=== PATIENT | female | born 1935 | race Caucasian/White ===

== ENCOUNTER 2018-08-11 10:54 | Inpatient (IN) | payer BC, MEDICARE ==
[~2018-08-11] VITALS: Ht 160 cm; Wt 73.2 kg
[2018-08-11] MEDS ORDERED: NS IV 500 ML 500 ML IV ONE (11:13)
--- NOTE | 2018-08-11 11:26 | ED General ---
General Chief Complaint: General Problems/Pain Stated Complaint: LETHARGIC;URINARY PAIN Nursing Triage Note: PT TO ROOM 5 PER W/C PT CO OF WEAKNESS, INCREASED CONFUSEION LETHARGY, NOT FEELING WELL HAS HX OF UTI Nursing Sepsis Screen: No Definite Risk Source of Information: Patient Exam Limitations: No Limitations History of Present Illness Date Seen by Provider: Aug 11, 2018 Time Seen by Provider: 11:05 Initial Comments Here with report of increasing weakness and confusion associated with lethargy. Does have history of frequent and chronic urinary tract infections. Occasionally she will get sicker and require antibiotics. She was seen by her provider earlier this week and had UA done. Results are not posted yet. Patient was getting worse and provider wanted to be seen in the emergency department. She arrives week but answering questions. Does have history of dementia and confusion. 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 No reports of vomiting but does have diarrhea. No reports of fever currently. Family reports that the patient has been eating and drinking less and sleeping more. Timing/Duration: 3-4 Days, Getting Worse Severity: Moderate Associated Systoms: No Chest Pain, No Cough, No Fever/Chills; Loss of Appetite ; No Nausea/Vomiting; Shortness of Air, Weakness Allergies and Home Medications Allergies Coded Allergies: SYLVIE Inhibitors (Verified Allergy, Unknown, 08/11/18) Penicillins (Verified Allergy, Unknown, 08/11/18) Sulfa (Sulfonamide Antibiotics) (Verified Allergy, Unknown, 08/11/18) amlodipine (Verified Allergy, Unknown, 08/11/18) ciprofloxacin (Verified Allergy, Unknown, 08/11/18) diltiazem (Verified Allergy, Unknown, 08/11/18) levofloxacin (Verified Allergy, Unknown, 08/11/18) loratadine (Verified Allergy, Unknown, 08/11/18) pseudoephedrine (Verified Allergy, Unknown, 08/11/18) simvastatin (Verified Allergy, Unknown, 08/11/18) Patient Home Medication List Home Medication List Reviewed: Yes Review of Systems Review of Systems Constitutional: see HPI; No chills, No fever EENTM: no symptoms reported Respiratory: no symptoms reported; No cough, No wheezing Cardiovascular: No chest pain, No edema Gastrointestinal: abdominal pain (suprapubic), diarrhea; No nausea, No vomiting Genitourinary: see HPI : No Musculoskeletal: no symptoms reported Skin: no symptoms reported Psychiatric/Neurological: See HPI; Denies Headache; Weakness Hematologic/Lymphatic: No Symptoms Reported All Other Systems Reviewed Negative Unless Noted: Yes Past Wlvvqhz-Wzgrdt-Czujjw Hx Past Med/Social Hx: Reviewed Nursing Past Med/Soc Hx Patient Social History Alcohol Use: Denies Use Recreational Drug Use: No Smoking Status: Never a Smoker Recent Foreign Travel: No Contact w/Someone Who Travel: No Recent Infectious Disease Expo: No Recent Hopitalizations: No Physical Abuse: No Sexual Abuse: No Seasonal Allergies Seasonal Allergies: No Past Medical History Surgeries: Yes Cardiac, Coronary Stent, Gallbladder, Nephrectomy Respiratory: No Cardiac: Yes (PACEMAKER, CHF) Hypertension Stroke Genitourinary: Yes (NEPHRECTOMY) UTI-Chronic Gastrointestinal: No Musculoskeletal: Yes Arthritis Endocrine: Yes Diabetes, Non-Insulin dep HEENT: No Cancer: No Psychosocial: No Integumentary: No Family Medical History Reviewed Nursing Family Hx Physical Exam-Suspected Sepsis Physical Exam Vital Signs Vital Signs - First Documented 08/11/18 11:00 Temp 98.4 Pulse 83 Resp 18 B/P (MAP) 175/77 (109) Pulse Ox 95 Capillary Refill : Less Than 3 Seconds Blood Pressure Mean: 109 Height, Weight, BMI Height: 5'3.00" Weight: 153lbs. oz. 69.169917jo; BMI Method:Stated General Appearance: No Apparent Distress, WD/WN HEENT: PERRL/EOMI, Pharynx Normal Neck: Non Tender, Supple Respiratory: Lungs Clear, Normal Breath Sounds Cardiovascular: No Murmur, Tachycardia Gastrointestinal: Soft, Tenderness (mild suprapubic) Back: Normal Inspection, No CVA Tenderness, No Vertebral Tenderness Extremity: Normal Inspection, Normal Range of Motion, Non Tender, No Calf Tenderness Neurologic/Psychiatric: Alert, No Motor/Sensory Deficits, Depressed Affect, Other (has chronic confusion but a little worse than baseline per the daughter) Skin: normal color, warm/dry Focused Exam Lactate Level 08/11/18 11:39: Lactic Acid Level 2.70*H 08/11/18 13:52: Lactic Acid Level Laboratory Tests Test 08/11/18 11:39 08/11/18 13:52 Lactic Acid Level 2.70 MMOL/L (0.50-2.00) *H Progress/Results/Core Measures Suspected Sepsis Recent Fever Within 48 Hours: No Infection Criteria Present: Suspected New Infection New/Unexplained Altered Menta: No Sepsis Screen: No Definite Risk SIRS Temperature:98.4 Pulse: 83 Respiratory Rate: 18 Laboratory Tests 08/11/18 11:39: White Blood Count 6.9 Blood Pressure 175 /77 Mean: 109 08/11/18 11:39: Lactic Acid Level 2.70*H 08/11/18 13:52: Laboratory Tests 08/11/18 11:39: Creatinine 1.79H, INR Comment 1.9H, Platelet Count 220, Total Bilirubin 0.5 Results/Orders Lab Results Laboratory Tests Test 08/11/18 11:30 08/11/18 11:39 08/11/18 13:52 Range/Units Urine Color YELLOW Urine Clarity VERY CLOUDY H Urine pH 6 5-9 Urine Specific [place] 1.020 1.016-1.022 Urine Protein 4+ NEGATIVE Urine Glucose (UA) 2+ H NEGATIVE Urine Ketones NEGATIVE NEGATIVE Urine Nitrite POSITIVE H NEGATIVE Urine Bilirubin NEGATIVE NEGATIVE Urine Urobilinogen NORMAL NORMAL MG/DL Urine Leukocyte Esterase 3+ H NEGATIVE Urine RBC (Auto) 5+ H NEGATIVE Urine RBC TNTC H /HPF Urine WBC TNTC H /HPF Urine Crystals NONE /LPF Urine Bacteria LARGE H /HPF Urine Casts NONE /LPF Urine Mucus NEGATIVE /LPF Urine Culture Indicated YES White Blood Count 6.9 4.3-11.0 10^3/uL Red Blood Count 4.17 L 4.35-5.85 10^6/uL Hemoglobin 11.9 11.5-16.0 G/DL Hematocrit 36 35-52 % Mean Corpuscular Volume 85 80-99 FL Mean Corpuscular Hemoglobin 29 25-34 PG Mean Corpuscular Hemoglobin Concent 33 32-36 G/DL Red Cell Distribution Width 13.7 10.0-14.5 % Platelet Count 220 130-400 10^3/uL Mean Platelet Volume 11.6 H 7.4-10.4 FL Neutrophils (%) (Auto) 79 H 42-75 % Lymphocytes (%) (Auto) 10 L 12-44 % Monocytes (%) (Auto) 11 0-12 % Eosinophils (%) (Auto) 0 0-10 % Basophils (%) (Auto) 0 0-10 % Neutrophils # (Auto) 5.4 1.8-7.8 X 10^3 Lymphocytes # (Auto) 0.7 L 1.0-4.0 X 10^3 Monocytes # (Auto) 0.7 0.0-1.0 X 10^3 Eosinophils # (Auto) 0.0 0.0-0.3 10^3/uL Basophils # (Auto) 0.0 0.0-0.1 10^3/uL Prothrombin Time 22.2 H 12.2-14.7 SEC INR Comment 1.9 H 0.8-1.4 Activated Partial Thromboplast Time 45 H 24-35 SEC Sodium Level 135 135-145 MMOL/L Potassium Level 4.2 3.6-5.0 MMOL/L Chloride Level 100 98-107 MMOL/L Carbon Dioxide Level 24 21-32 MMOL/L Anion Gap 11 5-14 MMOL/L Blood Urea Nitrogen 16 7-18 MG/DL Creatinine 1.79 H 0.60-1.30 MG/DL Estimat Glomerular Filtration Rate 27 BUN/Creatinine Ratio 9 Glucose Level 244 H 70-105 MG/DL Lactic Acid Level 2.70 *H 0.50-2.00 MMOL/L Calcium Level 9.1 8.5-10.1 MG/DL Corrected Calcium 9.7 8.5-10.1 MG/DL Total Bilirubin 0.5 0.1-1.0 MG/DL Aspartate Amino Transf (AST/SGOT) 22 5-34 U/L Alanine Aminotransferase (ALT/SGPT) 16 0-55 U/L Alkaline Phosphatase 51 40-136 U/L Total Protein 6.3 L 6.4-8.2 GM/DL Albumin 3.3 3.2-4.5 GM/DL Micro Results Microbiology 08/11/18 Influenza Types A,B Antigen (JESUS ALBERTO) - Final, Complete My Orders Orders - ERIN VILLARREAL MD Cbc With Automated Diff (08/11/18 11:13) Comprehensive Metabolic Panel (08/11/18 11:13) Blood Culture (08/11/18 11:13) Sputum Culture (08/11/18 11:13) Urinalysis (08/11/18 11:13) Urine Culture (08/11/18 11:13) Protime With Inr (08/11/18 11:13) Partial Thromboplastin Time (08/11/18 11:13) Chest 1 View, Ap/Pa Only (08/11/18 11:13) Saline Lock/Iv-Start (08/11/18 11:13) Vital Signs Adult Sepsis Patie Q15M (08/11/18 11:13) Remove Rings In Anticipation O (08/11/18 11:13) Lactic Acid Analyzer (08/11/18 11:13) Influenza A And B Antigens (08/11/18 11:13) Saline Lock/Iv-Start (08/11/18 11:13) Ns Iv 500 Ml (Sodium Chloride 0.9%) (08/11/18 11:13) Ceftriaxone For Iv Use (Rocephin For I (08/11/18 13:45) Medications Given in ED Current Medications Medications Dose Ordered Sig/Fransisco Route Start Time Stop Time Status Last Admin Dose Admin Ceftriaxone Sodium 1000 mg/ Sterile Water 10 ml @ 200 mls/hr ONCE ONCE IV 08/11/18 13:45 08/11/18 13:47 DC 08/11/18 13:47 200 MLS/HR Sodium Chloride 500 ml @ 0 mls/hr Q0M ONCE IV 08/11/18 11:13 08/11/18 11:18 DC 08/11/18 11:44 500 MLS/HR Vital Signs/I&O 08/11/18 11:00 Temp 98.4 Pulse 83 Resp 18 B/P (MAP) 175/77 (109) Pulse Ox 95 Capillary Refill : Less Than 3 Seconds Blood Pressure Mean: 109 Progress Note : Progress Note Seen and evaluated. IV, labs, UA, blood cultures, lactic acid, chest x-ray ordered. Normal saline 500 mL bolus. Monitor patient.1335: Discussed with Dr Lopez regarding admit. She accepts patient for admit. Rocephine 1 gram IV now. Will continue fluids and sliding scale insulin. Discussed with family who agrees with plan. Diagnostic Imaging Diagonstic Imaging: Xray Plain Films/CT/US/NM/MRI: chest Comments [facility], [place] NAME: JUAN HURT Fran [facility] REC#: [id number] PT STATUS: REG ER : 1935 PHYSICIAN: ERIN VILLARREAL MD ADMIT DATE: 08/11/18/ER Draft Date of Exam:08/11/18 CHEST 1 VIEW, AP/PA ONLY INDICATION: Weakness and increasing confusion. TIME OF EXAM: 11:43 a.m. COMPARISON: No prior studies are available for comparison. FINDINGS: The heart is mildly enlarged. A dual-lead left subclavian cardiac pacer is in place. Lungs are clear. There is no infiltrate or failure detected. No effusion or pneumothorax is seen. IMPRESSION: No acute cardiopulmonary process is detected. Dictated on workstation # [id number] Dict: 08/11/18 1153 Trans: 08/11/18 1157 [id number] Interpreted by: CARLO STRAUSS MD Electronically signed by: Departure Communication (Admissions) Time/Spoke to Admitting Phy: 13:35 Impression Primary Impression: Urinary tract infection Qualified Codes: N30.00 - Acute cystitis without hematuria Additional Impression: Sepsis Qualified Codes: A41.9 - Sepsis, unspecified organism Disposition: ADMITTED INPATIENT Condition: Stable Admissions Decision to Admit Reason: Admit from ER (General) Decision to Admit/Date: Aug 11, 2018 Time/Decision to Admit Time: 13:35 ERIN VILLARREAL MD Aug 11, 2018 11:26
--- NOTE | 2018-08-11 11:30 | NUR ---
SEE LIST FOR CURRENT MEDS
[2018-08-11 11:51] LABS: BASOPHILS % (AUTO) 0 % (0-10); EOSINOPHILS % (AUTO) 0 % (0-10); HEMATOCRIT 36 % (35-52); HEMOGLOBIN 11.9 G/DL (11.5-16.0); LYMPHOCYTES # (AUTO) 0.7 X 10^3 (1.0-4.0); LYMPHOCYTES % (AUTO) 10 % (12-44); MEAN CORPUSCULAR HEMOGLOBIN 29 PG (25-34); MEAN CORPUSCULAR HGB CONC 33 G/DL (32-36); MEAN CORPUSCULAR VOLUME 85 FL (80-99); MEAN PLATELET VOLUME 11.6 FL (7.4-10.4); MONOCYTES # (AUTO) 0.7 X 10^3 (0.0-1.0); MONOCYTES % (AUTO) 11 % (0-12); NEUTROPHILS # (AUTO) 5.4 X 10^3 (1.8-7.8); NEUTROPHILS % (AUTO) 79 % (42-75); PLATELET COUNT 220 10^3/uL (130-400); RED CELL DISTRIBUTION WIDTH 13.7 % (10.0-14.5); WHITE BLOOD COUNT 6.9 10^3/uL (4.3-11.0)
[2018-08-11 11:51] LABS: BILIRUBIN,URINE NEGATIVE (NEGATIVE); CLARITY,URINE VERY CLOUDY; COLOR,URINE YELLOW; GLUCOSE, URINE (UA) 2+ (NEGATIVE); KETONES,URINE NEGATIVE (NEGATIVE); LEUKOCYTE ESTERASE ,URINE 3+ (NEGATIVE); NITRITE,URINE POSITIVE (NEGATIVE); PH,URINE 6 (5-9); PROTEIN,URINE 4+ (NEGATIVE); UROBILINOGEN,URINE NORMAL (NORMAL)
--- NOTE | 2018-08-11 11:58 | Diagnostic Imaging Report ---
INDICATION: Weakness and increasing confusion. TIME OF EXAM: 11:43 a.m. COMPARISON: No prior studies are available for comparison. FINDINGS: The heart is mildly enlarged. A dual-lead left subclavian cardiac pacer is in place. Lungs are clear. There is no infiltrate or failure detected. No effusion or pneumothorax is seen. IMPRESSION: No acute cardiopulmonary process is detected. Dictated by: Dictated on workstation # [id number]
[2018-08-11 12:04] LABS: INR 1.9 (0.8-1.4); PROTHROMBIN TIME PATIENT 22.2 SEC (12.2-14.7)
--- NOTE | 2018-08-11 12:10 | NUR ---
lactic acid 2.7 reported to TIM WASHINGTONP
[2018-08-11 12:11] LABS: ALBUMIN 3.3 GM/DL (3.2-4.5); BILIRUBIN,TOTAL 0.5 MG/DL (0.1-1.0); CALCIUM 9.1 MG/DL (8.5-10.1); CREATININE SERUM 1.79 MG/DL (0.60-1.30); POTASSIUM 4.2 MMOL/L (3.6-5.0); TOTAL PROTEIN 6.3 GM/DL (6.4-8.2)
[2018-08-11 12:26] LABS: BACTERIA,URINE LARGE /HPF; RBC,URINE TNTC /HPF; WBC,URINE TNTC /HPF
[2018-08-11] MEDS ORDERED: cefTRIAXone FOR IV USE 1,000 MG in WATER (STERILE) FOR INJECTION 10 ML IV ONE (13:45)
--- NOTE | 2018-08-11 14:02 | NUR ---
DR MARS HERE TO SEE PT
--- NOTE | 2018-08-11 14:33 | History & Physical-Hospitalist ---
History of Present Illness HPI/Chief Complaint Pt is an 83yoCF with a PMH chronic UTI, CKD, JOSH s/p nephrectomy, NIDDMII, paroxysmal AF who presented to the ER due to confusion. She is unable to provide me her history as she is pleasantly confused. Her daughter is at bedside who provides her history. She says pt is normally oriented to person and place. On 08/09 she started to get more confused which is typical when she has a UTI. They brought her to her doctor (Dr Acuna) who checked her urine but did not start her on antibiotics yet. Last night she became very weak and even more confused. She wouldn't eat and developed diarrhea. Her daughter called her doctor's office this morning who recommended evaluation in the ER given her worsening. Here she was found to have severe sepsis from UTI and admitted for further management. Source: patient Date Seen 08/11/18 Time Seen by a Provider: 14:26 Attending Physician Maxine Mars MD PCP Dr Alejandra Acuna Referring Physician Date of Admission Aug 11, 2018 at 14:02 Home Medications & Allergies Home Medications Reviewed patient Home Medication Reconciliation performed by pharmacy medication reconciliations coroner forensic technician and/or nursing. Patients Allergies have been reviewed. Allergies Allergies Coded Allergies SYLVIE Inhibitors (Verified Allergy, Unknown, 08/11/18) Penicillins (Unverified Allergy, Unknown, Pt has received Ancef in the past, ) Sulfa (Sulfonamide Antibiotics) (Verified Allergy, Unknown, 08/11/18) amlodipine (Verified Allergy, Unknown, 08/11/18) ciprofloxacin (Verified Allergy, Unknown, 08/11/18) diltiazem (Verified Allergy, Unknown, 08/11/18) levofloxacin (Verified Allergy, Unknown, 08/11/18) loratadine (Verified Allergy, Unknown, 08/11/18) pseudoephedrine (Verified Allergy, Unknown, 08/11/18) simvastatin (Verified Allergy, Unknown, 08/11/18) Past Nzodkqk-Absxxk-Cvddpx Hx Past Med/Social Hx: Reviewed Nursing Past Med/Soc Hx Patient Social History Marrital Status: Employed/Student: retired Alcohol Use: Denies Use Recreational Drug Use: No Smoking Status: Never a Smoker Recent Foreign Travel: No Contact w/other who traveled: No Recent Hopitalizations: No Recent Infectious Disease Expo: No Seasonal Allergies Seasonal Allergies: No Past Medical History Surgeries: Cardiac, Coronary Stent, Gallbladder, Nephrectomy Cardiac: Cardiomyopathy (diastolic), Hypertension, Valvular Heart Disease ( mitral regurgitation) Neurological: Dementia, Stroke Genitourinary: Renal Failure (CKD stage 3), UTI-Chronic JOSH s/p nephrectomy Musculoskeletal: Arthritis Endocrine: Diabetes, Non-Insulin dep Family History Reviewed Nursing Family Hx No Pertinent Family Hx Review of Systems Constitutional: No chills, No fever; weakness EENTM: no symptoms reported Respiratory: no symptoms reported Cardiovascular: no symptoms reported Gastrointestinal: diarrhea Genitourinary: see HPI, frequency Musculoskeletal: No back pain Skin: no symptoms reported Psychiatric/Neurological: No Symptoms Reported Physical Exam Physical Exam Vital Signs Vital Signs - First Documented 08/11/18 08/11/18 11:00 14:35 Temp 98.4 Pulse 83 Resp 18 B/P (MAP) 175/77 (109) Pulse Ox 95 O2 Delivery Room Air Capillary Refill : Less Than 3 Seconds Height, Weight, BMI Height: 5'3.00" Weight: 153lbs. oz. 69.863591cs; BMI Method:Stated General Appearance: No Apparent Distress, Chronically ill HEENT: PERRL/EOMI, Moist Mucous Membranes; No Scleral Icterus (L), No Scleral Icterus (R) Neck: Normal Inspection, Supple Respiratory: Lungs Clear, No Accessory Muscle Use, No Respiratory Distress Cardiovascular: Regular Rate, Rhythm, No JVD, No Murmur Gastrointestinal: Normal Bowel Sounds, Non Tender, Soft Genital/Rectal: Other (suprapubic tenderness) Extremity: Normal Capillary Refill, No Calf Tenderness, No Pedal Edema Neurologic/Psychiatric: Alert, Disoriented (oriented to self) Skin: Normal Color, Warm/Dry; No Mottled Results Results/Procedures Labs Laboratory Tests 08/11/18 11:39 08/12/18 05:20 Patient resulted labs reviewed. Imaging: Reviewed Imaging Report Assessment/Plan Admission Diagnosis Severe Sepsis Admission Status: Inpatient Order (span 2 midnights) Reason for Inpatient Admission: Lactic acidosis, needs IV abx, given multiple comorbidities will need greater than 2 midnights to stabilize for DC Diagnosis/Problems Diagnosis/Problems (1) Severe sepsis Assessment & Plan: From UTI with lactic acidosis Cultures pending Continue Rocephin Repeat lactic acid pending No hypotension- no need for 30cc/kg bolus (2) Urinary tract infection Status: Acute Assessment & Plan: Abx as above Qualifiers: Urinary tract infection type: acute cystitis Hematuria presence: without hematuria Qualified Codes: N30.00 - Acute cystitis without hematuria (3) CKD (chronic kidney disease) Assessment & Plan: Appears to be near baseline per records from daughter Continue IVF Trend Avoid nephrotoxic dugs as able Qualifiers: Chronic kidney disease stage: stage 3 (moderate) Qualified Codes: N18.3 - Chronic kidney disease, stage 3 (moderate) (4) Dementia Status: Chronic Assessment & Plan: At baseline oriented to person and place Reorient as needed Qualifiers: Dementia type: unspecified type Dementia behavioral disturbance: without behavioral disturbance Qualified Codes: F03.90 - Unspecified dementia without behavioral disturbance (5) Non-insulin dependent type 2 diabetes mellitus Assessment & Plan: SSI (6) Essential (primary) hypertension Assessment & Plan: BP elevated on arrival but improved when I was in room Trend (7) Diastolic CHF Status: Chronic Assessment & Plan: No evidence of acute heart failure Qualifiers: Heart failure chronicity: chronic Qualified Codes: I50.32 - Chronic diastolic (congestive) heart failure (8) Atrial fibrillation Assessment & Plan: Rate controlled On Warfarin for anticoagulation Qualifiers: Atrial fibrillation type: paroxysmal Qualified Codes: I48.0 - Paroxysmal atrial fibrillation MAXINE MARS MD Aug 11, 2018 14:33
[2018-08-11 14:35] VITALS: BP 155/72
[2018-08-11] MEDS ORDERED: CATHETER FLUSH 10 ML SYR IV PRN (14:45)
[2018-08-11] MEDS ORDERED: OMEP20CA12 PO (14:52)
[2018-08-11] MEDS ORDERED: ATOR10TA66 PO (14:52)
[2018-08-11] MEDS: NS IV 1000 ML 1,000 ML IV SCH (14:52)
[2018-08-11] MEDS ORDERED: CLOP75TA28 PO (14:52)
[2018-08-11] MEDS ORDERED: AMLO5TAB9 PO (14:52)
[2018-08-11] MEDS ORDERED: FURO20TA4 PO (14:52)
[2018-08-11] MEDS ORDERED: SOTA80TA PO (14:52)
[2018-08-11] MEDS ORDERED: POTA20TA15 PO (14:52)
[2018-08-11] MEDS ORDERED: ISM60TCR PO (14:52)
[2018-08-11] MEDS ORDERED: ASPI-983 PO (15:02)
[2018-08-11] MEDS ORDERED: DIGO125T18 PO (15:02)
[2018-08-11] MEDS ORDERED: CNC1KV IM (15:02)
[2018-08-11] MEDS ORDERED: MAGN400T39 PO (15:02)
[2018-08-11] MEDS ORDERED: C250T PO (15:02)
[2018-08-11] MEDS ORDERED: WARF-47 PO (15:02)
[2018-08-11] MEDS ORDERED: CALC1TAB94 PO (15:02)
[2018-08-11] MEDS ORDERED: LABE100T6 PO (15:02)
[2018-08-11] MEDS ORDERED: SITA50TA PO (15:02)
--- NOTE | 2018-08-11 15:05 | NUR ---
PATIENTS FAMILY HAD A LIST OF MEDICATION NAMES AND STRENGTHS BUT NO FREQUENCIES. I WENT OVER THE LIST WITH HER DAUGHTER WHO VERIFIED THE FREQUENCIES AND I COMPARED WITH WHAT HAS BEEN FILLED ACCORDING TO THE EXT MED HX. HER LABETALOL WAS FILLED #360 FOR A 90 DAY SUPPLY HOWEVER DAUGHTER STATES SHE ONLY TAKES 1 TAB BID. SHE RECEIVES THE JANUVIA 50MG BY MAIL THROUGH A [facility], DAUGHTER STATES THEY TAKE 1/2 TAB DAILY. IN ADDITION TO WHAT IS SHOWN ON THE EXT MED HX THEY REPORT SHE TAKES B12 INJECTIONS ONCE MONTHLY, AND MAG 400MG BID. HER CURRENT WARFARIN DOSE IS 3MG EVERY OTHER DAY ALTERNATING WITH 3.5MG SHE TAKES HER DIGOXIN EVERY OTHER DAY, SHE IS NOT SURE WHAT DAY SHE TOOK IT LAST. OTC MEDS: CALCIUM +D HS ASPIRIN 81MG DAILY VITAMIN C DAILY
[2018-08-11] MEDS ORDERED: warFARin 2 MG (COUMADIN) TAB PO SCH ×2 (16:00)
[2018-08-11 16:47] VITALS: BP 155/72
[2018-08-11] MEDS: LACTOBACILLUS ACIDOPHILUS (PROBIOTIC) CAPSULE PO SCH (17:51)
[2018-08-11] MEDS: warFARin 2 MG (COUMADIN) TAB PO SCH (17:52)
[2018-08-11 20:00] VITALS: BP 169/72
[2018-08-11] MEDS: inSUlin ASPART (NovoLOG) 1 UNIT/0.01 ML (CHARGE PER UNIT) SC SCH (20:52)
[2018-08-11] MEDS: LABETALOL 200 MG (NORMODYNE) TAB PO SCH (20:53)
[2018-08-11] MEDS: SOTALOL 80 MG (BETAPACE) TAB PO SCH (20:53)
[2018-08-11] MEDS: PANTOPRAZOLE 20 MG TABLET (PROTONIX) PO SCH (20:53)
[2018-08-11] MEDS: ATORVASTATIN 10 MG (LIPITOR) TABLET PO SCH (20:54)
[2018-08-11] MEDS ORDERED: NON-FORMULARY MEDICATION 1 EA EA (Sotalol HCl (Sotalol) 80 MG) PO SCH (21:00)
[2018-08-11] MEDS ORDERED: NON-FORMULARY MEDICATION 1 EA EA (Labetalol HCl 100 MG) PO SCH (21:00)
[2018-08-11] MEDS ORDERED: OMEPRAZOLE 20 MG (PriLOSEC) CAP NON-FORMULARY PO SCH (21:00)
[2018-08-12] VITALS (7 sets, daily range): BP systolic 144–186; BP diastolic 70–84
[2018-08-12] MEDS: NS IV 1000 ML 1,000 ML IV SCH ×2 (03:54→17:42)
[2018-08-12 05:46] LABS: BASOPHILS % (AUTO) 0 % (0-10); EOSINOPHILS # (AUTO) 0.2 10^3/uL (0.0-0.3); EOSINOPHILS % (AUTO) 2 % (0-10); HEMATOCRIT 33 % (35-52); HEMOGLOBIN 10.5 G/DL (11.5-16.0); LYMPHOCYTES # (AUTO) 0.9 X 10^3 (1.0-4.0); LYMPHOCYTES % (AUTO) 14 % (12-44); MEAN CORPUSCULAR HEMOGLOBIN 27 PG (25-34); MEAN CORPUSCULAR HGB CONC 32 G/DL (32-36); MEAN CORPUSCULAR VOLUME 87 FL (80-99); MEAN PLATELET VOLUME 11.6 FL (7.4-10.4); MONOCYTES # (AUTO) 0.8 X 10^3 (0.0-1.0); MONOCYTES % (AUTO) 12 % (0-12); NEUTROPHILS # (AUTO) 4.6 X 10^3 (1.8-7.8); NEUTROPHILS % (AUTO) 72 % (42-75); PLATELET COUNT 180 10^3/uL (130-400); RED CELL DISTRIBUTION WIDTH 13.5 % (10.0-14.5); WHITE BLOOD COUNT 6.5 10^3/uL (4.3-11.0)
[2018-08-12 06:24] LABS: ALBUMIN 2.9 GM/DL (3.2-4.5); BILIRUBIN,TOTAL 0.2 MG/DL (0.1-1.0); CALCIUM 8.5 MG/DL (8.5-10.1); CREATININE SERUM 1.5 MG/DL (0.60-1.30); POTASSIUM 3.7 MMOL/L (3.6-5.0); TOTAL PROTEIN 5.6 GM/DL (6.4-8.2)
[2018-08-12] MEDS: inSUlin ASPART (NovoLOG) 1 UNIT/0.01 ML (CHARGE PER UNIT) SC SCH ×4 (06:35→19:53)
[2018-08-12] MEDS: LACTOBACILLUS ACIDOPHILUS (PROBIOTIC) CAPSULE PO SCH ×3 (06:36→17:42)
[2018-08-12] MEDS: PANTOPRAZOLE 20 MG TABLET (PROTONIX) PO SCH ×2 (06:36→20:21)
[2018-08-12] MEDS ORDERED: NON-FORMULARY MEDICATION 1 EA EA (Amlodipine Besylate 5 MG) PO SCH (09:00)
[2018-08-12] MEDS: cefTRIAXone 1,000 MG/SWFI 10 ML IV PUSH IV SCH ×2 (09:39)
[2018-08-12] MEDS: amLODIPine 5 MG (NORVASC) TAB PO SCH (09:40)
[2018-08-12] MEDS: ISOSORBIDE MONONITRATE 60 MG (IMDUR) TAB PO SCH (09:40)
[2018-08-12] MEDS: DIGOXIN 0.125 MG (LANOXIN) TAB PO SCH (09:40)
[2018-08-12] MEDS: CLOPIDOGREL 75 MG (PLAVIX) TABLET PO SCH (09:40)
[2018-08-12] MEDS: ASPIRIN E.C. 81 MG (ECOTRIN) TAB PO SCH (09:40)
[2018-08-12] MEDS: LABETALOL 200 MG (NORMODYNE) TAB PO SCH ×2 (09:40→20:21)
[2018-08-12] MEDS: SOTALOL 80 MG (BETAPACE) TAB PO SCH ×2 (09:40→20:21)
--- NOTE | 2018-08-12 11:00 | NUR ---
Initial visit with pt and her . was observed pulling the easy chair with breaks on and appeared to be at risk of fall. I introduced myself and offered assistance by situating the chair next to pt's bed per his request. Pt's was safely seated throughout the remainder of our visit. Pt pleasantly confused, states she is Gnosticism and appreciates prayer. Pt shared she is having difficulty breathing. Relayed this to JELANI Granados.
--- NOTE | 2018-08-12 14:10 | NUR ---
CM/SS, initial interview. Patient resides home with her spouse, Renaldo Patricia. They have 6 children between them, 3 each prior to their marriage. The majority of the children/grandchildren reside in the [facility] area, son Ghulam Bunch is here with Renaldo today. Patient was employed at [employer] for 47 years, retired and no longer drives. EMR reflects history of dementia and confusion. She does appear a bit disconnected today, may be worsened due to UTI/sepsis. DME: Patient has a walker at home to use as needed. HHC: May benefit from HHC depending on condition when stable for discharge home depending on physician care plan for continued recovery. They reside in [facility]. Addendum: 08/12/18 at 1431 by ANGELO PADILLA Manuela Michelle [facility] [phone] Ghulam Bunch, Son [facility] [phone] Renaldo Patricia, Spouse [facility]
--- NOTE | 2018-08-12 15:31 | Progress Note-Hospitalist ---
Subjective HPI/CC On Admission Date Seen by Provider: Aug 12, 2018 Time Seen by Provider: 14:15 Pt is an 83yoCF with a PMH chronic UTI, CKD, JOSH s/p nephrectomy, NIDDMII, paroxysmal AF who presented to the ER due to confusion. She is unable to provide me her history as she is pleasantly confused. Her daughter is at bedside who provides her history. She says pt is normally oriented to person and place. On 08/09 she started to get more confused which is typical when she has a UTI. They brought her to her doctor (Dr Acuna) who checked her urine but did not start her on antibiotics yet. Last night she became very weak and even more confused. She wouldn't eat and developed diarrhea. Her daughter called her doctor's office this morning who recommended evaluation in the ER given her worsening. Here she was found to have severe sepsis from UTI and admitted for further management. Subjective/Events-last exam Pt reports still feeling poorly. Does not remember much of yesterday. No specific complaints though. Focused Exam Lactate Level 08/11/18 11:39: Lactic Acid Level 2.70*H 08/11/18 13:52: Lactic Acid Level 2.20*H Objective Exam Vital Signs Vital Signs Date Time Temp Pulse Resp B/P (MAP) Pulse Ox O2 Delivery O2 Flow Rate FiO2 08/12/18 12:00 97.2 77 20 144/70 (94) 96 Room Air Capillary Refill : Less Than 3 Seconds General Appearance: No Apparent Distress, Chronically ill HEENT: No Scleral Icterus (L), No Scleral Icterus (R) Respiratory: Lungs Clear, No Accessory Muscle Use, No Respiratory Distress Cardiovascular: Regular Rate, Rhythm, No JVD, No Murmur Gastrointestinal: Normal Bowel Sounds, Non Tender, Soft Genital/Rectal: Other (suprapubic tenderness) Extremity: No Pedal Edema Neurologic/Psychiatric: Alert, Disoriented (oriented to self and place) Skin: Normal Color, Warm/Dry Results/Procedures Lab Laboratory Tests 08/12/18 05:20 Patient resulted labs reviewed. Imaging: Reviewed Imaging Report Assessment/Plan Assessment and Plan Assess & Plan/Chief Complaint Severe Sepsis Diagnosis/Problems Diagnosis/Problems (1) Severe sepsis Assessment & Plan: Severe aspect resolved Await cultures Continue Rocephin (2) Urinary tract infection Status: Acute Assessment & Plan: Abx as above Qualifiers: Urinary tract infection type: acute cystitis Hematuria presence: without hematuria Qualified Codes: N30.00 - Acute cystitis without hematuria (3) CKD (chronic kidney disease) Assessment & Plan: Stable Continue IVF Trend Avoid nephrotoxic dugs as able Qualifiers: Chronic kidney disease stage: stage 3 (moderate) Qualified Codes: N18.3 - Chronic kidney disease, stage 3 (moderate) (4) Dementia Status: Chronic Assessment & Plan: At baseline oriented to person and place Reorient as needed Qualifiers: Dementia type: unspecified type Dementia behavioral disturbance: without behavioral disturbance Qualified Codes: F03.90 - Unspecified dementia without behavioral disturbance (5) Non-insulin dependent type 2 diabetes mellitus Assessment & Plan: SSI Mildly elevated, trend (6) Essential (primary) hypertension Assessment & Plan: Continue on home regimen BP well controlled for age (7) Diastolic CHF Status: Chronic Assessment & Plan: No evidence of acute heart failure Qualifiers: Heart failure chronicity: chronic Qualified Codes: I50.32 - Chronic diastolic (congestive) heart failure (8) Atrial fibrillation Assessment & Plan: Rate controlled On Warfarin for anticoagulation Check INR in AM Qualifiers: Atrial fibrillation type: paroxysmal Qualified Codes: I48.0 - Paroxysmal atrial fibrillation Clinical Quality Measures DVT/VTE Risk/Contraindication: Risk Factor Score Per Nursin RFS Level Per Nursing on Admit: 3=High MAXINE MARS MD Aug 12, 2018 15:31
--- NOTE | 2018-08-12 15:55 | Physical Therapy Evaluation ---
PT Evaluation-General Medical Diagnosis Admission Date Aug 11, 2018 at 14:02 Medical Diagnosis: UTI/sepsis Onset Date: Aug 11, 2018 Therapy Diagnosis Therapy Diagnosis: debility Height/Weight Height (Feet): 5 Height (Inches): 3.00 Weight (Pounds): 161 Weight (Ounces): 7.0 Precautions Precautions/Isolations: Standard Precautions Weight Bear Status Right Lower Extremity: Right Weight Bearing/Tolerated Left Lower Extremity: Left Weight Bearing/Tolerated Referral Physician: John Reason for Referral: Evaluation/Treatment Medical History Pertinent Medical History: DM, Dementia, HTN Current History ED secondary to failed conservative treatment for UTI Reviewed History: Yes Social History Home: Single Level Current Living Status: Spouse Prior/Core FIM Prior Level of Function Therapy Code Descriptions/Definitions Functional [place] Measure: 0=Not Assessed/NA 4=Minimal Assistance 1=Total Assistance 5=Supervision or Setup 2=Maximal Assistance 6=Modified [place] 3=Moderate Assistance 7=Complete [place] Therapy Quality Codes: 6 Independent with activity with or without an assistive device 5 Patient requires set up or clean up by helper. Patient completes activity by themselves 4 Supervision or touching assist (CGA). [place] provide cues , steadying assist 3 The helper provides less than half the effort to complete the activity 2 The helper provides more than half the effort to complete the activity 1 Dependent. The helper does all the effort to complete an activity 7 Patient refused to complete or attempt activity 9 The patient did not perform the activity before the current illness or injury 88 Not attempted due to Medical conditions or safety concerns Functional Abilities and Goals: Independent: Patient completed the activities by him/herself, with or without an assistive device, with no assistance from a helper. Needed Some Help: Patient needed partial assistance from another person to complete activities. Dependent: A helper completed the activities for the patient. Unknown: Not Applicable: Bed Mobility: 6 Transfers (B,C,W/C) (FIM): 6 Gait: 6 Indoor Mobility (Ambulation): Independent Stairs: Independent Prior Devices Use: Walker Prior Device Use: 4WW PT Evaluation-Current Subjective Patient and spouse agree to PT. Patient reports she is feeling better. Objective Patient Orientation: Person, Time, Situation Problem Solving: Fair Attachments: IV ROM/Strength ROM Lower Extremities bilateral LE WFL Strength Lower Extremities 4-/5 grossly bilaterally Integumentary/Posture Integumentary refer to nursing notes Bowel Incontinence: No Bladder Incontinence: Yes Posture WFL Neuromuscular (Tone, Coordination, Reflexes) grossly intact Sensory Vision: Functional Hearing: Functional Sensation Right Lower Extremit: Impaired Sensation Left Lower Extremity: Impaired Transfers Therapy Code Descriptions/Definitions Functional [place] Measure: 0=Not Assessed/NA 4=Minimal Assistance 1=Total Assistance 5=Supervision or Setup 2=Maximal Assistance 6=Modified [place] 3=Moderate Assistance 7=Complete [place] Transfers (B, C, W/C) (FIM): 5 Scootin Rollin Supine to/from Sit: 6 Sit to/from Stand: 5 Gait Mode of Locomotion: Walk Anticipated Mode of Locomotion: Walk Gait (FIM): 5 Distance (FIM): 3=150 ft Distance: 300' Gait Level of Assist: 5 Gait Assistive Device: FWW Comments/Gait Description steady gait sequence/safe and functional Balance Sitting Static: Normal Sitting Dynamic: Normal Standing Static: Normal Standing Dynamic: Normal Assessment/Needs 83 y.o. female, will be seen x 2 sessions to ensure safe functional mobility to return to home with spouse at maximum LOF. Patient demonstrates SBA to modified independent LOF with all gross motor skills currently. Rehab Potential: Fair PT Short Term Goals Short Term Goals Time Frame: Aug 13, 2018 Transfers (B,C,W/C) (FIM): 6 Gait (FIM): 6 Distance (FIM): 3=150 ft Gait Distance Comment: 300' Gait Level of Assist: 6 Gait Assistive Device: FWW PT Plan Treatment/Plan Treatment Plan: Continue Plan of Care Treatment Plan: Education, Functional Activity Nina, Functional Strength, Gait , Safety, Therapeutic Exercise, Transfers Treatment Duration: Aug 13, 2018 Frequency: 2 times per week Estimated Hrs Per Day: .25 hour per day Patient and/or Family Agrees t: Yes Discharge Recommendations Therapy D/C Recommendations: Home w/ Family Support Time/GCodes Time In: 1533 Time Out: 1544 Total Billed Treatment Time: 11 Total Billed Treatment 1 visit EVLow 11 min BEBETO JARRELL PT Aug 12, 2018 15:55
[2018-08-12] MEDS ORDERED: warFARin 1 MG (COUMADIN) TAB PO SCH (18:00)
[2018-08-12] MEDS: ATORVASTATIN 10 MG (LIPITOR) TABLET PO SCH (20:21)
[2018-08-12] MEDS ORDERED: ALPRAZolam 0.25 MG (XANAX) TAB ONE (22:31)
--- NOTE | 2018-08-12 22:38 | NUR ---
PT'S DAUGHTER REQUESTING MEDICATION TO HELP PATIENT SLEEP. DR. ROY NOTIFIED, NEW ORDERS RECEIVED: XANAX 0.25MG PO ONCE
[2018-08-12] MEDS ORDERED: ALPRAZolam 0.25 MG (XANAX) TAB PO ONE (22:45)
[2018-08-13] MEDS: inSUlin ASPART (NovoLOG) 1 UNIT/0.01 ML (CHARGE PER UNIT) SC SCH ×4 (05:33→20:16)
[2018-08-13] MEDS: PANTOPRAZOLE 20 MG TABLET (PROTONIX) PO SCH ×2 (05:34→20:33)
[2018-08-13] MEDS: LACTOBACILLUS ACIDOPHILUS (PROBIOTIC) CAPSULE PO SCH ×3 (05:34→17:28)
[2018-08-13 06:07] LABS: BASOPHILS % (AUTO) 0 % (0-10); EOSINOPHILS # (AUTO) 0.2 10^3/uL (0.0-0.3); EOSINOPHILS % (AUTO) 3 % (0-10); HEMATOCRIT 33 % (35-52); HEMOGLOBIN 10.4 G/DL (11.5-16.0); LYMPHOCYTES # (AUTO) 1.1 X 10^3 (1.0-4.0); LYMPHOCYTES % (AUTO) 20 % (12-44); MEAN CORPUSCULAR HEMOGLOBIN 27 PG (25-34); MEAN CORPUSCULAR HGB CONC 32 G/DL (32-36); MEAN CORPUSCULAR VOLUME 87 FL (80-99); MEAN PLATELET VOLUME 11.7 FL (7.4-10.4); MONOCYTES # (AUTO) 0.7 X 10^3 (0.0-1.0); MONOCYTES % (AUTO) 13 % (0-12); NEUTROPHILS # (AUTO) 3.4 X 10^3 (1.8-7.8); NEUTROPHILS % (AUTO) 63 % (42-75); PLATELET COUNT 170 10^3/uL (130-400); RED CELL DISTRIBUTION WIDTH 13.6 % (10.0-14.5); WHITE BLOOD COUNT 5.4 10^3/uL (4.3-11.0)
[2018-08-13 06:16] LABS: PROTHROMBIN TIME PATIENT 23.2 SEC (12.2-14.7)
[2018-08-13 06:17] LABS: CALCIUM 8.4 MG/DL (8.5-10.1); CREATININE SERUM 1.33 MG/DL (0.60-1.30); POTASSIUM 3.4 MMOL/L (3.6-5.0)
[2018-08-13] MEDS: NS IV 1000 ML 1,000 ML IV SCH (06:45)
[2018-08-13 08:00] VITALS: BP 177/87
[2018-08-13] MEDS: SOTALOL 80 MG (BETAPACE) TAB PO SCH ×2 (08:45→20:33)
[2018-08-13] MEDS: amLODIPine 5 MG (NORVASC) TAB PO SCH (08:45)
[2018-08-13] MEDS: LABETALOL 200 MG (NORMODYNE) TAB PO SCH ×2 (08:45→20:33)
[2018-08-13] MEDS: ASPIRIN E.C. 81 MG (ECOTRIN) TAB PO SCH (08:45)
[2018-08-13] MEDS: CLOPIDOGREL 75 MG (PLAVIX) TABLET PO SCH (08:45)
[2018-08-13] MEDS: cefTRIAXone 1,000 MG/SWFI 10 ML IV PUSH IV SCH ×2 (08:46)
[2018-08-13] MEDS: ISOSORBIDE MONONITRATE 60 MG (IMDUR) TAB PO SCH (08:46)
--- NOTE | 2018-08-13 08:50 | NUR ---
CONT WITH DIARRHEA. STOOL C DIF TO LAB.
--- NOTE | 2018-08-13 09:18 | Progress Note-Hospitalist ---
Subjective HPI/CC On Admission Date Seen by Provider: Aug 13, 2018 Time Seen by Provider: 09:13 Pt is an 83yoCF with a PMH chronic UTI, CKD, JOSH s/p nephrectomy, NIDDMII, paroxysmal AF who presented to the ER due to confusion. She is unable to provide me her history as she is pleasantly confused. Her daughter is at bedside who provides her history. She says pt is normally oriented to person and place. On 08/09 she started to get more confused which is typical when she has a UTI. They brought her to her doctor (Dr Acuna) who checked her urine but did not start her on antibiotics yet. Last night she became very weak and even more confused. She wouldn't eat and developed diarrhea. Her daughter called her doctor's office this morning who recommended evaluation in the ER given her worsening. Here she was found to have severe sepsis from UTI and admitted for further management. Subjective/Events-last exam Pt reports feeling better. Daughter at bedside and stayed overnight. No complaints. Rn reports 6 loose stools yesterday. Focused Exam Lactate Level 08/11/18 11:39: Lactic Acid Level 2.70*H 08/11/18 13:52: Lactic Acid Level 2.20*H Objective Exam Vital Signs Vital Signs Date Time Temp Pulse Resp B/P (MAP) Pulse Ox O2 Delivery O2 Flow Rate FiO2 08/12/18 23:02 98.3 79 22 175/78 (110) 95 Room Air Capillary Refill : Less Than 3 SecondsLess Than 3 Seconds General Appearance: No Apparent Distress, Chronically ill HEENT: No Scleral Icterus (L), No Scleral Icterus (R) Respiratory: Lungs Clear, No Accessory Muscle Use, No Respiratory Distress Cardiovascular: Regular Rate, Rhythm, No Murmur Gastrointestinal: Normal Bowel Sounds, Non Tender, Soft Genital/Rectal: Other (suprapubic tenderness) Neurologic/Psychiatric: Alert, Disoriented (oriented to self and place only) Skin: Normal Color, Warm/Dry; No Mottled Results/Procedures Lab Laboratory Tests 08/13/18 05:30 Patient resulted labs reviewed. Imaging: Reviewed Imaging Report Assessment/Plan Assessment and Plan Assess & Plan/Chief Complaint Severe Sepsis Diagnosis/Problems Diagnosis/Problems (1) Severe sepsis Assessment & Plan: Severe aspect resolved Called and discussed with lab and growing 2 strains of e coli Sensitivities to be back tomorrow Continue Rocephin (2) Diarrhea Status: Acute Assessment & Plan: Already on probiotic C diff ordered Qualifiers: Diarrhea type: unspecified type Qualified Codes: R19.7 - Diarrhea, unspecified (3) Urinary tract infection Status: Acute Assessment & Plan: Abx as above Qualifiers: Urinary tract infection type: acute cystitis Hematuria presence: without hematuria Qualified Codes: N30.00 - Acute cystitis without hematuria (4) CKD (chronic kidney disease) Assessment & Plan: Stable, at baseline Qualifiers: Chronic kidney disease stage: stage 3 (moderate) Qualified Codes: N18.3 - Chronic kidney disease, stage 3 (moderate) (5) Dementia Status: Chronic Assessment & Plan: At baseline oriented to person and place Reorient as needed Qualifiers: Dementia type: unspecified type Dementia behavioral disturbance: without behavioral disturbance Qualified Codes: F03.90 - Unspecified dementia without behavioral disturbance (6) Non-insulin dependent type 2 diabetes mellitus Assessment & Plan: SSI (7) Essential (primary) hypertension Assessment & Plan: Slightly elevated overnight/this AM Trend DC IVF (8) Atrial fibrillation Assessment & Plan: Rate controlled On Warfarin for anticoagulation INR 2.0 Qualifiers: Atrial fibrillation type: paroxysmal Qualified Codes: I48.0 - Paroxysmal atrial fibrillation (9) Diastolic CHF Status: Chronic Assessment & Plan: No evidence of acute heart failure Qualifiers: Heart failure chronicity: chronic Qualified Codes: I50.32 - Chronic diastolic (congestive) heart failure Clinical Quality Measures DVT/VTE Risk/Contraindication: Risk Factor Score Per Nursin RFS Level Per Nursing on Admit: 3=High MAXINE MARS MD Aug 13, 2018 09:18
--- NOTE | 2018-08-13 09:40 | NUR ---
IVF STOPPED ORDERED.
--- NOTE | 2018-08-13 10:25 | Physical Therapy Daily Note ---
PT Daily Note-Current Subjective Pt is dealing with diarrhea, and notes that she is fatigued. Mental Status Patient Orientation: Person, Place, Situation Transfers Therapy Code Descriptions/Definitions Functional [place] Measure: 0=Not Assessed/NA 4=Minimal Assistance 1=Total Assistance 5=Supervision or Setup 2=Maximal Assistance 6=Modified [place] 3=Moderate Assistance 7=Complete [place] Therapy Quality Codes: 6 Independent with activity with or without an assistive device 5 Patient requires set up or clean up by helper. Patient completes activity by themselves 4 Supervision or touching assist (CGA). [place] provide cues , steadying assist 3 The helper provides less than half the effort to complete the activity 2 The helper provides more than half the effort to complete the activity 1 Dependent. The helper does all the effort to complete an activity 7 Patient refused to complete or attempt activity 9 The patient did not perform the activity before the current illness or injury 88 Not attempted due to Medical conditions or safety concerns Transfers (B, C, W/C) (FIM): 6 Sit to/from Stand: 6 Weight Bearing Right Lower Extremity: Right Weight Bearing/Tolerated Left Lower Extremity: Left Weight Bearing/Tolerated Gait Training Gait (FIM): 5 Distance (FIM): 3=150 ft Distance: 300ft Gait Level of Assist: 5 Gait Persons Needed: 1 Gait Assistive Device: FWW Exercises Seated Therapy Exercises: LE Protocol Seated Reps: 15 Assessment Pt was able to safely transfer and ambulate. She noted fatigue midway through ambulation, but was able to safely return to her room. She was able to perform the seated ex without assist. PT Short Term Goals Short Term Goals Time Frame: Aug 13, 2018 Transfers (B,C,W/C) (FIM): 6 Gait (FIM): 6 Distance (FIM): 3=150 ft Gait Distance Comment: 300' Gait Level of Assist: 6 Gait Assistive Device: FWW PT Plan Treatment/Plan Treatment Plan: Continue Plan of Care Treatment Plan: Education, Functional Activity Nina, Functional Strength, Gait , Safety, Therapeutic Exercise, Transfers Treatment Duration: Aug 13, 2018 Frequency: 2 times per week Estimated Hrs Per Day: .25 hour per day Patient and/or Family Agrees t: Yes Time/GCodes Time In: 1000 Time Out: 1025 Total Billed Treatment Time: 25 Total Billed Treatment 1, gt 12, ex 13 BOZENA QUINTEROS PT Aug 13, 2018 10:25
[2018-08-13 11:06] VITALS: BP 180/81
[2018-08-13] MEDS: LOPERAMIDE 2 MG (IMODIUM) CAP PO PRN ×2 (13:15→20:33)
--- NOTE | 2018-08-13 13:15 | NUR ---
IMODIUM 2MG PO FOR LOOSE STOOL.
--- NOTE | 2018-08-13 14:03 | Occupational Therapy Eval ---
OT Evaluation-General/PLF Medical Diagnosis Admission Date Aug 11, 2018 at 14:02 Medical Diagnosis: UTI/sepsis Onset Date: Aug 11, 2018 Therapy Diagnosis Therapy Diagnosis: Weakness Height/Weight Height (Feet): 5 Height (Inches): 3.00 Weight (Pounds): 161 Weight (Ounces): 7.0 Precautions Precautions/Isolations: Fall Prevention, Standard Precautions, Contact/Enteric Isolation Safety Interventions: Bed Exit Alarm Weight Bear Status Weight Bearing Restriction: Full Weight Bearing Referral Physician: John Referral Reason: Activity Tolerance, Self Care, Evaluation/Treatment, Strengthening/ROM Medical History Pertinent Medical History: DM, Dementia, HTN Additional Medical History JOSH S/P Nephroctomy, NIDDMII, HTN, Stroke, Paraxysmal AF. Current History 85 Yrs old W/M admitted in ER due to failed conservative treatment for UTI. Reviewed History: Yes Social History Home: Single Level Current Living Status: Spouse ADL-Prior Level of Function Therapy Code Descriptions/Definitions Functional [place] Measure: 0=Not Assessed/NA 4=Minimal Assistance 1=Total Assistance 5=Supervision or Setup 2=Maximal Assistance 6=Modified [place] 3=Moderate Assistance 7=Complete [place] Therapy Quality Codes: 6 Independent with activity with or without an assistive device 5 Patient requires set up or clean up by helper. Patient completes activity by themselves 4 Supervision or touching assist (CGA). [place] provide cues , steadying assist 3 The helper provides less than half the effort to complete the activity 2 The helper provides more than half the effort to complete the activity 1 Dependent. The helper does all the effort to complete an activity 7 Patient refused to complete or attempt activity 9 The patient did not perform the activity before the current illness or injury 88 Not attempted due to Medical conditions or safety concerns Functional Abilities and Goals: Independent: Patient completed the activities by him/herself, with or without an assistive device, with no assistance from a helper. Needed Some Help: Patient needed partial assistance from another person to complete activities. Dependent: A helper completed the activities for the patient. Unknown: Not Applicable: ADL PLOF Comments Pt lives with her in a single level house & was Independent in all ADLs & Ambulation with fww. Self Care: Independent Functional Cognition: Independent DME/Equipment: [employer] Occupation: retired Drive Self: No OT Current Status Subjective Pt in recliner & her son & daughter sitted beside her. Pt & her son agree for OT Eval & Treat. Pt alert, cheerful & oriented. Pain Numeric Pain Scale: 0-No Pain Location: No Pain Reported Mental Status/Objective Patient Orientation: Person, Place, Time Attachments: IV Current Glasses/Contacts: Yes Hearing Aids: Yes Dentures/Partials: Yes Hand Dominance: Right Upper Extremity ROM wfl Upper Extremity Coordination Intact Upper Extremity Sensation Intact Upper Extremity Strength MS in BUE -4/5 grossly graded. ADL-Treatment ADL-Current Pt needs mod - min A in all self care tasks. MS in BUE -4/5 Pt sit to stand with CGA, Ambulate with fww with CGA Pt fatigue soon. Endurance fair. Therapy Code Descriptions/Definitions Functional [place] Measure: 0=Not Assessed/NA 4=Minimal Assistance 1=Total Assistance 5=Supervision or Setup 2=Maximal Assistance 6=Modified [place] 3=Moderate Assistance 7=Complete [place] Therapy Quality Codes: 6 Independent with activity with or without an assistive device 5 Patient requires set up or clean up by helper. Patient completes activity by themselves 4 Supervision or touching assist (CGA). [place] provide cues , steadying assist 3 The helper provides less than half the effort to complete the activity 2 The helper provides more than half the effort to complete the activity 1 Dependent. The helper does all the effort to complete an activity 7 Patient refused to complete or attempt activity 9 The patient did not perform the activity before the current illness or injury 88 Not attempted due to Medical conditions or safety concerns Eating (FIM): 7 Education OT Patient Education: Correct positioning, Safety issues Teaching Recipient: Patient Teaching Methods: Demonstration Response to Teaching: Verbalize Understanding OT Short Term Goals Short Term Goals Time Frame: Aug 27, 2018 Eating(FIM): 7 Grooming(FIM): 7 Bathing(FIM): 7 Bathing Location: L Arm, R Arm, L Upper Leg, R Upper Leg, L Lower Leg ( including foot), R Lower Leg (including foot), Chest, Abdomen, Buttocks, Perineal Area Upper Body Dressing(FIM): 7 Lower Body Dressing(FIM): 7 Toileting(FIM): 7 Transfers (B,C,W/C) (FIM): 67 Toilet/Commode Transfer(FIM): 7 Tub Transfer(FIM): 0 Shower Transfer(FIM): 7 Additional Short Term Goals: 1-Demonstrate ADL Tasks, 2-Verbalize Understanding , 3-ImproveStrength/Nina 1=Demonstrate adherence to instructed precautions during ADL tasks. 2=Patient will verbalize/demonstrate understanding of assistive devices/ modifications for ADL. 3=Patient will improve strength/tolerance for activity to enable patient to perform ADL's. OT Kennel Manager Dog Track Goals Kennel Manager Dog Track Goals Time Frame: Sep 10, 2018 Eating (FIM): 7 Grooming(FIM): 7 Bathing(FIM): 7 Bathing Location: L Arm, R Arm, L Upper Leg, R Upper Leg, L Lower Leg ( including foot), R Lower Leg (including foot), Chest, Abdomen, Buttocks, Perineal Area Upper Body Dressing(FIM): 7 Lower Body Dressing(FIM): 7 Toileting(FIM): 7 Transfers (B,C,W/C) (FIM): 7 Toilet/Commode Transfer(FIM): 7 Tub Transfer(FIM): 0 Shower Transfer(FIM): 7 Additional Goals: 1-Demonstrate ADL Tasks, 2-Verbalize Understanding, 3- ImproveStrength/Nina 1=Demonstrate adherence to instructed precautions during ADL tasks. 2=Patient will verbalize/demonstrate understanding of assistive devices/ modifications for ADL. 3=Patient will improve strength/tolerance for activity to enable patient to perform ADL's. OT Education/Plan Problem List/Assessment Assessment: Decreased Activ Tolerance, Decreased Safety Aware, Decreased UE Strength, Dependent Transfers, Impaired Bed Mobility, Impaired Self-Care Skills Discharge Recommendations Plan/Recommendations: Continue POC Therapy D/C Recommendations: Home w/ Family Support, Occupational Therapy Home Care Equpiment Recommendations-D/C: Extended Shower Sprayer, Cementer Patient/Family Goals To return home JONY with spouse Independently. Treatment Plan/Plan of Care Treatment,Training & Education: Yes Patient would benefit from OT for education, treatment and training to promote independence in ADL's, mobility, safety and/or upper extremity function for ADL' s. Plan of Care: ADL Retraining, Caregiver Training, Functional Mobility, UE Funct Exercise/Act, UE Neuromus Re-Ed/Coord Treatment Duration: Sep 10, 2018 Frequency: 5 times per week Estimated Hrs Per Day: .25 hour per day Agreement: Yes Rehab Potential: Good Time/GCodes Start Time: 13:15 Stop Time: 13:45 Total Time Billed (hr/min): 30 Billed Treatment Time 1, EVLow 18 min, FA 12 min. Total 30 min YANCY ALEJANDRA OT Aug 13, 2018 14:03
[2018-08-13 15:30] VITALS: BP 176/77
[2018-08-13] MEDS: warFARin 2 MG (COUMADIN) TAB PO SCH (17:28)
--- NOTE | 2018-08-13 17:41 | NUR ---
NO FURTHER LOOSE STOOLS.
[2018-08-13] MEDS: ATORVASTATIN 10 MG (LIPITOR) TABLET PO SCH (20:33)
[2018-08-14] VITALS: BP 177/84
[2018-08-14] MEDS: inSUlin ASPART (NovoLOG) 1 UNIT/0.01 ML (CHARGE PER UNIT) SC SCH ×2 (06:14→09:54)
[2018-08-14] MEDS: PANTOPRAZOLE 20 MG TABLET (PROTONIX) PO SCH (06:47)
[2018-08-14] MEDS: LACTOBACILLUS ACIDOPHILUS (PROBIOTIC) CAPSULE PO SCH ×2 (06:47→12:01)
[2018-08-14] MEDS: LOPERAMIDE 2 MG (IMODIUM) CAP PO PRN ×3 (06:47→13:10)
[2018-08-14 08:23] VITALS: BP 198/87
[2018-08-14] MEDS: cefTRIAXone 1,000 MG/SWFI 10 ML IV PUSH IV SCH ×2 (09:18)
[2018-08-14] MEDS: SOTALOL 80 MG (BETAPACE) TAB PO SCH (09:18)
[2018-08-14] MEDS: amLODIPine 5 MG (NORVASC) TAB PO SCH (09:18)
[2018-08-14] MEDS: DIGOXIN 0.125 MG (LANOXIN) TAB PO SCH (09:18)
[2018-08-14] MEDS: ASPIRIN E.C. 81 MG (ECOTRIN) TAB PO SCH (09:18)
[2018-08-14] MEDS: LABETALOL 200 MG (NORMODYNE) TAB PO SCH (09:18)
[2018-08-14] MEDS: ISOSORBIDE MONONITRATE 60 MG (IMDUR) TAB PO SCH (09:18)
[2018-08-14] MEDS: CLOPIDOGREL 75 MG (PLAVIX) TABLET PO SCH (09:18)
[2018-08-14] MEDS ORDERED: CEPH-507 PO (10:32)
[2018-08-14] MEDS ORDERED: LACT1CAP7 PO (10:32)
[2018-08-14] MEDS ORDERED: LOPE2CAP PO (10:32)
--- NOTE | 2018-08-14 10:38 | Discharge Inst-Simple/Standard ---
Discharge Inst-Standard Discharge Medications New, Converted or Re-Newed RX: Transmitted to Pharmacy Patient Instructions/Follow Up Plan of Care/Instructions/FU: Please continue to take your medications as written. Please follow up with Dr Acuna in the next week to followup this hospital stay. Activity as Tolerated: Yes Discharge Diet: No Restrictions Return to The Hospital For: Fever, confusion, if you feel you are getting worse. MAXINE MARS MD Aug 14, 2018 10:38
--- NOTE | 2018-08-14 11:29 | Discharge Summary-Hospitalist ---
Diagnosis/Chief Complaint Date of Admission Aug 11, 2018 at 14:02 Date of Discharge Discharge Date: Aug 14, 2018 Admission Diagnosis Severe Sepsis Discharge Diagnosis (1) Severe sepsis Assessment & Plan: Severe aspect resolved Called and discussed with lab and growing 2 strains of e coli Sensitivities to be back tomorrow Continue Rocephin (2) Diarrhea Status: Acute Assessment & Plan: Already on probiotic C diff ordered (3) Urinary tract infection Status: Acute Assessment & Plan: Abx as above (4) CKD (chronic kidney disease) Assessment & Plan: Stable, at baseline (5) Dementia Status: Chronic Assessment & Plan: At baseline oriented to person and place Reorient as needed (6) Non-insulin dependent type 2 diabetes mellitus Assessment & Plan: SSI (7) Essential (primary) hypertension Assessment & Plan: Slightly elevated overnight/this AM Trend DC IVF (8) Atrial fibrillation Assessment & Plan: Rate controlled On Warfarin for anticoagulation INR 2.0 (9) Diastolic CHF Status: Chronic Assessment & Plan: No evidence of acute heart failure Discharge Summary Discharge Physical Exam Allergies: Coded Allergies: SYLVIE Inhibitors (Verified Allergy, Unknown, 08/11/18) Penicillins (Unverified Allergy, Unknown, Pt has received Ancef in the past, 08/11/18) Sulfa (Sulfonamide Antibiotics) (Verified Allergy, Unknown, 08/11/18) amlodipine (Verified Allergy, Unknown, 08/11/18) ciprofloxacin (Verified Allergy, Unknown, 08/11/18) diltiazem (Verified Allergy, Unknown, 08/11/18) levofloxacin (Verified Allergy, Unknown, 08/11/18) loratadine (Verified Allergy, Unknown, 08/11/18) pseudoephedrine (Verified Allergy, Unknown, 08/11/18) simvastatin (Verified Allergy, Unknown, 08/11/18) Vitals & I&Os Vital Signs Date Time Temp Pulse Resp B/P (MAP) Pulse Ox O2 Delivery O2 Flow Rate FiO2 08/14/18 08:23 98.1 86 20 198/87 (124) 96 Room Air General Appearance: No Apparent Distress, Chronically ill HEENT: No Scleral Icterus (L), No Scleral Icterus (R) Respiratory: Lungs Clear, No Accessory Muscle Use, No Respiratory Distress Cardiovascular: Regular Rate, Rhythm, No Murmur Gastrointestinal: Normal Bowel Sounds, Non Tender, Soft Skin: Normal Color, Warm/Dry; No Mottled Neurologic/Psychiatric: Alert, Disoriented (oriented to self and place only) Hospital Course Labs (last 24 hrs) Laboratory Tests 08/13/18 14:42: Glucometer 161H 08/13/18 20:00: Glucometer 194H 08/14/18 06:13: Glucometer 166H 08/14/18 09:50: Glucometer 193H Microbiology 08/11/18 Blood Culture - Preliminary, Resulted No growth 08/13/18 C. difficile GDH Antigen & Toxins - Final, Complete 08/11/18 Influenza Types A,B Antigen (JESUS ALBERTO) - Final, Complete 08/11/18 Urine Culture - Final, Complete Escherichia coli Escherichia coli#2 Patient resulted labs reviewed. Pending Labs Laboratory Tests 08/14/18 06:13: Glucometer 166 08/14/18 09:50: Glucometer 193 Imaging: Reviewed Imaging Report Discharge Home Medications: Active Scripts Active Keflex (Cephalexin) 500 Mg Capsule 500 Mg PO BID Acidophilus-Pectin Capsule (Lactobacillus Acidophilus/Pect) 1 Each Capsule 2 Each PO TIDWM Loperamide (Loperamide HCl) 2 Mg Capsule 2 Mg PO NEEDED PRN Reported Calcium 600 + Vit D 400 Tablet (Calcium Carbonate/Vitamin D3) 1 Each Tablet 1 Tab PO HS Aspirin EC (Aspirin) 81 Mg Tablet.dr 81 Mg PO DAILY Vitamin C (Ascorbic Acid) 250 Mg Tab 250 Mg PO DAILY Cyanocobalamin Injection (Cyanocobalamin) 1,000 Mcg/Ml Inj 1,000 Mcg IM MONTHLY Januvia (Sitagliptin Phosphate) 50 Mg Tablet 25 Mg PO DAILY TAKES 1/2 (50MG) TABLET Magnesium (Magnesium Oxide) 400 Mg Tablet 400 Mg PO BID Labetalol HCl 100 Mg Tablet 100 Mg PO BID Warfarin Sodium 2 Mg Tablet 3.5 Mg PO Q48H ALTERNATES EVERY OTHER DAY WITH 3MG AND 3.5MG Warfarin Sodium 2 Mg Tablet 3 Mg PO Q48H ALTERNATES EVERY OTHER DAY WITH 3MG AND 3.5MG Digox (Digoxin) 125 Mcg Tablet 125 Mcg PO Q48H Potassium Chloride 20 Meq Tab.er.prt 20 Meq PO DAILY Atorvastatin Calcium 10 Mg Tablet 10 Mg PO HS Amlodipine Besylate 5 Mg Tablet 5 Mg PO DAILY Sotalol (Sotalol HCl) 80 Mg Tablet 80 Mg PO BID Omeprazole 20 Mg Capsule.dr 20 Mg PO BID Clopidogrel (Clopidogrel Bisulfate) 75 Mg Tablet 75 Mg PO DAILY Furosemide 20 Mg Tablet 20 Mg PO DAILY Isosorbide Mononitrate ER (Isosorbide Mononitrate) 60 Mg Tab 60 Mg PO DAILY Instructions to patient/family Please see electronic discharge instructions given to patient. Clinical Quality Measures DVT/VTE Risk/Contraindication: Risk Factor Score Per Nursin RFS Level Per Nursing on Admit: 3=High Problem Qualifiers (1) Diarrhea: Diarrhea type: unspecified type Qualified Codes: R19.7 - Diarrhea, unspecified (2) Urinary tract infection: Urinary tract infection type: acute cystitis Hematuria presence: without hematuria Qualified Codes: N30.00 - Acute cystitis without hematuria (3) CKD (chronic kidney disease): Chronic kidney disease stage: stage 3 (moderate) Qualified Codes: N18.3 - Chronic kidney disease, stage 3 (moderate) (4) Dementia: Dementia type: unspecified type Dementia behavioral disturbance: without behavioral disturbance Qualified Codes: F03.90 - Unspecified dementia without behavioral disturbance (5) Atrial fibrillation: Atrial fibrillation type: paroxysmal Qualified Codes: I48.0 - Paroxysmal atrial fibrillation (6) Diastolic CHF: Heart failure chronicity: chronic Qualified Codes: I50.32 - Chronic diastolic (congestive) heart failure MAXINE MARS MD Aug 14, 2018 11:29
--- NOTE | 2018-08-14 12:40 | NUR ---
DISCHARGE INSTRUCTIONS GIVEN, VERBALIZED UNDERSTANDING, DAUGHTER AT BEDSIDE, DIARRHEA STOOL, IMODIUM GIVEN
[2018-08-14 13:15] VITALS: BP 198/87
--- NOTE | 2018-08-14 13:15 | NUR ---
JUAN HURT demonstrates understanding of discharge instructions and accurately returns instructions upon questioning. Copy of Post-Discharge Instructions and Medication Discharge Instructions given to PATIENT. JUAN HURT is able to manage continuing needs after discharge. Patients belongings returned to PATIENT. Skin dry and intact; no breakdown noted. Patient discharged from [facility]- on 08/14/18 at 1315. JUAN HURT left floor via W/C, accompanied by FAMILY.
== END 2018-08-14 13:15 | disposition home or self-care (01) | DRG 872 ==
LOC: EDUNIT# 10:54 → ER 10:57 → 4TH 14:02
PROVIDERS: ADMIT Family Medicine; ATTEND Family Medicine
DX: A41.51 Sepsis due to Escherichia coli [E. coli] (principal); N30.00 Acute cystitis without hematuria; I13.0 Hypertensive heart and chronic kidney disease with heart failure and stage 1 through stage 4 chronic kidney disease, or unspecified chronic kidney disease; I50.32 Chronic diastolic (congestive) heart failure; N18.3 Chronic kidney disease, stage 3 (moderate); I42.9 Cardiomyopathy, unspecified; I34.0 Nonrheumatic mitral (valve) insufficiency; E87.2 Acidosis; Z66 Do not resuscitate; F03.90 Unspecified dementia, unspecified severity, without behavioral disturbance, psychotic disturbance, mood disturbance, and anxiety; I48.0 Paroxysmal atrial fibrillation; E11.9 Type 2 diabetes mellitus without complications; R19.7 Diarrhea, unspecified; M19.91 Primary osteoarthritis, unspecified site; Z79.01 Long term (current) use of anticoagulants; Z95.5 Presence of coronary angioplasty implant and graft; Z95.0 Presence of cardiac pacemaker; Z86.73 Personal history of transient ischemic attack (TIA), and cerebral infarction without residual deficits; Z90.5 Acquired absence of kidney
CPT/HCPCS: 36415; 71045; 80048; 80053; 81000; 82962; 83605; 85025; 85610; 85730; 87040; 87077; 87088; 87186; 87324; 87449; 87804; 90471

== ENCOUNTER 2018-09-24 11:37 | Inpatient (IN) | payer MEDICARE, OTHER ==
[~2018-09-24] VITALS: Ht 160 cm; Wt 73.9 kg
[2018-09-24] VITALS (9 sets, daily range): BP systolic 153–183; BP diastolic 68–107
[~2018-09-24 11:37] MED LIST: AMLO5TAB9 PO; ASPI-983 PO; ATOR10TA66 PO; C250T PO; CALC1TAB94 PO; CEPH-507 PO; CLOP75TA28 PO; CNC1KV IM; DIGO125T18 PO; FURO20TA4 PO; ISM60TCR PO; LABE100T6 PO; LACT1CAP7 PO; LOPE2CAP PO; MAGN400T39 PO; OMEP20CA12 PO; POTA20TA15 PO; SITA50TA PO; SOTA80TA PO; WARF-47 PO
[2018-09-24] MEDS ORDERED: NS IV 1000 ML 1,000 ML IV STA (12:01)
[2018-09-24] MEDS ORDERED: cefTRIAXone FOR IV USE 1,000 MG in WATER (STERILE) FOR INJECTION 10 ML IV STA (12:01)
--- NOTE | 2018-09-24 12:07 | ED General ---
General Stated Complaint: ALTERED MENTAL STATUS; BACK/URINARY PAIN Source of Information: Family Exam Limitations: Other (dementia, encephalopathy) History of Present Illness Date Seen by Provider: Sep 24, 2018 Time Seen by Provider: 11:55 This is an 83-year-old female with a history of frequent UTIs, dementia, here with daughter for 2 days of worsening alertness and decreased communication. Patient has presented like this multiple times in the past when she has been diagnosed with urinary tract infections. Just this month she was admitted for 3 days for the same. She has had a fever with this as she had with prior UTIs, MAXIMUM TEMPERATURE at home 101, this improved with Tylenol which was given prior to arrival today. Daughter has not noticed any focal weakness or gaze abnormalities, no gait disturbance, she simply says that her mom is more sleepy than usual and is not talking as much as usual. Allergies and Home Medications Allergies Coded Allergies: SYLVIE Inhibitors (Verified Allergy, Unknown, 08/11/18) Penicillins (Unverified Allergy, Unknown, Pt has received Ancef in the past, 08/11/18) Sulfa (Sulfonamide Antibiotics) (Verified Allergy, Unknown, 08/11/18) amlodipine (Verified Allergy, Unknown, 08/11/18) ciprofloxacin (Verified Allergy, Unknown, 08/11/18) diltiazem (Verified Allergy, Unknown, 08/11/18) levofloxacin (Verified Allergy, Unknown, 08/11/18) loratadine (Verified Allergy, Unknown, 08/11/18) pseudoephedrine (Verified Allergy, Unknown, 08/11/18) simvastatin (Verified Allergy, Unknown, 08/11/18) Home Medications Amlodipine Besylate 5 Mg Tablet, 5 MG PO DAILY, (Reported) Ascorbic Acid 250 Mg Tab, 250 MG PO DAILY, (Reported) Aspirin 81 Mg Tablet.dr, 81 MG PO DAILY, (Reported) Atorvastatin Calcium 10 Mg Tablet, 10 MG PO HS, (Reported) Calcium Carbonate/Vitamin D3 1 Each Tablet, 1 TAB PO HS, (Reported) Clopidogrel Bisulfate 75 Mg Tablet, 75 MG PO DAILY, (Reported) Cyanocobalamin 1,000 Mcg/Ml Inj, 1,000 MCG IM MONTHLY, (Reported) Digoxin 125 Mcg Tablet, 125 MCG PO Q48H, (Reported) Furosemide 20 Mg Tablet, 20 MG PO DAILY, (Reported) Isosorbide Mononitrate 60 Mg Tab, 60 MG PO DAILY, (Reported) Labetalol HCl 100 Mg Tablet, 100 MG PO BID, (Reported) Lactobacillus Acidophilus/Pect 1 Each Capsule, 2 EACH PO TIDWM Prescribed by: MAXINE MARS on 08/14/18 1032 Loperamide HCl 2 Mg Capsule, 2 MG PO NEEDED PRN for diarrhea Prescribed by: MAXINE MARS on 08/14/18 1032 Magnesium Oxide 400 Mg Tablet, 400 MG PO BID, (Reported) Omeprazole 20 Mg Capsule.dr, 20 MG PO BID, (Reported) Potassium Chloride 20 Meq Tab.er.prt, 20 MEQ PO DAILY, (Reported) Sitagliptin Phosphate 50 Mg Tablet, 25 MG PO DAILY, (Reported) TAKES 1/2 (50MG) TABLET Sotalol HCl 80 Mg Tablet, 80 MG PO BID, (Reported) Warfarin Sodium 2 Mg Tablet, 3 MG PO Q48H, (Reported) ALTERNATES EVERY OTHER DAY WITH 3MG AND 3.5MG Warfarin Sodium 2 Mg Tablet, 3.5 MG PO Q48H, (Reported) ALTERNATES EVERY OTHER DAY WITH 3MG AND 3.5MG Patient Home Medication List Home Medication List Reviewed: Yes Review of Systems Review of Systems Constitutional: see HPI EENTM: no symptoms reported Respiratory: no symptoms reported Cardiovascular: no symptoms reported Gastrointestinal: no symptoms reported Genitourinary: no symptoms reported Musculoskeletal: no symptoms reported Skin: no symptoms reported Psychiatric/Neurological: See HPI Hematologic/Lymphatic: No Symptoms Reported Immunological/Allergic: no symptoms reported Past Yzwimvy-Qsvtax-Exomff Hx Past Med/Social Hx: Reviewed Nursing Past Med/Soc Hx Patient Social History Recent Hopitalizations: No Immunizations Up To Date Date of Pneumonia Vaccine: Mar 29, 2018 Date of Influenza Vaccine: Mar 29, 2018 Seasonal Allergies Seasonal Allergies: No Past Medical History Surgeries: Yes Cardiac, Coronary Stent, Gallbladder, Nephrectomy Respiratory: No Cardiac: Yes (PACEMAKER, CHF) Cardiomyopathy, Hypertension, Valvular Heart Disease Dementia, Stroke Genitourinary: Yes (NEPHRECTOMY) Renal Failure, UTI-Chronic Gastrointestinal: No Musculoskeletal: Yes Arthritis Endocrine: Yes Diabetes, Non-Insulin dep HEENT: No Cancer: No Psychosocial: No Integumentary: No Blood Disorders: No Adverse Reaction/Blood Tranf: No Family Medical History Patient reports no known family medical history. No Pertinent Family Hx Physical Exam Vital Signs Vital Signs - First Documented Capillary Refill : Height, Weight, BMI Height: 5'3.00" Weight: 161lbs. 7.0oz. [id number]; 28.6 BMI Method:Stated General Appearance: No Apparent Distress HEENT: PERRL/EOMI, Moist Mucous Membranes Neck: Supple Respiratory: Lungs Clear Cardiovascular: Regular Rate, Rhythm, Normal Peripheral Pulses Gastrointestinal: Non Tender Extremity: Non Tender Neurologic/Psychiatric: Alert, Other (patient does not speak except for an occasional word, she will follow commands however and moves all 4 extremities with symmetrical strength. There is no facial asymmetry. Patient can otherwise not cooperate with thorough neurologic testing) Skin: Warm/Dry Focused Exam Lactate Level 09/24/18 12:10: Lactic Acid Level 1.99 Lactic Acid Level Progress/Results/Core Measures Suspected Sepsis SIRS Temperature: Pulse: Respiratory Rate: Laboratory Tests 09/24/18 12:10: White Blood Count 12.8H Blood Pressure / Mean: 09/24/18 12:10: Lactic Acid Level 1.99 Laboratory Tests 09/24/18 12:10: Creatinine 2.00H, INR Comment 1.6H, Platelet Count 240 Results/Orders Lab Results Laboratory Tests Test 09/24/18 12:01 09/24/18 12:10 09/24/18 13:29 Range/Units Glucometer 277 H 70-110 MG/DL White Blood Count 12.8 H 4.3-11.0 10^3/uL Red Blood Count 4.62 4.35-5.85 10^6/uL Hemoglobin 12.0 11.5-16.0 G/DL Hematocrit 38 35-52 % Mean Corpuscular Volume 83 80-99 FL Mean Corpuscular Hemoglobin 26 25-34 PG Mean Corpuscular Hemoglobin Concent 31 L 32-36 G/DL Red Cell Distribution Width 14.0 10.0-14.5 % Platelet Count 240 130-400 10^3/uL Mean Platelet Volume 11.6 H 7.4-10.4 FL Prothrombin Time 19.0 H 12.2-14.7 SEC INR Comment 1.6 H 0.8-1.4 Activated Partial Thromboplast Time 46 H 24-35 SEC Sodium Level 137 135-145 MMOL/L Potassium Level 4.3 3.6-5.0 MMOL/L Chloride Level 97 L 98-107 MMOL/L Carbon Dioxide Level 26 21-32 MMOL/L Anion Gap 14 5-14 MMOL/L Blood Urea Nitrogen 24 H 7-18 MG/DL Creatinine 2.00 H 0.60-1.30 MG/DL Estimat Glomerular Filtration Rate 24 BUN/Creatinine Ratio 12 Glucose Level 252 H 70-105 MG/DL Lactic Acid Level 1.99 0.50-2.00 MMOL/L Calcium Level 9.5 8.5-10.1 MG/DL Troponin T 34 H <=10 NG/L Urine Color YELLOW Urine Clarity CLOUDY Urine pH 6.0 5-9 Urine Specific [place] 1.020 1.016-1.022 Urine Protein 3+ H NEGATIVE Urine Glucose (UA) 1+ H NEGATIVE Urine Ketones NEGATIVE NEGATIVE Urine Nitrite NEGATIVE NEGATIVE Urine Bilirubin NEGATIVE NEGATIVE Urine Urobilinogen 0.2 NORMAL MG/DL Urine Leukocyte Esterase TRACE NEGATIVE Urine RBC (Auto) TRACE H NEGATIVE Urine RBC 2+5 /HPF Urine WBC 50-100 H /HPF Urine Crystals NONE /LPF Urine Bacteria LARGE H /HPF Urine Casts NONE /LPF Urine Mucus NEGATIVE /LPF Urine Culture Indicated YES My Orders Orders - JONE LESTER T DO Ns Iv 1000 Ml (Sodium Chloride 0.9%) (09/24/18 12:01) Ceftriaxone For Iv Use (Rocephin For I (09/24/18 12:01) Ekg Tracing (09/24/18 12:02) Cbc No Diff (09/24/18 12:02) Basic Metabolic Panel (09/24/18 12:02) Lactic Acid Analyzer (09/24/18 12:02) Straight Cath For Spec.-Adult (09/24/18 12:02) Blood Culture (09/24/18 12:02) Protime With Inr (09/24/18 12:07) Partial Thromboplastin Time (09/24/18 12:07) Ct Head Wo (09/24/18 12:07) Chest 1 View Ap/Pa Only (09/24/18 12:07) Blood Culture (09/24/18 13:21) Ua Culture If Indicated (09/24/18 13:29) Urine Culture (09/24/18 13:29) Troponin T (09/24/18 14:37) Vital Signs/I&O 09/24/18 09/24/18 09/24/18 09/24/18 11:49 11:49 12:00 12:30 Temp 98.3 98.3 Pulse 86 86 83 69 Resp 20 20 18 18 B/P (MAP) 183/87 (119) 183/87 (119) 167/83 (111) 182/71 (108) Pulse Ox 96 96 96 94 O2 Delivery Room Air Room Air Room Air Room Air 09/24/18 09/24/18 09/24/18 09/24/18 13:00 13:30 14:00 14:30 Temp 97.8 Pulse 76 84 84 72 Resp 18 18 18 18 B/P (MAP) 153/72 (99) 180/77 (111) 165/107 (126) 180/77 (111) Pulse Ox 96 97 96 96 O2 Delivery Room Air Room Air Room Air Room Air 09/24/18 09/24/18 09/24/18 15:00 15:00 15:00 Temp 97.1 97.1 97.1 Pulse 84 99 99 Resp 12 20 20 B/P (MAP) 160/89 (112) 161/81 (107) 161/81 Pulse Ox 96 97 97 O2 Delivery Room Air Room Air Room Air Capillary Refill : Point of Care Testing Finger Stick Blood Glucose: 277 Blood Glucose Action Taken: rn notified Progress Note : Progress Note Patient appears to have an acute UTI with associated encephalopathy similar to multiple prior presentations according to the family. She does not currently appear septic with a normal lactic acid level, stable vitals. She was given empiric ceftriaxone upon arrival. She does appear to have a mild increase in creatinine over recent measurements. She is accepted for transfer by Dr. Zee at [facility] who requests fluids continue at 100 mL per hour, continue ceftriaxone daily. ECG EKG : Comment 1221: A. fib rate of 83. Scooping of the ST segment in 1, 2, V6 potentially consistent with digoxin effect or ischemia. Septal Q waves. Departure Impression Primary Impression: Acute UTI Additional Impressions: Acute encephalopathy Acute kidney injury Disposition: XF [facility]-TRM HOSP Condition: Stable Transfer Time Spoke to Accepting Phy: 02:15 Transfer Facility: Dr Zee at [facility] Method of Transfer: EMS Departure-Patient Inst. Referrals: ANNE MARIE CALDERON MD (PCP/Family) Primary Care Physician JONE LESTER DO Sep 24, 2018 12:07
[2018-09-24 12:31] LABS: MEAN PLATELET VOLUME 11.6 FL (7.4-10.4); WHITE BLOOD COUNT 12.8 10^3/uL (4.3-11.0)
[2018-09-24 12:40] LABS: INR 1.6 (0.8-1.4)
[2018-09-24 12:49] LABS: CALCIUM 9.5 MG/DL (8.5-10.1); POTASSIUM 4.3 MMOL/L (3.6-5.0)
--- NOTE | 2018-09-24 13:29 | NUR ---
STRAIGHT CATH FOR UA PRIOR TO ANTIBIOTIC AND RE-RAN TO DISCARD CLEAN CATCH.
[2018-09-24 13:43] LABS: BACTERIA,URINE LARGE /HPF; BILIRUBIN,URINE NEGATIVE (NEGATIVE); CLARITY,URINE CLOUDY; COLOR,URINE YELLOW; GLUCOSE, URINE (UA) 1+ (NEGATIVE); KETONES,URINE NEGATIVE (NEGATIVE); LEUKOCYTE ESTERASE ,URINE TRACE (NEGATIVE); NITRITE,URINE NEGATIVE (NEGATIVE); PROTEIN,URINE 3+ (NEGATIVE); RBC,URINE 2+5 /HPF; UROBILINOGEN,URINE 0.2 MG/DL (NORMAL); WBC,URINE 50-100 /HPF
--- NOTE | 2018-09-24 13:47 | Diagnostic Imaging Report ---
PROCEDURE: CT head without contrast. TECHNIQUE: Multiple contiguous axial images were obtained through the brain without the use of intravenous contrast. Auto Exposure Controls were utilized during the CT exam to meet ALARA standards for radiation dose reduction. INDICATION: Fever, difficulty urinating. FINDINGS: There is cerebral cortical atrophy without miranda hydrocephalus. No cortical edema. No mass or mass effect. No sulcal effacement. The basilar cisterns are patent and there is no evidence for elevated intracranial pressures. No mass or mass effect. IMPRESSION: Chronic senescent changes with no hemorrhage, edema or acute abnormalities identified. Dictated by: Dictated on workstation # [id number]
--- NOTE | 2018-09-24 13:50 | Diagnostic Imaging Report ---
INDICATION: Weakness, fever and pain. TIME OF EXAM: 01:20 p.m. COMPARISON: Correlation is made with prior study from 08/11/2018. FINDINGS: The heart size is stable. Cardiac pacemaker is in place. No infiltrate, effusion or pneumothorax is seen. The pulmonary vascularity is normal. IMPRESSION: No acute cardiopulmonary process is detected. Dictated by: Dictated on workstation # [id number]
--- NOTE | 2018-09-24 14:50 | NUR ---
REPORT TAKEN FROM JELANI COREY FROM [facility]. THIS RN WILL ASSUME CARE OF THIA PATIENT WHEN SHE ARRIVES TO THIS FACILITY.
--- NOTE | 2018-09-24 15:00 | NUR ---
PT TRANSFERRED TO VIA [facility] FOR ADMISISON VIA [facility]. PT CONDITION: STABLE, IMPROVED.
--- NOTE | 2018-09-24 15:43 | NUR ---
PATIENT ARRIVED TO THIS FLOOR AFTER TRANSFERRING VIA [facility] WITH AN ARRIVAL TIME OF 1543. REPORT GIVEN TO THIS RN BY TRINH [id number] . THIS RN WILL ASSUME CARE OF THIS PATIENT AT THIS TIME.
[2018-09-24] MEDS ORDERED: DOCUSATE SODIUM 100 MG (COLACE) CAP PO PRN (16:30)
[2018-09-24] MEDS ORDERED: POLYETHYLENE GLYCOL 17 GM (MIRALAX) PACK PO PRN (16:30)
[2018-09-24] MEDS ORDERED: ACETAMINOPHEN 500 MG TAB (TYLENOL) PO PRN (16:30)
[2018-09-24] MEDS ORDERED: cefTRIAXone FOR IV USE 1,000 MG in WATER (STERILE) FOR INJECTION 10 ML IV SCH (16:30)
[2018-09-24] MEDS ORDERED: LOPERAMIDE 2 MG (IMODIUM) CAP PO PRN (16:30)
[2018-09-24] MEDS ORDERED: MELATONIN 3 MG TABLET PO PRN (16:30)
[2018-09-24] MEDS ORDERED: HYDROcodone/APAP 5 MG/325 MG (LORTAB) TAB PO PRN (16:30)
[2018-09-24] MEDS ORDERED: diphenhydrAMINE 25 MG TAB (BENADRYL) PO PRN (16:30)
[2018-09-24] MEDS ORDERED: fentaNYL INJECTION 100 MCG/2 ML AMP IVP PRN (16:30)
[2018-09-24] MEDS ORDERED: ONDANSETRON 4 MG/2 ML (SDV) Z0FRAN IVP PRN (16:30)
[2018-09-24] MEDS ORDERED: CALCIUM CARBONATE 500 MG (TUMS) TAB.CHEW PO PRN (16:30)
[2018-09-24] MEDS ORDERED: CATHETER FLUSH 10 ML SYR IV PRN (16:45)
[2018-09-24] MEDS: CATHETER FLUSH 10 ML SYR IV SCH (22:11)
[2018-09-25] VITALS (7 sets, daily range): BP systolic 159–172; BP diastolic 62–90
[2018-09-25 06:05] LABS: BASOPHILS % (AUTO) 0 % (0-10); EOSINOPHILS # (AUTO) 0.2 10^3/uL (0.0-0.3); EOSINOPHILS % (AUTO) 2 % (0-10); HEMATOCRIT 34 % (35-52); HEMOGLOBIN 10.7 G/DL (11.5-16.0); LYMPHOCYTES # (AUTO) 1.4 X 10^3 (1.0-4.0); LYMPHOCYTES % (AUTO) 14 % (12-44); MEAN CORPUSCULAR HEMOGLOBIN 26 PG (25-34); MEAN CORPUSCULAR HGB CONC 32 G/DL (32-36); MEAN CORPUSCULAR VOLUME 82 FL (80-99); MEAN PLATELET VOLUME 11.7 FL (7.4-10.4); MONOCYTES # (AUTO) 0.9 X 10^3 (0.0-1.0); MONOCYTES % (AUTO) 9 % (0-12); NEUTROPHILS % (AUTO) 74 % (42-75); PLATELET COUNT 228 10^3/uL (130-400); RED CELL DISTRIBUTION WIDTH 14.5 % (10.0-14.5); WHITE BLOOD COUNT 9.5 10^3/uL (4.3-11.0)
[2018-09-25] MEDS: CATHETER FLUSH 10 ML SYR IV SCH ×3 (06:10→20:18)
[2018-09-25 06:26] LABS: ALBUMIN 2.9 GM/DL (3.2-4.5); BILIRUBIN,TOTAL 0.3 MG/DL (0.1-1.0); CREATININE SERUM 1.77 MG/DL (0.60-1.30); POTASSIUM 3.9 MMOL/L (3.6-5.0)
[2018-09-25] MEDS ORDERED: warFARin 2 MG (COUMADIN) TAB PO SCH ×2 (10:15)
--- NOTE | 2018-09-25 10:28 | Consultation-Cardiology ---
HPI-Cardiology Cardiology Consultation Date of Consultation 09/25/18 Date of Admission Time Seen by Provider: 10:23 Indication: atrial fibrillation HPI 83 years old lady with extensive cardiac vascular history, on multiple cardiac medication, poor historian, I visited with her, her and her daughter, none of them were able to provide adequate history. Patient was admitted for change in mental status and fatigue and loss of energy and recurrent urinary tract infection. I was called for evaluation of atrial fibrillation. Patient is on multiple medications including labetalol and sotalol, aspirin Plavix and Coumadin, digoxin. She is not sure why she is taking all these medications. It appear that she has atrial fibrillation and questionable peripheral arterial disease, does not recall having any cardiac stenting. Has history of permanent pacemaker. Denied any fever or chills. No shortness of breath. Home Medications & Allergies Allergies: Coded Allergies: SYLVIE Inhibitors (Verified Allergy, Unknown, 09/24/18) Penicillins (Unverified Allergy, Unknown, Pt has received Ancef in the past, 09/24/18) Sulfa (Sulfonamide Antibiotics) (Verified Allergy, Unknown, 09/24/18) amlodipine (Verified Allergy, Unknown, 09/24/18) ciprofloxacin (Verified Allergy, Unknown, 09/24/18) diltiazem (Verified Allergy, Unknown, 09/24/18) levofloxacin (Verified Allergy, Unknown, 09/24/18) loratadine (Verified Allergy, Unknown, 09/24/18) pseudoephedrine (Verified Allergy, Unknown, 09/24/18) simvastatin (Verified Allergy, Unknown, 09/24/18) Home Medication List Reviewed: Yes [id number]-[id number] Hx Patient Social History Marital Status: Employed/Student: retired Alcohol Use: Denies Use Recreational Drug Use: No Smoking Status: Never a Smoker Recent Foreign Travel: No Recent Infectious Disease Expo: No Recent Hopitalizations: Yes (EARLY AUGUST ) Physical Abuse Screen: No Sexual Abuse: No Immunizations Up To Date Tetanus Booster (TDap): Unknown Date of Pneumonia Vaccine: Mar 29, 2018 Date of Influenza Vaccine: Mar 29, 2018 Past Medical History past medical history as described below Family Medical History Significant Family History: No Pertinent Family Hx Family Medical Hx noncontributory to her current condition Family History: Patient reports no known family medical history. Review of Systems Constitutional: see HPI, malaise, weakness EENTM: see HPI, no symptoms reported Respiratory: see HPI; No cough; dyspnea on exertion; No hemoptysis, No orthopnea, No phlegm, No short of breath, No stridor, No wheezing, No other Cardiovascular: see HPI; No chest pain, No edema, No Hx of Intervention, No palpitations, No syncope, No vascular heart diseas, No other Gastrointestinal: no symptoms reported, see HPI Genitourinary: no symptoms reported, see HPI Musculoskeletal: no symptoms reported, see HPI Skin: no symptoms reported, see HPI Psychiatric/Neurological: No Symptoms Reported, See HPI Reviewed Test Results Reviewed Test Results Lab Laboratory Tests Test 09/24/18 12:01 09/24/18 12:10 09/24/18 13:29 09/24/18 16:50 Range/Units Glucometer 277 H 70-110 MG/DL White Blood Count 12.8 H 4.3-11.0 10^3/uL Red Blood Count 4.62 4.35-5.85 10^6/uL Hemoglobin 12.0 11.5-16.0 G/DL Hematocrit 38 35-52 % Mean Corpuscular Volume 83 80-99 FL Mean Corpuscular Hemoglobin 26 25-34 PG Mean Corpuscular Hemoglobin Concent 31 L 32-36 G/DL Red Cell Distribution Width 14.0 10.0-14.5 % Platelet Count 240 130-400 10^3/uL Mean Platelet Volume 11.6 H 7.4-10.4 FL Prothrombin Time 19.0 H 12.2-14.7 SEC INR Comment 1.6 H 0.8-1.4 Activated Partial Thromboplast Time 46 H 24-35 SEC Sodium Level 137 135-145 MMOL/L Potassium Level 4.3 3.6-5.0 MMOL/L Chloride Level 97 L 98-107 MMOL/L Carbon Dioxide Level 26 21-32 MMOL/L Anion Gap 14 5-14 MMOL/L Blood Urea Nitrogen 24 H 7-18 MG/DL Creatinine 2.00 H 0.60-1.30 MG/DL Estimat Glomerular Filtration Rate 24 BUN/Creatinine Ratio 12 Glucose Level 252 H 70-105 MG/DL Lactic Acid Level 1.99 1.08 0.50-2.00 MMOL/L Calcium Level 9.5 8.5-10.1 MG/DL Troponin T 34 H <=10 NG/L Urine Color YELLOW Urine Clarity CLOUDY Urine pH 6.0 5-9 Urine Specific [place] 1.020 1.016-1.022 Urine Protein 3+ H NEGATIVE Urine Glucose (UA) 1+ H NEGATIVE Urine Ketones NEGATIVE NEGATIVE Urine Nitrite NEGATIVE NEGATIVE Urine Bilirubin NEGATIVE NEGATIVE Urine Urobilinogen 0.2 NORMAL MG/DL Urine Leukocyte Esterase TRACE NEGATIVE Urine RBC (Auto) TRACE H NEGATIVE Urine RBC 2+5 /HPF Urine WBC 50-100 H /HPF Urine Crystals NONE /LPF Urine Bacteria LARGE H /HPF Urine Casts NONE /LPF Urine Mucus NEGATIVE /LPF Urine Culture Indicated YES Troponin I < 0.028 <0.028 NG/ML Test 09/25/18 05:45 Range/Units White Blood Count 9.5 4.3-11.0 10^3/uL Red Blood Count 4.10 L 4.35-5.85 10^6/uL Hemoglobin 10.7 L 11.5-16.0 G/DL Hematocrit 34 L 35-52 % Mean Corpuscular Volume 82 80-99 FL Mean Corpuscular Hemoglobin 26 25-34 PG Mean Corpuscular Hemoglobin Concent 32 32-36 G/DL Red Cell Distribution Width 14.5 10.0-14.5 % Platelet Count 228 130-400 10^3/uL Mean Platelet Volume 11.7 H 7.4-10.4 FL Neutrophils (%) (Auto) 74 42-75 % Lymphocytes (%) (Auto) 14 12-44 % Monocytes (%) (Auto) 9 0-12 % Eosinophils (%) (Auto) 2 0-10 % Basophils (%) (Auto) 0 0-10 % Neutrophils # (Auto) 7.0 1.8-7.8 X 10^3 Lymphocytes # (Auto) 1.4 1.0-4.0 X 10^3 Monocytes # (Auto) 0.9 0.0-1.0 X 10^3 Eosinophils # (Auto) 0.2 0.0-0.3 10^3/uL Basophils # (Auto) 0.0 0.0-0.1 10^3/uL Sodium Level 139 135-145 MMOL/L Potassium Level 3.9 3.6-5.0 MMOL/L Chloride Level 108 H 98-107 MMOL/L Carbon Dioxide Level 20 L 21-32 MMOL/L Anion Gap 11 5-14 MMOL/L Blood Urea Nitrogen 19 H 7-18 MG/DL Creatinine 1.77 H 0.60-1.30 MG/DL Estimat Glomerular Filtration Rate 27 BUN/Creatinine Ratio 11 Glucose Level 172 H 70-105 MG/DL Calcium Level 9.0 8.5-10.1 MG/DL Corrected Calcium 9.9 8.5-10.1 MG/DL Total Bilirubin 0.3 0.1-1.0 MG/DL Aspartate Amino Transf (AST/SGOT) 11 5-34 U/L Alanine Aminotransferase (ALT/SGPT) 9 0-55 U/L Alkaline Phosphatase 51 40-136 U/L Total Protein 6.0 L 6.4-8.2 GM/DL Albumin 2.9 L 3.2-4.5 GM/DL Physical Exam Vital Signs Vital Signs - First Documented Capillary Refill : Less Than 3 Seconds Height, Weight, BMI Height: 5'3.00" Weight: 163lbs. 7.0oz. [id number]; 28.9 BMI Method:Stated General Appearance: No Apparent Distress, WD/WN Eyes: Bilateral Eye Normal Inspection, Bilateral Eye PERRL, Bilateral Eye EOMI HEENT: PERRL/EOMI, TMs Normal, Normal ENT Inspection, Pharynx Normal Neck: Full Range of Motion, Normal Inspection, Non Tender, Supple, Carotid Bruit Respiratory: Chest Non Tender, Lungs Clear, Normal Breath Sounds, No Accessory Muscle Use, No Respiratory Distress Cardiovascular: No Edema, No Gallop, No JVD, Normal Peripheral Pulses, Systolic Murmur, Irregularly Irregular Gastrointestinal: Normal Bowel Sounds, No Organomegaly, No Pulsatile Mass, Non Tender, Soft Back: Normal Inspection, No CVA Tenderness, No Vertebral Tenderness Extremity: Normal Capillary Refill, Normal Inspection, Normal Range of Motion, Non Tender, No Calf Tenderness, No Pedal Edema Neurologic/Psychiatric: Alert, Oriented x3, No Motor/Sensory Deficits, Normal Mood/Affect Skin: Normal Color, Warm/Dry Lymphatic: No Adenopathy A/P-Cardiology Admission Diagnosis Change in mental status Recurrent UTI Chronic atrial fibrillation Cardiac pacemaker Hypertension Hyperlipidemia Assessment/Plan Change in mental status, better at this time, managed by primary care team Recurrent UTI, managed by primary care team Paroxysmal atrial fibrillation, currently in atrial fibrillation, patient is maintained on sotalol and labetalol and digoxin in addition to aspirin and Plavix and medicine. I will monitor INR closely. I recommend discontinuation of labetalol and maintaining sotalol only. Evaluate dig level. Try to obtain copy of her record. Questionable peripheral arterial disease, no known history of coronary artery disease. Hypertension, on multiple medication, restart medication monitor blood pressure History of permanent pacemaker, followed by primary aerographer Hyperlipidemia, maintained on statin Questionable coronary artery disease, patient is not remembering having any coronary stent or cardiac catheterization. Patient and her family are poor historian. I'll try to obtain copy of the record from [place] Clinical Quality Measures DVT/VTE Risk/Contraindication: Risk Factor Score Per Nursin RFS Level Per Nursing on Admit: 4+=Very High DESHAWN GARCIA MD Sep 25, 2018 10:28
[2018-09-25] MEDS ORDERED: DIGOXIN 0.125 MG (LANOXIN) TAB PO SCH (10:30)
--- NOTE | 2018-09-25 12:39 | History & Physical-Hospitalist ---
History of Present Illness HPI/Chief Complaint CC: AMS due to UTI HPI: This is an 83yoWF clinic patient of Dr Acuna who was recently hospitalized for UTI at [facility] who presented to the [facility] ER with confusion and lethargy. Patient was found to have UTI and in need of inpatient supportive care due to confusion and advanced age. Patient appears to be much improved today although also appears she has cognitive deficit chronically. Her is at the bedside and answers most of the detailed PMH questions. He asked if we could do anything to stop the UTI's and I updated him I could consult Dr Reardon and he knows him since he sees him on a regular basis personally so I have reached out to Dr Reardon and hopefully we can prevent recurrent UTI's in the future. UCX in past revealed pansensitive E coli so Rocephin was chosen and appears to be covering it adequately since based on clinical exam she is improved. Dr Hassan has been consulted in case AF becomes RVR. Source: patient Exam Limitations: no limitations Date Seen 09/25/18 Time Seen by a Provider: 11:30 Attending Physician Yaritza Koch Katrina M MD Referring Physician Date of Admission Sep 24, 2018 at 14:50 Home Medications & Allergies Home Medications Reviewed patient Home Medication Reconciliation performed by pharmacy medication reconciliations manufacturing process technician and/or nursing. Patients Allergies have been reviewed. Allergies Allergies Coded Allergies SYLVIE Inhibitors (Verified Allergy, Unknown, 09/24/18) Penicillins (Unverified Allergy, Unknown, Pt has received Ancef in the past, ) Sulfa (Sulfonamide Antibiotics) (Verified Allergy, Unknown, 09/24/18) amlodipine (Verified Allergy, Unknown, 09/24/18) ciprofloxacin (Verified Allergy, Unknown, 09/24/18) diltiazem (Verified Allergy, Unknown, 09/24/18) levofloxacin (Verified Allergy, Unknown, 09/24/18) loratadine (Verified Allergy, Unknown, 09/24/18) pseudoephedrine (Verified Allergy, Unknown, 09/24/18) simvastatin (Verified Allergy, Unknown, 09/24/18) Past [id number]-Gmysnv Hx Past Med/Social Hx: Reviewed Nursing Past Med/Soc Hx, Reviewed and Corrections made Patient Social History Marrital Status: Employed/Student: retired Alcohol Use: Denies Use Recreational Drug Use: No Smoking Status: Never a Smoker Physical Abuse Screen: No Sexual Abuse: No Recent Foreign Travel: No Contact w/other who traveled: No Recent Hopitalizations: Yes (EARLY AUGUST ) Recent Infectious Disease Expo: No Immunizations Up To Date Tetanus Booster (TDap): Unknown Pediatric: No Date of Pneumonia Vaccine: Mar 29, 2018 Date of Influenza Vaccine: Mar 29, 2018 Seasonal Allergies Seasonal Allergies: No Past Medical History Surgeries: Cardiac, Coronary Stent, Gallbladder, Nephrectomy Currently Using CPAP: No Currently Using BIPAP: No Cardiac: Cardiomyopathy, Hypertension, Valvular Heart Disease Neurological: Dementia, Stroke : No Sexually Transmitted Disease: No HIV/AIDS: No Female Reproductive Disorders: Denies Genitourinary: Bladder Infection, Renal Failure, UTI-Chronic JOSH s/p nephrectomy Musculoskeletal: Arthritis Endocrine: Diabetes, Non-Insulin dep Are Your Blood Sugars Over 250: No Loss of Vision: Denies Hearing Impairment: Hard of Hearing, Hearing Aide Right History of Blood Disorders: No Adverse Reaction to Blood Rodriguez: No Family History Patient reports no known family medical history. No Pertinent Family Hx Review of Systems Constitutional: see HPI, dizziness, weakness EENTM: no symptoms reported Respiratory: no symptoms reported Cardiovascular: no symptoms reported Gastrointestinal: loss of appetite Genitourinary: decreased output, frequency, hematuria Musculoskeletal: back pain Skin: no symptoms reported Psychiatric/Neurological: Other (confused) Physical Exam Physical Exam Vital Signs Vital Signs - First Documented Capillary Refill : Less Than 3 Seconds Height, Weight, BMI Height: 5'3.00" Weight: 163lbs. 7.0oz. 73.750434fi; 28.9 BMI Method:Stated General Appearance: No Apparent Distress, WD/WN, Chronically ill, Obese Eyes: Right Eye Normal Inspection, Right Eye PERRL HEENT: PERRL/EOMI, Normal ENT Inspection, Pharynx Normal, Moist Mucous Membranes Neck: Full Range of Motion, Normal Inspection, Non Tender Respiratory: Chest Non Tender, Lungs Clear, Normal Breath Sounds, No Accessory Muscle Use, No Respiratory Distress Cardiovascular: No Edema, No Gallop, No JVD, No Murmur, Normal Peripheral Pulses, Irregularly Irregular Gastrointestinal: Normal Bowel Sounds, No Organomegaly, No Pulsatile Mass, Non Tender, Soft Back: Normal Inspection, No CVA Tenderness, No Vertebral Tenderness Extremity: Normal Capillary Refill, Normal Inspection, Normal Range of Motion, Non Tender, No Calf Tenderness, No Pedal Edema Neurologic/Psychiatric: Alert, No Motor/Sensory Deficits, Normal Mood/Affect, Disoriented (subtle confusion) Skin: Normal Color, Warm/Dry Lymphatic: No Adenopathy Results Results/Procedures Labs Laboratory Tests 09/24/18 12:10 09/25/18 05:45 Patient resulted labs reviewed. Assessment/Plan Admission Diagnosis Assessment: Acute on recurrent UTI AF Dementia GERD DM HTN Angina Plan: IV abx Appreciate Dr Hassan's help Tely Monitor Home meds Admission Status: Inpatient Order (span 2 midnights) Reason for Inpatient Admission: recurrent UTI with confusion and advanced age Diagnosis/Problems Diagnosis/Problems (1) Acute encephalopathy Status: Acute (2) Acute UTI Status: Acute (3) Acute kidney injury Status: Acute (4) Atrial fibrillation Status: Chronic Qualifiers: Atrial fibrillation type: chronic Qualified Codes: I48.2 - Chronic atrial fibrillation (5) Diastolic CHF Status: Chronic (6) Non-insulin dependent type 2 diabetes mellitus Status: Chronic (7) Essential (primary) hypertension Status: Chronic (8) CKD (chronic kidney disease) Status: Chronic Qualifiers: Chronic kidney disease stage: stage 2 (mild) Qualified Codes: N18.2 - Chronic kidney disease, stage 2 (mild) (9) Dementia Status: Chronic Qualifiers: Dementia type: Alzheimer's disease Alzheimer's disease onset: unspecified onset Dementia behavioral disturbance: without behavioral disturbance Qualified Codes: G30.9 - Alzheimer's disease, unspecified; F02.80 - Dementia in other diseases classified elsewhere without behavioral disturbance Clinical Quality Measures DVT/VTE Risk/Contraindication: Risk Factor Score Per Nursin RFS Level Per Nursing on Admit: 4+=Very High YARITZA KOCH DO Sep 25, 2018 12:39
[2018-09-25] MEDS: amLODIPine 5 MG (NORVASC) TAB PO SCH (12:58)
[2018-09-25] MEDS: LABETALOL 200 MG (NORMODYNE) TAB PO SCH ×2 (12:58→20:18)
[2018-09-25] MEDS: cefTRIAXone FOR IV USE 1,000 MG in WATER (STERILE) FOR INJECTION 10 ML IV SCH (14:14)
[2018-09-25] MEDS ORDERED: warFARin 1 MG (COUMADIN) TAB PO SCH (18:00)
[2018-09-25] MEDS ORDERED: warFARin 3 MG (COUMADIN) TAB PO SCH (18:00)
[2018-09-25] MEDS: SOTALOL 80 MG (BETAPACE) TAB PO SCH (20:18)
[2018-09-25] MEDS ORDERED: ATORVASTATIN 10 MG (LIPITOR) TABLET PO SCH (21:00)
[2018-09-25] MEDS ORDERED: NON-FORMULARY MEDICATION 1 EA EA (Labetalol HCl 100 MG) PO SCH (21:00)
[2018-09-25] MEDS ORDERED: NON-FORMULARY MEDICATION 1 EA EA (Sotalol HCl (Sotalol) 80 MG) PO SCH (21:00)
[2018-09-26 04:00] VITALS: BP 138/78
[2018-09-26] MEDS: CATHETER FLUSH 10 ML SYR IV SCH ×2 (05:34→12:56)
[2018-09-26 07:04] LABS: BASOPHILS % (AUTO) 0 % (0-10); EOSINOPHILS # (AUTO) 0.4 10^3/uL (0.0-0.3); EOSINOPHILS % (AUTO) 4 % (0-10); HEMATOCRIT 37 % (35-52); HEMOGLOBIN 11.6 G/DL (11.5-16.0); LYMPHOCYTES # (AUTO) 1.4 X 10^3 (1.0-4.0); LYMPHOCYTES % (AUTO) 16 % (12-44); MEAN CORPUSCULAR HEMOGLOBIN 26 PG (25-34); MEAN CORPUSCULAR HGB CONC 31 G/DL (32-36); MEAN CORPUSCULAR VOLUME 82 FL (80-99); MEAN PLATELET VOLUME 12.1 FL (7.4-10.4); MONOCYTES # (AUTO) 0.7 X 10^3 (0.0-1.0); MONOCYTES % (AUTO) 8 % (0-12); NEUTROPHILS % (AUTO) 71 % (42-75); PLATELET COUNT 267 10^3/uL (130-400); RED CELL DISTRIBUTION WIDTH 14.3 % (10.0-14.5); WHITE BLOOD COUNT 8.5 10^3/uL (4.3-11.0)
[2018-09-26 07:14] LABS: INR 1.4 (0.8-1.4); PROTHROMBIN TIME PATIENT 17.8 SEC (12.2-14.7)
[2018-09-26 07:28] LABS: ALBUMIN 3.3 GM/DL (3.2-4.5); BILIRUBIN,TOTAL 0.3 MG/DL (0.1-1.0); CALCIUM 9.3 MG/DL (8.5-10.1); CREATININE SERUM 1.82 MG/DL (0.60-1.30); POTASSIUM 3.8 MMOL/L (3.6-5.0); TOTAL PROTEIN 6.7 GM/DL (6.4-8.2)
[2018-09-26 08:00] VITALS: BP 162/84
--- NOTE | 2018-09-26 08:30 | Cardiology Progress Note ---
Subjective Date Seen by Provider: Sep 26, 2018 Time Seen by Provider: 08:28 Subjective/Events-last exam Patient is in bed, feeling better, no new complaint, no chest pain or shortness of breath Review of Systems General: No Chills, No Night Sweats, No Fatigue, No Malaise, No Appetite, No Other HEENT: No Head Aches, No Visual Changes, No Eye Pain, No Ear Pain, No Dysphasia , No Sinus Congestion, No Post Nasal Drip, No Sore Throat, No Other Pulmonary: No Dyspnea, No Cough, No Pleuritic Chest Pain, No Other Cardiovascular: No: Chest Pain, Palpitations, Orthopnea, Paroxysmal Noc. Dyspnea, Edema, Lt Headedness, Other Focused Exam Lactate Level 09/24/18 12:10: Lactic Acid Level 1.99 09/24/18 16:50: Lactic Acid Level 1.08 Objective-Cardiology Exam Last Set of Vital Signs Vital Signs 09/26/18 04:00 Temp 98.0 Pulse 75 Resp 16 B/P (MAP) 138/78 (98) Pulse Ox 97 O2 Delivery Room Air Capillary Refill : Less Than 3 Seconds I&O Intake and Output 09/26/18 00:00 Intake Total 1520 ml Balance 1520 ml Intake Oral 1510 ml IV Total 10 ml # Voids 6 General: Alert, Oriented X3, Cooperative HEENT: Atraumatic, PERRLA Neck: Supple, No JVD, No Thyromegaly Lungs: Clear to Auscultation, Normal Air Movement Heart: Normal S1, Normal S2, Other (irregular, systolic murmur) Abdomen: Normal Bowel Sounds, Soft, No Tenderness, No Hepatosplenomegaly, No Masses Extremities: No Clubbing, No Cyanosis, No Edema, Normal Pulses, No Tenderness/ Swelling Skin: No Rashes, No Breakdown, No Significant Lesion Neuro: Normal Gait, Normal Speech, Strength at 5/5 X4 Ext, Normal Tone, Sensation Intact Psych/Mental Status: Mental Status NL, Mood NL Results Lab Laboratory Tests 09/26/18 06:30 A/P-Cardiology Admission Diagnosis Change in mental status Recurrent UTI Chronic atrial fibrillation Cardiac pacemaker Hypertension Hyperlipidemia Assessment/Plan Status post acute change in mental status, better at this time, managed by primary care team Recurrent UTI, managed by primary care team Paroxysmal atrial fibrillation, currently in atrial fibrillation, patient is maintained on sotalol and labetalol and digoxin in addition to aspirin and Plavix and medicine. I will monitor INR closely. I recommend discontinuation of labetalol and maintaining sotalol only. Try to obtain copy of her record. Questionable peripheral arterial disease, no known history of coronary artery disease. Hypertension, on multiple medication, restart medication monitor blood pressure History of permanent pacemaker, followed by primary rescue worker Hyperlipidemia, maintained on statin Questionable coronary artery disease, patient is not remembering having any coronary stent or cardiac catheterization. Patient and her family are poor historian. I'll try to obtain copy of the record from [place] Clinical Quality Measures DVT/VTE Risk/Contraindication: Risk Factor Score Per Nursin RFS Level Per Nursing on Admit: 4+=Very High DESHAWN GARCIA MD Sep 26, 2018 08:30
[2018-09-26] MEDS: SOTALOL 80 MG (BETAPACE) TAB PO SCH (08:53)
[2018-09-26] MEDS: LABETALOL 200 MG (NORMODYNE) TAB PO SCH (08:53)
[2018-09-26] MEDS: amLODIPine 5 MG (NORVASC) TAB PO SCH (08:53)
[2018-09-26] MEDS ORDERED: FUROSEMIDE 20 MG (LASIX) TAB PO SCH (09:00)
[2018-09-26] MEDS ORDERED: NON-FORMULARY MEDICATION 1 EA EA (Amlodipine Besylate 5 MG) PO SCH (09:00)
[2018-09-26] MEDS ORDERED: ASPIRIN E.C. 81 MG (ECOTRIN) TAB PO SCH (09:00)
--- NOTE | 2018-09-26 10:51 | CONSULTATION REPORT ---
DATE OF SERVICE: 09/26/2018 ATTENDING PHYSICIAN: Dr. Zee - Dr. Kidd. SUMMARY: After reviewing the patient's records, interviewing and examining her this is an 83-year-old lady whose is a patient of mine who has been having recurrent urinary tract infection presenting mostly has neurological changes that have become more frequent, as frequently as once a month. Her urine culture grew E. coli. Her blood cultures were negative. She is on Rocephin and responding well. She has never had any workup for her by x-rays or urologically. She is free of symptoms now. IMPRESSION: History of urinary tract infection with present urinary tract infection, resolving. RECOMMENDATIONS: May discharge on oral antibiotic. Her daughter is going to call my office tomorrow to get an appointment to see me sometime this week and will work up for prevention of UTIs. Plan was fully explained to the patient and her daughter. Job ID: [id number] DocumentID: [id number] Dictated Date: 09/26/2018 10:35:11 Painting Manager Date: 09/26/2018 10:50:10 Dictated By: SAULO BRIGHT MD
[2018-09-26] MEDS: cefTRIAXone FOR IV USE 1,000 MG in WATER (STERILE) FOR INJECTION 10 ML IV SCH (12:56)
[2018-09-26] MEDS ORDERED: CEFD300C3 PO (13:04)
--- NOTE | 2018-09-26 13:07 | Discharge Summary-Hospitalist ---
Diagnosis/Chief Complaint Date of Admission Sep 24, 2018 at 14:50 Date of Discharge Discharge Date: Sep 26, 2018 Admission Diagnosis Assessment: Acute on recurrent UTI AF Dementia GERD DM HTN Angina Plan: IV abx Appreciate Dr Hassan's help Tely Monitor Home meds Discharge Diagnosis (1) Acute encephalopathy Status: Resolved (2) Acute UTI Status: Acute (3) Acute kidney injury Status: Resolved (4) Atrial fibrillation Status: Chronic (5) Diastolic CHF Status: Chronic (6) Non-insulin dependent type 2 diabetes mellitus Status: Chronic (7) Essential (primary) hypertension Status: Chronic (8) CKD (chronic kidney disease) Status: Chronic (9) Dementia Status: Chronic Discharge Summary Discharge Physical Exam Allergies: Coded Allergies: SYLVIE Inhibitors (Verified Allergy, Unknown, 09/24/18) Penicillins (Unverified Allergy, Unknown, Pt has received Ancef in the past, 09/24/18) Sulfa (Sulfonamide Antibiotics) (Verified Allergy, Unknown, 09/24/18) amlodipine (Verified Allergy, Unknown, 09/24/18) ciprofloxacin (Verified Allergy, Unknown, 09/24/18) diltiazem (Verified Allergy, Unknown, 09/24/18) levofloxacin (Verified Allergy, Unknown, 09/24/18) loratadine (Verified Allergy, Unknown, 09/24/18) pseudoephedrine (Verified Allergy, Unknown, 09/24/18) simvastatin (Verified Allergy, Unknown, 09/24/18) Vitals & I&Os Vital Signs Date Time Temp Pulse Resp B/P (MAP) Pulse Ox O2 Delivery O2 Flow Rate FiO2 09/26/18 08:00 97.3 80 20 162/84 (110) 97 Room Air General Appearance: No Apparent Distress, WD/WN, Chronically ill Respiratory: Chest Non Tender, Lungs Clear, Normal Breath Sounds, No Accessory Muscle Use, No Respiratory Distress Cardiovascular: Regular Rate, Rhythm, No Edema, No Gallop, No JVD, No Murmur, Normal Peripheral Pulses Neurologic/Psychiatric: Alert, Oriented x3, No Motor/Sensory Deficits, Normal Mood/Affect, Disoriented Hospital Course Was the Problem List Reviewed?: Yes Hospital course: Patient had an uneventful and brief hospital course after she was admitted with confusion and acute encephalopathy due to acute on recurrent UTI. Patient was placed on Rocephin and awaited urine culture. IV fluids were continued along with other supportive care and patient resolved confusion but she does have dementia at baseline. Urology was consulted and will see her in 2 weeks. Primary care provider will see her in one week. Urine culture reviewed Omnicef was chosen and sent to pharmacy. Cardiology did evaluate her and stopped Plavix but that was confirmed at discharge per cardiology. Patient will have follow-up for pro time. Labs (last 24 hrs) Laboratory Tests 09/26/18 06:30: White Blood Count 8.5, Red Blood Count 4.53, Hemoglobin 11.6, Hematocrit 37, Mean Corpuscular Volume 82, Mean Corpuscular Hemoglobin 26, Mean Corpuscular Hemoglobin Concent 31L, Red Cell Distribution Width 14.3, Platelet Count 267, Mean Platelet Volume 12.1H, Neutrophils (%) (Auto) 71, Lymphocytes (%) (Auto) 16 , Monocytes (%) (Auto) 8, Eosinophils (%) (Auto) 4, Basophils (%) (Auto) 0, Neutrophils # (Auto) 6.0, Lymphocytes # (Auto) 1.4, Monocytes # (Auto) 0.7, Eosinophils # (Auto) 0.4H, Basophils # (Auto) 0.0, Prothrombin Time 17.8H, INR Comment 1.4, Sodium Level 142, Potassium Level 3.8, Chloride Level 108H, Carbon Dioxide Level 20L, Anion Gap 14, Blood Urea Nitrogen 21H, Creatinine 1.82H, Estimat Glomerular Filtration Rate 26, BUN/Creatinine Ratio 12, Glucose Level 213H, Calcium Level 9.3, Corrected Calcium 9.9, Total Bilirubin 0.3, Aspartate Amino Transf (AST/SGOT) 10, Alanine Aminotransferase (ALT/SGPT) 13, Alkaline Phosphatase 61, Total Protein 6.7, Albumin 3.3, Triglycerides Level 238H, Cholesterol Level 206H, LDL Cholesterol Direct 133H, VLDL Cholesterol 48H, HDL Cholesterol 35L, Digoxin Level 0.52L Microbiology 09/24/18 Blood Culture - Preliminary, Resulted No growth 09/24/18 Urine Culture - Final, Complete Escherichia coli Patient resulted labs reviewed. Pending Labs Laboratory Tests 09/26/18 06:30: White Blood Count 8.5, Red Blood Count 4.53, Hemoglobin 11.6, Hematocrit 37, Mean Corpuscular Volume 82, Mean Corpuscular Hemoglobin 26, Mean Corpuscular Hemoglobin Concent 31, Red Cell Distribution Width 14.3, Platelet Count 267, Mean Platelet Volume 12.1, Neutrophils (%) (Auto) 71, Lymphocytes (%) (Auto) 16 , Monocytes (%) (Auto) 8, Eosinophils (%) (Auto) 4, Basophils (%) (Auto) 0, Neutrophils # (Auto) 6.0, Lymphocytes # (Auto) 1.4, Monocytes # (Auto) 0.7, Eosinophils # (Auto) 0.4, Basophils # (Auto) 0.0, Prothrombin Time 17.8, INR Comment 1.4, Sodium Level 142, Potassium Level 3.8, Chloride Level 108, Carbon Dioxide Level 20, Anion Gap 14, Blood Urea Nitrogen 21, Creatinine 1.82, Estimat Glomerular Filtration Rate 26, BUN/Creatinine Ratio 12, Glucose Level 213, Calcium Level 9.3, Corrected Calcium 9.9, Total Bilirubin 0.3, Aspartate Amino Transf (AST/SGOT) 10, Alanine Aminotransferase (ALT/SGPT) 13, Alkaline Phosphatase 61, Total Protein 6.7, Albumin 3.3, Triglycerides Level 238, Cholesterol Level 206, LDL Cholesterol Direct 133, VLDL Cholesterol 48, HDL Cholesterol 35, Digoxin Level 0.52 Discussion & Recommendations Discharge Planning: <30 minutes discharge planning Discharge Home Medications: Active Scripts Active Cefdinir 300 Mg Capsule 300 Mg PO BID Acidophilus-Pectin Capsule (Lactobacillus Acidophilus/Pect) 1 Each Capsule 2 Each PO TIDWM Loperamide (Loperamide HCl) 2 Mg Capsule 2 Mg PO NEEDED PRN Reported Calcium 600 + Vit D 400 Tablet (Calcium Carbonate/Vitamin D3) 1 Each Tablet 1 Tab PO HS Vitamin C (Ascorbic Acid) 250 Mg Tab 250 Mg PO DAILY Cyanocobalamin Injection (Cyanocobalamin) 1,000 Mcg/Ml Inj 1,000 Mcg IM MONTHLY Januvia (Sitagliptin Phosphate) 50 Mg Tablet 25 Mg PO DAILY TAKES 1/2 (50MG) TABLET Magnesium (Magnesium Oxide) 400 Mg Tablet 400 Mg PO BID Labetalol HCl 100 Mg Tablet 100 Mg PO BID Warfarin Sodium 2 Mg Tablet 3.5 Mg PO Q48H ALTERNATES EVERY OTHER DAY WITH 3MG AND 3.5MG Warfarin Sodium 2 Mg Tablet 3 Mg PO Q48H ALTERNATES EVERY OTHER DAY WITH 3MG AND 3.5MG Digox (Digoxin) 125 Mcg Tablet 125 Mcg PO Q48H Potassium Chloride 20 Meq Tab.er.prt 20 Meq PO DAILY Atorvastatin Calcium 10 Mg Tablet 10 Mg PO HS Amlodipine Besylate 5 Mg Tablet 5 Mg PO DAILY Sotalol (Sotalol HCl) 80 Mg Tablet 80 Mg PO BID Omeprazole 20 Mg Capsule.dr 20 Mg PO BID Clopidogrel (Clopidogrel Bisulfate) 75 Mg Tablet 75 Mg PO DAILY Furosemide 20 Mg Tablet 20 Mg PO DAILY Isosorbide Mononitrate ER (Isosorbide Mononitrate) 60 Mg Tab 60 Mg PO DAILY Instructions to patient/family Please see electronic discharge instructions given to patient. Clinical Quality Measures DVT/VTE Risk/Contraindication: Risk Factor Score Per Nursin RFS Level Per Nursing on Admit: 4+=Very High Problem Qualifiers (1) Atrial fibrillation: Atrial fibrillation type: chronic Qualified Codes: I48.2 - Chronic atrial fibrillation (2) CKD (chronic kidney disease): Chronic kidney disease stage: stage 2 (mild) Qualified Codes: N18.2 - Chronic kidney disease, stage 2 (mild) (3) Dementia: Dementia type: Alzheimer's disease Alzheimer's disease onset: unspecified onset Dementia behavioral disturbance: without behavioral disturbance Qualified Codes: G30.9 - Alzheimer's disease, unspecified; F02.80 - Dementia in other diseases classified elsewhere without behavioral disturbance TERE KOCH DO Sep 26, 2018 13:07
--- NOTE | 2018-09-26 13:17 | NUR ---
DR. GARCIA CALLED TO VERIFY DC MEDS. ASA STOPPED PER DR. GARCIA AND ORDER TO RESUME PLAVIS AND ELIQUIS AT [place].
--- NOTE | 2018-09-26 13:31 | NUR ---
RX AND INST GIVEN TO DAUGHTER AND VERBALIZED UNDERSTANDING. DC'D PER WC.
== END 2018-09-26 13:32 | disposition home or self-care (01) | DRG 690 ==
LOC: EDUNIT# 11:37 → ER FS 11:40 → 4TH 14:50
PROVIDERS: ADMIT Internal Medicine; ATTEND Internal Medicine
DX: N39.0 Urinary tract infection, site not specified (principal); N17.9 Acute kidney failure, unspecified; G93.40 Encephalopathy, unspecified; I13.0 Hypertensive heart and chronic kidney disease with heart failure and stage 1 through stage 4 chronic kidney disease, or unspecified chronic kidney disease; I50.32 Chronic diastolic (congestive) heart failure; N18.2 Chronic kidney disease, stage 2 (mild); I42.9 Cardiomyopathy, unspecified; I48.2 Chronic atrial fibrillation; E11.22 Type 2 diabetes mellitus with diabetic chronic kidney disease; E78.5 Hyperlipidemia, unspecified; K21.9 Gastro-esophageal reflux disease without esophagitis; G30.9 Alzheimer's disease, unspecified; F02.80 Dementia in other diseases classified elsewhere, unspecified severity, without behavioral disturbance, psychotic disturbance, mood disturbance, and anxiety; B96.20 Unspecified Escherichia coli [E. coli] as the cause of diseases classified elsewhere; Z95.0 Presence of cardiac pacemaker; Z95.5 Presence of coronary angioplasty implant and graft; Z79.01 Long term (current) use of anticoagulants
CPT/HCPCS: 36415; 51701; 70450; 71045; 80048; 80053; 80061; 80162; 81000; 82962; 83605; 84484; 85025; 85027; 85610; 85730; 87040; 87077; 87088; 87186; 93306; 96361; 96374

== ENCOUNTER → 2018-10-11 | Outpatient (CLI) | payer MEDICARE, OTHER ==
[~2018-10-11] MED LIST changes: +CEFD300C3 PO
--- NOTE | 2018-10-11 09:33 | Diagnostic Imaging Report ---
PROCEDURE: CT abdomen and pelvis without contrast. TECHNIQUE: Multiple contiguous axial images were obtained through the abdomen and pelvis without the use of intravenous contrast. Auto Exposure Controls were utilized during the CT exam to meet ALARA standards for radiation dose reduction. INDICATION: Frequent urinary tract infections. No prior studies are available for comparison. The lung bases are clear apart from minimal scarring or atelectasis in the lingula. No discrete liver mass is identified with the exception of a tiny low density in the medial and inferior right lobe measuring 8 mm. This is too small to accurately characterize but likely a small cyst. The gallbladder is surgically absent. No biliary ductal dilatation is seen. The pancreas and spleen are unremarkable. There is generalized thickening of the bilateral adrenal glands without evidence of a discrete adrenal mass. Findings are consistent with adrenal hyperplasia. There appears to be cortical scarring involving the right kidney which is also small. There is a low-density lesion lower pole of the right kidney measuring approximate 4.5 cm in diameter. This is consistent with a cyst. Small cortical low density involving the lateral portion of the left kidney is also seen suggestive of a cyst. There is also a hyperdense 9 mm lesion involving lower pole left kidney. No calculi are identified. No significant hydronephrosis is seen. Is question of a tiny calculus in the mid left ureter proximally 1-2 mm in size versus an tiny adjacent phlebolith. The right ureter is unremarkable. No bladder calculi are identified. Aorta is heavily calcified but non-aneurysmal. No central retroperitoneal or mesenteric lymphadenopathy is seen. Extensive sigmoid diverticulosis is identified but no evidence of acute diverticulitis. The uterus is unremarkable no pelvic lymphadenopathy is detected. Generalized lumbar spondylosis is noted. No acute bony abnormality is detected. Impression: 1. Bilateral adrenal hyperplasia. 2. Bilateral renal cysts and right renal cortical scarring. There is a possible tiny mid left ureteric calculus versus adjacent phlebolith noted without significant hydronephrosis. No bladder calculi are seen. Next 9. Millimeter hyperdense lesion lower pole left kidney, indeterminate between a small hemorrhagic cyst versus a solid lesion. Followup is recommended to confirm stability. Next number uncomplicated sigmoid diverticulosis. Dictated by: Dictated on workstation # [id number]
== END ==
LOC: RAD FS 08:59
PROVIDERS: ATTEND Urology
DX: N39.0 Urinary tract infection, site not specified (principal); E27.8 Other specified disorders of adrenal gland; N28.1 Cyst of kidney, acquired; K57.30 Diverticulosis of large intestine without perforation or abscess without bleeding; K76.9 Liver disease, unspecified; Z90.49 Acquired absence of other specified parts of digestive tract
CPT/HCPCS: 74176

== ENCOUNTER → 2018-10-21 | Outpatient (CLI) | payer MEDICARE, OTHER ==
--- NOTE | 2018-10-21 11:57 | Diagnostic Imaging Report ---
PROCEDURE: US Renal Bilateral. TECHNIQUE: Multiple real-time grayscale images were obtained over the kidneys in various projections bilaterally. INDICATION: Hyperdense left renal mass noted on CT from 10/11/2018. This study is performed for further evaluation. COMPARISON: Correlation is made with CT study from 10/11/2018. FINDINGS: Right kidney measures 8.7 x 3.9 x 4.4 cm and the left kidney measures 6.4 x 4.0 x 3.9 cm. Right kidney does contain a simple-appearing cyst measuring 4.8 x 3.8 x 3.3 cm. There is an area of hypoechogenicity along the lower pole of the left kidney measuring 3.9 x 4.4 x 2.6 cm. This is indeterminate, as no definite mass lesion at this location is seen on the CT study one week earlier. CT did contain a hyperdense lesion in the lower pole approximate 9 mm in size. This lesion is not well seen with ultrasound. Bladder is unremarkable. IMPRESSION: 1. Simple right renal cyst. 2. Indeterminate area of hypoechogenicity adjacent to the lower pole of the left kidney. No concerning lesion of this size was seen on CT study one week earlier and this could conceivably be artifactual. The 9 mm hyperdense lesion noted on CT is now well seen by ultrasound. Continued close followup is recommended with a repeat CT to confirm stability. Dictated by: Dictated on workstation # [id number]
== END ==
LOC: RAD FS 10:32
PROVIDERS: ATTEND Urology
DX: N28.1 Cyst of kidney, acquired (principal)
CPT/HCPCS: 76770

== ENCOUNTER 2018-12-01 14:07 | Observation (INO) | payer MEDICARE, OTHER ==
[~2018-12-01] VITALS: Ht 160 cm; Wt 73.9 kg
[~2018-12-01 14:07] MED LIST changes: -SOTA80TA PO; +STL80T PO
--- OUTSIDE RECORDS SUMMARY | 2018-12-01 14:21 | XMS REPORT | Continuity of Care Document ---
Author Organization Unknown Address Unknown Allergies Active Description Code Type Severity Reaction Onset Reported/Identified Relationship to Patient Clinical Status Yes Penicillins [id number] Drug Allergy Unknown N/A 08/11/2018 Yes SYLVIE Inhibitors [id number] Drug Allergy Unknown N/A 09/24/2018 Yes amlodipine [id number] Drug Allergy Unknown N/A 09/24/2018 Yes ciprofloxacin [id number] Drug Allergy Unknown N/A 09/24/2018 Yes diltiazem [id number] Drug Allergy Unknown N/A 09/24/2018 Yes levofloxacin [id number] Drug Allergy Unknown N/A 09/24/2018 Yes loratadine [id number] Drug Allergy Unknown N/A 09/24/2018 Yes Penicillins [id number] Drug Allergy Unknown Pt has received 09/24/2018 Yes pseudoephedrine [id number] Drug Allergy Unknown N/A 09/24/2018 Yes simvastatin [id number] Drug Allergy Unknown N/A 09/24/2018 Yes Sulfa (Sulfonamide Antibiotics) [id number] Drug Allergy Unknown N/A 09/24/2018 Medications There is no data. Problems Date Dx Coded Attending Type Code Diagnosis Diagnosed By 08/12/2018 MAXINE MARS MD Ot A41.9 SEPSIS, UNSPECIFIED ORGANISM 08/12/2018 MAXINE MARS MD Ot E11.9 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 MELLITUS WITHOUT COMPLIC 08/12/2018 MAXINE MARS MD Ot E87.2 ACIDOSIS 08/12/2018 MAXINE MARS MD Ot F03.90 UNSPECIFIED DEMENTIA WITHOUT BEHAVIORAL 08/12/2018 MAXINE MARS MD Ot I13.0 HYP HRT CHR KDNY DIS W HRT FAIL AND ST 08/12/2018 MAXINE MARS MD Ot I34.0 NONRHEUMATIC MITRAL (VALVE) INSUFFICIENC 08/12/2018 MAXINE MARS MD Ot I42.9 CARDIOMYOPATHY, UNSPECIFIED 08/12/2018 MAXINE MARS MD, Ot I48.0 PAROXYSMAL ATRIAL FIBRILLATION 08/12/2018 MAXINE MARS MD, Ot 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 08/12/2018 MAXINE MARS MD, Ot M19.91 PRIMARY OSTEOARTHRITIS, UNSPECIFIED SITE 08/12/2018 MAXINE MARS MD, Ot N18.3 CHRONIC KIDNEY DISEASE, STAGE 3 (MODERAT 08/12/2018 MAXINE MARS MD, Ot N30.00 ACUTE CYSTITIS WITHOUT HEMATURIA 08/12/2018 MAXINE MARS MD, Ot R19.7 DIARRHEA, UNSPECIFIED 08/12/2018 MAXINE MARS MD, Ot Z66 DO NOT RESUSCITATE 08/12/2018 MAXINE MARS MD, Ot Z79.01 HALFWAY (CURRENT) USE OF ANTICOAGULANT 08/12/2018 MAXINE MARS MD, Ot Z86.73 PRSNL HX OF TIA (TIA), AND CEREB INFRC W 08/12/2018 MAXINE MARS MD, Ot Z90.5 ACQUIRED ABSENCE OF KIDNEY 08/12/2018 MAXINE MARS MD Ot Z95.0 PRESENCE OF CARDIAC PACEMAKER 08/12/2018 MAXINE MARS MD, Ot Z95.5 PRESENCE OF CORONARY ANGIOPLASTY IMPLANT 08/13/2018 MAXINE MARS MD, Ot A41.9 SEPSIS, UNSPECIFIED ORGANISM 08/13/2018 MAXINE MARS MD Ot E11.9 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 MELLITUS WITHOUT COMPLIC 08/13/2018 MAXINE MARS MD Ot E87.2 ACIDOSIS 08/13/2018 MAXINE MARS MD, Ot F03.90 UNSPECIFIED DEMENTIA WITHOUT BEHAVIORAL 08/13/2018 MAXINE MARS MD Ot I13.0 HYP HRT CHR KDNY DIS W HRT FAIL AND ST 08/13/2018 MAXINE MARS MD, Ot I34.0 NONRHEUMATIC MITRAL (VALVE) INSUFFICIENC 08/13/2018 MAXINE MARS MD, Ot I42.9 CARDIOMYOPATHY, UNSPECIFIED 08/13/2018 MAXINE MARS MD, Ot I48.0 PAROXYSMAL ATRIAL FIBRILLATION 08/13/2018 MAXINE MARS MD, Ot 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 08/13/2018 MAXINE MARS MD, Ot M19.91 PRIMARY OSTEOARTHRITIS, UNSPECIFIED SITE 08/13/2018 MAXINE MARS MD, Ot N18.3 CHRONIC KIDNEY DISEASE, STAGE 3 (MODERAT 08/13/2018 MAXINE MARS MD, Ot N30.00 ACUTE CYSTITIS WITHOUT HEMATURIA 08/13/2018 MAXINE MARS MD, Ot R19.7 DIARRHEA, UNSPECIFIED 08/13/2018 MAXINE MARS MD, Ot Z66 DO NOT RESUSCITATE 08/13/2018 MAXINE MARS MD, Ot 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 08/13/2018 MAXINE MARS MD, Ot Z86.73 PRSNL HX OF TIA (TIA), AND CEREB INFRC W 08/13/2018 MAXINE MARS MD, Ot Z90.5 ACQUIRED ABSENCE OF KIDNEY 08/13/2018 MAXINE MARS MD, Ot Z95.0 PRESENCE OF CARDIAC PACEMAKER 08/13/2018 MAXINE MARS MD, Ot Z95.5 PRESENCE OF CORONARY ANGIOPLASTY IMPLANT 08/13/2018 MAXINE MARS MD, Ot A41.9 SEPSIS, UNSPECIFIED ORGANISM 08/13/2018 MAXINE MARS MD, Ot E11.9 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 MELLITUS WITHOUT COMPLIC 08/13/2018 MAXINE MARS MD, Ot E87.2 ACIDOSIS 08/13/2018 MAXINE MARS MD, Ot F03.90 UNSPECIFIED DEMENTIA WITHOUT BEHAVIORAL 08/13/2018 MAXINE MARS MD, Ot I13.0 HYP HRT CHR KDNY DIS W HRT FAIL AND ST 08/13/2018 MAXINE MARS MD, Ot I34.0 NONRHEUMATIC MITRAL (VALVE) INSUFFICIENC 08/13/2018 MAXINE MARS MD, Ot I42.9 CARDIOMYOPATHY, UNSPECIFIED 08/13/2018 MAXINE MASR MD, Ot I48.0 PAROXYSMAL ATRIAL FIBRILLATION 08/13/2018 MAXINE MARS MD, Ot 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 08/13/2018 MAXINE MARS MD, Ot M19.91 PRIMARY OSTEOARTHRITIS, UNSPECIFIED SITE 08/13/2018 MAXINE MARS MD, Ot N18.3 CHRONIC KIDNEY DISEASE, STAGE 3 (MODERAT 08/13/2018 MAXINE MARS MD, Ot N30.00 ACUTE CYSTITIS WITHOUT HEMATURIA 08/13/2018 MAXINE MARS MD, Ot R19.7 DIARRHEA, UNSPECIFIED 08/13/2018 MAXINE MARS MD, Ot Z66 DO NOT RESUSCITATE 08/13/2018 MAXINE MARS MD, Ot 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 COLI] 08/14/2018 MAXINE MARS MD, Ot E11.9 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 MELLITUS WITHOUT COMPLIC 08/14/2018 MAXINE MARS MD, Ot E87.2 ACIDOSIS 08/14/2018 MAXINE MARS MD, Ot F03.90 UNSPECIFIED DEMENTIA WITHOUT BEHAVIORAL 08/14/2018 MAXINE MARS MD, Ot I13.0 HYP HRT CHR KD[place] DIS W HRT FAIL AND ST 08/14/2018 MAXINE MARS MD, Ot I34.0 NONRHEUMATIC MITRAL (VALVE) INSUFFICIENC 08/14/2018 MAXINE MARS MD, Ot I42.9 CARDIOMYOPATHY, UNSPECIFIED 08/14/2018 MAXINE MARS MD, Ot I48.0 PAROXYSMAL ATRIAL FIBRILLATION 08/14/2018 MAXINE MARS MD, Ot 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 08/14/2018 MAXINE MARS MD, Ot M19.91 PRIMARY OSTEOARTHRITIS, UNSPECIFIED SITE 08/14/2018 MAXINE MARS MD, Ot N18.3 CHRONIC KIDNEY DISEASE, STAGE 3 (MODERAT 08/14/2018 MAXINE MARS MD, Ot N30.00 ACUTE CYSTITIS WITHOUT HEMATURIA 08/14/2018 MAXINE MARS MD Ot R19.7 DIARRHEA, UNSPECIFIED 08/14/2018 MAXINE MARS MD Ot Z66 DO NOT RESUSCITATE 08/14/2018 MAXINE MARS MD Ot Z79.01 HALFWAY (CURRENT) USE OF ANTICOAGULANT 08/14/2018 MAXINE MARS MD, Ot Z86.73 PRSNL HX OF TIA (TIA), AND CEREB INFRC W 08/14/2018 MAXINE MARS MD Ot Z90.5 ACQUIRED ABSENCE OF KIDNEY 08/14/2018 MAXINE MARS MD Ot Z95.0 PRESENCE OF CARDIAC PACEMAKER 08/14/2018 MAXINE MARS MD Ot Z95.5 PRESENCE OF CORONARY ANGIOPLASTY IMPLANT 09/26/2018 TREE KOCH DO Ot B96.20 UNSP ESCHERICHIA COLI THE CAUSE OF DI 09/26/2018 SCOT KOCH DOI Ot 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 09/26/2018 ZEE RICARDO TERE Ot E78.5 HYPERLIPIDEMIA, UNSPECIFIED 09/26/2018 ZEE RICARDO TERE Ot F02.80 DEMENTIA IN OTH DISEASES CLASSD ELSWHR W 09/26/2018 ZEE RICARDO TERE Ot G30.9 ALZHEIMER'S DISEASE, UNSPECIFIED 09/26/2018 ZEE RICARDO TERE Ot G93.40 ENCEPHALOPATHY, UNSPECIFIED 09/26/2018 ZEE RICARDO TERE Ot I13.0 HYP HRT CHR KDNY DIS W HRT FAIL AND ST 09/26/2018 ZEE RICARDO TERE Ot I42.9 CARDIOMYOPATHY, UNSPECIFIED 09/26/2018 ZEE RICARDO TERE Ot I48.2 CHRONIC ATRIAL FIBRILLATION 09/26/2018 ZEE RICARDO TERE Ot 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 09/26/2018 ZEE RICARDO TERE Ot K21.9 GASTRO-ESOPHAGEAL REFLUX DISEASE WITHOUT 09/26/2018 ZEE RICARDO TERE Ot N17.9 ACUTE KIDNEY FAILURE, UNSPECIFIED 09/26/2018 ZEE RICARDO TERE Ot N18.2 CHRONIC KIDNEY DISEASE, STAGE 2 (MILD) 09/26/2018 ZEE RICARDO TERE Ot N39.0 URINARY TRACT INFECTION, SITE NOT SPECIF 09/26/2018 ZEE RICARDO TERE Ot Z79.01 HALFWAY (CURRENT) USE OF ANTICOAGULANT 09/26/2018 TERE KOCH DO Ot Z95.0 PRESENCE OF CARDIAC PACEMAKER 09/26/2018 TERE KOCH DO Ot Z95.5 PRESENCE OF CORONARY ANGIOPLASTY IMPLANT 10/12/2018 SAULO BRIGHT MD Ot E27.8 OTHER SPECIFIED DISORDERS OF ADRENAL GLA 10/12/2018 SAULO BRIGHT MD Ot K57.30 DVRTCLOS OF LG INT W/O PERFORATION OR AB 10/12/2018 SAULO BRIGHT MD Ot K76.9 LIVER DISEASE, UNSPECIFIED 10/12/2018 SAULO BRIGHT MD Ot N28.1 CYST OF KIDNEY, ACQUIRED 10/12/2018 SAULO BRIGHT MD Ot N39.0 URINARY TRACT INFECTION, SITE NOT SPECIF 10/12/2018 SAULO BRIGHT MD Ot Z90.49 ACQUIRED ABSENCE OF OTHER SPECIFIED PART 10/14/2018 SAULO BRIGHT MD Ot E27.8 OTHER SPECIFIED DISORDERS OF ADRENAL GLA 10/14/2018 SAULO BRIGHT MD Ot K57.30 DVRTCLOS OF LG INT W/O PERFORATION OR AB 10/14/2018 SAULO BRIGHT MD Ot K76.9 LIVER DISEASE, UNSPECIFIED 10/14/2018 SAULO BRIGHT MD Ot N28.1 CYST OF KIDNEY, ACQUIRED 10/14/2018 SAULO BRIGHT MD Ot N39.0 URINARY TRACT INFECTION, SITE NOT SPECIF 10/14/2018 SAULO BRIGHT MD Ot Z90.49 ACQUIRED ABSENCE OF OTHER SPECIFIED PART 10/22/2018 SAULO BRIGHT MD Ot N28.1 CYST OF KIDNEY, ACQUIRED 10/26/2018 SAULO BRIGHT MD Ot E27.8 OTHER SPECIFIED DISORDERS OF ADRENAL GLA 10/26/2018 ASULO BRIGHT MD Ot K57.30 DVRTCLOS OF LG INT W/O PERFORATION OR AB 10/26/2018 SAULO BRIGHT MD Ot K76.9 LIVER DISEASE, UNSPECIFIED 10/26/2018 SAULO BRIGHT MD Ot N28.1 CYST OF KIDNEY, ACQUIRED 10/26/2018 SAULO BRIGHT MD Ot N39.0 URINARY TRACT INFECTION, SITE NOT SPECIF 10/26/2018 SAULO BRIGHT MD, Ot Z90.49 ACQUIRED ABSENCE OF OTHER SPECIFIED PART 10/26/2018 SAULO BRIGHT MD Ot N28.1 CYST OF KIDNEY, ACQUIRED 11/02/2018 SAULO BRIGHT MD Ot E27.8 OTHER SPECIFIED DISORDERS OF ADRENAL GLA 11/02/2018 SAULO BRIGHT MD, Ot K57.30 DVRTCLOS OF LG INT W/O PERFORATION OR AB 11/02/2018 SAULO BRIGHT MD, Ot K76.9 LIVER DISEASE, UNSPECIFIED 11/02/2018 SAULO BRIGHT MD, Ot N28.1 CYST OF KIDNEY, ACQUIRED 11/02/2018 SAULO BRIGHT MD, Ot N39.0 URINARY TRACT INFECTION, SITE NOT SPECIF 11/02/2018 SAULO BRIGHT MD, Ot Z90.49 ACQUIRED ABSENCE OF OTHER SPECIFIED PART 11/10/2018 SAULO BRIGHT MD, Ot N28.1 CYST OF KIDNEY, ACQUIRED Procedures There is no data. Results Test Result Range Complete urinalysis with reflex to culture - 08/11/18 11:30 Urine color determination YELLOW NRG Urine clarity determination VERY CLOUDY NRG Urine pH measurement by test strip 6 5-9 Specific gravity of urine by test strip 1.020 1.016-1.022 Urine protein assay by test strip, semi-quantitative 4+ NEGATIVE Urine glucose detection by automated test strip 2+ NEGATIVE Erythrocytes detection in urine sediment by light microscopy 5+ NEGATIVE Urine ketones detection by automated test strip NEGATIVE NEGATIVE Urine nitrite detection by test strip POSITIVE NEGATIVE Urine total bilirubin detection by test strip NEGATIVE NEGATIVE Urine urobilinogen measurement by automated test strip (mass/volume) NORMAL NORMAL Urine leukocyte esterase detection by dipstick 3+ NEGATIVE Automated urine sediment erythrocyte count by microscopy (number/high power field) TNTC NRG Automated urine sediment leukocyte count by microscopy (number/high power field) TNTC NRG Bacteria detection in urine sediment by light microscopy LARGE NRG Crystals detection in urine sediment by light microscopy NONE NRG Casts detection in urine sediment by light microscopy NONE NRG Mucus detection in urine sediment by light microscopy NEGATIVE NRG Complete urinalysis with reflex to culture YES NRG Bacterial urine culture - 08/11/18 11:30 Bacterial urine culture [id number] NRG COLONY COUNT >100,000/ML NRG FTX;REPORTABLE SUSCEPTIBILITY REPORT RCD 08/14 10:05 NRG RML Sensitivity Panel - 08/11/18 11:30 Gentamicin susceptibility test by minimum inhibitory concentration <= NRG Trimethoprim/sulfamethoxazole susceptibility test by minimum inhibitoryconcentration <= NRG Levofloxacin susceptibility test by minimum inhibitory concentration <= NRG Ampicillin susceptibility test by minimum inhibitory concentration <= NRG Cefazolin susceptibility test by minimum inhibitory concentration <= NRG Ceftriaxone susceptibility test by minimum inhibitory concentration <= NRG Ciprofloxacin susceptibility test by minimum inhibitory concentration <= NRG Meropenem susceptibility test by minimum inhibitory concentration <= NRG Nitrofurantoin susceptibility test by minimum inhibitory concentration 32 NRG Amoxicillin and clavulanate potassium susc JESUS ALBERTO <= NRG RML Sensitivity Panel - 08/11/18 11:30 Gentamicin susceptibility test by minimum inhibitory concentration <= NRG Trimethoprim/sulfamethoxazole susceptibility test by minimum inhibitoryconcentration <= NRG Levofloxacin susceptibility test by minimum inhibitory concentration <= NRG Ampicillin susceptibility test by minimum inhibitory concentration <= NRG Cefazolin susceptibility test by minimum inhibitory concentration <= NRG Ceftriaxone susceptibility test by minimum inhibitory concentration <= NRG Ciprofloxacin susceptibility test by minimum inhibitory concentration <= NRG Meropenem susceptibility test by minimum inhibitory concentration <= NRG Nitrofurantoin susceptibility test by minimum inhibitory concentration <= NRG Amoxicillin and clavulanate potassium susc JESUS ALBERTO <= NRG Complete blood count (CBC) with automated white blood cell (WBC) differential - 08/11/18 11:39 Blood leukocytes automated count (number/volume) 6.9 10*3/uL 4.3-11.0 Blood erythrocytes automated count (number/volume) 4.17 10*6/uL 4.35-5.85 Venous blood hemoglobin measurement (mass/volume) 11.9 g/dL 11.5-16.0 Blood hematocrit (volume fraction) 36 % 35-52 Automated erythrocyte mean corpuscular volume 85 [foz_us] 80-99 Automated erythrocyte mean corpuscular hemoglobin (mass per erythrocyte) 29 pg 25-34 Automated erythrocyte mean corpuscular hemoglobin concentration measurement (mass/volume) 33 g/dL 32-36 Automated erythrocyte distribution width ratio 13.7 % 10.0- 14.5 Automated blood platelet count (count/volume) 220 10*3/uL 130-400 Automated blood platelet mean volume measurement 11.6 [foz_us] 7.4-10.4 Automated blood neutrophils/100 leukocytes 79 % 42-75 Automated blood lymphocytes/100 leukocytes 10 % 12-44 Blood monocytes/100 leukocytes 11 % 0-12 Automated blood eosinophils/100 leukocytes 0 % 0-10 Automated blood basophils/100 leukocytes 0 % 0-10 Blood neutrophils automated count (number/volume) 5.4 10*3 1.8-7.8 Blood lymphocytes automated count (number/volume) 0.7 10*3 1.0-4.0 Blood monocytes automated count (number/volume) 0.7 10*3 0.0- 1.0 Automated eosinophil count 0.0 10*3/uL 0.0-0.3 Automated blood basophil count (count/volume) 0.0 10*3/uL 0.0-0.1 Blood lactic acid measurement (moles/volume) - 08/11/18 11:39 Blood lactic acid measurement (moles/volume) 2.70 mmol/L 0.50- 2.00 PT panel in platelet poor plasma by coagulation assay - 08/11/18 11:39 Prothrombin time (PT) in platelet poor plasma by coagulation assay 22.2 s 12.2-14.7 INR in platelet poor plasma or blood by coagulation assay 1.9 0.8-1.4 Activated partial thromboplastin time (aPTT) in platelet poor plasma bycoagulation assay - 08/11/18 11:39 Activated partial thromboplastin time (aPTT) in platelet poor plasma bycoagulation assay 45 s 24-35 Comprehensive metabolic panel - 08/11/18 11:39 Serum or plasma sodium measurement (moles/volume) 135 mmol/L 135-145 Serum or plasma potassium measurement (moles/volume) 4.2 mmol/L 3.6-5.0 Serum or plasma chloride measurement (moles/volume) 100 mmol/L 98-107 Carbon dioxide 24 mmol/L 21-32 Serum or plasma anion gap determination (moles/volume) 11 mmol/L 5-14 Serum or plasma urea nitrogen measurement (mass/volume) 16 mg/dL 7-18 Serum or plasma creatinine measurement (mass/volume) 1.79 mg/dL 0.60-1.30 Serum or plasma urea nitrogen/creatinine mass ratio 9 NRG Serum or plasma creatinine measurement with calculation of estimated glomerular filtration rate 27 NRG Serum or plasma glucose measurement (mass/volume) 244 mg/dL 70-105 Serum or plasma calcium measurement (mass/volume) 9.1 mg/dL 8.5-10.1 Serum or plasma total bilirubin measurement (mass/volume) 0.5 mg/dL 0.1-1.0 Serum or plasma alkaline phosphatase measurement (enzymatic activity/volume) 51 U/L 40-136 Serum or plasma aspartate aminotransferase measurement (enzymatic activity/volume) 22 U/L 5-34 Serum or plasma alanine aminotransferase measurement (enzymatic activity/volume) 16 U/L 0-55 Serum or plasma protein measurement (mass/volume) 6.3 g/dL 6.4-8.2 Serum or plasma albumin measurement (mass/volume) 3.3 g/dL 3.2-4.5 CALCIUM CORRECTED 9.7 mg/dL 8.5-10.1 Bacterial blood culture - 08/11/18 11:39 QUANTITY OF GROWTH . [facility] Bacterial blood culture SEE COMMEN [facility] Influenza virus A and B antigen detection - 08/11/18 11:50 FLU RESULT NEGATIVE FOR INFLUENZA A AND B ANTIGENS BY IA [facility] Bacterial blood culture - 08/11/18 12:34 Bacterial blood culture [facility] Serum or plasma lactate measurement (moles/volume) - 08/11/18 13:52 Serum or plasma lactate measurement (moles/volume) 2.20 mmol/L 0.50-2.00 Capillary blood glucose measurement by glucometer (mass/volume) - 08/11/18 20:45 Capillary blood glucose measurement by glucometer (mass/volume) 187 mg/dL 70-110 Complete blood count (CBC) with automated white blood cell (WBC) differential - 08/12/18 05:20 Blood leukocytes automated count (number/volume) 6.5 10*3/uL 4.3-11.0 Blood erythrocytes automated count (number/volume) 3.83 10*6/uL 4.35-5.85 Venous blood hemoglobin measurement (mass/volume) 10.5 g/dL 11.5-16.0 Blood hematocrit (volume fraction) 33 % 35-52 Automated erythrocyte mean corpuscular volume 87 [foz_us] 80-99 Automated erythrocyte mean corpuscular hemoglobin (mass per erythrocyte) 27 pg 25-34 Automated erythrocyte mean corpuscular hemoglobin concentration measurement (mass/volume) 32 g/dL 32-36 Automated erythrocyte distribution width ratio 13.5 % 10.0- 14.5 Automated blood platelet count (count/volume) 180 10*3/uL 130-400 Automated blood platelet mean volume measurement 11.6 [foz_us] 7.4-10.4 Automated blood neutrophils/100 leukocytes 72 % 42-75 Automated blood lymphocytes/100 leukocytes 14 % 12-44 Blood monocytes/100 leukocytes 12 % 0-12 Automated blood eosinophils/100 leukocytes 2 % 0-10 Automated blood basophils/100 leukocytes 0 % 0-10 Blood neutrophils automated count (number/volume) 4.6 10*3 1.8-7.8 Blood lymphocytes automated count (number/volume) 0.9 10*3 1.0-4.0 Blood monocytes automated count (number/volume) 0.8 10*3 0.0- 1.0 Automated eosinophil count 0.2 10*3/uL 0.0-0.3 Automated blood basophil count (count/volume) 0.0 10*3/uL 0.0-0.1 Comprehensive metabolic panel - 08/12/18 05:20 Serum or plasma sodium measurement (moles/volume) 136 mmol/L 135-145 Serum or plasma potassium measurement (moles/volume) 3.7 mmol/L 3.6-5.0 Serum or plasma chloride measurement (moles/volume) 106 mmol/L 98-107 Carbon dioxide 21 mmol/L 21-32 Serum or plasma anion gap determination (moles/volume) 9 mmol/L 5-14 Serum or plasma urea nitrogen measurement (mass/volume) 18 mg/dL 7-18 Serum or plasma creatinine measurement (mass/volume) 1.50 mg/dL 0.60-1.30 Serum or plasma urea nitrogen/creatinine mass ratio 12 NRG Serum or plasma creatinine measurement with calculation of estimated glomerular filtration rate 33 NRG Serum or plasma glucose measurement (mass/volume) 173 mg/dL 70-105 Serum or plasma calcium measurement (mass/volume) 8.5 mg/dL 8.5-10.1 Serum or plasma total bilirubin measurement (mass/volume) 0.2 mg/dL 0.1-1.0 Serum or plasma alkaline phosphatase measurement (enzymatic activity/volume) 49 U/L 40-136 Serum or plasma aspartate aminotransferase measurement (enzymatic activity/volume) 23 U/L 5-34 Serum or plasma alanine aminotransferase measurement (enzymatic activity/volume) 14 U/L 0-55 Serum or plasma protein measurement (mass/volume) 5.6 g/dL 6.4-8.2 Serum or plasma albumin measurement (mass/volume) 2.9 g/dL 3.2-4.5 CALCIUM CORRECTED 9.4 mg/dL 8.5-10.1 Capillary blood glucose measurement by glucometer (mass/volume) - 08/12/18 05:21 Capillary blood glucose measurement by glucometer (mass/volume) 167 mg/dL 70-110 Capillary blood glucose measurement by glucometer (mass/volume) - 08/12/18 09:34 Capillary blood glucose measurement by glucometer (mass/volume) 229 mg/dL 70-110 Capillary blood glucose measurement by glucometer (mass/volume) - 08/12/18 15:31 Capillary blood glucose measurement by glucometer (mass/volume) 185 mg/dL 70-110 Capillary blood glucose measurement by glucometer (mass/volume) - 08/12/18 19:46 Capillary blood glucose measurement by glucometer (mass/volume) 166 mg/dL 70-110 Whole blood basic metabolic panel - 08/13/18 05:30 Serum or plasma sodium measurement (moles/volume) 139 mmol/L 135-145 Serum or plasma potassium measurement (moles/volume) 3.4 mmol/L 3.6-5.0 Serum or plasma chloride measurement (moles/volume) 109 mmol/L 98-107 Carbon dioxide 21 mmol/L 21-32 Serum or plasma anion gap determination (moles/volume) 9 mmol/L 5-14 Serum or plasma urea nitrogen measurement (mass/volume) 14 mg/dL 7-18 Serum or plasma creatinine measurement (mass/volume) 1.33 mg/dL 0.60-1.30 Serum or plasma urea nitrogen/creatinine mass ratio 11 NRG Serum or plasma creatinine measurement with calculation of estimated glomerular filtration rate 38 NRG Serum or plasma glucose measurement (mass/volume) 159 mg/dL 70-105 Serum or plasma calcium measurement (mass/volume) 8.4 mg/dL 8.5-10.1 Complete blood count (CBC) with automated white blood cell (WBC) differential - 08/13/18 05:30 Blood leukocytes automated count (number/volume) 5.4 10*3/uL 4.3-11.0 Blood erythrocytes automated count (number/volume) 3.80 10*6/uL 4.35-5.85 Venous blood hemoglobin measurement (mass/volume) 10.4 g/dL 11.5-16.0 Blood hematocrit (volume fraction) 33 % 35-52 Automated erythrocyte mean corpuscular volume 87 [foz_us] 80-99 Automated erythrocyte mean corpuscular hemoglobin (mass per erythrocyte) 27 pg 25-34 Automated erythrocyte mean corpuscular hemoglobin concentration measurement (mass/volume) 32 g/dL 32-36 Automated erythrocyte distribution width ratio 13.6 % 10.0- 14.5 Automated blood platelet count (count/volume) 170 10*3/uL 130-400 Automated blood platelet mean volume measurement 11.7 [foz_us] 7.4-10.4 Automated blood neutrophils/100 leukocytes 63 % 42-75 Automated blood lymphocytes/100 leukocytes 20 % 12-44 Blood monocytes/100 leukocytes 13 % 0-12 Automated blood eosinophils/100 leukocytes 3 % 0-10 Automated blood basophils/100 leukocytes 0 % 0-10 Blood neutrophils automated count (number/volume) 3.4 10*3 1.8-7.8 Blood lymphocytes automated count (number/volume) 1.1 10*3 1.0-4.0 Blood monocytes automated count (number/volume) 0.7 10*3 0.0- 1.0 Automated eosinophil count 0.2 10*3/uL 0.0-0.3 Automated blood basophil count (count/volume) 0.0 10*3/uL 0.0-0.1 PT panel in platelet poor plasma by coagulation assay - 08/13/18 05:30 Prothrombin time (PT) in platelet poor plasma by coagulation assay 23.2 s 12.2-14.7 INR in platelet poor plasma or blood by coagulation assay 2.0 0.8-1.4 Capillary blood glucose measurement by glucometer (mass/volume) - 08/13/18 05:33 Capillary blood glucose measurement by glucometer (mass/volume) 150 mg/dL 70-110 C DIFFICILE AG + TOXIN A/B. - 08/13/18 08:40 RESULTS NEGATIVE FOR ANTIGEN AND TOXIN A/B NRG Capillary blood glucose measurement by glucometer (mass/volume) - 08/13/18 09:53 Capillary blood glucose measurement by glucometer (mass/volume) 216 mg/dL 70-110 Capillary blood glucose measurement by glucometer (mass/volume) - 08/13/18 14:42 Capillary blood glucose measurement by glucometer (mass/volume) 161 mg/dL 70-110 Capillary blood glucose measurement by glucometer (mass/volume) - 08/13/18 20:00 Capillary blood glucose measurement by glucometer (mass/volume) 194 mg/dL 70-110 Capillary blood glucose measurement by glucometer (mass/volume) - 08/14/18 06:13 Capillary blood glucose measurement by glucometer (mass/volume) 166 mg/dL 70-110 Capillary blood glucose measurement by glucometer (mass/volume) - 08/14/18 09:50 Capillary blood glucose measurement by glucometer (mass/volume) 193 mg/dL 70-110 PT/INR - 09/10/18 10:30 INR 1.9 NRG PT 18.9 sec 9.0-11.5 Complete urinalysis with reflex to culture - 09/24/18 11:50 Urine color determination YELLOW NRG Urine clarity determination CLOUDY NRG Urine pH measurement by test strip 6.0 5-9 Specific gravity of urine by test strip 1.020 1.016-1.022 Urine protein assay by test strip, semi-quantitative 3+ NEGATIVE Urine glucose detection by automated test strip 1+ NEGATIVE Erythrocytes detection in urine sediment by light microscopy 1+ NEGATIVE Urine ketones detection by automated test strip NEGATIVE NEGATIVE Urine nitrite detection by test strip NEGATIVE NEGATIVE Urine total bilirubin detection by test strip NEGATIVE NEGATIVE Urine urobilinogen measurement by automated test strip (mass/volume) 0.2 mg/dL NORMAL Urine leukocyte esterase detection by dipstick 2+ NEGATIVE Automated urine sediment erythrocyte count by microscopy (number/high power field) [HPF] NRG Automated urine sediment leukocyte count by microscopy (number/high power field) TNTC NRG Bacteria detection in urine sediment by light microscopy LARGE NRG Squamous epithelial cells detection in urine sediment by light microscopy 2-5 NRG Crystals detection in urine sediment by light microscopy NONE NRG Casts detection in urine sediment by light microscopy NONE NRG Mucus detection in urine sediment by light microscopy NEGATIVE NRG Complete urinalysis with reflex to culture YES NRG Capillary blood glucose measurement by glucometer (mass/volume) - 09/24/18 12:01 Capillary blood glucose measurement by glucometer (mass/volume) 277 mg/dL 70-110 Automated blood complete blood count (hemogram) panel - 09/24/18 12:10 Blood leukocytes automated count (number/volume) 12.8 10*3/uL 4.3-11.0 Blood erythrocytes automated count (number/volume) 4.62 10*6/uL 4.35-5.85 Venous blood hemoglobin measurement (mass/volume) 12.0 g/dL 11.5-16.0 Blood hematocrit (volume fraction) 38 % 35-52 Automated erythrocyte mean corpuscular volume 83 [foz_us] 80-99 Automated erythrocyte mean corpuscular hemoglobin (mass per erythrocyte) 26 pg 25-34 Automated erythrocyte mean corpuscular hemoglobin concentration measurement (mass/volume) 31 g/dL 32-36 Automated erythrocyte distribution width ratio 14.0 % 10.0- 14.5 Automated blood platelet count (count/volume) 240 10*3/uL 130-400 Automated blood platelet mean volume measurement 11.6 [foz_us] 7.4-10.4 PT panel in platelet poor plasma by coagulation assay - 09/24/18 12:10 Prothrombin time (PT) in platelet poor plasma by coagulation assay 19.0 s 12.2-14.7 INR in platelet poor plasma or blood by coagulation assay 1.6 0.8-1.4 Activated partial thromboplastin time (aPTT) in platelet poor plasma bycoagulation assay - 09/24/18 12:10 Activated partial thromboplastin time (aPTT) in platelet poor plasma bycoagulation assay 46 s 24-35 Blood lactic acid measurement (moles/volume) - 09/24/18 12:10 Blood lactic acid measurement (moles/volume) 1.99 mmol/L 0.50- 2.00 Whole blood basic metabolic panel - 09/24/18 12:10 Serum or plasma sodium measurement (moles/volume) 137 mmol/L 135-145 Serum or plasma potassium measurement (moles/volume) 4.3 mmol/L 3.6-5.0 Serum or plasma chloride measurement (moles/volume) 97 mmol/L 98-107 Carbon dioxide 26 mmol/L 21-32 Serum or plasma anion gap determination (moles/volume) 14 mmol/L 5-14 Serum or plasma urea nitrogen measurement (mass/volume) 24 mg/dL 7-18 Serum or plasma creatinine measurement (mass/volume) 2.00 mg/dL 0.60-1.30 Serum or plasma urea nitrogen/creatinine mass ratio 12 NRG Serum or plasma creatinine measurement with calculation of estimated glomerular filtration rate 24 NRG Serum or plasma glucose measurement (mass/volume) 252 mg/dL 70-105 Serum or plasma calcium measurement (mass/volume) 9.5 mg/dL 8.5-10.1 TROPONIN T - 09/24/18 12:10 TROPONIN T 34 % <=10 Bacterial blood culture - 09/24/18 12:10 Bacterial blood culture NG NRG Bacterial blood culture - 09/24/18 13:15 Bacterial blood culture NG NRG Complete urinalysis with reflex to culture - 09/24/18 13:29 Urine color determination YELLOW NRG Urine clarity determination CLOUDY NRG Urine pH measurement by test strip 6.0 5-9 Specific gravity of urine by test strip 1.020 1.016-1.022 Urine protein assay by test strip, semi-quantitative 3+ NEGATIVE Urine glucose detection by automated test strip 1+ NEGATIVE Erythrocytes detection in urine sediment by light microscopy TRACE NEGATIVE Urine ketones detection by automated test strip NEGATIVE NEGATIVE Urine nitrite detection by test strip NEGATIVE NEGATIVE Urine total bilirubin detection by test strip NEGATIVE NEGATIVE Urine urobilinogen measurement by automated test strip (mass/volume) 0.2 mg/dL NORMAL Urine leukocyte esterase detection by dipstick TRACE NEGATIVE Automated urine sediment erythrocyte count by microscopy (number/high power field) 2+5 NRG Automated urine sediment leukocyte count by microscopy (number/high power field) [HPF] NRG Bacteria detection in urine sediment by light microscopy LARGE NRG Crystals detection in urine sediment by light microscopy NONE NRG Casts detection in urine sediment by light microscopy NONE NRG Mucus detection in urine sediment by light microscopy NEGATIVE NRG Complete urinalysis with reflex to culture YES NRG Bacterial urine culture - 09/24/18 13:29 Bacterial urine culture [id number] NRG COLONY COUNT >100,000/ML NRG FTX;REPORTABLE SUSCEPTIBILITY REPORTED [id number]. NR FREE TEXT ENTRY 2 ID REPORTED 09/25/18 13:05 NR RML Sensitivity Panel - 09/24/18 13:29 Gentamicin susceptibility test by minimum inhibitory concentration > NRG Trimethoprim/sulfamethoxazole susceptibility test by minimum inhibitoryconcentration <= NRG Levofloxacin susceptibility test by minimum inhibitory concentration > NRG Ampicillin susceptibility test by minimum inhibitory concentration > NRG Cefazolin susceptibility test by minimum inhibitory concentration <= NRG Ceftriaxone susceptibility test by minimum inhibitory concentration <= NRG Ciprofloxacin susceptibility test by minimum inhibitory concentration > NRG Meropenem susceptibility test by minimum inhibitory concentration <= NRG Nitrofurantoin susceptibility test by minimum inhibitory concentration <= NRG Amoxicillin and clavulanate potassium [facility] [place] = NRG Blood lactic acid measurement (moles/volume) - 09/24/18 16:50 Blood lactic acid measurement (moles/volume) 1.08 mmol/L 0.50- 2.00 Serum or plasma troponin i.cardiac measurement (mass/volume) - 09/24/18 16:50 Serum or plasma troponin i.cardiac measurement (mass/volume) < ng/mL <0.028 Complete blood count (CBC) with automated white blood cell (WBC) differential - 09/25/18 05:45 Blood leukocytes automated count (number/volume) 9.5 10*3/uL 4.3-11.0 Blood erythrocytes automated count (number/volume) 4.10 10*6/uL 4.35-5.85 Venous blood hemoglobin measurement (mass/volume) 10.7 g/dL 11.5-16.0 Blood hematocrit (volume fraction) 34 % 35-52 Automated erythrocyte mean corpuscular volume 82 [foz_us] 80-99 Automated erythrocyte mean corpuscular hemoglobin (mass per erythrocyte) 26 pg 25-34 Automated erythrocyte mean corpuscular hemoglobin concentration measurement (mass/volume) 32 g/dL 32-36 Automated erythrocyte distribution width ratio 14.5 % 10.0- 14.5 Automated blood platelet count (count/volume) 228 10*3/uL 130-400 Automated blood platelet mean volume measurement 11.7 [foz_us] 7.4-10.4 Automated blood neutrophils/100 leukocytes 74 % 42-75 Automated blood lymphocytes/100 leukocytes 14 % 12-44 Blood monocytes/100 leukocytes 9 % 0-12 Automated blood eosinophils/100 leukocytes 2 % 0-10 Automated blood basophils/100 leukocytes 0 % 0-10 Blood neutrophils automated count (number/volume) 7.0 10*3 1.8-7.8 Blood lymphocytes automated count (number/volume) 1.4 10*3 1.0-4.0 Blood monocytes automated count (number/volume) 0.9 10*3 0.0- 1.0 Automated eosinophil count 0.2 10*3/uL 0.0-0.3 Automated blood basophil count (count/volume) 0.0 10*3/uL 0.0-0.1 Comprehensive metabolic panel - 09/25/18 05:45 Serum or plasma sodium measurement (moles/volume) 139 mmol/L 135-145 Serum or plasma potassium measurement (moles/volume) 3.9 mmol/L 3.6-5.0 Serum or plasma chloride measurement (moles/volume) 108 mmol/L 98-107 Carbon dioxide 20 mmol/L 21-32 Serum or plasma anion gap determination (moles/volume) 11 mmol/L 5-14 Serum or plasma urea nitrogen measurement (mass/volume) 19 mg/dL 7-18 Serum or plasma creatinine measurement (mass/volume) 1.77 mg/dL 0.60-1.30 Serum or plasma urea nitrogen/creatinine mass ratio 11 NRG Serum or plasma creatinine measurement with calculation of estimated glomerular filtration rate 27 NRG Serum or plasma glucose measurement (mass/volume) 172 mg/dL 70-105 Serum or plasma calcium measurement (mass/volume) 9.0 mg/dL 8.5-10.1 Serum or plasma total bilirubin measurement (mass/volume) 0.3 mg/dL 0.1-1.0 Serum or plasma alkaline phosphatase measurement (enzymatic activity/volume) 51 U/L 40-136 Serum or plasma aspartate aminotransferase measurement (enzymatic activity/volume) 11 U/L 5-34 Serum or plasma alanine aminotransferase measurement (enzymatic activity/volume) 9 U/L 0-55 Serum or plasma protein measurement (mass/volume) 6.0 g/dL 6.4-8.2 Serum or plasma albumin measurement (mass/volume) 2.9 g/dL 3.2-4.5 CALCIUM CORRECTED 9.9 mg/dL 8.5-10.1 Complete blood count (CBC) with automated white blood cell (WBC) differential - 09/26/18 06:30 Blood leukocytes automated count (number/volume) 8.5 10*3/uL 4.3-11.0 Blood erythrocytes automated count (number/volume) 4.53 10*6/uL 4.35-5.85 Venous blood hemoglobin measurement (mass/volume) 11.6 g/dL 11.5-16.0 Blood hematocrit (volume fraction) 37 % 35-52 Automated erythrocyte mean corpuscular volume 82 [foz_us] 80-99 Automated erythrocyte mean corpuscular hemoglobin (mass per erythrocyte) 26 pg 25-34 Automated erythrocyte mean corpuscular hemoglobin concentration measurement (mass/volume) 31 g/dL 32-36 Automated erythrocyte distribution width ratio 14.3 % 10.0- 14.5 Automated blood platelet count (count/volume) 267 10*3/uL 130-400 Automated blood platelet mean volume measurement 12.1 [foz_us] 7.4-10.4 Automated blood neutrophils/100 leukocytes 71 % 42-75 Automated blood lymphocytes/100 leukocytes 16 % 12-44 Blood monocytes/100 leukocytes 8 % 0-12 Automated blood eosinophils/100 leukocytes 4 % 0-10 Automated blood basophils/100 leukocytes 0 % 0-10 Blood neutrophils automated count (number/volume) 6.0 10*3 1.8-7.8 Blood lymphocytes automated count (number/volume) 1.4 10*3 1.0-4.0 Blood monocytes automated count (number/volume) 0.7 10*3 0.0- 1.0 Automated eosinophil count 0.4 10*3/uL 0.0-0.3 Automated blood basophil count (count/volume) 0.0 10*3/uL 0.0-0.1 PT panel in platelet poor plasma by coagulation assay - 09/26/18 06:30 Prothrombin time (PT) in platelet poor plasma by coagulation assay 17.8 s 12.2-14.7 INR in platelet poor plasma or blood by coagulation assay 1.4 0.8-1.4 Comprehensive metabolic panel - 09/26/18 06:30 Serum or plasma sodium measurement (moles/volume) 142 mmol/L 135-145 Serum or plasma potassium measurement (moles/volume) 3.8 mmol/L 3.6-5.0 Serum or plasma chloride measurement (moles/volume) 108 mmol/L 98-107 Carbon dioxide 20 mmol/L 21-32 Serum or plasma anion gap determination (moles/volume) 14 mmol/L 5-14 Serum or plasma urea nitrogen measurement (mass/volume) 21 mg/dL 7-18 Serum or plasma creatinine measurement (mass/volume) 1.82 mg/dL 0.60-1.30 Serum or plasma urea nitrogen/creatinine mass ratio 12 NRG Serum or plasma creatinine measurement with calculation of estimated glomerular filtration rate 26 NRG Serum or plasma glucose measurement (mass/volume) 213 mg/dL 70-105 Serum or plasma calcium measurement (mass/volume) 9.3 mg/dL 8.5-10.1 Serum or plasma total bilirubin measurement (mass/volume) 0.3 mg/dL 0.1-1.0 Serum or plasma alkaline phosphatase measurement (enzymatic activity/volume) 61 U/L 40-136 Serum or plasma aspartate aminotransferase measurement (enzymatic activity/volume) 10 U/L 5-34 Serum or plasma alanine aminotransferase measurement (enzymatic activity/volume) 13 U/L 0-55 Serum or plasma protein measurement (mass/volume) 6.7 g/dL 6.4-8.2 Serum or plasma albumin measurement (mass/volume) 3.3 g/dL 3.2-4.5 CALCIUM CORRECTED 9.9 mg/dL 8.5-10.1 Lipid 1996 panel - 09/26/18 06:30 Serum or plasma triglyceride measurement (mass/volume) 238 mg/dL <150 Serum or plasma cholesterol measurement (mass/volume) 206 mg/dL < 200 Serum or plasma cholesterol in HDL measurement (mass/volume) 35 mg/dL 40-60 Cholesterol in LDL [mass/volume] in serum or plasma by direct assay 133 mg/dL 1-129 Serum or plasma cholesterol in VLDL measurement (mass/volume) 48 mg/dL 5-40 DIGOXIN - 09/26/18 06:30 DIGOXIN 0.52 ng/mL 0.80-2.00 CULTURE, URINE - 10/29/18 11:54 CULTURE, URINE, ROUTINE SEE NOTE NRG A1C - 11/09/18 12:32 HEMOGLOBIN A1c 9.4 % of total Hgb <5.7 Encounters ACCT No. Visit Date/Time Discharge Status Pt. Type Provider Facility Loc./Unit Complaint [id number] 11/26/2018 10:45:00 11/26/2018 23:59:59 CLS Outpatient [facility] [id number] 11/09/2018 12:15:00 Document Registration [id number] 10/29/2018 11:45:00 Document Registration [id number] 09/10/2018 11:00:00 Document Registration [id number] 10/21/2018 10:32:00 10/21/2018 23:59:59 CLS Outpatient KAILA IBARRA, SAULO [facility] RAD FS LT RENAL [place] [id number] 10/11/2018 08:59:00 10/11/2018 23:59:59 CLS Outpatient KAILA IBARRA, SAULO [facility] RAD FS H/O UTI'S [id number] 09/24/2018 14:50:00 09/26/2018 13:32:00 DIS Inpatient TERE KOCH DO [facility] 4TH ALTERED MENTAL STATUS; BACK/URINARY PAIN [id number] 08/11/2018 14:02:00 08/14/2018 13:15:00 DIS Inpatient JERAD IBARRA, MAXINE Mancera [facility] 4TH UTI;SEPSIS [id number] 12/01/2018 14:09:00 ACT Emergency BARRIE IBARRA, JOSR Vincent [facility] ER FS AMS
[2018-12-01] MEDS ORDERED: NS IV 1000 ML 500 ML IV SCH (14:52)
[2018-12-01] MEDS ORDERED: ACETAMINOPHEN 325 MG TABLET PO ONE (15:00)
--- NOTE | 2018-12-01 15:12 | ED General ---
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 The patient presents with concern for 1-2 days of mild alteration in mental status/confusion as well as fatigue. Patient's daughter states symptoms are quite typical for her when she has a urinary tract infection and fact she last had similar symptoms about a month ago for which she was treated with cefdinir. Upon initial evaluation in the emergency department the patient is alert and oriented to self and situation and place but not to date or time and is in no acute distress and answers questions fluently and appropriately for the most part. She states she just feels "worn out." She denies fevers, nausea or vomiting, headache, focal weakness, numbness, tingling, neck stiffness, vision changes, shortness of breath or chest pain, abdominal pain, flank pain, back pain, dysuria or hematuria, changes in bowel habits. The patient is afebrile and vital signs are otherwise generally appropriate upon initial evaluation. Allergies and Home Medications Allergies Coded Allergies: SYLVIE Inhibitors (Verified Allergy, Unknown, 09/24/18) Penicillins (Unverified Allergy, Unknown, Pt has received Ancef in the [facility] t, 09/24/18) Sulfa (Sulfonamide Antibiotics) (Verified Allergy, Unknown, 09/24/18) amlodipine (Verified Allergy, Unknown, 09/24/18) ciprofloxacin (Verified Allergy, Unknown, 09/24/18) diltiazem (Verified Allergy, Unknown, 09/24/18) levofloxacin (Verified Allergy, Unknown, 09/24/18) loratadine (Verified Allergy, Unknown, 09/24/18) pseudoephedrine (Verified Allergy, Unknown, 09/24/18) simvastatin (Verified Allergy, Unknown, 09/24/18) Home Medications Amlodipine Besylate 5 Mg Tablet, 5 MG PO DAILY, (Reported) Ascorbic Acid 250 Mg Tab, 250 MG PO DAILY, (Reported) Atorvastatin Calcium 10 Mg Tablet, 10 MG PO HS, (Reported) Calcium Carbonate/Vitamin D3 1 Each Tablet, 1 TAB PO HS, (Reported) Cefdinir 300 Mg Capsule, 300 MG PO BID Prescribed by: TERE KOCH on 09/26/18 1304 Clopidogrel Bisulfate 75 Mg Tablet, 75 MG PO DAILY, (Reported) Cyanocobalamin 1,000 Mcg/Ml Inj, 1,000 MCG IM MONTHLY, (Reported) Digoxin 125 Mcg Tablet, 125 MCG PO Q48H, (Reported) Furosemide 20 Mg Tablet, 20 MG PO DAILY, (Reported) Isosorbide Mononitrate 60 Mg Tab, 60 MG PO DAILY, (Reported) Labetalol HCl 100 Mg Tablet, 100 MG PO BID, (Reported) Lactobacillus Acidophilus/Pect 1 Each Capsule, 2 EACH PO TIDWM Prescribed by: MAXINE MARS on 08/14/18 1032 Loperamide HCl 2 Mg Capsule, 2 MG PO NEEDED PRN for diarrhea Prescribed by: MAXINE MARS on 08/14/18 1032 Magnesium Oxide 400 Mg Tablet, 400 MG PO BID, (Reported) Omeprazole 20 Mg Capsule.dr, 20 MG PO BID, (Reported) Potassium Chloride 20 Meq Tab.er.prt, 20 MEQ PO DAILY, (Reported) Sitagliptin Phosphate 50 Mg Tablet, 25 MG PO DAILY, (Reported) TAKES 1/2 (50MG) TABLET Sotalol HCl 80 Mg Tablet, 80 MG PO BID, (Reported) Warfarin Sodium 2 Mg Tablet, 3 MG PO Q48H, (Reported) ALTERNATES EVERY OTHER DAY WITH 3MG AND 3.5MG Warfarin Sodium 2 Mg Tablet, 3.5 MG PO Q48H, (Reported) ALTERNATES EVERY OTHER DAY WITH 3MG AND 3.5MG Patient Home Medication List Home Medication List Reviewed: Yes Review of Systems Review of Systems Constitutional: see HPI All Other Systems Reviewed Negative Unless Noted: Yes Past Smvttre-Peqqnx-Rtyxhs Hx Past Med/Social Hx: Reviewed Nursing Past Med/Soc Hx Patient Social History Recent Hopitalizations: Yes (EARLY AUGUST ) Immunizations Up To Date Tetanus Booster (TDap): Unknown PED Vaccines UTD: No Date of Pneumonia Vaccine: Mar 29, 2018 Date of Influenza Vaccine: Mar 29, 2018 Seasonal Allergies Seasonal Allergies: No Past Medical History Surgeries: Yes Cardiac, Coronary Stent, Gallbladder, Nephrectomy Respiratory: No Currently Using CPAP: No Currently Using BIPAP: No Cardiac: Yes (PACEMAKER, CHF) Cardiomyopathy, Hypertension, Valvular Heart Disease Neurological: No Dementia, Stroke Female Reproductive Disorders: Denies Sexually Transmitted Disease: No HIV/AIDS: No Genitourinary: Yes (NEPHRECTOMY) Bladder Infection, Renal Failure, UTI-Chronic Gastrointestinal: No Musculoskeletal: Yes Arthritis Endocrine: Yes Diabetes, Non-Insulin dep HEENT: Yes (GLASSES WITH PATIENT ON ADMIT AND ONE HEARING AIDE) Loss of Vision: Denies Hearing Impairment: Hard of Hearing, Hearing Aide Right Cancer: No Psychosocial: No Integumentary: No Blood Disorders: No Adverse Reaction/Blood Tranf: No Family Medical History Reviewed Nursing Family Hx Patient reports no known family medical history. No Pertinent Family Hx Physical Exam Vital Signs Capillary Refill : Height, Weight, BMI Height: 5'3.00" Weight: 163lbs. 7.0oz. [id number]; 28.9 BMI Method:Stated General Appearance: No Apparent Distress Comments This is an elderly female appearing nontoxic and in no acute distress. Head is normocephalic and atraumatic. Neck is supple and nontender. Oropharynx is moist. Lungs are clear to auscultation at all stations. There is a normal S1 and S2 without rubs or gallops and capillary refill is appropriate, less than 2 seconds globally. Abdomen is soft, nontender and nondistended. Skin is warm and dry without cyanosis, clubbing or edema. Psychiatrically, the patient demonstrated appropriate mood and affect and is alert. From a neurologic standpoint, cranial nerves II-12 are intact and there are no lateralizing deficits noted. Speech is normal. Language is normal. Coordination is normal. There is no dysmetria to finger to nose bilaterally. Strength is 5 out of 5 in all joints of bilateral upper and lower extremities. Sensation is intact to light touch in bilateral upper and lower extremities. Ambulation testing is deferred. The patient is alert and oriented to self and place and situation but not to date or time daughter states this is at least at times consistent with her present baseline. Progress/Results/Core Measures Suspected Sepsis SIRS Temperature: Pulse: Respiratory Rate: Laboratory Tests 12/01/18 14:55: White Blood Count 8.5 Blood Pressure / Mean: Laboratory Tests 12/01/18 14:55: Creatinine 2.08H, INR Comment 1.9H, Platelet Count 263, Total Bilirubin 0.3 Results/Orders Lab Results Laboratory Tests Test 12/01/18 14:27 12/01/18 14:55 Range/Units Urine Color YELLOW Urine Clarity CLEAR Urine pH 5.5 5-9 Urine Specific [place] 1.025 H 1.016-1.022 Urine Protein 3+ H NEGATIVE Urine Glucose (UA) 1+ H NEGATIVE Urine Ketones NEGATIVE NEGATIVE Urine Nitrite NEGATIVE NEGATIVE Urine Bilirubin NEGATIVE NEGATIVE Urine Urobilinogen 0.2 NORMAL MG/DL Urine Leukocyte Esterase TRACE NEGATIVE Urine RBC (Auto) TRACE H NEGATIVE Urine RBC 5-10 H /HPF Urine WBC 25-50 H /HPF Urine Squamous Epithelial Cells 10-25 H /HPF Urine Renal Epithelial Cells 2-5 /HPF Urine Crystals NONE /LPF Urine Bacteria FEW H /HPF Urine Casts NONE /LPF Urine Mucus NEGATIVE /LPF Urine Culture Indicated YES White Blood Count 8.5 4.3-11.0 10^3/uL Red Blood Count 4.28 L 4.35-5.85 10^6/uL Hemoglobin 10.8 L 11.5-16.0 G/DL Hematocrit 34 L 35-52 % Mean Corpuscular Volume 80 80-99 FL Mean Corpuscular Hemoglobin 25 25-34 PG Mean Corpuscular Hemoglobin Concent 32 32-36 G/DL Red Cell Distribution Width 16.4 H 10.0-14.5 % Platelet Count 263 130-400 10^3/uL Mean Platelet Volume 11.7 H 7.4-10.4 FL Neutrophils (%) (Auto) 70 42-75 % Lymphocytes (%) (Auto) 17 12-44 % Monocytes (%) (Auto) 9 0-12 % Eosinophils (%) (Auto) 3 0-10 % Basophils (%) (Auto) 1 0-10 % Neutrophils # (Auto) 5.9 1.8-7.8 X 10^3 Lymphocytes # (Auto) 1.5 1.0-4.0 X 10^3 Monocytes # (Auto) 0.8 0.0-1.0 X 10^3 Eosinophils # (Auto) 0.3 0.0-0.3 10^3/uL Basophils # (Auto) 0.1 0.0-0.1 10^3/uL Prothrombin Time 22.5 H 12.2-14.7 SEC INR Comment 1.9 H 0.8-1.4 Activated Partial Thromboplast Time 43 H 24-35 SEC Sodium Level 139 135-145 MMOL/L Potassium Level 4.4 3.6-5.0 MMOL/L Chloride Level 101 98-107 MMOL/L Carbon Dioxide Level 27 21-32 MMOL/L Anion Gap 11 5-14 MMOL/L Blood Urea Nitrogen 17 7-18 MG/DL Creatinine 2.08 H 0.60-1.30 MG/DL Estimat Glomerular Filtration Rate 23 BUN/Creatinine Ratio 8 Glucose Level 261 H 70-105 MG/DL Calcium Level 9.6 8.5-10.1 MG/DL Corrected Calcium 10.0 8.5-10.1 MG/DL Total Bilirubin 0.3 0.1-1.0 MG/DL Aspartate Amino Transf (AST/SGOT) 23 5-34 U/L Alanine Aminotransferase (ALT/SGPT) 14 0-55 U/L Alkaline Phosphatase 64 40-136 U/L Troponin T 29 H <=10 NG/L Pro-B-Type Natriuretic Peptide 2673.0 H <75.0 PG/ML Total Protein 6.6 6.4-8.2 GM/DL Albumin 3.5 3.2-4.5 GM/DL My Orders Orders - JOSR SOOD MD Ua Culture If Indicated (12/01/18 14:38) Cbc With Automated Diff (12/01/18 14:52) Comprehensive Metabolic Panel (12/01/18 14:52) Troponin T (12/01/18 14:52) Ekg Tracing (12/01/18 14:52) Chest 1 View Ap/Pa Only (12/01/18 14:52) Probnp Fs (12/01/18 14:52) Protime With Inr (12/01/18 14:52) Partial Thromboplastin Time (12/01/18 14:52) Acetaminophen Tablet/Caplet (Tylenol T (12/01/18 15:00) Ed Iv/Invasive Line Start (12/01/18 14:52) Ns Iv 1000 Ml (Sodium Chloride 0.9%) (12/01/18 14:52) Ct Head Wo (12/01/18 15:15) Urine Culture (12/01/18 14:27) Ceftriaxone For Iv Use (Rocephin For I (12/01/18 16:15) Medications Given in ED Current Medications Medications Dose Ordered Sig/Fransisco Route Start Time Stop Time Status Last Admin Dose Admin Acetaminophen 975 mg ONCE ONCE PO 12/01/18 15:00 12/01/18 15:01 DC 12/01/18 15:11 975 MG Vital Signs/I&O Capillary Refill : Progress Note : Time: 15:13 Progress Note Clinical examination reassuring and vital signs are generally appropriate. Nontoxicappearing 83-year-old female who is quite comorbid who presents with mild confusion and fatigue over the last 1-2 days. Family are suspicious for urinary tract infection but will cast a broader net. Will check labs and EKG and chest x-ray and given a small fluid bolus and check urine and then reevaluate. Will check head CT as well. Update: Workup as above, generally without much evidence of acute process aside from renal insufficiency which appears slightly worse than baseline, mild troponin elevation which is reportedly chronic in the setting of CKD, elevated BNP without findings of pulmonary congestion or hypoxia, some mild evidence of possible urinary tract infection with trace leuk esterase and white cells noted. We have sent a culture and have covered the patient with a dose of Rocephin and will bring in for gentle hydration, antibiotics and further care. Patient has received a 500mL crystalloid bolus here in the ED. Dr. Koch graciously accepts. ECG EKG : Comment Atrial fibrillation, controlled rate of 79, no acute ST elevation or depression, occasional premature ventricular contractions, EP interpretation. Diagnostic Imaging Comments CT HEAD WO CLINICAL INDICATION: Patient with altered mental status. EXAM: Axial CT scan of the brain performed without IV contrast. COMPARISON: Head CT without contrast dated 09/24/2018. FINDINGS: There is skull streak artifact which obscures portions of the brainstem, posterior fossa, and portion of the brain near the skull base. There is no evidence of acute cerebral infarct, intracranial hemorrhage, or gross mass effect. Stable diffuse brain parenchymal volume loss with temporal lobes and frontal lobe affected the most. There is no significant change to the patchy areas of low-attenuation white matter changes involving both cerebral hemispheres, likely representing chronic small vessel ischemic disease changes. There is normal owen-white matter distinction. There is no significant midline shift or herniation. There is no evidence of hydrocephalus. The basal cisterns are unremarkable. The skull, extracranial soft tissue, and orbits are unremarkable. The paranasal sinuses are unremarkable. Temporal bones show no significant abnormality. IMPRESSION: Stable CT scan of the brain with no evidence of acute intracranial process. Dictated on workstation # [id number] CHEST 1 VIEW AP/PA ONLY INDICATION: Altered mental status. COMPARISON: Comparison made with prior examination from 09/24/2018. FINDINGS: The heart size is normal. Lungs are clear. There is no pleural effusion or pneumothorax. Mediastinum is unremarkable. Pacemaker overlies the left hemithorax. IMPRESSION: No acute cardiopulmonary abnormality. Departure Impression Primary Impression: Acute cystitis without hematuria Additional Impressions: Chronic renal disease Qualified Codes: N18.9 - Chronic kidney disease, unspecified Elevated troponin level Disposition: ADMITTED INPATIENT Condition: Stable Admissions Decision to Admit Reason: Admit from ER (General) Departure-Patient Inst. Referrals: ANNE MARIE CALDERON MD (PCP/Family) Primary Care Physician JOSR SOOD MD Dec 01, 2018 15:12
[2018-12-01 15:16] LABS: WHITE BLOOD COUNT 8.5 10^3/uL (4.3-11.0)
[2018-12-01 15:17] LABS: BASOPHILS # (AUTO) 0.1 10^3/uL (0.0-0.1); BASOPHILS % (AUTO) 1 % (0-10); EOSINOPHILS # (AUTO) 0.3 10^3/uL (0.0-0.3); EOSINOPHILS % (AUTO) 3 % (0-10); HEMATOCRIT 34 % (35-52); HEMOGLOBIN 10.8 G/DL (11.5-16.0); LYMPHOCYTES # (AUTO) 1.5 X 10^3 (1.0-4.0); LYMPHOCYTES % (AUTO) 17 % (12-44); MEAN CORPUSCULAR HEMOGLOBIN 25 PG (25-34); MEAN CORPUSCULAR HGB CONC 32 G/DL (32-36); MEAN CORPUSCULAR VOLUME 80 FL (80-99); MEAN PLATELET VOLUME 11.7 FL (7.4-10.4); MONOCYTES # (AUTO) 0.8 X 10^3 (0.0-1.0); MONOCYTES % (AUTO) 9 % (0-12); NEUTROPHILS # (AUTO) 5.9 X 10^3 (1.8-7.8); NEUTROPHILS % (AUTO) 70 % (42-75); PLATELET COUNT 263 10^3/uL (130-400); RED CELL DISTRIBUTION WIDTH 16.4 % (10.0-14.5)
--- NOTE | 2018-12-01 15:17 | Diagnostic Imaging Report ---
INDICATION: Altered mental status. COMPARISON: Comparison made with prior examination from 09/24/2018. FINDINGS: The heart size is normal. Lungs are clear. There is no pleural effusion or pneumothorax. Mediastinum is unremarkable. Pacemaker overlies the left hemithorax. IMPRESSION: No acute cardiopulmonary abnormality. Dictated by: Dictated on workstation # [id number]
[2018-12-01 15:30] LABS: COLOR,URINE YELLOW
[2018-12-01 15:31] LABS: BACTERIA,URINE FEW /HPF; BILIRUBIN,URINE NEGATIVE (NEGATIVE); CLARITY,URINE CLEAR; GLUCOSE, URINE (UA) 1+ (NEGATIVE); KETONES,URINE NEGATIVE (NEGATIVE); LEUKOCYTE ESTERASE ,URINE TRACE (NEGATIVE); NITRITE,URINE NEGATIVE (NEGATIVE); PH,URINE 5.5 (5-9); PROTEIN,URINE 3+ (NEGATIVE); UROBILINOGEN,URINE 0.2 MG/DL (NORMAL); WBC,URINE 25-50 /HPF
[2018-12-01 15:37] LABS: INR 1.9 (0.8-1.4); PROTHROMBIN TIME PATIENT 22.5 SEC (12.2-14.7)
[2018-12-01 15:47] LABS: BILIRUBIN,TOTAL 0.3 MG/DL (0.1-1.0); CALCIUM 9.6 MG/DL (8.5-10.1); CREATININE SERUM 2.08 MG/DL (0.60-1.30); POTASSIUM 4.4 MMOL/L (3.6-5.0)
[2018-12-01 15:48] LABS: ALBUMIN 3.5 GM/DL (3.2-4.5); TOTAL PROTEIN 6.6 GM/DL (6.4-8.2)
--- NOTE | 2018-12-01 15:53 | Diagnostic Imaging Report ---
CLINICAL INDICATION: Patient with altered mental status. EXAM: Axial CT scan of the brain performed without IV contrast. COMPARISON: Head CT without contrast dated 09/24/2018. FINDINGS: There is skull streak artifact which obscures portions of the brainstem, posterior fossa, and portion of the brain near the skull base. There is no evidence of acute cerebral infarct, intracranial hemorrhage, or gross mass effect. Stable diffuse brain parenchymal volume loss with temporal lobes and frontal lobe affected the most. There is no significant change to the patchy areas of low-attenuation white matter changes involving both cerebral hemispheres, likely representing chronic small vessel ischemic disease changes. There is normal owen-white matter distinction. There is no significant midline shift or herniation. There is no evidence of hydrocephalus. The basal cisterns are unremarkable. The skull, extracranial soft tissue, and orbits are unremarkable. The paranasal sinuses are unremarkable. Temporal bones show no significant abnormality. IMPRESSION: Stable CT scan of the brain with no evidence of acute intracranial process. Dictated by: Dictated on workstation # [id number]
--- NOTE | 2018-12-01 16:00 | NUR ---
Bed request to telemarketing supervisor
--- NOTE | 2018-12-01 16:10 | NUR ---
Dr Zee has accepted pt in transfer request from [facility]
[2018-12-01] MEDS ORDERED: cefTRIAXone FOR IV USE 1,000 MG in WATER (STERILE) FOR INJECTION 10 ML IV ONE (16:15)
--- NOTE | 2018-12-01 16:20 | NUR ---
Registration given patient's orders for the admit to 404. Dgt not present in room to get signatures or updated registration info. Await dgt to return into ED.
[2018-12-01] MEDS ORDERED: diphenhydrAMINE 50 MG/ML INJ (BENADRYL) ONE (16:44)
[2018-12-01] MEDS ORDERED: methylPREDNISolone 125 MG (Solu-MEDROL) VIAL IVP ONE (16:45)
[2018-12-01] MEDS ORDERED: diphenhydrAMINE 50 MG/ML INJ (BENADRYL) IVP ONE (16:45)
--- NOTE | 2018-12-01 16:55 | NUR ---
[facility] here for pt transfer
--- NOTE | 2018-12-01 17:10 | NUR ---
Pt departing on EMS at this time for transfer to [facility]. Notified parking lot supervisor pt is in route at this time.
--- NOTE | 2018-12-01 17:50 | NUR ---
JUAN HURT admitted to room 404-1, with an admitting diagnosis of URINARY TRACT INFECTION, ENCEPHALOPATHY,ACUTE KIDNEY INJURY ON CHRONIC KIDNEY DISEASE on 12/01/18 from [facility] via [facility], accompanied by EMS STAFF. JUAN HURT introduced to surroundings, call light, bed controls, phone, TV, temperature control, lights, meal times, smoking policy, visitor policy, side rail policy, bathrooms and showers. Patient Rights given to patient in the handbook. JUAN HURT verbalizes understanding that [facility] is not responsible for the loss or damage to any personal effects or valuables that are kept in the patients possession during their hospitalization. The following Patient Care Plans were discussed with the PATIENT: Discharge Planning, URINARY TRACT INFECTION, MENTAL STATUS CHANGE and KNOWLEDGE DEFICIT. JUAN HURT verbalizes understanding of Interdisciplinary Patient Education. Patient and/or family were informed about the Rapid Response Team and its purpose.
--- OUTSIDE RECORDS SUMMARY | 2018-12-01 17:56 | XMS REPORT | Continuity of Care Document ---
Author Organization Unknown Address Unknown Allergies Active Description Code Type Severity Reaction Onset Reported/Identified Relationship to Patient Clinical Status Yes Penicillins [id number] Drug Allergy Unknown N/A 08/11/2018 Yes SYLVIE Inhibitors [id number] Drug Allergy Unknown N/A 09/24/2018 Yes amlodipine [id number] Drug Allergy Unknown N/A 09/24/2018 Yes ciprofloxacin [id number] Drug Allergy Unknown N/A 09/24/2018 Yes diltiazem [id number] Drug Allergy Unknown N/A 09/24/2018 Yes levofloxacin [id number] Drug Allergy Unknown N/A 09/24/2018 Yes loratadine [id number] Drug Allergy Unknown N/A 09/24/2018 Yes Penicillins [id number] Drug Allergy Unknown Pt has received 09/24/2018 Yes pseudoephedrine [id number] Drug Allergy Unknown N/A 09/24/2018 Yes simvastatin [id number] Drug Allergy Unknown N/A 09/24/2018 Yes Sulfa (Sulfonamide Antibiotics) [id number] Drug Allergy Unknown N/A 09/24/2018 Yes ceftriaxone [id number] Drug Allergy Mild Itching 12/01/2018 Yes Penicillins [id number] Drug Allergy Unknown reacted to Roce 12/01/2018 Medications There is no data. Problems Date Dx Coded Attending Type Code Diagnosis Diagnosed By 08/12/2018 MAXINE MARS MD Ot A41.9 SEPSIS, UNSPECIFIED ORGANISM 08/12/2018 MAXINE MARS MD Ot E11.9 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 MELLITUS WITHOUT COMPLIC 08/12/2018 MAXINE MARS MD, Ot E87.2 ACIDOSIS 08/12/2018 MAXINE MARS MD, Ot F03.90 UNSPECIFIED DEMENTIA WITHOUT BEHAVIORAL 08/12/2018 MAXINE MARS MD, Ot I13.0 HYP HRT CHR KDNY DIS W HRT FAIL AND ST 08/12/2018 MAXINE MARS MD, Ot I34.0 NONRHEUMATIC MITRAL (VALVE) INSUFFICIENC 08/12/2018 MAXINE MARS MD, Ot I42.9 CARDIOMYOPATHY, UNSPECIFIED 08/12/2018 MAXINE MARS [...] RESUSCITATE 08/12/2018 MAXINE MARS MD, Ot Z79.01 MCC (CURRENT) USE OF ANTICOAGULANT 08/12/2018 MAXINE MARS MD Ot Z86.73 PRSNL HX OF TIA (TIA), AND CEREB INFRC W 08/12/2018 MAXINE MARS MD Ot Z90.5 ACQUIRED ABSENCE OF KIDNEY 08/12/2018 MAXINE MARS MD Ot Z95.0 PRESENCE OF CARDIAC PACEMAKER 08/12/2018 MAXINE MARS MD Ot Z95.5 PRESENCE OF CORONARY ANGIOPLASTY IMPLANT 08/13/2018 MAXINE MARS MD, Ot A41.9 SEPSIS, UNSPECIFIED ORGANISM 08/13/2018 MAXINE MARS MD Ot E11.9 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 MELLITUS WITHOUT COMPLIC 08/13/2018 MAXINE MARS MD, Ot E87.2 ACIDOSIS 08/13/2018 MAXINE MARS MD Ot F03.90 UNSPECIFIED DEMENTIA WITHOUT BEHAVIORAL 08/13/2018 [...] RESUSCITATE 08/13/2018 MAXINE MARS MD, Ot 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 08/13/2018 MAXINE MARS MD, Ot Z86.73 PRSNL HX OF TIA (TIA), AND CEREB INFRC W 08/13/2018 MAXINE MARS MD, Ot Z90.5 ACQUIRED ABSENCE OF KIDNEY 08/13/2018 MAXINE MARS MD Ot Z95.0 PRESENCE OF CARDIAC PACEMAKER 08/13/2018 MAXINE MARS MD Ot Z95.5 PRESENCE OF CORONARY ANGIOPLASTY IMPLANT 08/13/2018 MAXINE MARS MD Ot A41.9 SEPSIS, UNSPECIFIED ORGANISM 08/13/2018 MAXINE MARS MD Ot E11.9 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 MELLITUS WITHOUT COMPLIC 08/13/2018 MAXINE MARS MD Ot E87.2 ACIDOSIS 08/13/2018 MAXINE MARS MD Ot F03.90 UNSPECIFIED DEMENTIA WITHOUT BEHAVIORAL 08/13/2018 [...] RESUSCITATE 08/13/2018 MAXINE MARS MD, Ot 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 08/13/2018 MAXINE MARS MD, Ot Z86.73 PRSNL HX OF TIA (TIA), AND CEREB INFRC W 08/13/2018 MAXINE MARS MD, Ot Z90.5 ACQUIRED ABSENCE OF KIDNEY 08/13/2018 MAXINE MARS MD Ot Z95.0 PRESENCE OF CARDIAC PACEMAKER 08/13/2018 [...] ACUTE CYSTITIS WITHOUT HEMATURIA 08/14/2018 MAXINE MARS MD, Ot R19.7 DIARRHEA, UNSPECIFIED 08/14/2018 MAXINE MARS MD, Ot Z66 DO NOT RESUSCITATE 08/14/2018 MAXINE MARS MD, Ot 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 08/14/2018 MAXINE MARS MD, Ot Z86.73 PRSNL HX OF TIA (TIA), AND CEREB INFRC W 08/14/2018 MAXINE MASR MD, Ot Z90.5 ACQUIRED ABSENCE OF KIDNEY 08/14/2018 MAXINE MARS MD Ot Z95.0 PRESENCE OF CARDIAC PACEMAKER 08/14/2018 MAXINE MARS MD Ot Z95.5 PRESENCE OF CORONARY ANGIOPLASTY IMPLANT 09/26/2018 ZEE RICARDO TERE Ot B96.20 UNSP ESCHERICHIA COLI THE CAUSE OF DI 09/26/2018 ZEE DO TERE Ot 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 09/26/2018 ZEE DO TERE Ot E78.5 HYPERLIPIDEMIA, UNSPECIFIED 09/26/2018 KOCH DO TERE Ot F02.80 DEMENTIA IN OTH DISEASES CLASSD ELSWHR W 09/26/2018 ZEE DO TERE Ot G30.9 ALZHEIMER'S DISEASE, UNSPECIFIED 09/26/2018 ZEE DO TERE Ot G93.40 ENCEPHALOPATHY, UNSPECIFIED 09/26/2018 ZEE DO TERE Ot I13.0 HYP HRT CHR KDNY DIS W HRT FAIL AND ST 09/26/2018 ZEE DO TERE Ot I42.9 CARDIOMYOPATHY, UNSPECIFIED 09/26/2018 KOCH DO TERE Ot I48.2 CHRONIC ATRIAL FIBRILLATION 09/26/2018 ZEE DO TERE Ot 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 09/26/2018 ZEE DO TERE Ot K21.9 GASTRO-ESOPHAGEAL REFLUX DISEASE WITHOUT 09/26/2018 ZEE DO TERE Ot N17.9 ACUTE KIDNEY FAILURE, UNSPECIFIED 09/26/2018 ZEE DO TERE Ot N18.2 CHRONIC KIDNEY DISEASE, STAGE 2 (MILD) 09/26/2018 ZEE DO, TERE Ot N39.0 URINARY TRACT INFECTION, SITE NOT SPECIF 09/26/2018 KOCH DO TERE Ot 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 09/26/2018 KOCH DO TERE Ot Z95.0 PRESENCE OF CARDIAC PACEMAKER 09/26/2018 ZEE DOSCOTI Ot Z95.5 PRESENCE OF CORONARY ANGIOPLASTY IMPLANT [...] OTHER SPECIFIED DISORDERS OF ADRENAL GLA 10/26/2018 SAULO BRIGHT MD Ot K57.30 DVRTCLOS OF [...] DISORDERS OF ADRENAL GLA 11/02/2018 SAULO BRIGHT MD Ot K57.30 DVRTCLOS OF LG INT W/O PERFORATION OR AB 11/02/2018 SAULO BRIGHT MD Ot K76.9 LIVER DISEASE, UNSPECIFIED 11/02/2018 SAULO BRIGHT MD, Ot N28.1 CYST OF KIDNEY, ACQUIRED 11/02/2018 SAULO BRIGHT MD Ot N39.0 URINARY TRACT INFECTION, SITE NOT SPECIF 11/02/2018 SAULO BRIGHT MD, Ot Z90.49 ACQUIRED ABSENCE OF OTHER SPECIFIED PART 11/10/2018 SAULO BRIGHT MD Ot N28.1 CYST OF KIDNEY, ACQUIRED 12/01/2018 SAULO BRIGHT MD Ot E27.8 OTHER SPECIFIED DISORDERS OF ADRENAL GLA 12/01/2018 SAULO BRIGHT MD Ot K57.30 DVRTCLOS OF LG INT W/O PERFORATION OR AB 12/01/2018 SAULO BRIGHT MD, Ot K76.9 LIVER DISEASE, UNSPECIFIED 12/01/2018 SAULO BRIGHT MD, Ot N28.1 CYST OF KIDNEY, ACQUIRED 12/01/2018 SAULO BRIGHT MD Ot N39.0 URINARY TRACT INFECTION, SITE NOT SPECIF 12/01/2018 SAULO BRIGHT MD Ot Z90.49 ACQUIRED ABSENCE OF OTHER SPECIFIED PART 12/01/2018 SAULO BRIGHT MD Ot N28.1 CYST OF KIDNEY, ACQUIRED Procedures [...] culture - 08/11/18 11:30 Bacterial urine culture [id number] NRG COLONY COUNT >100,000/ML NRG FTX;REPORTABLE SUSCEPTIBILITY REPORT RCD 08/14 10:05 NRG RM Sensitivity Panel - 08/11/18 11:30 Gentamicin susceptibility [...] calculation of estimated glomerular filtration rate 27 [facility] Serum or plasma glucose measurement (mass/volume) 244 [...] - 08/11/18 11:39 QUANTITY OF GROWTH . [facility] Bacterial blood culture SEE COMMEN [facility] Influenza virus A and B antigen detection - 08/11/18 11:50 FLU RESULT NEGATIVE FOR INFLUENZA A AND B ANTIGENS BY IA [facility] Bacterial blood culture - 08/11/18 12:34 Bacterial blood culture NG [facility] Serum or plasma lactate measurement (moles/volume) - [...] culture - 09/24/18 13:29 Bacterial urine culture [id number] NRG COLONY COUNT >100,000/ML NRG FTX;REPORTABLE SUSCEPTIBILITY REPORTED 09-26-18804. NRG FREE TEXT ENTRY 2 ID REPORTED 09/25/18 13:05 NRG RML Sensitivity Panel - 09/24/18 13:29 Gentamicin [...] Amoxicillin and clavulanate potassium susc JESUS ALBERTO = NRG Blood lactic acid [...] A1c 9.4 % of total Hgb <5.7 Complete urinalysis with reflex to culture - 12/01/18 14:27 Urine color determination YELLOW NRG Urine clarity determination CLEAR NRG Urine pH measurement by test strip 5.5 5-9 Specific gravity of urine by test strip 1.025 1.016-1.022 Urine protein assay by test strip, [...] detection in urine sediment by light microscopy FEW NRG Squamous epithelial cells detection in urine sediment by light microscopy 10-25 NRG Crystals detection in urine sediment by light microscopy NONE NRG Casts detection in urine sediment by light microscopy NONE NRG Mucus detection in urine sediment by light microscopy NEGATIVE NRG Complete urinalysis with reflex to culture YES NRG Renal epithelial cells detection in urine sediment by light microscopy 2-5 NRG Complete blood count (CBC) with automated white blood cell (WBC) differential - 12/01/18 14:55 Blood leukocytes automated count (number/volume) 8.5 10*3/uL 4.3-11.0 Blood erythrocytes automated count (number/volume) 4.28 10*6/uL 4.35-5.85 Venous blood hemoglobin measurement (mass/volume) 10.8 g/dL 11.5-16.0 Blood hematocrit (volume fraction) 34 % 35-52 Automated erythrocyte mean corpuscular volume 80 [foz_us] 80-99 Automated erythrocyte mean corpuscular hemoglobin (mass per erythrocyte) 25 pg 25-34 Automated erythrocyte mean corpuscular hemoglobin concentration measurement (mass/volume) 32 g/dL 32-36 Automated erythrocyte distribution width ratio 16.4 % 10.0- 14.5 Automated blood platelet count (count/volume) 263 10*3/uL 130-400 Automated blood platelet mean volume measurement 11.7 [foz_us] 7.4-10.4 Automated blood neutrophils/100 leukocytes 70 % 42-75 Automated blood lymphocytes/100 leukocytes 17 % 12-44 Blood monocytes/100 leukocytes 9 % 0-12 Automated blood eosinophils/100 leukocytes 3 % 0-10 Automated blood basophils/100 leukocytes 1 % 0-10 Blood neutrophils automated count (number/volume) 5.9 10*3 1.8-7.8 Blood lymphocytes automated count (number/volume) 1.5 10*3 1.0-4.0 Blood monocytes automated count (number/volume) 0.8 10*3 0.0- 1.0 Automated eosinophil count 0.3 10*3/uL 0.0-0.3 Automated blood basophil count (count/volume) 0.1 10*3/uL 0.0-0.1 PT panel in platelet poor plasma by coagulation assay - 12/01/18 14:55 Prothrombin time (PT) in platelet poor plasma by coagulation assay 22.5 s 12.2-14.7 INR in platelet poor plasma or blood by coagulation assay 1.9 0.8-1.4 Activated partial thromboplastin time (aPTT) in platelet poor plasma bycoagulation assay - 12/01/18 14:55 Activated partial thromboplastin time (aPTT) in platelet poor plasma bycoagulation assay 43 s 24-35 Comprehensive metabolic panel - 12/01/18 14:55 Serum or plasma sodium measurement (moles/volume) 139 mmol/L 135-145 Serum or plasma potassium measurement (moles/volume) 4.4 mmol/L 3.6-5.0 Serum or plasma chloride measurement (moles/volume) 101 mmol/L 98-107 Carbon dioxide 27 mmol/L 21-32 Serum or plasma anion gap determination (moles/volume) 11 mmol/L 5-14 Serum or plasma urea nitrogen measurement (mass/volume) 17 mg/dL 7-18 Serum or plasma creatinine measurement (mass/volume) 2.08 mg/dL 0.60-1.30 Serum or plasma urea nitrogen/creatinine mass ratio 8 NRG Serum or plasma creatinine measurement with calculation of estimated glomerular filtration rate 23 NRG Serum or plasma glucose measurement (mass/volume) 261 mg/dL 70-105 Serum or plasma calcium measurement (mass/volume) 9.6 mg/dL 8.5-10.1 Serum or plasma total bilirubin measurement (mass/volume) 0.3 mg/dL 0.1-1.0 Serum or plasma alkaline phosphatase measurement (enzymatic activity/volume) 64 U/L 40-136 Serum or plasma aspartate aminotransferase measurement (enzymatic activity/volume) 23 U/L 5-34 Serum or plasma alanine aminotransferase measurement (enzymatic activity/volume) 14 U/L 0-55 Serum or plasma protein measurement (mass/volume) 6.6 g/dL 6.4-8.2 Serum or plasma albumin measurement (mass/volume) 3.5 g/dL 3.2-4.5 CALCIUM CORRECTED 10.0 mg/dL 8.5-10.1 TROPONIN T - 12/01/18 14:55 TROPONIN T 29 % <=10 PROBNP FS - 12/01/18 14:55 PROBNP FS 2673.0 pg/mL <75.0 Encounters ACCT No. Visit Date/Time Discharge Status Pt. Type Provider Facility Loc./Unit Complaint [id number] 11/26/2018 10:45:00 11/26/2018 23:59:59 CLS Outpatient [facility] [id number] 11/09/2018 12:15:00 Document Registration [id number] 10/29/2018 11:45:00 Document Registration [id number] 09/10/2018 11:00:00 Document Registration [id number] 10/21/2018 10:32:00 10/21/2018 23:59:59 CLS Outpatient SAULO BRIGHT MD [facility] RAD FS LT RENAL LOWER [place] MASS [id number] 10/11/2018 08:59:00 10/11/2018 23:59:59 CLS Outpatient SAULO BRIGHT MD [facility] RAD FS H/O UTI'S [id number] 09/24/2018 14:50:00 09/26/2018 13:32:00 DIS Inpatient TERE KOCH DO [facility] 4TH ALTERED MENTAL STATUS; BACK/URINARY PAIN [id number] 08/11/2018 14:02:00 08/14/2018 13:15:00 DIS Inpatient MAXINE MARS MD [facility] 4TH UTI;SEPSIS [id number] 12/01/2018 16:14:00 ACT Inpatient TERE KOCH DO [facility] 4TH UTI
[2018-12-01 18:16] VITALS: BP 184/93
[2018-12-01 19:00] VITALS: BP 177/86
[2018-12-01] MEDS ORDERED: ONDANSETRON 4 MG/2 ML (SDV) Z0FRAN IVP PRN (21:45)
[2018-12-01] MEDS ORDERED: CALCIUM CARBONATE 500 MG (TUMS) TAB.CHEW PO PRN (21:45)
[2018-12-01] MEDS ORDERED: ACETAMINOPHEN 500 MG TAB (TYLENOL) PO PRN (21:45)
[2018-12-01] MEDS ORDERED: fentaNYL INJECTION 100 MCG/2 ML AMP IVP PRN (21:45)
[2018-12-01] MEDS ORDERED: HALOPERIDOL 5 MG/ML (HALDOL) AMP IM PRN (21:45)
[2018-12-01] MEDS ORDERED: MELATONIN 3 MG TABLET PO PRN (21:45)
[2018-12-01] MEDS ORDERED: DOCUSATE SODIUM 100 MG (COLACE) CAP PO PRN (21:45)
[2018-12-01] MEDS ORDERED: LOPERAMIDE 2 MG (IMODIUM) CAP PO PRN (21:45)
[2018-12-01] MEDS ORDERED: ALPRAZolam 0.25 MG (XANAX) TAB PO PRN (21:45)
[2018-12-01] MEDS ORDERED: diphenhydrAMINE 25 MG TAB (BENADRYL) PO PRN (21:45)
[2018-12-01 23:18] VITALS: BP 181/80
[2018-12-01] MEDS: NS IV 1000 ML 1,000 ML IV SCH (23:20)
[2018-12-02 04:03] VITALS: BP 165/74
[2018-12-02 05:17] LABS: BASOPHILS % (AUTO) 0 % (0-10); EOSINOPHILS % (AUTO) 0 % (0-10); HEMATOCRIT 33 % (35-52); HEMOGLOBIN 10.5 G/DL (11.5-16.0); LYMPHOCYTES # (AUTO) 0.6 X 10^3 (1.0-4.0); LYMPHOCYTES % (AUTO) 6 % (12-44); MEAN CORPUSCULAR HEMOGLOBIN 25 PG (25-34); MEAN CORPUSCULAR HGB CONC 32 G/DL (32-36); MEAN CORPUSCULAR VOLUME 78 FL (80-99); MEAN PLATELET VOLUME 11.4 FL (7.4-10.4); MONOCYTES # (AUTO) 0.1 X 10^3 (0.0-1.0); MONOCYTES % (AUTO) 1 % (0-12); NEUTROPHILS # (AUTO) 9.6 X 10^3 (1.8-7.8); NEUTROPHILS % (AUTO) 93 % (42-75); PLATELET COUNT 274 10^3/uL (130-400); RED CELL DISTRIBUTION WIDTH 16.3 % (10.0-14.5); WHITE BLOOD COUNT 10.3 10^3/uL (4.3-11.0)
[2018-12-02 05:32] LABS: ANISOCYTOSIS SLIGHT; BAND NEUTROPHILS 2 %; BASOPHILS % (MANUAL) 0 %; EOSINOPHILS % (MANUAL) 0 %; HYPOCHROMASIA SLIGHT; LYMPHOCYTES % (MANUAL) 6 %; MONOCYTES % (MANUAL) 1 %; NEUTROPHILS % (MANUAL) 91 %; POIKILOCYTOSIS SLIGHT; POLYCHROMASIA SLIGHT
[2018-12-02 05:38] LABS: PROTHROMBIN TIME PATIENT 23.9 SEC (12.2-14.7)
[2018-12-02 05:53] LABS: ALANINE AMINOTRANSFERASE 16 U/L (0-55); ALBUMIN 3.3 GM/DL (3.2-4.5); ALKALINE PHOSPHATASE 72 U/L (40-136); BILIRUBIN,TOTAL 0.2 MG/DL (0.1-1.0); BUN/CREATININE RATIO 9; CALCIUM 8.8 MG/DL (8.5-10.1); CARBON DIOXIDE 17 MMOL/L (21-32); CHLORIDE 104 MMOL/L (98-107); CREATININE SERUM 2.23 MG/DL (0.60-1.30); GFR ESTIMATED 21; POTASSIUM 4.6 MMOL/L (3.6-5.0); SODIUM 135 MMOL/L (135-145); TOTAL PROTEIN 6.4 GM/DL (6.4-8.2)
[2018-12-02 06:05] LABS: GLUCOSE 467 MG/DL (70-105)
--- NOTE | 2018-12-02 06:22 | NUR ---
Critical lab value blood glucose 467. Contacted Dr Zee. new orders fsbg ac/hs, novolog ssi B. TORBV. no further orders at this time
[2018-12-02] MEDS: inSUlin ASPART (NovoLOG) 1 UNIT/0.01 ML (CHARGE PER UNIT) SC SCH ×2 (07:37→11:16)
[2018-12-02 08:00] VITALS: BP 176/79
[2018-12-02] MEDS: NS IV 1000 ML 1,000 ML IV SCH (08:38)
[2018-12-02] MEDS ORDERED: SENNA W/DOCUSATE (SENOKOT S) TABLET PO SCH (09:00)
--- NOTE | 2018-12-02 09:50 | Short Stay Summary-Hospitalist ---
History of Present Illness HPI/Chief Complaint CC: Confusion HPI: This is an 83yoWF clinic patient of [facility] who presented to the [facility] er with confusion and lethargy. All labs looked stable except elevated creatinine more than baseline of 1.7 so she was placed on empiric abx and IVF and moved to [facility] inpatient and patient has since improved immensely and is requesting DC home. Advanced age precludes anything other than a poor prognosis. UTI will be treated with Cefdinir after originally sent in Macrobid but changed it due to elevated creat. Source: patient, family, RN/MD, old records Exam Limitations: no limitations Date Seen 12/02/18 Time Seen by a Provider: 09:00 Attending Physician Yaritza Zee Katrina M MD Referring Physician Date of Admission Dec 01, 2018 at 16:14 Home Medications & Allergies Home Medications Reviewed patient Home Medication Reconciliation performed by pharmacy medication reconciliations monogram technician and/or nursing. Patients Allergies have been reviewed. Allergies Allergies Coded Allergies SYLVIE Inhibitors (Verified Allergy, Unknown, 09/24/18) Penicillins (Unverified Allergy, Unknown, reacted to Rocephin 11/30/18 itching, had tolerated Ancef hx, 12/01/18) Sulfa (Sulfonamide Antibiotics) (Verified Allergy, Unknown, 09/24/18) amlodipine (Verified Allergy, Unknown, 09/24/18) ciprofloxacin (Verified Allergy, Unknown, 09/24/18) diltiazem (Verified Allergy, Unknown, 09/24/18) levofloxacin (Verified Allergy, Unknown, 09/24/18) loratadine (Verified Allergy, Unknown, 09/24/18) pseudoephedrine (Verified Allergy, Unknown, 09/24/18) simvastatin (Verified Allergy, Unknown, 09/24/18) ceftriaxone (Unverified Adverse Reaction, Mild, Itching, 12/01/18) Incident post one dose Rocephin IV with pt scratching hands/arms. Medicated Benadryl 25 mg IV and SoluMedrol 125 mg IV. had discussed allergies prior with dgt and it was thought she tolerated Rocephin in past. Past Kxqekjt-Rbyzut-Utzntt Hx Past Med/Social Hx: Reviewed Nursing Past Med/Soc Hx, Reviewed and Corrections made Patient Social History Marrital Status: Employed/Student: retired Alcohol Use: Denies Use Recreational Drug Use: No Smoking Status: Never a Smoker 2nd Hand Smoke Exposure: No Physical Abuse Screen: No Sexual Abuse: No Recent Foreign Travel: No Contact w/other who traveled: No Recent Hopitalizations: Yes (EARLY AUGUST ) Recent Infectious Disease Expo: No Immunizations Up To Date Tetanus Booster (TDap): Unknown Pediatric: No Date of Pneumonia Vaccine: Mar 29, 2018 Date of Influenza Vaccine: Mar 29, 2018 Seasonal Allergies Seasonal Allergies: No Past Medical History Surgeries: Cardiac, Coronary Stent, Gallbladder, Nephrectomy Currently Using CPAP: No Currently Using BIPAP: No Cardiac: Cardiomyopathy, Hypertension, Valvular Heart Disease Neurological: Dementia, Stroke : No Sexually Transmitted Disease: No HIV/AIDS: No Female Reproductive Disorders: Denies Genitourinary: Bladder Infection, Renal Failure, UTI-Chronic JOSH s/p nephrectomy Musculoskeletal: Arthritis Endocrine: Diabetes, Non-Insulin dep Loss of Vision: Denies Hearing Impairment: Hard of Hearing, Hearing Aide Right History of Blood Disorders: No Adverse Reaction to Blood Rodriguez: No Family History Reviewed Nursing Family Hx Patient reports no known family medical history. No Pertinent Family Hx Review of Systems Constitutional: see HPI, weakness EENTM: no symptoms reported Respiratory: no symptoms reported Cardiovascular: no symptoms reported Gastrointestinal: no symptoms reported Genitourinary: no symptoms reported Musculoskeletal: no symptoms reported Skin: no symptoms reported Psychiatric/Neurological: Other (confusion) Physical Exam Physical Exam Vital Signs Vital Signs - First Documented 12/01/18 12/01/18 14:24 17:08 Temp 97.9 Pulse 82 Resp 24 B/P (MAP) 176/59 (98) Pulse Ox 96 O2 Delivery Room Air Capillary Refill : Less Than 3 Seconds Height, Weight, BMI Height: 5'3.00" Weight: 162lbs. 14.8oz. 73.388626wh; 28.9 BMI Method:Stated General Appearance: No Apparent Distress, Chronically ill HEENT: PERRL/EOMI, TMs Normal, Normal ENT Inspection, Pharynx Normal Neck: Full Range of Motion, Normal Inspection, Non Tender, Supple, Carotid Bruit Respiratory: Chest Non Tender, Lungs Clear, Normal Breath Sounds, No Accessory Muscle Use, No Respiratory Distress Cardiovascular: Regular Rate, Rhythm, No Edema, No Gallop, No JVD, No Murmur, Normal Peripheral Pulses Gastrointestinal: Normal Bowel Sounds, No Organomegaly, No Pulsatile Mass, Non Tender, Soft Extremity: Normal Capillary Refill, Normal Inspection, Normal Range of Motion, Non Tender, No Calf Tenderness, No Pedal Edema Neurologic/Psychiatric: Alert, Oriented x3, No Motor/Sensory Deficits, Normal Mood/Affect Skin: Normal Color, Warm/Dry Results Results/Procedures Labs Laboratory Tests 12/01/18 14:55 12/02/18 04:55 Patient resulted labs reviewed. Short Stay Diagnosis Discharge Diagnosis-Short Stay Admission Diagnosis Assessment: Delirium UTI acute on chronic DM HTN Plan: Abx DC Close f/u Final Discharge Diagnosis Assessment: Delirium UTI acute on chronic DM HTN Plan: Abx DC Close f/u Conclusion Plan Plan: Omnicef Monitor closely Diagnosis/Problems Diagnosis/Problems (1) Urinary tract infection Status: Acute (2) Acute encephalopathy Status: Resolved Resolution Date/Time: 09/26/18 @ 14:13 (3) Acute kidney injury Status: Resolved Resolution Date/Time: 09/26/18 @ 14:13 Clinical Quality Measures DVT/VTE Risk/Contraindication: Risk Factor Score Per Nursin RFS Level Per Nursing on Admit: 4+=Very High YARITZA ZEE DO Dec 02, 2018 09:49
--- NOTE | 2018-12-02 10:04 | NUR ---
CM DISCHARGE PLANNING: Dismiss to home today self care. Visited with patient et her about any anticipated needs. Both voice no needs and expressed their gratitude to all the staff that have taken care of them. They reported excellent care and reported politeness of all staff.
[2018-12-02] MEDS ORDERED: TRIM100T PO (11:07)
[2018-12-02] MEDS ORDERED: MAGN400T6 PO (11:07)
[2018-12-02] MEDS ORDERED: WARF1TAB82 PO (11:08)
[2018-12-02] MEDS ORDERED: LOPE-134 PO (11:08)
--- NOTE | 2018-12-02 11:10 | NUR ---
WENT OVER THE EXT MED HX WITH THE PATIENT AND FAMILY. THEY VERIFIED HOW SHE TAKES HER MEDICATIONS. SHE TAKES VITAMIN C, CALCIUM +D, AND IMODIUM PRN OTC. SHE ALSO STATES SHE GETS VITAMIN B12 INJECTIONS MONTHLY. SHE RECEIVES HER JANUVIA THROUGH A PROGRAM BUT VERIFIED SHE TAKES 1/2 OF THE 50MG TABLET DAILY.
--- NOTE | 2018-12-02 11:37 | Physical Therapy Progress Note ---
Therapy Progress Note Patient and family declined PT intervention due to patient is at PLOF with all gross motor skills per their report and is dismissing to home with family on this date. Thank you for this referral. BEBETO JARRELL PT Dec 02, 2018 11:37
[2018-12-02] MEDS ORDERED: warFARin 1 MG (COUMADIN) TAB PO SCH (12:45)
[2018-12-02] MEDS ORDERED: DIGOXIN 0.125 MG (LANOXIN) TAB PO SCH (12:45)
[2018-12-02] MEDS ORDERED: CYANOCOBALAMIN INJ 1000 MCG/ML IM SCH (12:45)
[2018-12-02] MEDS ORDERED: NON-FORMULARY MEDICATION 1 EA EA (Loperamide HCl (Imodium A-D) 2 MG) PO PRN (12:45)
[2018-12-02] MEDS ORDERED: NITR-65 PO (12:52)
[2018-12-02] MEDS ORDERED: CEFD300C3 PO (13:01)
[2018-12-02 13:05] VITALS: BP 176/79
--- NOTE | 2018-12-02 13:10 | NUR ---
CONTACTED BY DR KOCH TO REVIEW MACROBID AND PATIENTS RENAL FXN. DISCUSSED ESTIMATED CRCL ~ 15-25 (SCR 2.2). CHANGED MACROBID TO CEFDINIR. CONTACTED JAYMIE TO CANCEL MACROBID AND CONTINUE WITH CEFDINIR.
--- NOTE | 2018-12-02 13:40 | NUR ---
Initial visit with pt's Dave present; Pt has meaningful relationships within [facility] and [facility] in [place]. Offered supportive presence and prayer.
[2018-12-02] MEDS ORDERED: ATORVASTATIN 10 MG (LIPITOR) TABLET PO SCH (21:00)
[2018-12-02] MEDS ORDERED: OMEPRAZOLE 20 MG (PriLOSEC) CAP NON-FORMULARY PO SCH (21:00)
[2018-12-02] MEDS ORDERED: NON-FORMULARY MEDICATION 1 EA EA (Calcium Carbonate/Vitamin D3 (Calcium 600 + Vit D 400 Ta PO SCH (21:00)
[2018-12-02] MEDS ORDERED: warFARin 5 MG (COUMADIN) TAB PO SCH (21:00)
[2018-12-02] MEDS ORDERED: warFARin 2 MG (COUMADIN) TAB PO SCH (21:00)
[2018-12-02] MEDS ORDERED: MAGNESIUM OXIDE (MAG-OX)400 MG TAB PO SCH (21:00)
[2018-12-02] MEDS ORDERED: SOTALOL 80 MG (BETAPACE) TAB PO SCH (21:00)
[2018-12-03] MEDS ORDERED: warFARin 2 MG (COUMADIN) TAB PO SCH (09:00)
[2018-12-03] MEDS ORDERED: ISOSORBIDE MONONITRATE 60 MG (IMDUR) TAB PO SCH (09:00)
[2018-12-03] MEDS ORDERED: NON-FORMULARY MEDICATION 1 EA EA (Amlodipine Besylate 5 MG) PO SCH (09:00)
[2018-12-03] MEDS ORDERED: NON-FORMULARY MEDICATION 1 EA EA (Ascorbic Acid (Vitamin C) 250 MG) PO SCH (09:00)
[2018-12-03] MEDS ORDERED: KCL 20 MEQ TAB (K-DUR) PO SCH (09:00)
[2018-12-03] MEDS ORDERED: CLOPIDOGREL 75 MG (PLAVIX) TABLET PO SCH (09:00)
[2018-12-03] MEDS ORDERED: SITAGLIPTIN PHOSPHATE 25 MG PO SCH (09:00)
[2018-12-03] MEDS ORDERED: FUROSEMIDE 20 MG (LASIX) TAB PO SCH (09:00)
[2018-12-03] MEDS ORDERED: NON-FORMULARY MEDICATION 1 EA EA (Trimethoprim 100 MG) PO SCH (09:00)
[2018-12-03] MEDS ORDERED: warFARin 5 MG (COUMADIN) TAB PO SCH (21:00)
== END 2018-12-02 13:05 | disposition home or self-care (01) ==
LOC: EDUNIT# 14:07 → ER FS 14:09 → 4TH 16:14
PROVIDERS: ADMIT Internal Medicine; ATTEND Internal Medicine
DX: N30.00 Acute cystitis without hematuria (principal); G93.40 Encephalopathy, unspecified; N17.9 Acute kidney failure, unspecified; E11.9 Type 2 diabetes mellitus without complications; I13.0 Hypertensive heart and chronic kidney disease with heart failure and stage 1 through stage 4 chronic kidney disease, or unspecified chronic kidney disease; I50.9 Heart failure, unspecified; N18.9 Chronic kidney disease, unspecified; F05 Delirium due to known physiological condition; E78.5 Hyperlipidemia, unspecified; I38 Endocarditis, valve unspecified; I42.9 Cardiomyopathy, unspecified; F03.90 Unspecified dementia, unspecified severity, without behavioral disturbance, psychotic disturbance, mood disturbance, and anxiety; M19.91 Primary osteoarthritis, unspecified site; H91.90 Unspecified hearing loss, unspecified ear; Z90.5 Acquired absence of kidney; Z95.5 Presence of coronary angioplasty implant and graft; Z88.0 Allergy status to penicillin; Z88.1 Allergy status to other antibiotic agents; Z88.2 Allergy status to sulfonamides; Z97.4 Presence of external hearing-aid; Z79.01 Long term (current) use of anticoagulants; Z79.899 Other long term (current) drug therapy; Z95.0 Presence of cardiac pacemaker; Z86.73 Personal history of transient ischemic attack (TIA), and cerebral infarction without residual deficits
CPT/HCPCS: 36415; 70450; 71045; 80053; 81000; 82962; 83880; 84484; 85007; 85025; 85027; 85610; 85730; 87077; 87088; 87186; 93005; 96374; 96375; G0378

== ENCOUNTER → 2019-01-04 | Outpatient (CLI) | payer MEDICARE, OTHER ==
[~2019-01-04] MED LIST changes: +LOPE-134 PO; +MAGN400T6 PO; +NITR-65 PO; +TRIM100T PO; +WARF1TAB82 PO
[2019-01-04 12:27] LABS: BACTERIA,URINE NEGATIVE /HPF; BILIRUBIN,URINE NEGATIVE (NEGATIVE); CLARITY,URINE CLEAR; COLOR,URINE YELLOW; GLUCOSE, URINE (UA) 2+ (NEGATIVE); KETONES,URINE NEGATIVE (NEGATIVE); LEUKOCYTE ESTERASE ,URINE NEGATIVE (NEGATIVE); NITRITE,URINE NEGATIVE (NEGATIVE); PH,URINE 6.5 (5-9); PROTEIN,URINE 3+ (NEGATIVE); RBC,URINE RARE /HPF; UROBILINOGEN,URINE 0.2 MG/DL (NORMAL)
== END ==
LOC: LAB FS 11:17
PROVIDERS: ATTEND Nurse Practitioner Family
DX: N39.0 Urinary tract infection, site not specified (principal)
CPT/HCPCS: 81000

== ENCOUNTER → 2019-02-02 | Outpatient (CLI) | payer MEDICARE, OTHER ==
[~2019-02-02] MED LIST changes: -OMEP20CA12 PO; +OMEP20CA13 PO
[2019-02-02 16:14] LABS: BACTERIA,URINE FEW /HPF; BILIRUBIN,URINE NEGATIVE (NEGATIVE); CLARITY,URINE CLEAR; COLOR,URINE YELLOW; GLUCOSE, URINE (UA) 3+ (NEGATIVE); KETONES,URINE NEGATIVE (NEGATIVE); LEUKOCYTE ESTERASE ,URINE NEGATIVE (NEGATIVE); NITRITE,URINE NEGATIVE (NEGATIVE); PH,URINE 7.5 (5-9); PROTEIN,URINE 3+ (NEGATIVE); UROBILINOGEN,URINE 0.2 MG/DL (NORMAL)
== END ==
LOC: LAB FS 16:00
PROVIDERS: ATTEND Family Medicine
DX: R30.0 Dysuria (principal)
CPT/HCPCS: 81000; 87088

== ENCOUNTER → 2019-02-23 | Outpatient (CLI) | payer MEDICARE, OTHER ==
--- NOTE | 2019-02-23 20:49 | Diagnostic Imaging Report ---
PROCEDURE: CT abdomen and pelvis without contrast. TECHNIQUE: Multiple contiguous axial images were obtained through the abdomen and pelvis without the use of intravenous contrast. Auto Exposure Controls were utilized during the CT exam to meet ALARA standards for radiation dose reduction. DATE: February 23, 2019. COMPARISON: Renal ultrasound, October 21, 2018. CT abdomen pelvis, October 11, 2018. INDICATION: 83-year-old female, history of left ureteral stone in left renal mass. FINDINGS: There are limitations for evaluation of the abdominal organs, neoplastic processes, abscess, and limited evaluation of the vasculature relating to the lack of intravenous contrast. There is mild atelectasis in the right lower lobe, left lower lobe and lingula. The heart is not enlarged. There is no pericardial effusion. The liver is unremarkable in size and contour. The patient is status post cholecystectomy. There is no identified intrahepatic or extrahepatic bile duct dilation. The main pancreatic duct is not abnormally dilated. Unremarkable noncontrast appearance of the pancreatic parenchyma. The spleen is normal in size. The adrenal glands are unremarkable. There is a low-attenuation right renal mass on axial image 44, measuring 4.1 with internal attenuation of 10 Hounsfield units compatible with a benign right renal cyst. There are subcentimeter low-attenuation right renal lesions too small to characterize. There is severe atrophy of the right kidney. There is a hyperdense left renal lesion on axial image 55 which measures 10 mm in size with internal attenuation of 75 Hounsfield units. Given internal attenuation greater than 70 Hounsfield units, this most likely relates to a hemorrhagic cyst although it is difficult to definitively characterize. There is a benign left renal cyst on axial image 27 which measures 19 mm in size. The urinary collecting systems are not distended. There is no identified renal or ureteral stone. There are pelvic calcifications compatible with phleboliths. The urinary bladder is unremarkable in appearance. There is diverticulosis without evidence of acute diverticulitis. The intestinal tract is not distended. There is no free intraperitoneal air. There is no drainable fluid collection. There is no free pelvic fluid. There are atherosclerotic calcifications. There is no identified abnormally enlarged lymph node in the abdomen or pelvis which meet CT size criteria for adenopathy. There are extensive atherosclerotic calcifications. There are multilevel disc and facet degenerative changes of the spine. There is grade 1 anterolisthesis of L4 on L5 relating to facet degenerative changes. There is no identified acute bony abnormality. IMPRESSION: CT abdomen and pelvis: 1. Bilateral benign renal cysts and probable hemorrhagic left renal cyst. Subcentimeter low-attenuation right renal lesions too small to characterize. 2. No identified renal or ureteral stone. Severe atrophy of the right kidney. 3. No identified acute abnormality in the abdomen or pelvis. Dictated by: Dictated on workstation # [id number]
== END ==
LOC: RAD FS 13:44
PROVIDERS: ATTEND Urology
DX: N28.1 Cyst of kidney, acquired (principal); N26.1 Atrophy of kidney (terminal); Z87.442 Personal history of urinary calculi; Z90.49 Acquired absence of other specified parts of digestive tract
CPT/HCPCS: 74176

== ENCOUNTER → 2019-03-04 | Outpatient (CLI) | payer MEDICARE, OTHER ==
[2019-03-04 14:19] LABS: CLARITY,URINE CLOUDY; COLOR,URINE YELLOW; GLUCOSE, URINE (UA) TRACE (NEGATIVE); PROTEIN,URINE 3+ (NEGATIVE)
[2019-03-04 14:20] LABS: BACTERIA,URINE LARGE /HPF; BILIRUBIN,URINE NEGATIVE (NEGATIVE); KETONES,URINE NEGATIVE (NEGATIVE); LEUKOCYTE ESTERASE ,URINE 1+ (NEGATIVE); NITRITE,URINE NEGATIVE (NEGATIVE); UROBILINOGEN,URINE 0.2 MG/DL (NORMAL); WBC,URINE >100 /HPF
== END ==
LOC: LAB FS 12:46
PROVIDERS: ATTEND Family Medicine
DX: N39.0 Urinary tract infection, site not specified (principal)
CPT/HCPCS: 81000; 87077; 87088; 87186

== ENCOUNTER → 2019-05-02 | Outpatient (CLI) | payer MEDICARE, OTHER ==
[~2019-05-02] MED LIST changes: +DOXY100T2 PO; +RT-ALBUINH IH
[2019-05-02 14:28] LABS: CLARITY,URINE CLEAR; COLOR,URINE YELLOW; GLUCOSE, URINE (UA) 1+ (NEGATIVE); PROTEIN,URINE 3+ (NEGATIVE)
[2019-05-02 14:29] LABS: BACTERIA,URINE FEW /HPF; BILIRUBIN,URINE NEGATIVE (NEGATIVE); KETONES,URINE NEGATIVE (NEGATIVE); LEUKOCYTE ESTERASE ,URINE NEGATIVE (NEGATIVE); NITRITE,URINE NEGATIVE (NEGATIVE); RBC,URINE RARE /HPF; SQUAMOUS EPITHELIAL CELL,UR 25-50 /HPF
== END ==
LOC: LAB FS 13:53
PROVIDERS: ATTEND Family Medicine
DX: R41.0 Disorientation, unspecified (principal); R30.9 Painful micturition, unspecified
CPT/HCPCS: 81000; 87077; 87088

== ENCOUNTER 2019-05-05 13:47 | Emergency (ER) | payer MEDICARE, OTHER ==
[~2019-05-05] VITALS: Ht 160 cm; Wt 75.0 kg
[~2019-05-05 13:47] MED LIST changes: -DOXY100T2 PO; -RT-ALBUINH IH
[2019-05-05] MEDS ORDERED: NS IV 1000 ML 1,000 ML IV ONE (14:07)
--- NOTE | 2019-05-05 14:29 | ED General ---
General Chief Complaint: Glucose Problems Stated Complaint: WHEEZING; HYPERGLYCEMIA Nursing Triage Note: Patient's caregiver reports patient was diagnosed with acute URI on Thursday, received a steroid injection and oral prednisone prescription from [employer] in PCP's office. Caregiver reports that patient's respiratory symptoms have improved, but that her blood sugars have been elevated (300s) and patient has been wakeful at night and sleepy during the day. Nursing Sepsis Screen: No Definite Risk Source of Information: Patient, Family Exam Limitations: No Limitations History of Present Illness Date Seen by Provider: May 05, 2019 Time Seen by Provider: 13:56 Initial Comments This 83-year-old woman presents to the emergency room with complaints of hyperglycemia after starting prednisone for upper respiratory symptoms and fever. She was seen at the [facility] clinic 2 days ago and was given a steroid injection because of cough and wheezing. She does not take any inhaled treatments. She then took prednisone 40 mg yesterday morning and again today. She has not slept well the last 2 nights because of side effects of the steroids. Blood sugars are traditionally between 100 [id number] fasting. They are now over 300. She has history of diabetes controlled with Januvia. Daughter reports she has mild dementia, diabetes, hypertension, and stage III chronic kidney disease. She is afebrile at the time of presentation. Patient reported no pain but had some tenderness in the upper abdomen on exam. Patient has a pacemaker with underlying A. fib. She is on warfarin and digoxin. Allergies and Home Medications Allergies Coded Allergies: SYLVIE Inhibitors (Verified Allergy, Unknown, 09/24/18) Penicillins (Unverified Allergy, Unknown, reacted to Rocephin 11/30/18 itchi ng, had tolerated Ancef hx, 12/01/18) Sulfa (Sulfonamide Antibiotics) (Verified Allergy, Unknown, 09/24/18) amlodipine (Verified Allergy, Unknown, 09/24/18) ciprofloxacin (Verified Allergy, Unknown, 09/24/18) diltiazem (Verified Allergy, Unknown, 09/24/18) levofloxacin (Verified Allergy, Unknown, 09/24/18) loratadine (Verified Allergy, Unknown, 09/24/18) pseudoephedrine (Verified Allergy, Unknown, 09/24/18) simvastatin (Verified Allergy, Unknown, 09/24/18) ceftriaxone (Unverified Adverse Reaction, Mild, Itching, 12/01/18) Incident post one dose Rocephin IV with pt scratching hands/arms. Medicated Benadryl 25 mg IV and SoluMedrol 125 mg IV. had discussed allergies prior with dgt and it was thought she tolerated Rocephin in past. Home Medications Amlodipine Besylate 5 Mg Tablet, 5 MG PO DAILY, (Reported) Ascorbic Acid 250 Mg Tab, 250 MG PO DAILY, (Reported) Atorvastatin Calcium 10 Mg Tablet, 10 MG PO HS, (Reported) Calcium Carbonate/Vitamin D3 1 Each Tablet, 1 TAB PO HS, (Reported) Cefdinir 300 Mg Capsule, 300 MG PO BID Prescribed by: TERE KOCH on 12/02/18 1301 Clopidogrel Bisulfate 75 Mg Tablet, 75 MG PO DAILY, (Reported) Cyanocobalamin 1,000 Mcg/Ml Inj, 1,000 MCG IM MONTHLY, (Reported) Digoxin 125 Mcg Tablet, 125 MCG PO Q48H, (Reported) Furosemide 20 Mg Tablet, 20 MG PO DAILY, (Reported) Isosorbide Mononitrate 60 Mg Tab, 60 MG PO DAILY, (Reported) Loperamide HCl 2 Mg Tablet, 2 MG PO UD PRN for DIARRHEA, (Reported) Magnesium Oxide 400 Mg Tablet, 800 MG PO BID, (Reported) Omeprazole 20 Mg Capsule.dr, 20 MG PO BID, (Reported) Potassium Chloride 20 Meq Tab.er.prt, 20 MEQ PO DAILY, (Reported) Sitagliptin Phosphate 50 Mg Tablet, 25 MG PO DAILY, (Reported) TAKES 1/2 (50MG) TABLET Sotalol HCl 80 Mg Tablet, 80 MG PO BID, (Reported) Warfarin Sodium 2 Mg Tablet, 2 MG PO DAILY, (Reported) TAKES 2.5MG EVERY OTHER DAY ALTERNATING WITH 2MG Warfarin Sodium 1 Mg Tablet, 0.5 MG PO Q48H, (Reported) TAKES 2.5MG EVERY OTHER DAY ALTERNATING WITH 2MG Patient Home Medication List Home Medication List Reviewed: Yes Review of Systems Review of Systems Constitutional: fever (2 days ago), malaise EENTM: no symptoms reported Respiratory: cough, wheezing Gastrointestinal: see HPI Genitourinary: no symptoms reported Musculoskeletal: no symptoms reported Skin: no symptoms reported Psychiatric/Neurological: See HPI Hematologic/Lymphatic: No Symptoms Reported Immunological/Allergic: no symptoms reported Past Muwxjxb-Xuaiey-Mfomia Hx Past Med/Social Hx: Reviewed Nursing Past Med/Soc Hx Patient Social History Alcohol Use: Denies Use Recreational Drug Use: No Smoking Status: Never a Smoker 2nd Hand Smoke Exposure: No Recent Foreign Travel: No Contact w/Someone Who Travel: No Recent Infectious Disease Expo: No Recent Hopitalizations: No Physical Abuse: No Sexual Abuse: No Mistreated: No Fear: No Immunizations Up To Date Tetanus Booster (TDap): Unknown PED Vaccines UTD: No Date of Pneumonia Vaccine: Mar 29, 2018 Date of Influenza Vaccine: Mar 29, 2018 Seasonal Allergies Seasonal Allergies: No Past Medical History Surgeries: Yes Cardiac, Coronary Stent, Gallbladder, Nephrectomy, Pacemaker Respiratory: No Currently Using CPAP: No Currently Using BIPAP: No Cardiac: Yes (PACEMAKER, CHF) Cardiomyopathy, Hypertension, Valvular Heart Disease Neurological: Yes Dementia, Stroke Female Reproductive Disorders: Denies Sexually Transmitted Disease: No HIV/AIDS: No Genitourinary: Yes (NEPHRECTOMY) Bladder Infection, Renal Failure, UTI-Chronic Gastrointestinal: No Musculoskeletal: Yes Arthritis Endocrine: Yes Diabetes, Non-Insulin dep HEENT: Yes Loss of Vision: Denies Hearing Impairment: Hard of Hearing, Hearing Aide Right Cancer: No Psychosocial: No Integumentary: No Blood Disorders: No Adverse Reaction/Blood Tranf: No Family Medical History Patient reports no known family medical history. No Pertinent Family Hx Physical Exam Vital Signs Vital Signs - First Documented 05/05/19 13:50 Temp 36.5 Pulse 82 Resp 17 B/P (MAP) 197/96 (129) Pulse Ox 97 O2 Delivery Room Air Capillary Refill : Less Than 3 Seconds Height, Weight, BMI Height: 5'3.00" Weight: 162lbs. 14.8oz. 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 Norm as Tested Skin: Normal Color, Warm/Dry Progress/Results/Core Measures Suspected Sepsis Recent Fever Within 48 Hours: No Infection Criteria Present: Documented Infection New/Unexplained Altered Menta: No Sepsis Screen: No Definite Risk SIRS Temperature: Pulse: 82 Respiratory Rate: 17 Laboratory Tests 05/05/19 14:20: White Blood Count 12.8H Blood Pressure 197 /96 Mean: 129 Laboratory Tests 05/05/19 14:20: Creatinine 2.55H, INR Comment 2.3H, Platelet Count 315, Total Bilirubin 0.2 Results/Orders Lab Results Laboratory Tests Test 05/05/19 14:03 05/05/19 14:20 05/05/19 14:25 05/05/19 15:55 Range/Units Glucometer 317 H 320 H 70-110 MG/DL White Blood Count 12.8 H 4.3-11.0 10^3/uL Red Blood Count 3.98 L 4.35-5.85 10^6/uL Hemoglobin 8.9 L 11.5-16.0 G/DL Hematocrit 30 L 35-52 % Mean Corpuscular Volume 75 L 80-99 FL Mean Corpuscular Hemoglobin 22 L 25-34 PG Mean Corpuscular Hemoglobin Concent 30 L 32-36 G/DL Red Cell Distribution Width 16.5 H 10.0-14.5 % Platelet Count 315 130-400 10^3/uL Mean Platelet Volume 11.5 H 7.4-10.4 FL Neutrophils (%) (Auto) 94 H 42-75 % Lymphocytes (%) (Auto) 4 L 12-44 % Monocytes (%) (Auto) 2 0-12 % Eosinophils (%) (Auto) 0 0-10 % Basophils (%) (Auto) 0 0-10 % Neutrophils # (Auto) 11.9 H 1.8-7.8 X 10^3 Lymphocytes # (Auto) 0.6 L 1.0-4.0 X 10^3 Monocytes # (Auto) 0.3 0.0-1.0 X 10^3 Eosinophils # (Auto) 0.0 0.0-0.3 10^3/uL Basophils # (Auto) 0.0 0.0-0.1 10^3/uL Neutrophils % (Manual) 86 % Lymphocytes % (Manual) 7 % Monocytes % (Manual) 2 % Band Neutrophils 5 % Hypochromasia 1+ Microcytosis 2+ Macrocytosis Prothrombin Time 26.6 H 12.2-14.7 SEC INR Comment 2.3 H 0.8-1.4 Activated Partial Thromboplast Time 46 H 24-35 SEC Sodium Level 134 L 135-145 MMOL/L Potassium Level 5.1 H 3.6-5.0 MMOL/L Chloride Level 96 L 98-107 MMOL/L Carbon Dioxide Level 23 21-32 MMOL/L Anion Gap 15 H 5-14 MMOL/L Blood Urea Nitrogen 31 H 7-18 MG/DL Creatinine 2.55 H 0.60-1.30 MG/DL Estimat Glomerular Filtration Rate 18 BUN/Creatinine Ratio 12 Glucose Level 341 H 70-105 MG/DL Calcium Level 9.4 8.5-10.1 MG/DL Corrected Calcium 9.6 8.5-10.1 MG/DL Magnesium Level 2.3 1.6-2.4 MG/DL Total Bilirubin 0.2 0.1-1.0 MG/DL Aspartate Amino Transf (AST/SGOT) 14 5-34 U/L Alanine Aminotransferase (ALT/SGPT) 10 0-55 U/L Alkaline Phosphatase 64 40-136 U/L Total Protein 7.0 6.4-8.2 GM/DL Albumin 3.7 3.2-4.5 GM/DL Lipase 37 8-78 U/L Urine Color YELLOW Urine Clarity SLT CLOUDY Urine pH 7.0 5-9 Urine Specific [place] 1.020 1.016-1.022 Urine Protein 2+ H NEGATIVE Urine Glucose (UA) 2+ H NEGATIVE Urine Ketones NEGATIVE NEGATIVE Urine Nitrite NEGATIVE NEGATIVE Urine Bilirubin NEGATIVE NEGATIVE Urine Urobilinogen 0.2 < = 1.0 MG/DL Urine Leukocyte Esterase TRACE H NEGATIVE Urine RBC (Auto) TRACE H NEGATIVE Urine RBC RARE /HPF Urine WBC 0-2 /HPF Urine Squamous Epithelial Cells 2-5 /HPF Urine Crystals NONE /LPF Urine Bacteria TRACE /HPF Urine Casts NONE /LPF Urine Mucus NONE /LPF Urine Culture Indicated YES Test 05/05/19 16:42 Range/Units Glucometer 310 H 70-110 MG/DL My Orders Orders - JS MC MD Chest Pa/Lat (2 View) (05/05/19 14:07) Cbc With Automated Diff (05/05/19 14:07) Comprehensive Metabolic Panel (05/05/19 14:07) Magnesium (05/05/19 14:07) Protime With Inr (05/05/19 14:07) Partial Thromboplastin Time (05/05/19 14:07) Ua Culture If Indicated (05/05/19 14:07) Accucheck Stat ONCE (05/05/19 14:07) Ed Iv/Invasive Line Start (05/05/19 14:07) Ns Iv 1000 Ml (Sodium Chloride 0.9%) (05/05/19 14:07) Ekg Tracing (05/05/19 14:19) Lipase (05/05/19 14:29) Digoxin (05/05/19 14:20) Manual Differential (05/05/19 14:20) Ct Chest/Abdomen/Pelvis Wo (05/05/19 15:20) Albuterol/Ipra Inhalation Soln (Duoneb I (05/05/19 15:30) Svn Small Volume Nebulizer (05/05/19 15:24) Urine Culture (05/05/19 14:25) Accucheck Stat ONCE (05/05/19 15:49) Insulin Aspart (Novolog) (Novolog (Charg (05/05/19 16:00) Accucheck Stat ONCE (05/05/19 15:56) Insulin Aspart (Novolog) (Novolog (Charg (05/05/19 17:15) Medications Given in ED Current Medications Medications Dose Ordered Sig/Fransisco Route Start Time Stop Time Status Last Admin Dose Admin Albuterol/ Ipratropium 3 ml ONCE ONCE INH 05/05/19 15:30 05/05/19 15:31 DC 05/05/19 15:31 3 ML Insulin Aspart 5 unit ONCE ONCE SC 05/05/19 16:00 05/05/19 16:01 DC 05/05/19 16:06 5 UNIT Sodium Chloride 1,000 ml @ 0 mls/hr Q0M ONCE IV 05/05/19 14:07 05/05/19 14:09 DC 05/05/19 14:44 1,000 MLS/HR Vital Signs/I&O 05/05/19 13:50 Temp 36.5 Pulse 82 Resp 17 B/P (MAP) 197/96 (129) Pulse Ox 97 O2 Delivery Room Air Capillary Refill : Less Than 3 Seconds Blood Pressure Mean: 129 POS Point of Care Testing Finger Stick Blood Glucose: 317 Blood Glucose Action Taken: Physician notified. Progress Note : Time: 14:36 Progress Note Patient was seen and examined. Labs are pending. A liter of IV fluid is infusing. ECG Initial ECG Impression Date: May 05, 2019 Initial ECG Impression Time: 14:36 Initial ECG Rate: 82 Comment Ventricular paced complexes with underlying atrial fibrillation. No acute ischemic changes. Prolonged QT interval with QTC 503. Diagnostic Imaging Diagonstic Imaging: Xray Plain Films/CT/US/NM/MRI: chest Comments Chest x-ray viewed by me and report reviewed. See report below: NAME: JUAN HURT [facility] REC#: [id number] PT STATUS: REG ER : 1935 PHYSICIAN: JS MC MD ADMIT DATE: 05/05/19/ER FS Draft POSDate of Exam:05/05/19 CHEST PA/LAT (2 VIEW) Clinical indications: Patient with wheezing. Exam: Chest x-ray PA and lateral views. Comparisons: Portable chest x-ray dated 12/01/2018. Findings: Lungs/pleura: There is interval development of mild discoid atelectasis in the periphery of the left lung base. Otherwise, lungs are clear. There is no pneumothorax. There is no pleural effusion. Mediastinum: Unremarkable. Pulmonary vasculature: Unremarkable. Heart: There is slight progression of mild cardiomegaly. Again seen cardiac pacemaker overlying the chest. Bones/extrathoracic soft tissue: There are degenerative spurs involving the thoracic spine and kyphosis. Impression: 1: There is slight progression of mild cardiomegaly with no significant pulmonary vascular congestion. 2: Otherwise there is no radiographic evidence of acute cardiopulmonary process. 3: There is interval development of minimal discoid atelectasis in the periphery of the left lung base. Dictated on workstation # [id number] Dict: 05/05/19 1438 Trans: 05/05/19 1447 [facility] [id number] Interpreted by: ARVIND TURK MD Departure Impression Primary Impression: Hyperglycemia Additional Impressions: Hypovolemia Chronic kidney disease Qualified Codes: N18.9 - Chronic kidney disease, unspecified Urinary tract infection Qualified Codes: N39.0 - Urinary tract infection, site not specified Wheezing Disposition: HOME, SELF-CARE Condition: Improved Departure-Patient Inst. Decision time for Depature: 17:10 Referrals: ANNE MARIE CALDERON MD (PCP/Family) Primary Care Physician Patient Instructions: Urinary Tract Infections in Adults, Wheezing Add. Discharge Instructions: According to urine cultures from May 02, the only oral antibiotic that you can take because of your allergies is Macrobid (nitrofurantoin). Please continue with Macrobid as previously prescribed. Add doxycycline as prescribed for respiratory symptoms. Discontinue prednisone. Instead, use the albuterol inhaler as prescribed for wheezing or shortness of breath. If you have repeated blood sugar measurements greater than 350, call your doctor or return to the emergency room for further treatment. Drink plenty of water. Follow-up with your primary care provider next week. Please review CT results with your doctor. Return to the emergency room if you have worsening symptoms including fevers, shortness of breath not responsive to the inhaler, etc. All discharge instructions reviewed with patient and/or family. Voiced understanding. Scripts Albuterol Sulfate (PROAIR HFA) 1 Puff Puff 2-4 PUFF IH Q4H PRN for WHEEZING, #1 PUFF 1 PUFF = 90 MCG Prov: JS MC MD 05/05/19 Doxycycline Hyclate (Doxycycline Hyclate) 100 Mg Tablet 100 MG PO BID, #20 TAB Prov: JS MC MD 05/05/19 Copy Copies To 1: ANNE MARIE CALDERON MD, JOSHUA T MD May 05, 2019 14:29 POS
--- NOTE | 2019-05-05 14:47 | Diagnostic Imaging Report ---
Clinical indications: Patient with wheezing. Exam: Chest x-ray PA and lateral views. Comparisons: Portable chest x-ray dated 12/01/2018. Findings: Lungs/pleura: There is interval development of mild discoid atelectasis in the periphery of the left lung base. Otherwise, lungs are clear. There is no pneumothorax. There is no pleural effusion. Mediastinum: Unremarkable. Pulmonary vasculature: Unremarkable. Heart: There is slight progression of mild cardiomegaly. Again seen cardiac pacemaker overlying the chest. Bones/extrathoracic soft tissue: There are degenerative spurs involving the thoracic spine and kyphosis. Impression: 1: There is slight progression of mild cardiomegaly with no significant pulmonary vascular congestion. 2: Otherwise there is no radiographic evidence of acute cardiopulmonary process. 3: There is interval development of minimal discoid atelectasis in the periphery of the left lung base. Dictated by: Dictated on workstation # [id number]
[2019-05-05 14:55] LABS: HEMATOCRIT 30 % (35-52); HEMOGLOBIN 8.9 G/DL (11.5-16.0); MEAN CORPUSCULAR HEMOGLOBIN 22 PG (25-34); MEAN CORPUSCULAR VOLUME 75 FL (80-99); WHITE BLOOD COUNT 12.8 10^3/uL (4.3-11.0)
[2019-05-05 14:56] LABS: BASOPHILS % (AUTO) 0 % (0-10); EOSINOPHILS % (AUTO) 0 % (0-10); LYMPHOCYTES # (AUTO) 0.6 X 10^3 (1.0-4.0); LYMPHOCYTES % (AUTO) 4 % (12-44); MEAN CORPUSCULAR HGB CONC 30 G/DL (32-36); MEAN PLATELET VOLUME 11.5 FL (7.4-10.4); MONOCYTES # (AUTO) 0.3 X 10^3 (0.0-1.0); MONOCYTES % (AUTO) 2 % (0-12); NEUTROPHILS # (AUTO) 11.9 X 10^3 (1.8-7.8); NEUTROPHILS % (AUTO) 94 % (42-75); PLATELET COUNT 315 10^3/uL (130-400); RED CELL DISTRIBUTION WIDTH 16.5 % (10.0-14.5)
[2019-05-05 15:02] LABS: INR 2.3 (0.8-1.4); PROTHROMBIN TIME PATIENT 26.6 SEC (12.2-14.7)
[2019-05-05 15:04] LABS: POTASSIUM 5.1 MMOL/L (3.6-5.0)
[2019-05-05 15:05] LABS: ALBUMIN 3.7 GM/DL (3.2-4.5); BILIRUBIN,TOTAL 0.2 MG/DL (0.1-1.0); CALCIUM 9.4 MG/DL (8.5-10.1); CREATININE SERUM 2.55 MG/DL (0.60-1.30); MAGNESIUM 2.3 MG/DL (1.6-2.4)
[2019-05-05 15:27] LABS: COLOR,URINE YELLOW
[2019-05-05 15:28] LABS: BACTERIA,URINE TRACE /HPF; BILIRUBIN,URINE NEGATIVE (NEGATIVE); CLARITY,URINE SLT CLOUDY; GLUCOSE, URINE (UA) 2+ (NEGATIVE); KETONES,URINE NEGATIVE (NEGATIVE); LEUKOCYTE ESTERASE ,URINE TRACE (NEGATIVE); NITRITE,URINE NEGATIVE (NEGATIVE); PROTEIN,URINE 2+ (NEGATIVE); RBC,URINE RARE /HPF; WBC,URINE 0-2 /HPF
[2019-05-05] MEDS ORDERED: RT-ALBUTEROL/IPRATROPIUM 3 ML (DUONEB) VIAL INH ONE (15:30)
[2019-05-05] MEDS ORDERED: inSUlin ASPART (NovoLOG) 1 UNIT/0.01 ML (CHARGE PER UNIT) SC ONE ×2 (16:00→17:15)
[2019-05-05 16:11] LABS: BAND NEUTROPHILS 5 %; LYMPHOCYTES % (MANUAL) 7 %; MICROCYTOSIS 2+; MONOCYTES % (MANUAL) 2 %; NEUTROPHILS % (MANUAL) 86 %
[2019-05-05 16:12] LABS: HYPOCHROMASIA 1+
--- NOTE | 2019-05-05 16:26 | Diagnostic Imaging Report ---
PROCEDURE: CT chest, abdomen, and pelvis without contrast. TECHNIQUE: Multiple contiguous axial images were obtained through the chest, abdomen, and pelvis without the use of intravenous contrast. Auto Exposure Controls were utilized during the CT exam to meet ALARA standards for radiation dose reduction. INDICATION: Wheezing. Weakness. Anemia. COMPARISON: 02/23/2019. FINDINGS: CT chest: Cardiomediastinal structures show mild cardiomegaly. There is no large pericardial effusion. There is advanced diffuse calcified aortic and coronary atherosclerosis. Left-sided dual-lead pacemaker is noted. Enlarged precarinal lymph node measures 1.2 x 1.9 cm. Despite its prominence in size, it shows preservation of normal fatty hilum. No abnormal hilar or axillary adenopathy is seen on this noncontrast exam. Evaluation of lung de la cruz demonstrates small effusion on the right. There is mild dependent atelectasis bilaterally. No pneumothorax is seen on either side. There is a 6 mm micronodular density associated with the lateral margins of the major fissure on the right (image 52, series 2). Osseous structures show no acute abnormalities. Age-related degenerative changes of thoracic spine are noted. CT abdomen: There is moderate colonic diverticulosis, but no CT evidence of acute diverticulitis. Normal appendix cannot be adequately identified, but no pericecal inflammation is identified. Small bowel loops are nondistended. There is asymmetric moderate atrophy of the right kidney. Hypodense right renal cyst is noted. Hypodense cyst is also seen within the superior pole of the left kidney. Punctate nonobstructive left renal calculus is also noted (image 110, series 2). No ureteral calculi are seen on either side. Additionally, there is no hydronephrosis or other evidence of obstruction. The adrenal glands, spleen, pancreas, and liver have an unremarkable noncontrast CT appearance. Gallbladder is surgically absent. There is no loculated fluid collection, free fluid, or free air within the abdomen. There is prominent portacaval lymph node. It measures 3 x 1.4 cm (image 102, series 2). This however is stable compared to 02/23/2019. No other mesenteric or retroperitoneal adenopathy is seen. There is advanced diffuse calcified aortic and arterial atherosclerosis. Osseous structures show no acute abnormalities. CT pelvis: Urinary bladder shows small droplet of gas within non-gravity dependent portion (image 200, series 2). No calculi are seen within the urinary bladder. Small amount of free fluid is noted within the pelvis. There is no loculated fluid collection or free air. No abnormal pelvic adenopathy is identified. Osseous structures show no acute abnormalities. IMPRESSION: 1. Small right pleural effusion. 2. 6 mm right-sided pulmonary micronodule. Please see below for follow-up recommendations. 3. Advanced diffuse calcified aortic, coronary, and arterial atherosclerosis. 4. Mild cardiomegaly. 5. Prominent precarinal and portacaval lymph nodes of uncertain significance or etiology. 6. Asymmetric moderate atrophy of the right kidney. 7. Nonobstructive left renal calculus. 8. Small amount of free fluid within the pelvis. Although this is of uncertain etiology, it should be considered abnormal in a postmenopausal female. This could represent small collection of ascites. 9. Collection of gas within the non-gravity dependent urinary bladder. Correlation with recent instrumentation is recommended. Findings can also be seen with gas forming cystitis. 10. Colonic diverticulosis, but no CT evidence of acute diverticulitis. Dictated by: Dictated on workstation # [id number]
[2019-05-05] MEDS ORDERED: RT-ALBUINH IH (17:15)
[2019-05-05] MEDS ORDERED: DOXY100T2 PO (17:15)
[2019-05-05 17:55] VITALS: BP 182/83
== END 2019-05-05 17:55 | disposition home or self-care (01) ==
LOC: EDUNIT# 13:47 → ER FS 13:48
DX: E11.65 Type 2 diabetes mellitus with hyperglycemia (principal); E86.1 Hypovolemia; E11.22 Type 2 diabetes mellitus with diabetic chronic kidney disease; I13.0 Hypertensive heart and chronic kidney disease with heart failure and stage 1 through stage 4 chronic kidney disease, or unspecified chronic kidney disease; N18.9 Chronic kidney disease, unspecified; I50.9 Heart failure, unspecified; N39.0 Urinary tract infection, site not specified; R06.2 Wheezing; F03.90 Unspecified dementia, unspecified severity, without behavioral disturbance, psychotic disturbance, mood disturbance, and anxiety; Z86.73 Personal history of transient ischemic attack (TIA), and cerebral infarction without residual deficits; Z88.8 Allergy status to other drugs, medicaments and biological substances; Z88.2 Allergy status to sulfonamides; Z88.0 Allergy status to penicillin; Z88.1 Allergy status to other antibiotic agents; Z79.02 Long term (current) use of antithrombotics/antiplatelets; Z79.01 Long term (current) use of anticoagulants; Z95.5 Presence of coronary angioplasty implant and graft; Z95.0 Presence of cardiac pacemaker; Z90.5 Acquired absence of kidney
CPT/HCPCS: 36415; 71046; 71250; 74176; 80053; 80162; 81000; 82962; 83690; 83735; 85007; 85027; 85610; 85730; 87088; 93005

== ENCOUNTER → 2019-06-06 | Outpatient (CLI) | payer MEDICARE, OTHER ==
[~2019-06-06] MED LIST changes: +ACET-2267 PO; +ALBU18HF2 INH; +CIPR-225 PO; +DIGO125T3 PO; +DOXY100T2 PO; +FURO-125 PO; +IBUP-2186 PO; -MAGN400T6 PO; +MAGN400T8 PO; +METH1ADH5 TP; +METO100T12 PO; +NF-FOSFPKT PO; +OMEP-280 PO; -OMEP20CA13 PO; +PAIN PATCH TOP; +POTA-51 PO; +RT-ALBUINH IH; +WARF1TAB PO
[2019-06-06 15:34] LABS: BILIRUBIN,URINE NEGATIVE (NEGATIVE); CLARITY,URINE SL CLOUDY; COLOR,URINE YELLOW; GLUCOSE, URINE (UA) 1+ (NEGATIVE); KETONES,URINE NEGATIVE (NEGATIVE); LEUKOCYTE ESTERASE ,URINE 1+ (NEGATIVE); NITRITE,URINE NEGATIVE (NEGATIVE); PROTEIN,URINE 2+ (NEGATIVE)
[2019-06-06 15:35] LABS: BACTERIA,URINE FEW /HPF; RBC,URINE 25-50 /HPF; WBC,URINE >100 /HPF
== END ==
LOC: LAB FS 14:15
PROVIDERS: ATTEND Family Medicine
DX: N39.0 Urinary tract infection, site not specified (principal)
CPT/HCPCS: 81000; 87077; 87088; 87186

== ENCOUNTER 2019-06-26 03:51 | Inpatient (IN) | payer MEDICARE, OTHER ==
[~2019-06-26] VITALS: Ht 157.5 cm; Wt 74.7 kg
[~2019-06-26 03:51] MED LIST changes: -ACET-2267 PO; -ALBU18HF2 INH; -CIPR-225 PO; -DIGO125T3 PO; -FURO-125 PO; -IBUP-2186 PO; +MAGN400T6 PO; -MAGN400T8 PO; -METH1ADH5 TP; -METO100T12 PO; -NF-FOSFPKT PO; -OMEP-280 PO; +OMEP20CA13 PO; -PAIN PATCH TOP; -POTA-51 PO; -SITA50TA PO; -WARF1TAB PO
[2019-06-26] MEDS ORDERED: ASPIRIN 81 MG CHEW (CHILDREN'S ASA) PO ONE (04:15)
--- NOTE | 2019-06-26 04:19 | ED Chest Pain ---
General Chief Complaint: Respiratory Problems Stated Complaint: SOB Nursing Triage Note: pt with increased soa starting yesterday, ems report pts saturation on scene was 79% on room air. pt placed on nrb mask and given 4 baby asa Nursing Sepsis Screen: No Definite Risk Source: patient, family, EMS History of Present Illness Date Seen by Provider: Jun 26, 2019 Time Seen by Provider: 03:53 Initial Comments 83 yo F presents by EMS after having complaints of Chest pain and shortness of breath at home. She denies having any chest pain now. She does have a cardiac hi story and does have a pacemaker in place. Her primary lap maker is Dr. Carpenter out of [facility]. She is not usually short of breath according to the family. She does have a history of renal failure and recurrent urinary infections. She recently finished a course of antibiotics about 2 weeks ago. She had complained of some shortness of breath in the evening and overnight. Acco rding to EMS her initial O2 sat was 79% on room air. She is on a nonrebreather mask and saturating 100% now. According to her daughter she has never been diagnosed with having heart failure. There is an echocardiogram from August 2018 done at [facility] that showed an EF of 55%. There is been no complaint of cough or congestion. She has had no fever or chills. Allergies and Home Medications Allergies Coded Allergies: SYLVIE Inhibitors (Verified Allergy, Unknown, 09/24/18) Penicillins (Unverified Allergy, Unknown, reacted to Rocephin 11/30/18 itching, had tolerated Ancef hx, 12/01/18) Sulfa (Sulfonamide Antibiotics) (Verified Allergy, Unknown, 09/24/18) amlodipine (Verified Allergy, Unknown, 09/24/18) ciprofloxacin (Verified Allergy, Unknown, 09/24/18) diltiazem (Verified Allergy, Unknown, 09/24/18) levofloxacin (Verified Allergy, Unknown, 09/24/18) loratadine (Verified Allergy, Unknown, 09/24/18) pseudoephedrine (Verified Allergy, Unknown, 09/24/18) simvastatin (Verified Allergy, Unknown, 09/24/18) ceftriaxone (Unverified Adverse Reaction, Mild, Itching, 12/01/18) Incident post one dose Rocephin IV with pt scratching hands/arms. Medicated Benadryl 25 mg IV and SoluMedrol 125 mg IV. had discussed allergies prior with dgt and it was thought she tolerated Rocephin in past. Home Medications Albuterol Sulfate 1 Puff Puff, 2-4 PUFF IH Q4H PRN for WHEEZING 1 PUFF = 90 MCG Prescribed by: JS CLIFFORD on 05/05/191714 Amlodipine Besylate 5 Mg Tablet, 5 MG PO DAILY, (Reported) Ascorbic Acid 250 Mg Tab, 250 MG PO DAILY, (Reported) Atorvastatin Calcium 10 Mg Tablet, 10 MG PO HS, (Reported) Calcium Carbonate/Vitamin D3 1 Each Tablet, 1 TAB PO HS, (Reported) Cefdinir 300 Mg Capsule, 300 MG PO BID Prescribed by: TERE KOCH on 12/02/18 1301 Clopidogrel Bisulfate 75 Mg Tablet, 75 MG PO DAILY, (Reported) Cyanocobalamin 1,000 Mcg/Ml Inj, 1,000 MCG IM MONTHLY, (Reported) Digoxin 125 Mcg Tablet, 125 MCG PO Q48H, (Reported) Doxycycline Hyclate 100 Mg Tablet, 100 MG PO BID Prescribed by: JS CLIFFORD on 05/05/191714 Furosemide 20 Mg Tablet, 20 MG PO DAILY, (Reported) Isosorbide Mononitrate 60 Mg Tab, 60 MG PO DAILY, (Reported) Loperamide HCl 2 Mg Tablet, 2 MG PO UD PRN for DIARRHEA, (Reported) Magnesium Oxide 400 Mg Tablet, 800 MG PO BID, (Reported) Omeprazole 20 Mg Capsule.dr, 20 MG PO BID, (Reported) Potassium Chloride 20 Meq Tab.er.prt, 20 MEQ PO DAILY, (Reported) Sitagliptin Phosphate 50 Mg Tablet, 25 MG PO DAILY, (Reported) TAKES 1/2 (50MG) TABLET Sotalol HCl 80 Mg Tablet, 80 MG PO BID, (Reported) Warfarin Sodium 2 Mg Tablet, 2 MG PO DAILY, (Reported) TAKES 2.5MG EVERY OTHER DAY ALTERNATING WITH 2MG Warfarin Sodium 1 Mg Tablet, 0.5 MG PO Q48H, (Reported) TAKES 2.5MG EVERY OTHER DAY ALTERNATING WITH 2MG Patient Home Medication List Home Medication List Reviewed: Yes Review of Systems Review of Systems Constitutional: No chills, No fever; malaise EENTM: No Symptoms Reported Respiratory: See HPI Cardiovascular: See HPI Gastrointestinal: No Symptoms Reported Genitourinary: See HPI Musculoskeletal: no symptoms reported Skin: no symptoms reported Psychiatric/Neurological: No Symptoms Reported Past Hkmsvgs-Sycawh-Kjtrdh Hx Past Med/Social Hx: Reviewed Nursing Past Med/Soc Hx Patient Social History Alcohol Use: Denies Use Recreational Drug Use: No 2nd Hand Smoke Exposure: No Recent Foreign Travel: No Contact w/Someone Who Travel: No Recent Infectious Disease Expo: No Recent Hopitalizations: No Physical Abuse: No Sexual Abuse: No Mistreated: No Fear: No Immunizations Up To Date Tetanus Booster (TDap): Unknown PED Vaccines UTD: No Date of Pneumonia Vaccine: Mar 29, 2018 Date of Influenza Vaccine: Mar 29, 2018 Seasonal Allergies Seasonal Allergies: No Past Medical History Surgeries: Yes Cardiac, Coronary Stent, Gallbladder, Nephrectomy, Pacemaker Respiratory: No Currently Using CPAP: No Currently Using BIPAP: No Cardiac: Yes (PACEMAKER, CHF) Atrial Fibrillation, Cardiomyopathy, Hypertension, Valvular Heart Disease Neurological: Yes Dementia, Stroke Female Reproductive Disorders: Denies Sexually Transmitted Disease: No HIV/AIDS: No Genitourinary: Yes (NEPHRECTOMY) Bladder Infection, Renal Failure, UTI-Chronic Gastrointestinal: No Musculoskeletal: Yes Arthritis Endocrine: Yes Diabetes, Non-Insulin dep HEENT: Yes Loss of Vision: Denies Hearing Impairment: Hard of Hearing, Hearing Aide Right Cancer: No Psychosocial: No Integumentary: No Blood Disorders: No Adverse Reaction/Blood Tranf: No Family Medical History Patient reports no known family medical history. No Pertinent Family Hx Physical Exam Vital Signs Vital Signs - First Documented 06/26/19 04:04 Temp 36.4 Pulse 193 Resp 22 B/P (MAP) 191/109 (136) Pulse Ox 100 O2 Delivery Non Rebreather O2 Flow Rate 10.00 Capillary Refill : Less Than 3 Seconds Height, Weight, BMI Height: 5'3.00" Weight: 162lbs. 14.8oz. [id number]; 25.00 BMI Method:Stated General Appearance: No Apparent Distress, WD/WN, Chronically ill HEENT: Pharynx Normal Neck: Supple Respiratory: Chest Non Tender, Decreased Breath Sounds, Wheezing Cardiovascular: Normal Peripheral Pulses, Irregularly Irregular Gastrointestinal: No Pulsatile Mass, Non Tender, Soft Extremity: Normal Capillary Refill, Pedal Edema Neurologic/Psychiatric: Alert, Other (very hard of hearing) Skin: Normal Color, Warm/Dry Progress/Results/Core Measures Results/Orders Lab Results Laboratory Tests Test 06/26/19 04:20 06/26/19 06:15 Range/Units White Blood Count 13.5 H 4.3-11.0 10^3/uL Red Blood Count 3.55 L 4.35-5.85 10^6/uL Hemoglobin 7.8 L 11.5-16.0 G/DL Hematocrit 27 L 35-52 % Mean Corpuscular Volume 76 L 80-99 FL Mean Corpuscular Hemoglobin 22 L 25-34 PG Mean Corpuscular Hemoglobin Concent 29 L 32-36 G/DL Red Cell Distribution Width 17.4 H 10.0-14.5 % Platelet Count 329 130-400 10^3/uL Mean Platelet Volume 10.7 H 7.4-10.4 FL Neutrophils (%) (Auto) 83 H 42-75 % Lymphocytes (%) (Auto) 6 L 12-44 % Monocytes (%) (Auto) 7 0-12 % Eosinophils (%) (Auto) 2 0-10 % Basophils (%) (Auto) 1 0-10 % Neutrophils # (Auto) 11.1 H 1.8-7.8 X 10^3 Lymphocytes # (Auto) 0.8 L 1.0-4.0 X 10^3 Monocytes # (Auto) 0.9 0.0-1.0 X 10^3 Eosinophils # (Auto) 0.3 0.0-0.3 10^3/uL Basophils # (Auto) 0.1 0.0-0.1 10^3/uL Neutrophils % (Manual) 84 % Lymphocytes % (Manual) 4 % Monocytes % (Manual) 3 % Eosinophils % (Manual) 7 % Band Neutrophils 2 % Polychromasia SLIGHT Poikilocytosis SLIGHT Microcytosis MODERATE Elliptocytes SLIGHT Acanthocytes SLIGHT Prothrombin Time 23.1 H 12.2-14.7 SEC INR Comment 1.9 H 0.8-1.4 Activated Partial Thromboplast Time 43 H 24-35 SEC Sodium Level 137 135-145 MMOL/L Potassium Level 5.0 3.6-5.0 MMOL/L Chloride Level 102 98-107 MMOL/L Carbon Dioxide Level 21 21-32 MMOL/L Anion Gap 14 5-14 MMOL/L Blood Urea Nitrogen 28 H 7-18 MG/DL Creatinine 2.93 H 0.60-1.30 MG/DL Estimat Glomerular Filtration Rate 15 BUN/Creatinine Ratio 10 Glucose Level 288 H 70-105 MG/DL Calcium Level 9.4 8.5-10.1 MG/DL Corrected Calcium 9.8 8.5-10.1 MG/DL Magnesium Level 1.9 1.6-2.4 MG/DL Total Bilirubin 0.3 0.1-1.0 MG/DL Aspartate Amino Transf (AST/SGOT) 18 5-34 U/L Alanine Aminotransferase (ALT/SGPT) 10 0-55 U/L Alkaline Phosphatase 61 40-136 U/L Troponin I < 0.30 <0.30 NG/ML Pro-B-Type Natriuretic Peptide 7047.0 H <75.0 PG/ML Total Protein 6.6 6.4-8.2 GM/DL Albumin 3.5 3.2-4.5 GM/DL Smear Scan SLIGHT LARGE PLTS Urine Color YELLOW Urine Clarity SLIGHTLY CLOUDY Urine pH 6.0 5-9 Urine Specific [place] 1.025 H 1.016-1.022 Urine Protein 3+ H NEGATIVE Urine Glucose (UA) 1+ H NEGATIVE Urine Ketones NEGATIVE NEGATIVE Urine Nitrite NEGATIVE NEGATIVE Urine Bilirubin NEGATIVE NEGATIVE Urine Urobilinogen 0.2 < = 1.0 MG/DL Urine Leukocyte Esterase NEGATIVE NEGATIVE Urine RBC (Auto) TRACE-I NEGATIVE Urine RBC NONE /HPF Urine WBC 50-100 H /HPF Urine Squamous Epithelial Cells 5-10 /HPF Urine Crystals NONE /LPF Urine Bacteria LARGE H /HPF Urine Casts NONE /LPF Urine Mucus NEGATIVE /LPF Urine Culture Indicated YES My Orders Orders - NELSY JIANG MD Cbc With Automated Diff (06/26/19 04:10) Magnesium (06/26/19 04:10) Chest 1 View Ap/Pa Only (06/26/19 04:10) Ekg Tracing (06/26/19 04:10) Comprehensive Metabolic Panel (06/26/19 04:10) Protime With Inr (06/26/19 04:10) Partial Thromboplastin Time (06/26/19 04:10) O2 (06/26/19 04:10) Monitor-Rhythm Ecg Trace Only (06/26/19 04:10) Ed Iv/Invasive Line Start (06/26/19 04:10) Troponin I Fs (06/26/19 04:10) Probnp Fs (06/26/19 04:10) Manual Differential (06/26/19 04:20) Ua Culture If Indicated (06/26/19 05:00) Furosemide Injection (Lasix Injection) (06/26/19 05:38) Nitroglycerin Ointment (Nitrobid Ointme (06/26/19 05:38) Urine Culture (06/26/19 06:15) Vital Signs/I&O 06/26/19 06/26/19 04:04 05:15 Temp 36.4 Pulse 193 Resp 22 B/P (MAP) 191/109 (136) Pulse Ox 100 97 O2 Delivery Non Rebreather Nasal Cannula O2 Flow Rate 10.00 3.00 Blood Pressure Mean: 136 Progress Progress Note #1: Progress Note Obtain basic labs as well as chest x-ray and electrocardiogram. Order a cardiac workup with enzymes. Progress Note #2: Progress Note The CXR shows some increased pulmonary vascular congestion but I do not appreciate a definite infiltrate. She is slightly rotated. She has mild drop in her Hgb for worsening of her anemia. Her Chemistry shows stable Cr. Her Troponin is stable at <0.3. her Troponin though is double her baseline. She has stable O2 sat with decreasing her to nasal cannula at 3 Lpm and she is remaining at 94-97%. Her blood pressure is 170-180/90s. Will give Lasix 40 mg IV and Nitroglycerin 0.5 in to see if that will help her mobilize some of the fluid and pulmonary vascular congestion. Will check and see if a cardiac monitored bed is available in [place]. If not will check with Malia Barraza Progress Note #3: Progress Note [facility] did have a cardiac stepdown bed available so I was able to call Dr. Worrell for [facility] and have Mrs. Patricia admitted here at [facility]. Her blood pressure was improving with Lasix 40 mg IV and 0.5 inch Ntg paste. She was tolerating the O2 by mt. When discussed with Dr. Worrell she wanted to wait on treating the urine with any antibiotics until after at least preliminary culture results come back since she had stable WBC count and no fever. Initial ECG Impression Date: Jun 26, 2019 Initial ECG Impression Time: 04:14 Initial ECG Rate: 91 Comment There are ventricular paced complexes as well as atrial fibrillation rhythm with overall rate 91 bpm. Prolonged ID interval of 216 ms. QT interval 371 ms and QT corrected interval 457 ms. Nonspecific repolarization abnormality. There is artifact on the tracing as well. Overall appears similar to prior tracings in the system. Diagnostic Imaging Diagonstic Imaging: Xray Plain Films/CT/US/NM/MRI: chest Comments On my review of her 1 view film of her chest she has increased pulmonary vascular congestion. No definite infiltrate. She is slightly rotated. Reviewed: Reviewed by Me Departure Communication (Admissions) Time/Spoke to Admitting Phy: 06:34 d/w Dr. Worrell for [facility] since patient follows with Dr. Calderon. She accepted the patient for admit to cardiac stepdown. Will hold on antibiotics for the urine until culture results start coming back. Impression Primary Impression: Hypoxia Additional Impressions: Pulmonary vascular congestion Chronic renal failure Qualified Codes: N18.4 - Chronic kidney disease, stage 4 (severe) Anemia, chronic disease Congestive heart failure Qualified Codes: I50.9 - Heart failure, unspecified Disposition: ADMITTED INPATIENT Condition: Stable Admissions Decision to Admit Reason: Admit from ER (General) Decision to Admit/Date: Jun 26, 2019 Time/Decision to Admit Time: 06:34 Departure-Patient Inst. Referrals: ANNE MARIE CALDERON MD (PCP/Family) Primary Care Physician NELSY JIANG MD Jun 26, 2019 04:19
[2019-06-26 04:32] LABS: BASOPHILS # (AUTO) 0.1 10^3/uL (0.0-0.1); BASOPHILS % (AUTO) 1 % (0-10); EOSINOPHILS # (AUTO) 0.3 10^3/uL (0.0-0.3); EOSINOPHILS % (AUTO) 2 % (0-10); HEMATOCRIT 27 % (35-52); HEMOGLOBIN 7.8 G/DL (11.5-16.0); LYMPHOCYTES # (AUTO) 0.8 X 10^3 (1.0-4.0); LYMPHOCYTES % (AUTO) 6 % (12-44); MEAN CORPUSCULAR HEMOGLOBIN 22 PG (25-34); MEAN CORPUSCULAR HGB CONC 29 G/DL (32-36); MEAN CORPUSCULAR VOLUME 76 FL (80-99); MEAN PLATELET VOLUME 10.7 FL (7.4-10.4); MONOCYTES # (AUTO) 0.9 X 10^3 (0.0-1.0); MONOCYTES % (AUTO) 7 % (0-12); NEUTROPHILS # (AUTO) 11.1 X 10^3 (1.8-7.8); NEUTROPHILS % (AUTO) 83 % (42-75); PLATELET COUNT 329 10^3/uL (130-400); RED CELL DISTRIBUTION WIDTH 17.4 % (10.0-14.5); WHITE BLOOD COUNT 13.5 10^3/uL (4.3-11.0)
[2019-06-26 04:48] LABS: INR 1.9 (0.8-1.4); PROTHROMBIN TIME PATIENT 23.1 SEC (12.2-14.7)
[2019-06-26 04:49] LABS: BAND NEUTROPHILS 2 %; EOSINOPHILS % (MANUAL) 7 %; LYMPHOCYTES % (MANUAL) 4 %; MONOCYTES % (MANUAL) 3 %; NEUTROPHILS % (MANUAL) 84 %; POIKILOCYTOSIS SLIGHT; POLYCHROMASIA SLIGHT
[2019-06-26 04:50] LABS: ELLIPT/OVALOCYTES SLIGHT; MICROCYTOSIS MODERATE
[2019-06-26 04:52] LABS: ACANTHOCYTES SLIGHT
[2019-06-26 04:53] LABS: SMEAR SCAN COMMENT SLIGHT LARGE PLTS
[2019-06-26 04:54] LABS: ALBUMIN 3.5 GM/DL (3.2-4.5); BILIRUBIN,TOTAL 0.3 MG/DL (0.1-1.0); CALCIUM 9.4 MG/DL (8.5-10.1); CREATININE SERUM 2.93 MG/DL (0.60-1.30); MAGNESIUM 1.9 MG/DL (1.6-2.4); TOTAL PROTEIN 6.6 GM/DL (6.4-8.2)
[2019-06-26] MEDS ORDERED: NITROGLYCERIN 2% OINT 1 GM UNIT DOSE PACKET TOP STA (05:38)
[2019-06-26] MEDS ORDERED: FUROSEMIDE 40 MG/4 ML INJ (LASIX) IVP STA (05:38)
[2019-06-26 06:23] LABS: COLOR,URINE YELLOW
[2019-06-26 06:24] LABS: BACTERIA,URINE LARGE /HPF; BILIRUBIN,URINE NEGATIVE (NEGATIVE); CLARITY,URINE SLIGHTLY CLOUDY; GLUCOSE, URINE (UA) 1+ (NEGATIVE); KETONES,URINE NEGATIVE (NEGATIVE); LEUKOCYTE ESTERASE ,URINE NEGATIVE (NEGATIVE); NITRITE,URINE NEGATIVE (NEGATIVE); PROTEIN,URINE 3+ (NEGATIVE); WBC,URINE 50-100 /HPF
--- NOTE | 2019-06-26 06:44 | Diagnostic Imaging Report ---
EXAMINATION: Chest radiograph, portable AP view. DATE: 06/26/2019 4:28 AM hours. INDICATION: 83-year-old female, chest pain. Shortness of breath. COMPARISON: May 05, 2019. FINDINGS: There is a left-sided cardiac assist device with leads. Stable overall appearance of the cardiomediastinal silhouette accounting for differences in patient positioning. There is no identified pneumothorax. There is nonspecific bibasilar airspace consolidation and right perihilar opacification. This is an interval change since comparison study. There are vascular calcifications in the left upper abdomen. IMPRESSION: 1. Nonspecific right perihilar and bibasilar airspace consolidation with potential bilateral pleural effusions. Pulmonary edema, aspiration, and multifocal pneumonia would be amongst the differential diagnostic considerations. Dictated by: Dictated on workstation # [id number]
[2019-06-26 08:30] VITALS: BP 198/93
[2019-06-26] MEDS ORDERED: WARF1TAB PO (09:27)
[2019-06-26] MEDS ORDERED: IBUP-2186 PO (09:28)
[2019-06-26] MEDS ORDERED: PAIN PATCH TOP (09:29)
[2019-06-26] MEDS ORDERED: PAIN TOP PRN (09:45)
[2019-06-26] MEDS: MAGNESIUM OXIDE (MAG-OX)400 MG TAB PO SCH ×2 (09:54→19:36)
[2019-06-26] MEDS: CLOPIDOGREL 75 MG (PLAVIX) TABLET PO SCH (09:54)
[2019-06-26] MEDS: ISOSORBIDE MONONITRATE 60 MG (IMDUR) TAB PO SCH (09:55)
[2019-06-26] MEDS: PANTOPRAZOLE 20 MG TABLET (PROTONIX) PO SCH ×2 (09:55→19:34)
[2019-06-26] MEDS: KCL 20 MEQ TAB (K-DUR) PO SCH (09:55)
[2019-06-26] MEDS: amLODIPine 5 MG (NORVASC) TAB PO SCH (09:55)
[2019-06-26] MEDS: SOTALOL 80 MG (BETAPACE) TAB PO SCH ×2 (10:04→19:35)
[2019-06-26 10:14] VITALS: BP 191/109
[2019-06-26] MEDS: DIGOXIN 0.125 MG (LANOXIN) TAB PO SCH (10:49)
[2019-06-26] MEDS: LINAGLIPTIN (TRADJENTA) 5 MG TABLET PO SCH (10:49)
[2019-06-26] MEDS: LIDOCAINE 4% (SALONPAS) PATCH TOP SCH (10:49)
--- NOTE | 2019-06-26 11:26 | History & Physical-Hospitalist ---
History of Present Illness HPI/Chief Complaint this is an 83-year-old white female who was accepted in transfer from [place] this morning. The patient had presented to the emergency room there with increased shortness of breath and weakness. EMS had been called to her home when she had complained of shortness of breath and chest tightness. O2 sat at that time was found to be 78 percent on room air. The patient was placed on 100 percent nonrebreather and transported to the emergency room she was found to be in pulmonary edema. She was given a dose of Lasix with excellent diuresis and nitroglycerin paste with improvement of her blood pressure. At the time my interview this morning the patient is laying at 45 with 2 L nasal cannula feels fine and feels back to her normal self. She does not wear oxygen at home. Source: family, old records Exam Limitations: no limitations Date Seen 06/26/19 Time Seen by a Provider: 11:00 Attending Physician Sybil Worrell MD PCP Anne Marie Calderon MD Referring Physician Date of Admission Jun 26, 2019 at 06:56 Home Medications & Allergies Home Medications Reviewed patient Home Medication Reconciliation performed by pharmacy medication reconciliations refrigerator repair technician and/or nursing. Patients Allergies have been reviewed. Allergies Allergies Coded Allergies SYLVIE Inhibitors (Verified Allergy, Unknown, 09/24/18) Penicillins (Unverified Allergy, Unknown, reacted to Rocephin 11/30/18 itching, had tolerated Ancef hx, 12/01/18) Sulfa (Sulfonamide Antibiotics) (Verified Allergy, Unknown, 09/24/18) amlodipine (Verified Allergy, Unknown, 09/24/18) ciprofloxacin (Verified Allergy, Unknown, 09/24/18) diltiazem (Verified Allergy, Unknown, 09/24/18) levofloxacin (Verified Allergy, Unknown, 09/24/18) loratadine (Verified Allergy, Unknown, 09/24/18) pseudoephedrine (Verified Allergy, Unknown, 09/24/18) simvastatin (Verified Allergy, Unknown, 09/24/18) ceftriaxone (Unverified Adverse Reaction, Mild, Itching, 12/01/18) Incident post one dose Rocephin IV with pt scratching hands/arms. Medicated Benadryl 25 mg IV and SoluMedrol 125 mg IV. had discussed allergies prior with dgt and it was thought she tolerated Rocephin in past. Past Gxvoejg-Uzjvuf-Rgnlah Hx Past Med/Social Hx: Reviewed Nursing Past Med/Soc Hx Patient Social History Marrital Status: Employed/Student: retired (from [employer] after 40 years) Alcohol Use: Denies Use Recreational Drug Use: No Smoking Status: Former Smoker 2nd Hand Smoke Exposure: No Physical Abuse Screen: No Sexual Abuse: No Recent Foreign Travel: Yes Contact w/other who traveled: No Recent Hopitalizations: No Recent Infectious Disease Expo: No Immunizations Up To Date Tetanus Booster (TDap): Unknown Pediatric: No Date of Pneumonia Vaccine: Mar 29, 2018 Date of Influenza Vaccine: Mar 29, 2019 Seasonal Allergies Seasonal Allergies: No Past Medical History Surgeries: Cardiac, Coronary Stent, Gallbladder, Pacemaker Currently Using CPAP: No Currently Using BIPAP: No Cardiac: Atrial Fibrillation, Cardiomyopathy, Hypertension, Valvular Heart Disease Neurological: Dementia, Stroke Sexually Transmitted Disease: No HIV/AIDS: No Female Reproductive Disorders: Denies Genitourinary: Bladder Infection, Renal Failure, UTI-Chronic JOSH s/p nephrectomy Musculoskeletal: Arthritis Endocrine: Diabetes, Non-Insulin dep Loss of Vision: Denies Hearing Impairment: Hard of Hearing, Hearing Aide Right History of Blood Disorders: No Adverse Reaction to Blood Rodriguez: No Family History Patient reports no known family medical history. No Pertinent Family Hx Review of Systems Constitutional: see HPI, weakness EENTM: no symptoms reported Respiratory: dyspnea on exertion, short of breath Cardiovascular: chest pain, palpitations Gastrointestinal: no symptoms reported Genitourinary: frequency Musculoskeletal: back pain Skin: no symptoms reported Psychiatric/Neurological: No Symptoms Reported Physical Exam Physical Exam Vital Signs Vital Signs - First Documented 06/26/19 04:04 Temp 36.4 Pulse 193 Resp 22 B/P (MAP) 191/109 (136) Pulse Ox 100 O2 Delivery Non Rebreather O2 Flow Rate 10.00 Capillary Refill : Less Than 3 Seconds Height, Weight, BMI Height: 5'3.00" Weight: 162lbs. 14.8oz. 73.647202gg; 30.31 BMI Method:Stated General Appearance: No Apparent Distress, Other (elderly) HEENT: Other (edentulous) Neck: Normal Inspection, Non Tender, Limited Range of Motion Respiratory: Chest Non Tender, Lungs Clear, No Accessory Muscle Use, No Respiratory Distress, Decreased Breath Sounds Cardiovascular: Systolic Murmur, Irregularly Irregular Gastrointestinal: Normal Bowel Sounds, Non Tender, Soft Back: Normal Inspection, No CVA Tenderness Extremity: No Calf Tenderness Neurologic/Psychiatric: Alert, Oriented x3, No Motor/Sensory Deficits, Normal Mood/Affect, Other (hard of hearing) Skin: Warm/Dry, Pallor Results Results/Procedures Labs Laboratory Tests 06/26/19 04:20 Patient resulted labs reviewed. Imaging: Reviewed Imaging Report Assessment/Plan Admission Diagnosis pulmonary edema most likely secondary to A. fib with RVR-last EF was 55 percent the patient says that she's never had congestive failure before Chronic A. 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
[2019-06-26 11:50] VITALS: BP 162/78
[2019-06-26 13:28] VITALS: BP 162/78
[2019-06-26] MEDS ORDERED: RT-ALBUTEROL SULF 2.5 MG/3 ML PRE-MIX VIAL INH PRN (14:00)
--- NOTE | 2019-06-26 14:50 | Consultation-Cardiology ---
HPI-Cardiology Cardiology Consultation: Date of Consultation 06/26/19 Date of Admission Attending Physician Sybil Worrell MD Admitting Physician Alejandra Acuna MD Consulting Physician Calderon LIU MD HPI: Time Seen by a Provider: 13:30 Chief Complaint: Shortness of breath This is a 83-year-old lady with history of chest pain and shortness of breath. She has history of a permanent pacemaker, chronic kidney disease. Her primary displayer is at [facility]. She presented with shortness of breath. Her initial oxygen saturation was 79 percent on room air. She was started on a nonrebreather. She denies any other respiratory or cardiac symptoms including coughs, fever, syncope, near-syncope, palpitation. No active smoking. No significant pertinent family history. Review of Systems-Cardiology Review of Systems Constitutional: As described under HPI; No As described under HPI, No no symptoms reported, No chills, No fever, No lightheadedness Eyes: No As described under HPI, No no symptoms reported, No blindness, No blurred vision, No contact lenses, No drainage, No decreased acuity, No foreign body sensation, No pain, No vision change Ears/Nose/Throat: No As described under HPI, No no symptoms reported, No chronic hearing loss, No ear discharge, No ear pain, No nasal drainage, No ulcerations Respiratory: No no symptoms reported; As described under HPI; No As described under HPI, No cough, No orthopnea; shortness of breath; No SOB with excertion Cardiovascular: No no symptoms reported; As described under HPI; No As described under HPI; chest pain; No edema, No irregular heart rate, No lightheadedness, No palpitations Gastrointestinal: No no symptoms reported, No As described under HPI, No abdomen distended, No abdominal pain, No blood streaked bowels, No constipation, No diarrhea, No nausea, No vomiting, No stool coloration changes Genitourinary: No As described under HPI, No burning, No dysuria, No discharge, No frequency, No flank pain, No hematuria, No urgency : Yes : No Skin: No rash, No skin related problems, No ulcerations Psychiatric/Neurological: No anxiety, No depression, No seizure, No focal weakness, No syncope Hematologic: No bleeding abnormalities [id number] Hx Patient Social History Marrital Status: Employed/Student: retired (from [employer] after 40 years) Alcohol Use: Denies Use Recreational Drug Use: No Smoking Status: Former Smoker 2nd Hand Smoke Exposure: No Recent Foreign Travel: Yes Recent Infectious Disease Expo: No Hospitalization with Isolation: Denies Physical Abuse Screen: No Sexual Abuse: No Immunizations Up To Date Tetanus Booster (TDap): Unknown Date of Pneumonia Vaccine: Mar 29, 2018 Date of Influenza Vaccine: Mar 29, 2019 Past Medical History PMH As described under Assessment. Family Medical History Family History: Patient reports no known family medical history. Allergies and Home Medications Allergies Coded Allergies: SYLVIE Inhibitors (Verified Allergy, Unknown, 09/24/18) Penicillins (Unverified Allergy, Unknown, reacted to Rocephin 11/30/18 itching, had tolerated Ancef hx, 12/01/18) Sulfa (Sulfonamide Antibiotics) (Verified Allergy, Unknown, 09/24/18) amlodipine (Verified Allergy, Unknown, 09/24/18) ciprofloxacin (Verified Allergy, Unknown, 09/24/18) diltiazem (Verified Allergy, Unknown, 09/24/18) levofloxacin (Verified Allergy, Unknown, 09/24/18) loratadine (Verified Allergy, Unknown, 09/24/18) pseudoephedrine (Verified Allergy, Unknown, 09/24/18) simvastatin (Verified Allergy, Unknown, 09/24/18) ceftriaxone (Unverified Adverse Reaction, Mild, Itching, 12/01/18) Incident post one dose Rocephin IV with pt scratching hands/arms. Medicated Benadryl 25 mg IV and SoluMedrol [address] had discussed allergies prior with dgt and it was thought she tolerated Rocephin in past. Home Medications Acetaminophen 500 Mg Tablet, 500-1,000 MG PO Q4H PRN for PAIN-MILD (1-4), (Reported) Albuterol Sulfate 18 Gm Hfa.aer.ad, 2 PUFF INH Q4H PRN for SHORTNESS OF BREATH, (Reported) Amlodipine Besylate 5 Mg Tablet, 5 MG PO DAILY, (Reported) Ascorbic Acid 250 Mg Tab, 250 MG PO DAILY, (Reported) Atorvastatin Calcium 10 Mg Tablet, 10 MG PO HS, (Reported) Calcium Carbonate/Vitamin D3 1 Each Tablet, 1 TAB PO HS, (Reported) Clopidogrel Bisulfate 75 Mg Tablet, 75 MG PO DAILY, (Reported) Cyanocobalamin 1,000 Mcg/Ml Inj, 1,000 MCG IM MONTHLY, (Reported) Digoxin 125 Mcg Tablet, 125 MCG PO Q48H, (Reported) Furosemide 20 Mg Tablet, 20 MG PO DAILY, (Reported) Isosorbide Mononitrate 60 Mg Tab, 60 MG PO DAILY, (Reported) Labetalol HCl 100 Mg Tablet, 200 MG PO BID, (Reported) TAKES 2 (100MG) TABLETS Loperamide HCl 2 Mg Tablet, 2 MG PO UD PRN for DIARRHEA, (Reported) Magnesium Oxide 400 Mg Tablet, 800 MG PO BID, (Reported) Methyl Salicylate/Menthol 1 Each Adh..patch, 1 PATCH TP DAILY, (Reported) Omeprazole 20 Mg Capsule.dr, 20 MG PO BID, (Reported) Potassium Chloride 20 Meq Tab.er.prt, 20 MEQ PO DAILY, (Reported) Sitagliptin Phosphate 50 Mg Tablet, 100 MG PO DAILY, (Reported) Sotalol HCl 80 Mg Tablet, 80 MG PO 0800,1800, (Reported) Trimethoprim 100 Mg Tablet, 100 MG PO 1800, (Reported) Warfarin Sodium 1 Mg Tablet, 1 MG PO 1800, (Reported) TAKES ALONG WITH 2MG TABLET FOR A TOTAL DAILY DOSE OF 3MG Warfarin Sodium 2 Mg Tablet, 2 MG PO 1800, (Reported) TAKES ALONG WITH 1MG TABLET FOR A TOTAL DAILY DOSE OF 3MG Patient Home Medication List Home Medication List Reviewed: Yes Physical Exam-Cardiology Physical Exam Vital Signs/I&O 06/27/19 06/27/19 06/27/19 06/27/19 07:00 07:47 08:00 08:00 Temp 36.6 Pulse 76 71 Resp 20 B/P (MAP) 155/81 (105) Pulse Ox 99 100 O2 Delivery Nasal Cannula Nasal Cannula Nasal Cannula O2 Flow Rate 3.00 2.00 2.00 06/27/19 06/27/19 06/27/19 06/27/19 08:55 10:36 12:00 13:00 Temp 36.3 Pulse 72 70 81 Resp 18 B/P (MAP) 160/73 (102) Pulse Ox 98 99 O2 Delivery Nasal Cannula Nasal Cannula O2 Flow Rate 3.00 2.00 06/27/19 06/27/19 15:58 16:10 Temp 36.3 Pulse 72 Resp 18 B/P (MAP) 156/77 (103) Pulse Ox 94 94 O2 Delivery Room Air Room Air 06/27/19 00:00 Intake Total 650 ml Output Total 950 ml Balance -300 ml Capillary Refill : Less Than 3 Seconds Constitutional: appears stated age, AAO x 3; No apparent distress; well- developed, well-nourished HEENT: PERRL; No discharge; hearing is well preserved, oral hygience is good; No ulceration, No xanthelasmas are seen Neck: No carotid bruit; carotid pulses are 2 + bilaterally Respiratory: chest is bilaterally symmetric, lungs clear to auscultation Cardiovascular: regular rate-rhythm, S1 and S2 Gastrointestinal: No spleenomegaly Extremities: No clubbing, No cyanosis, No significant edema Neurologic/Psychiatric: alert, oriented x 3, power is 5/5 both on sides Skin: No rash, No ulcerations Data Review Labs Laboratory Tests 06/27/19 04:14: White Blood Count 7.7, Red Blood Count 3.43L, Hemoglobin 7.5L, Hematocrit 26L, Mean Corpuscular Volume 75L, Mean Corpuscular Hemoglobin 22L, Mean Corpuscular Hemoglobin Concent 29L, Red Cell Distribution Width 17.8H, Platelet Count 287, Mean Platelet Volume 11.6H, Neutrophils (%) (Auto) 70, Lymphocytes (%) (Auto) 17, Monocytes (%) (Auto) 10, Eosinophils (%) (Auto) 3, Basophils (%) (Auto) 1, Neutrophils # (Auto) 5.4, Lymphocytes # (Auto) 1.3, Monocytes # (Auto) 0.8, Eosinophils # (Auto) 0.3, Basophils # (Auto) 0.0, Prothrombin Time 24.9H, INR Comment 2.1H, Sodium Level 139, Potassium Level 4.3, Chloride Level 109H, Carbon Dioxide Level 18L, Anion Gap 12, Blood Urea Nitrogen 25H, Creatinine 2.80H, Estimat Glomerular Filtration Rate 16, BUN/Creatinine Ratio 9, Glucose Level 121H, Calcium Level 8.9, Corrected Calcium 9.6, Total Bilirubin 0.4, Aspartate Amino Transf (AST/SGOT) 15, Alanine Aminotransferase (ALT/SGPT) 10, Alkaline Phosphatase 49, B-Type Natriuretic Peptide 536.5H, Total Protein 5.8L, Albumin 3.1L Microbiology 06/26/19 Urine Culture - Preliminary, Resulted Klebsiella pneumoniae ECG Impression ECG Comment Atrial fibrillation, ventricular paced rhythm. A/P-Cardiology Assessment/Admission Diagnosis Acute diastolic congestive heart failure, Possible COPD, Cardiac pacemaker in place, Atrial fibrillation, Moderate pulmonary hypertension. Plan Acute diastolic congestive heart failure, diuretics. Possible COPD, Cardiac pacemaker in place, no active issues. Atrial fibrillation, continue outpatient medical therapy. Moderate pulmonary hypertension. Thank you for your consultation. Please call me if you have any questions. Jhon Liu MD, FACP, FACC, FSCAI, FHRS, CCDS Interventional Cardiology Cardiac Electrophysiology Vascular Medicine and Endovascular Interventions Clinical Quality Measures DVT/VTE Risk/Contraindication: Risk Factor Score Per Nursin RFS Level Per Nursing on Admit: 4+=Very High Calderon LIU MD Jun 26, 2019 14:50
[2019-06-26] MEDS ORDERED: SITA50TA PO (15:02)
[2019-06-26 16:00] VITALS: BP 170/78
[2019-06-26] MEDS: RT-ALBUTEROL SULF 2.5 MG/3 ML PRE-MIX VIAL INH SCH ×3 (16:20→22:43)
[2019-06-26] MEDS: warFARin 1 MG (COUMADIN) TAB PO SCH (18:19)
[2019-06-26 20:00] VITALS: BP 178/82
[2019-06-26] MEDS: PATCH REMOVAL TP SCH (20:49)
[2019-06-27] VITALS (7 sets, daily range): BP systolic 155–180; BP diastolic 73–82
[2019-06-27] MEDS: RT-ALBUTEROL SULF 2.5 MG/3 ML PRE-MIX VIAL INH SCH ×6 (02:49→21:34)
[2019-06-27 04:28] LABS: BASOPHILS % (AUTO) 1 % (0-10); EOSINOPHILS # (AUTO) 0.3 10^3/uL (0.0-0.3); EOSINOPHILS % (AUTO) 3 % (0-10); HEMATOCRIT 26 % (35-52); HEMOGLOBIN 7.5 G/DL (11.5-16.0); LYMPHOCYTES # (AUTO) 1.3 X 10^3 (1.0-4.0); LYMPHOCYTES % (AUTO) 17 % (12-44); MEAN CORPUSCULAR HEMOGLOBIN 22 PG (25-34); MEAN CORPUSCULAR HGB CONC 29 G/DL (32-36); MEAN CORPUSCULAR VOLUME 75 FL (80-99); MEAN PLATELET VOLUME 11.6 FL (7.4-10.4); MONOCYTES # (AUTO) 0.8 X 10^3 (0.0-1.0); MONOCYTES % (AUTO) 10 % (0-12); NEUTROPHILS # (AUTO) 5.4 X 10^3 (1.8-7.8); NEUTROPHILS % (AUTO) 70 % (42-75); PLATELET COUNT 287 10^3/uL (130-400); RED CELL DISTRIBUTION WIDTH 17.8 % (10.0-14.5); WHITE BLOOD COUNT 7.7 10^3/uL (4.3-11.0)
[2019-06-27 04:45] LABS: INR 2.1 (0.8-1.4); PROTHROMBIN TIME PATIENT 24.9 SEC (12.2-14.7)
[2019-06-27 04:59] LABS: ALBUMIN 3.1 GM/DL (3.2-4.5); BILIRUBIN,TOTAL 0.4 MG/DL (0.1-1.0); CALCIUM 8.9 MG/DL (8.5-10.1); CREATININE SERUM 2.8 MG/DL (0.60-1.30); POTASSIUM 4.3 MMOL/L (3.6-5.0); TOTAL PROTEIN 5.8 GM/DL (6.4-8.2)
[2019-06-27] MEDS: KCL 20 MEQ TAB (K-DUR) PO SCH (05:31)
--- NOTE | 2019-06-27 07:06 | Diagnostic Imaging Report ---
INDICATION: Congestive heart failure Upright portable AP view of the chest is obtained. Comparison is made to the study of one day earlier. There is continued increased density in the right perihilar region with blunting of the left costophrenic sulcus. There is no evidence of pneumothorax. No other significant change is identified. IMPRESSION: Increased density in right perihilar region which may be due to atelectasis and/or pneumonitis. There is probably small amount of left pleural fluid or thickening without other evidence of acute abnormality or adverse change in the chest. Dictated by: Dictated on workstation # [id number]
[2019-06-27] MEDS: PANTOPRAZOLE 20 MG TABLET (PROTONIX) PO SCH ×2 (08:54→20:06)
[2019-06-27] MEDS: MAGNESIUM OXIDE (MAG-OX)400 MG TAB PO SCH ×2 (08:54→20:07)
[2019-06-27] MEDS: amLODIPine 5 MG (NORVASC) TAB PO SCH (08:54)
[2019-06-27] MEDS: CLOPIDOGREL 75 MG (PLAVIX) TABLET PO SCH (08:54)
[2019-06-27] MEDS: LINAGLIPTIN (TRADJENTA) 5 MG TABLET PO SCH (08:54)
[2019-06-27] MEDS: ISOSORBIDE MONONITRATE 60 MG (IMDUR) TAB PO SCH (08:54)
[2019-06-27] MEDS: LIDOCAINE 4% (SALONPAS) PATCH TOP SCH (08:55)
[2019-06-27] MEDS: SOTALOL 80 MG (BETAPACE) TAB PO SCH ×2 (08:55→20:08)
[2019-06-27] MEDS ORDERED: ACETAMINOPHEN 325 MG TABLET ONE (10:32)
[2019-06-27] MEDS: ACETAMINOPHEN 325 MG TABLET PO PRN ×2 (10:36→20:07)
--- NOTE | 2019-06-27 10:42 | Progress Note - Hospitalist ---
Subjective HPI/CC On Admission Date Seen by Provider: Jun 27, 2019 Time Seen by Provider: 09:45 this is an 83-year-old white female who was accepted in transfer from [place] this morning. The patient had presented to the emergency room there with increased shortness of breath and weakness. EMS had been called to her home when she had complained of shortness of breath and chest tightness. O2 sat at that time was found to be 78 percent on room air. The patient was placed on 100 percent nonrebreather and transported to the emergency room she was found to be in pulmonary edema. She was given a dose of Lasix with excellent diuresis and nitroglycerin paste with improvement of her blood pressure. At the time my interview this morning the patient is laying at 45 with 2 L nasal cannula feels fine and feels back to her normal self. She does not wear oxygen at home. Subjective/Events-last exam Pt is now on 2 liters of oxygen, that is new to her so will do a home O2 evaluation. Urine culture was reviewed so will treat that per pharmacy recommendations. Daughter very involved in care and will take care of her when she goes home. Has multiple allergies to multiple medications. Macrobid is maintained as a chronic antibiotic to discontinue the UTI. Tylenol will be given for the pain. Has follow-up at [facility] in [place]. Reviewed elevated creatinine. Reviewed Hgb that is chronically low. Review of Systems Pulmonary: Dyspnea Objective Exam Vital Signs Vital Signs Date Time Temp Pulse Resp B/P (MAP) Pulse Ox O2 Delivery O2 Flow Rate FiO2 06/27/19 19:21 94 Room Air 06/27/19 16:10 36.3 72 18 156/77 (103) 06/27/19 12:00 2.00 06/26/19 13:28 30 Capillary Refill : Less Than 3 SecondsLess Than 3 Seconds General Appearance: No Apparent Distress, WD/WN Respiratory: Chest Non Tender, Normal Breath Sounds, No Accessory Muscle Use, No Respiratory Distress, Decreased Breath Sounds Cardiovascular: Regular Rate, Rhythm, No Edema, No Gallop, No JVD, No Murmur, Normal Peripheral Pulses Neurologic/Psychiatric: Alert, Oriented x3, No Motor/Sensory Deficits, Normal Mood/Affect Results/Procedures Lab Laboratory Tests 06/27/19 04:14 Patient resulted labs reviewed. Assessment/Plan Assessment and Plan Assess & Plan/Chief Complaint Assessment: Dyspnea Chronic renal failure Chronic anemia Recurrent UTI Advanced age Debility Plan Monitor labs Home O2 evaluation Cardiology evaluation Monitor closely Abx Diagnosis/Problems Diagnosis/Problems (1) Hypoxia Status: Acute (2) Renal failure (3) Debility (4) Anemia, chronic disease Status: Acute (5) Urinary tract infection Status: Acute Clinical Quality Measures DVT/VTE Risk/Contraindication: Risk Factor Score Per Nursin RFS Level Per Nursing on Admit: 4+=Very High TERE KOCH DO Jun 27, 2019 10:42
[2019-06-27] MEDS ORDERED: FOSFOMYCIN 3 GM PACK (MONUROL) PO SCH (11:15)
[2019-06-27] MEDS ORDERED: METH1ADH5 TP (12:02)
[2019-06-27] MEDS ORDERED: WARF1TAB82 PO (12:02)
[2019-06-27] MEDS ORDERED: WARF-47 PO (12:02)
[2019-06-27] MEDS ORDERED: ALBU18HF2 INH (12:02)
[2019-06-27] MEDS ORDERED: DIGO125T PO (12:02)
[2019-06-27] MEDS ORDERED: TRIM100T PO (12:02)
[2019-06-27] MEDS ORDERED: LABE100T6 PO (12:02)
[2019-06-27] MEDS ORDERED: ACET-2267 PO (12:13)
--- NOTE | 2019-06-27 17:40 | Cardiology Progress Note ---
Cardiology SOAP Progress Note Subjective: Improved shortness of breath. Objective: I&O/Vital Signs 06/27/19 06/27/19 06/27/19 06/27/19 07:00 07:47 08:00 08:00 Temp 36.6 Pulse 76 71 Resp 20 B/P (MAP) 155/81 (105) Pulse Ox 99 100 O2 Delivery Nasal Cannula Nasal Cannula Nasal Cannula O2 Flow Rate 3.00 2.00 2.00 06/27/19 06/27/19 06/27/19 06/27/19 08:55 10:36 12:00 13:00 Temp 36.3 Pulse 72 70 81 Resp 18 B/P (MAP) 160/73 (102) Pulse Ox 98 99 O2 Delivery Nasal Cannula Nasal Cannula O2 Flow Rate 3.00 2.00 06/27/19 06/27/19 15:58 16:10 Temp 36.3 Pulse 72 Resp 18 B/P (MAP) 156/77 (103) Pulse Ox 94 94 O2 Delivery Room Air Room Air 06/27/19 00:00 Intake Total 650 ml Output Total 950 ml Balance -300 ml Weight (Pounds): 162 Weight (Ounces): 14.8 Weight (Calculated Kilograms): 73.864031 Constitutional: appears stated age, AAO x 3; No apparent distress; well-developed, well-nourished Respiratory: chest is bilaterally symmetric, lungs clear to auscultation Cardiovascular: irregularly irregular, S1 and S2 Gastrointestional: No spleenomegaly Extremities: No clubbing, No cyanosis, No significant edema Neurologic/Psychiatric: alert, oriented x 3, power is 5/5 both on sides Skin: No rash, No ulcerations Results/Procedures: Labs Laboratory Tests 06/27/19 04:14: White Blood Count 7.7, Red Blood Count 3.43L, Hemoglobin 7.5L, Hematocrit 26L, Mean Corpuscular Volume 75L, Mean Corpuscular Hemoglobin 22L, Mean Corpuscular Hemoglobin Concent 29L, Red Cell Distribution Width 17.8H, Platelet Count 287, Mean Platelet Volume 11.6H, Neutrophils (%) (Auto) 70, Lymphocytes (%) (Auto) 17, Monocytes (%) (Auto) 10, Eosinophils (%) (Auto) 3, Basophils (%) (Auto) 1, Neutrophils # (Auto) 5.4, Lymphocytes # (Auto) 1.3, Monocytes # (Auto) 0.8, Eosinophils # (Auto) 0.3, Basophils # (Auto) 0.0, Prothrombin Time 24.9H, INR Comment 2.1H, Sodium Level 139, Potassium Level 4.3, Chloride Level 109H, Carbon Dioxide Level 18L, Anion Gap 12, Blood Urea Nitrogen 25H, Creatinine 2.80H, Estimat Glomerular Filtration Rate 16, BUN/Creatinine Ratio 9, Glucose Level 121H, Calcium Level 8.9, Corrected Calcium 9.6, Total Bilirubin 0.4, Aspartate Amino Transf (AST/SGOT) 15, Alanine Aminotransferase (ALT/SGPT) 10, Alkaline Phosphatase 49, B-Type Natriuretic Peptide 536.5H, Total Protein 5.8L, Albumin 3.1L Microbiology 06/26/19 Urine Culture - Preliminary, Resulted Klebsiella pneumoniae A/P: Assessment/Dx: Acute diastolic congestive heart failure, Possible COPD, Cardiac pacemaker in place, Chronic Atrial fibrillation, Moderate pulmonary hypertension. Chronic kidney disease Plan: Acute diastolic congestive heart failure, diuretics. Possible COPD, Cardiac pacemaker in place, no active issues. Chronic Atrial fibrillation, continue outpatient medical therapy. Moderate pulmonary hypertension. Chronic kidney disease, Recurrent UTIs. Awaiting urine culture. Once discharge patient will follow-up with Dr. Carpenter in [facility] for cardiology. Thank you for your consultation. Please call me if you have any questions. Jhon Liu MD, FACP, FACC, FSCAI, FHRS, CCDS Interventional Cardiology Cardiac Electrophysiology Vascular Medicine and Endovascular Interventions Calderon LIU MD Jun 27, 2019 17:40
[2019-06-27] MEDS: warFARin 1 MG (COUMADIN) TAB PO SCH (18:59)
[2019-06-27] MEDS: LABETALOL 200 MG (NORMODYNE) TAB PO SCH (20:06)
[2019-06-27] MEDS: PATCH REMOVAL TP SCH (20:10)
[2019-06-28] MEDS: RT-ALBUTEROL SULF 2.5 MG/3 ML PRE-MIX VIAL INH SCH ×2 (02:02→07:56)
[2019-06-28 03:44] VITALS: BP 166/83
[2019-06-28 04:51] LABS: BASOPHILS % (AUTO) 1 % (0-10); EOSINOPHILS # (AUTO) 0.3 10^3/uL (0.0-0.3); EOSINOPHILS % (AUTO) 4 % (0-10); HEMATOCRIT 25 % (35-52); HEMOGLOBIN 7.1 G/DL (11.5-16.0); LYMPHOCYTES # (AUTO) 1.1 X 10^3 (1.0-4.0); LYMPHOCYTES % (AUTO) 18 % (12-44); MEAN CORPUSCULAR HEMOGLOBIN 21 PG (25-34); MEAN CORPUSCULAR HGB CONC 28 G/DL (32-36); MEAN CORPUSCULAR VOLUME 75 FL (80-99); MEAN PLATELET VOLUME 10.9 FL (7.4-10.4); MONOCYTES # (AUTO) 0.7 X 10^3 (0.0-1.0); MONOCYTES % (AUTO) 11 % (0-12); NEUTROPHILS # (AUTO) 4.3 X 10^3 (1.8-7.8); NEUTROPHILS % (AUTO) 67 % (42-75); PLATELET COUNT 283 10^3/uL (130-400); RED CELL DISTRIBUTION WIDTH 17.9 % (10.0-14.5); WHITE BLOOD COUNT 6.5 10^3/uL (4.3-11.0)
[2019-06-28] MEDS: ACETAMINOPHEN 325 MG TABLET PO PRN ×2 (05:03→11:10)
[2019-06-28 05:14] LABS: ALBUMIN 3.2 GM/DL (3.2-4.5); BILIRUBIN,TOTAL 0.3 MG/DL (0.1-1.0); CALCIUM 8.5 MG/DL (8.5-10.1); CREATININE SERUM 2.67 MG/DL (0.60-1.30); POTASSIUM 4.4 MMOL/L (3.6-5.0); TOTAL PROTEIN 5.7 GM/DL (6.4-8.2)
[2019-06-28] MEDS: KCL 20 MEQ TAB (K-DUR) PO SCH (06:40)
[2019-06-28 08:00] VITALS: BP 158/81
[2019-06-28] MEDS: SOTALOL 80 MG (BETAPACE) TAB PO SCH (08:03)
[2019-06-28] MEDS: DIGOXIN 0.125 MG (LANOXIN) TAB PO SCH (08:03)
[2019-06-28] MEDS: LIDOCAINE 4% (SALONPAS) PATCH TOP SCH (08:04)
[2019-06-28] MEDS: ISOSORBIDE MONONITRATE 60 MG (IMDUR) TAB PO SCH (08:04)
[2019-06-28] MEDS: amLODIPine 5 MG (NORVASC) TAB PO SCH (08:04)
[2019-06-28] MEDS: LABETALOL 200 MG (NORMODYNE) TAB PO SCH (08:04)
[2019-06-28] MEDS: PANTOPRAZOLE 20 MG TABLET (PROTONIX) PO SCH (08:04)
[2019-06-28] MEDS: CLOPIDOGREL 75 MG (PLAVIX) TABLET PO SCH (08:04)
[2019-06-28] MEDS: LINAGLIPTIN (TRADJENTA) 5 MG TABLET PO SCH (08:04)
[2019-06-28] MEDS: MAGNESIUM OXIDE (MAG-OX)400 MG TAB PO SCH (08:04)
[2019-06-28] MEDS ORDERED: NON-FORMULARY MEDICATION 1 EA EA (Loperamide HCl (Imodium A-D) 2 MG) PO PRN (09:00)
[2019-06-28] MEDS ORDERED: NF-FOSFPKT PO (09:45)
[2019-06-28] MEDS ORDERED: LOPERAMIDE 2 MG (IMODIUM) TABLET PO PRN (10:15)
[2019-06-28] MEDS ORDERED: CIPR-225 PO (10:32)
[2019-06-28] MEDS ORDERED: WARF1TAB82 PO (10:56)
--- NOTE | 2019-06-28 10:58 | Discharge Summary ---
Discharge Summary Hospital Course Was the Problem List Reviewed?: Yes Problems/Dx: (1) Hypoxia Status: Acute (2) Renal failure (3) Debility (4) Anemia, chronic disease Status: Acute (5) Urinary tract infection Status: Acute Hospital Course Date of Admission: Jun 26, 2019 at 06:56 Admission Diagnosis : Family Physician/Provider: Alejandra Acuna MD Date of Discharge: 06/28/19 Discharge Diagnosis: Hypoxia, UTI, severe anemia of chronic disease and renal disease, acute on chronic renal failure, severe debility Hospital Course: Patient had a short hospital course after she was admitted for hypoxia and no evidence of any source so she was placed on supplement and incentive spirometer and cardiology was consulted who reviewed all records finding no source and she was able to wean off oxygen completely. UTI acute on chronic was treated with renal dose Cipro and adjustments were made to Coumadin dosing. INR will be checked in 3 days since sent to primary care provider. Overall she responded to treatment conservative management for the most part and patient will be discharged in improved condition to her family that overall prognosis poor given advanced age and severe renal failure. Labs and Pending Lab Test: Laboratory Tests 06/27/19 22:22: Glucometer 199H 06/28/19 04:39: White Blood Count 6.5, Red Blood Count 3.33L, Hemoglobin 7.1L, Hematocrit 25L, Mean Corpuscular Volume 75L, Mean Corpuscular Hemoglobin 21L, Mean Corpuscular Hemoglobin Concent 28L, Red Cell Distribution Width 17.9H, Platelet Count 283, Mean Platelet Volume 10.9H, Neutrophils (%) (Auto) 67, Lymphocytes (%) (Auto) 18, Monocytes (%) (Auto) 11, Eosinophils (%) (Auto) 4, Basophils (%) (Auto) 1, Neutrophils # (Auto) 4.3, Lymphocytes # (Auto) 1.1, Monocytes # (Auto) 0.7, Eosinophils # (Auto) 0.3, Basophils # (Auto) 0.0, Sodium Level 138, Potassium Level 4.4, Chloride Level 109H, Carbon Dioxide Level 18L, Anion Gap 11, Blood Urea Nitrogen 26H, Creatinine 2.67H, Estimat Glomerular Filtration Rate 17, BUN/Creatinine Ratio 10, Glucose Level 154H, Calcium Level 8.5, Corrected Calcium 9.1, Total Bilirubin 0.3, Aspartate Amino Transf (AST/SGOT) 17, Alanine Aminotransferase (ALT/SGPT) 11, Alkaline Phosphatase 45, Total Protein 5.7L, Albumin 3.2 Microbiology 06/26/19 Urine Culture - Preliminary, Resulted Klebsiella pneumoniae Home Meds Active Warfarin Sodium 1 Mg Tablet 1 Mg PO DAILY 7 Days Cipro (Ciprofloxacin HCl) 500 Mg Tablet 500 Mg PO DAILY 3 Days START 06/29/2019 Reported Tylenol Extra Strength (Acetaminophen) 500 Mg Tablet 500-1,000 Mg PO Q4H PRN Salonpas Patch (Methyl Salicylate/Menthol) 1 Each Adh..patch 1 Patch TP DAILY Digoxin 125 Mcg Tablet 125 Mcg PO Q48H Warfarin Sodium 2 Mg Tablet 2 Mg PO 1800 TAKES ALONG WITH 1MG TABLET FOR A TOTAL DAILY DOSE OF 3MG Warfarin Sodium 1 Mg Tablet 1 Mg PO 1800 TAKES ALONG WITH 2MG TABLET FOR A TOTAL DAILY DOSE OF 3MG Labetalol HCl 100 Mg Tablet 200 Mg PO BID TAKES 2 (100MG) TABLETS Ventolin Hfa (Albuterol Sulfate) 18 Gm Hfa.aer.ad 2 Puff INH Q4H PRN Trimethoprim 100 Mg Tablet 100 Mg PO 1800 Imodium A-D (Loperamide HCl) 2 Mg Tablet 2 Mg PO UD PRN Magnesium Oxide 400 Mg Tablet 800 Mg PO BID Calcium 600 + Vit D 400 Tablet (Calcium Carbonate/Vitamin D3) 1 Each Tablet 1 Tab PO HS Vitamin C (Ascorbic Acid) 250 Mg Tab 250 Mg PO DAILY Cyanocobalamin Injection (Cyanocobalamin) 1,000 Mcg/Ml Inj 1,000 Mcg IM MONTHLY Januvia (Sitagliptin Phosphate) 50 Mg Tablet 100 Mg PO DAILY Potassium Chloride 20 Meq Tab.er.prt 20 Meq PO DAILY Atorvastatin Calcium 10 Mg Tablet 10 Mg PO HS Amlodipine Besylate 5 Mg Tablet 5 Mg PO DAILY Sotalol (Sotalol HCl) 80 Mg Tablet 80 Mg PO 0800,1800 Omeprazole 20 Mg Capsule.dr 20 Mg PO BID Clopidogrel (Clopidogrel Bisulfate) 75 Mg Tablet 75 Mg PO DAILY Furosemide 20 Mg Tablet 20 Mg PO DAILY Isosorbide Mononitrate ER (Isosorbide Mononitrate) 60 Mg Tab 60 Mg PO DAILY Assessment/Pt Instructions [facility] [place] Curry next week Discharge Planning: <30 minutes discharge planning Discharge Instructions Discharge Diet: No Restrictions Discharge Physical Examination Vital Signs Vital Signs Date Time Temp Pulse Resp B/P (MAP) Pulse Ox O2 Delivery O2 Flow Rate FiO2 06/28/19 09:15 Room Air 06/28/19 08:03 72 06/28/19 08:00 36.4 22 158/81 (106) 97 06/27/19 12:00 2.00 06/26/19 13:28 30 General Appearance: No Apparent Distress, WD/WN, Chronically ill Respiratory: Chest Non Tender, Lungs Clear, Normal Breath Sounds, No Accessory Muscle Use, No Respiratory Distress Neurologic/Psychiatric: Alert, Oriented x3, No Motor/Sensory Deficits, Normal Mood/Affect Allergies: Coded Allergies: SYLVIE Inhibitors (Verified Allergy, Unknown, 09/24/18) Penicillins (Unverified Allergy, Unknown, reacted to Rocephin 11/30/18 itching, had tolerated Ancef hx, 12/01/18) Sulfa (Sulfonamide Antibiotics) (Verified Allergy, Unknown, 09/24/18) amlodipine (Verified Allergy, Unknown, 09/24/18) ciprofloxacin (Verified Allergy, Unknown, 09/24/18) diltiazem (Verified Allergy, Unknown, 09/24/18) levofloxacin (Verified Allergy, Unknown, 09/24/18) loratadine (Verified Allergy, Unknown, 09/24/18) pseudoephedrine (Verified Allergy, Unknown, 09/24/18) simvastatin (Verified Allergy, Unknown, 09/24/18) ceftriaxone (Unverified Adverse Reaction, Mild, Itching, 12/01/18) Incident post one dose Rocephin IV with pt scratching hands/arms. Medicated Benadryl 25 mg IV and SoluMedrol [address] had discussed allergies prior with dgt and it was thought she tolerated Rocephin in past. Discharge Summary Date of Admission Jun 26, 2019 at 06:56 Date of Discharge Discharge Date: Jun 28, 2019 Admission Diagnosis pulmonary edema most likely secondary to A. fib with RVR-last EF was 55 percent the patient says that she's never had congestive failure before Chronic A. 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) secondary to chronic infection chronic urinary tract infections with multiple antibiotic allergies because of lack of symptoms will hold treatment awaiting culture results Type II diabetes Anemia with a history of B12 deficiency we'll Hemoccult stools Plan to repeat echocardiogram diuresis as possible and cardiology consult Discharge Diagnosis Assessment: Dyspnea Chronic renal failure Chronic anemia Recurrent UTI Advanced age Debility Plan Monitor labs Home O2 evaluation Cardiology evaluation Monitor closely Abx (1) Hypoxia Status: Acute (2) Renal failure (3) Debility (4) Anemia, chronic disease Status: Acute (5) Urinary tract infection Status: Acute Clinical Quality Measures DVT/VTE Risk/Contraindication: Risk Factor Score Per Nursin RFS Level Per Nursing on Admit: 4+=Very High TERE KOCH DO Jun 28, 2019 10:58
== END 2019-06-28 11:27 | disposition home or self-care (01) | DRG 291 ==
LOC: EDUNIT# 03:51 → ER FS 03:53 → CSD 06:56
PROVIDERS: ADMIT Internal Medicine; ATTEND Internal Medicine
DX: I13.0 Hypertensive heart and chronic kidney disease with heart failure and stage 1 through stage 4 chronic kidney disease, or unspecified chronic kidney disease (principal); I50.31 Acute diastolic (congestive) heart failure; I48.20 Chronic atrial fibrillation, unspecified; N18.4 Chronic kidney disease, stage 4 (severe); N17.9 Acute kidney failure, unspecified; N39.0 Urinary tract infection, site not specified; I42.9 Cardiomyopathy, unspecified; F03.90 Unspecified dementia, unspecified severity, without behavioral disturbance, psychotic disturbance, mood disturbance, and anxiety; I27.20 Pulmonary hypertension, unspecified; J44.9 Chronic obstructive pulmonary disease, unspecified; D63.1 Anemia in chronic kidney disease; E11.22 Type 2 diabetes mellitus with diabetic chronic kidney disease; Z88.0 Allergy status to penicillin; Z88.1 Allergy status to other antibiotic agents; Z79.01 Long term (current) use of anticoagulants; Z95.0 Presence of cardiac pacemaker; Z95.5 Presence of coronary angioplasty implant and graft; Z89.529 Acquired absence of unspecified knee; Z86.73 Personal history of transient ischemic attack (TIA), and cerebral infarction without residual deficits; M19.90 Unspecified osteoarthritis, unspecified site
CPT/HCPCS: 36415; 71045; 80053; 81000; 82274; 82962; 83735; 83880; 84484; 85007; 85025; 85027; 85610; 85730; 87077; 87088; 87186; 93005; 93306; 94640; 94760; 94761; 96374

== ENCOUNTER 2019-07-04 07:56 | Emergency (ER) | payer MEDICARE, OTHER ==
[~2019-07-04 07:56] MED LIST changes: +ACET-2267 PO; +ALBU18HF2 INH; +CIPR-225 PO; +DIGO125T PO; +IBUP-2186 PO; +METH1ADH5 TP; +NF-FOSFPKT PO; +PAIN PATCH TOP; +SITA50TA PO; +WARF1TAB PO
--- NOTE | 2019-07-04 08:33 | ED Dyspnea ---
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 Hospital dismissal the patient is much more lethargic and much less able to maneuver than she has been before denies any pain denies any fever or chills has had urinary tract infections in the past family concerned about that Timing/Duration: 24 Hours Activities at Onset: Rest Prior Episodes/Possible Cause: Frequent Episodes Modifying Factors: Improves With Activity Associated Symptoms: Edema, Loss of Appetite, Weakness, Wheezing Allergies and Home Medications Allergies Coded Allergies: SYLVIE Inhibitors (Verified Allergy, Unknown, 09/24/18) Penicillins (Unverified Allergy, Unknown, reacted to Rocephin 11/30/18 itching, had tolerated Ancef hx, 12/01/18) Sulfa (Sulfonamide Antibiotics) (Verified Allergy, Unknown, 09/24/18) amlodipine (Verified Allergy, Unknown, 09/24/18) ciprofloxacin (Verified Allergy, Unknown, 09/24/18) diltiazem (Verified Allergy, Unknown, 09/24/18) levofloxacin (Verified Allergy, Unknown, 09/24/18) loratadine (Verified Allergy, Unknown, 09/24/18) pseudoephedrine (Verified Allergy, Unknown, 09/24/18) simvastatin (Verified Allergy, Unknown, 09/24/18) ceftriaxone (Unverified Adverse Reaction, Mild, Itching, 12/01/18) Incident post one dose Rocephin IV with pt scratching hands/arms. Medicated Benadryl 25 mg IV and SoluMedrol 125 mg IV. had discussed allergies prior with dgt and it was thought she tolerated Rocephin in past. Home Medications Acetaminophen 500 Mg Tablet, 500-1,000 MG PO Q4H PRN for PAIN-MILD (1-4), ( Reported) Albuterol Sulfate 18 Gm Hfa.aer.ad, 2 PUFF INH Q4H PRN for SHORTNESS OF BREATH, (Reported) Amlodipine Besylate 5 Mg Tablet, 5 MG PO DAILY, (Reported) Ascorbic Acid 250 Mg Tab, 250 MG PO DAILY, (Reported) Atorvastatin Calcium 10 Mg Tablet, 10 MG PO HS, (Reported) Calcium Carbonate/Vitamin D3 1 Each Tablet, 1 TAB PO HS, (Reported) Ciprofloxacin HCl 500 Mg Tablet, 500 MG PO DAILY START 06/29/2019 Prescribed by: REHAN PRIDE on 06/28/19 1032 Clopidogrel Bisulfate 75 Mg Tablet, 75 MG PO DAILY, (Reported) Cyanocobalamin 1,000 Mcg/Ml Inj, 1,000 MCG IM MONTHLY, (Reported) Digoxin 125 Mcg Tablet, 125 MCG PO Q48H, (Reported) Furosemide 20 Mg Tablet, 20 MG PO DAILY, (Reported) Isosorbide Mononitrate 60 Mg Tab, 60 MG PO DAILY, (Reported) Labetalol HCl 100 Mg Tablet, 200 MG PO BID, (Reported) TAKES 2 (100MG) TABLETS Loperamide HCl 2 Mg Tablet, 2 MG PO UD PRN for DIARRHEA, (Reported) Magnesium Oxide 400 Mg Tablet, 800 MG PO BID, (Reported) Methyl Salicylate/Menthol 1 Each Adh..patch, 1 PATCH TP DAILY, (Reported) Omeprazole 20 Mg Capsule.dr, 20 MG PO BID, (Reported) Potassium Chloride 20 Meq Tab.er.prt, 20 MEQ PO DAILY, (Reported) Sitagliptin Phosphate 50 Mg Tablet, 100 MG PO DAILY, (Reported) Sotalol HCl 80 Mg Tablet, 80 MG PO 0800,1800, (Reported) Trimethoprim 100 Mg Tablet, 100 MG PO 1800, (Reported) Warfarin Sodium 1 Mg Tablet, 1 MG PO DAILY Prescribed by: TERE KOCH on 06/28/19 1056 Patient Home Medication List Home Medication List Reviewed: Yes Review of Systems Review of Systems Constitutional: No chills; dizziness; No fever; weight loss EENTM: No ear pain, No nose congestion, No throat pain Respiratory: dyspnea on exertion, short of breath, wheezing Cardiovascular: No chest pain; edema; No palpitations Gastrointestinal: No abdominal pain, No diarrhea; loss of appetite; No nausea, No vomiting Genitourinary: No dysuria, No frequency Musculoskeletal: back pain; No joint pain; muscle weakness Skin: No lesions, No rash Psychiatric/Neurological: Denies Headache, Denies Numbness, Denies Paresthesia Past Gvceyig-Hmetqt-Xgicvl Hx Past Med/Social Hx: Reviewed Nursing Past Med/Soc Hx Patient Social History Alcohol Use: Denies Use Recreational Drug Use: No Smoking Status: Never a Smoker 2nd Hand Smoke Exposure: No Recent Foreign Travel: No Recent Hopitalizations: No Physical Abuse: No Sexual Abuse: No Mistreated: No Fear: No Immunizations Up To Date Tetanus Booster (TDap): Unknown PED Vaccines UTD: No Date of Pneumonia Vaccine: Mar 29, 2018 Date of Influenza Vaccine: Mar 29, 2019 Seasonal Allergies Seasonal Allergies: No Past Medical History Surgeries: Yes Cardiac, Coronary Stent, Gallbladder, Pacemaker Respiratory: No Currently Using CPAP: No Currently Using BIPAP: No Cardiac: Yes (PACEMAKER, CHF) Atrial Fibrillation, Cardiomyopathy, Hypertension, Valvular Heart Disease Neurological: Yes Dementia, Stroke Female Reproductive Disorders: Denies Sexually Transmitted Disease: No HIV/AIDS: No Genitourinary: Yes (NEPHRECTOMY) Bladder Infection, Renal Failure, UTI-Chronic Gastrointestinal: No Musculoskeletal: Yes Arthritis Endocrine: Yes Diabetes, Non-Insulin dep HEENT: Yes Loss of Vision: Denies Hearing Impairment: Hard of Hearing, Hearing Aide Right Cancer: No Psychosocial: No Integumentary: No Blood Disorders: No Adverse Reaction/Blood Tranf: No Family Medical History Patient reports no known family medical history. No Pertinent Family Hx Physical Exam Vital Signs Vital Signs - First Documented 07/04/19 08:22 Temp 36.2 Pulse 78 Resp 21 B/P (MAP) 181/64 (103) Pulse Ox 93 Capillary Refill : Height, Weight, BMI Height: 5'3.00" Weight: 162lbs. 14.8oz. 73.870570gu; 30.31 BMI Method:Stated General Appearance: Chronically ill, Moderate Distress HEENT: TMs Normal; No Moist Mucous Membranes (dry mucous membranes) Neck: Normal Inspection, Supple Respiratory: Decreased Breath Sounds, Wheezing Cardiovascular: Systolic Murmur, Irregularly Irregular Gastrointestinal: Normal Bowel Sounds, Non Tender, Soft; No Distended Extremity: No Calf Tenderness, Pedal Edema Neurologic/Psychiatric: Alert; No Oriented x3; Motor Weakness Skin: Warm/Dry, Pallor Progress/Results/Core Measures Results/Orders Lab Results Laboratory Tests Test 07/04/19 08:30 07/04/19 08:38 Range/Units Urine Color YELLOW Urine Clarity CLEAR Urine pH 7.0 5-9 Urine Specific [place] 1.025 H 1.016-1.022 Urine Protein 3+ H NEGATIVE Urine Glucose (UA) TRACE H NEGATIVE Urine Ketones NEGATIVE NEGATIVE Urine Nitrite NEGATIVE NEGATIVE Urine Bilirubin NEGATIVE NEGATIVE Urine Urobilinogen 0.2 < = 1.0 MG/DL Urine Leukocyte Esterase TRACE NEGATIVE Urine RBC (Auto) TRACE H NEGATIVE Urine RBC RARE /HPF Urine WBC 2-5 /HPF Urine Squamous Epithelial Cells 10-25 H /HPF Urine Crystals NONE /LPF Urine Bacteria TRACE /HPF Urine Casts NONE /LPF Urine Mucus NEGATIVE /LPF Urine Culture Indicated NO White Blood Count 9.6 4.3-11.0 10^3/uL Red Blood Count 3.49 L 4.35-5.85 10^6/uL Hemoglobin 7.5 L 11.5-16.0 G/DL Hematocrit 26 L 35-52 % Mean Corpuscular Volume 75 L 80-99 FL Mean Corpuscular Hemoglobin 21 L 25-34 PG Mean Corpuscular Hemoglobin Concent 29 L 32-36 G/DL Red Cell Distribution Width 17.9 H 10.0-14.5 % Platelet Count 315 130-400 10^3/uL Mean Platelet Volume 10.4 7.4-10.4 FL Neutrophils (%) (Auto) 79 H 42-75 % Lymphocytes (%) (Auto) 9 L 12-44 % Monocytes (%) (Auto) 8 0-12 % Eosinophils (%) (Auto) 3 0-10 % Basophils (%) (Auto) 1 0-10 % Neutrophils # (Auto) 7.6 1.8-7.8 X 10^3 Lymphocytes # (Auto) 0.8 L 1.0-4.0 X 10^3 Monocytes # (Auto) 0.8 0.0-1.0 X 10^3 Eosinophils # (Auto) 0.3 0.0-0.3 10^3/uL Basophils # (Auto) 0.1 0.0-0.1 10^3/uL Neutrophils % (Manual) 87 % Lymphocytes % (Manual) 7 % Monocytes % (Manual) 4 % Eosinophils % (Manual) 1 % Basophils % (Manual) 0 % Band Neutrophils 1 % Nucleated Red Blood Cells 1 Anisocytosis SLIGHT Microcytosis SLIGHT Prothrombin Time 15.8 H 12.2-14.7 SEC INR Comment 1.2 0.8-1.4 Activated Partial Thromboplast Time 34 24-35 SEC Sodium Level 134 L 135-145 MMOL/L Potassium Level 4.7 3.6-5.0 MMOL/L Chloride Level 102 98-107 MMOL/L Carbon Dioxide Level 20 L 21-32 MMOL/L Anion Gap 12 5-14 MMOL/L Blood Urea Nitrogen 21 H 7-18 MG/DL Creatinine 2.59 H 0.60-1.30 MG/DL Estimat Glomerular Filtration Rate 18 BUN/Creatinine Ratio 8 Glucose Level 202 H 70-105 MG/DL Calcium Level 9.1 8.5-10.1 MG/DL Corrected Calcium 9.3 8.5-10.1 MG/DL Total Bilirubin 0.4 0.1-1.0 MG/DL Aspartate Amino Transf (AST/SGOT) 13 5-34 U/L Alanine Aminotransferase (ALT/SGPT) 9 0-55 U/L Alkaline Phosphatase 53 40-136 U/L Pro-B-Type Natriuretic Peptide 6902.0 H <75.0 PG/ML Total Protein 6.7 6.4-8.2 GM/DL Albumin 3.7 3.2-4.5 GM/DL Micro Results Microbiology 07/04/19 Influenza Types A,B Antigen (JESUS ALBERTO) - Final, Complete My Orders Orders - JORGE LUIS POWERS JR, MD Cbc And Manual Diff (07/04/19 08:25) Comprehensive Metabolic Panel (07/04/19 08:25) Protime With Inr (07/04/19 08:25) Partial Thromboplastin Time (07/04/19 08:25) Influenza A And B Antigens (07/04/19 08:25) Probnp Fs (07/04/19 08:25) Chest 1 View Ap/Pa Only (07/04/19 08:25) Ekg Tracing (07/04/19 08:25) Ua Culture If Indicated (07/04/19 08:25) Ct Chest Wo (07/04/19 09:34) Acetaminophen Tablet (Tylenol Tablet) (07/04/19 11:00) Furosemide Injection (Lasix Injection) (07/04/19 11:00) Vital Signs/I&O 07/04/19 08:22 Temp 36.2 Pulse 78 Resp 21 B/P (MAP) 181/64 (103) Pulse Ox 93 Progress Progress Note : Time: 10:57 Progress Note Lab work tending indicate patient was in failure. Hemoglobin is stable at 7.5 white count was normal her creatinine was stable at 2.5 her pro BMP was 6000+ difficult to compare that to her BMP which is 595 the other day but had to feel like this was marked increase even though she had lost weight by scales at home she had been on the Cipro and her Coumadin admin down for that combined dosing she is her pro time today was 1.2 so from a management standpoint and went ahead and CAT scanned her chest to look for aspiration pneumonia versus CHF and she obviously had moderate sized bilateral pleural effusions and no sign of pneumonia so think this represents primarily CHF with a clear urine with a basic anemia chronic kidney disease and A. fib with a controlled rate. Today were going to give her an IV dose of Lasix 40 we'll switch her to by mouth 20 twice a day increase her potassium to twice a day as well we'll go ahead and go back to her original Coumadin dosage prior to the Cipro will follow the weights daily we'll go ahead and be seen by her primary care on Thursday but obtain her blood work first including PT PTT CBC CMP and BNP she seems very frail and I don't know whether or not outpatient management of this will work but discussed this with the daughter significantly and I think everyone agrees try to keep her out of the hospital is the best situation knowing that she can be admitted at any time. Initial ECG Impression Date: Jul 04, 2019 Initial ECG Impression Time: 08:43 Initial ECG Rate: 67 Initial ECG Rhythm: A Fib/Flutter Initial ECG Impression: Atrial Fibrillation Departure Impression Primary Impression: Congestive heart failure Qualified Codes: I50.43 - Acute on chronic combined systolic (congestive) and diastolic (congestive) heart failure Additional Impressions: Atrial fibrillation Qualified Codes: I48.0 - Paroxysmal atrial fibrillation CKD (chronic kidney disease) Qualified Codes: N18.3 - Chronic kidney disease, stage 3 (moderate) Disposition: 01 HOME, SELF-CARE Condition: Improved Departure-Patient Inst. Referrals: ANNE MARIE CALDERON MD (PCP/Family) Primary Care Physician Patient Instructions: CHF Scripts Potassium Chloride (Potassium Chloride) 20 Meq Tab.er.prt 20 MEQ PO BID, #60 TAB Prov: JORGE LUIS POWERS JR, MD 07/04/19 Furosemide (Furosemide) 20 Mg Tablet 20 MG PO BID, #60 TAB Prov: JORGE LUIS POWERS JR, MD 07/04/19 JORGE LUIS POWERS JR, MD Jul 04, 2019 08:33
[2019-07-04 08:41] LABS: BACTERIA,URINE TRACE /HPF; BILIRUBIN,URINE NEGATIVE (NEGATIVE); CLARITY,URINE CLEAR; COLOR,URINE YELLOW; GLUCOSE, URINE (UA) TRACE (NEGATIVE); KETONES,URINE NEGATIVE (NEGATIVE); LEUKOCYTE ESTERASE ,URINE TRACE (NEGATIVE); NITRITE,URINE NEGATIVE (NEGATIVE); PROTEIN,URINE 3+ (NEGATIVE); RBC,URINE RARE /HPF
[2019-07-04 08:52] LABS: BASOPHILS % (AUTO) 1 % (0-10); EOSINOPHILS % (AUTO) 3 % (0-10); HEMATOCRIT 26 % (35-52); HEMOGLOBIN 7.5 G/DL (11.5-16.0); LYMPHOCYTES % (AUTO) 9 % (12-44); MEAN CORPUSCULAR HEMOGLOBIN 21 PG (25-34); MEAN CORPUSCULAR HGB CONC 29 G/DL (32-36); MEAN CORPUSCULAR VOLUME 75 FL (80-99); MEAN PLATELET VOLUME 10.4 FL (7.4-10.4); MONOCYTES % (AUTO) 8 % (0-12); NEUTROPHILS % (AUTO) 79 % (42-75); PLATELET COUNT 315 10^3/uL (130-400); RED CELL DISTRIBUTION WIDTH 17.9 % (10.0-14.5); WHITE BLOOD COUNT 9.6 10^3/uL (4.3-11.0)
[2019-07-04 08:53] LABS: BASOPHILS # (AUTO) 0.1 10^3/uL (0.0-0.1); EOSINOPHILS # (AUTO) 0.3 10^3/uL (0.0-0.3); LYMPHOCYTES # (AUTO) 0.8 X 10^3 (1.0-4.0); MONOCYTES # (AUTO) 0.8 X 10^3 (0.0-1.0); NEUTROPHILS # (AUTO) 7.6 X 10^3 (1.8-7.8)
[2019-07-04 09:01] LABS: INR 1.2 (0.8-1.4); PROTHROMBIN TIME PATIENT 15.8 SEC (12.2-14.7)
--- NOTE | 2019-07-04 09:06 | Diagnostic Imaging Report ---
INDICATION: Shortness of breath. Portable chest 8:29 AM There is a dual chamber pacemaker. Heart size and pulmonary vascularity are within normal limits. There continues to be some increased density in the perihilar regions of both lungs. IMPRESSION: Stable chest since 06/27/2019. Dictated by: Dictated on workstation # [id number]
[2019-07-04 09:10] LABS: ANISOCYTOSIS SLIGHT; BAND NEUTROPHILS 1 %; BASOPHILS % (MANUAL) 0 %; EOSINOPHILS % (MANUAL) 1 %; LYMPHOCYTES % (MANUAL) 7 %; MICROCYTOSIS SLIGHT; MONOCYTES % (MANUAL) 4 %; NEUTROPHILS % (MANUAL) 87 %; NUCLEATED RED BLOOD CELLS 1
[2019-07-04 09:18] LABS: BILIRUBIN,TOTAL 0.4 MG/DL (0.1-1.0); CALCIUM 9.1 MG/DL (8.5-10.1); CREATININE SERUM 2.59 MG/DL (0.60-1.30); POTASSIUM 4.7 MMOL/L (3.6-5.0)
[2019-07-04 09:19] LABS: ALBUMIN 3.7 GM/DL (3.2-4.5); TOTAL PROTEIN 6.7 GM/DL (6.4-8.2)
--- NOTE | 2019-07-04 10:40 | Diagnostic Imaging Report ---
PROCEDURE: CT chest without contrast. TECHNIQUE: Multiple contiguous axial images were obtained through the chest without the use of intravenous contrast. Auto Exposure Controls were utilized during the CT exam to meet ALARA standards for radiation dose reduction. All CT scans use one or more of the following dose optimizing techniques: automated exposure control, MA and/or KvP adjustment based on patient size and exam type or iterative reconstruction. INDICATION: Shortness of breath. Recent discharge from hospital five days ago. COMPARISON: Chest x-ray from the same day. CT chest from 05/05/2019. FINDINGS: The heart is normal in size. There is no pericardial effusion. The interventricular septum is visible, suggestive of anemia. There is extensive calcific atherosclerosis. Left-sided pacemaker leads appear stable. Mildly prominent mediastinal lymph nodes are likely reactive. There are moderate bilateral pleural effusions, right greater than left. Mild groundglass opacities are seen in the lungs bilaterally, with central predominance, likely mild edema. There is focal airspace opacity in the anterior right upper lobe. Imaged portions of the upper abdomen demonstrate marked atherosclerosis with no acute abnormality seen. There is atrophy of the right kidney. Cysts are seen in the kidneys bilaterally. There is exaggerated kyphosis of the thoracic spine which is chronic. No acute fracture is seen. IMPRESSION: 1. New moderate bilateral pleural effusions, right greater than left. 2. Groundglass opacity in the lungs bilaterally, likely mild edema. Airspace opacity in the anterior right upper lobe may represent edema, atelectasis, or infection. Dictated by: Dictated on workstation # [id number]
[2019-07-04] MEDS ORDERED: FUROSEMIDE 40 MG/4 ML INJ (LASIX) IVP ONE (11:00)
[2019-07-04] MEDS ORDERED: ACETAMINOPHEN 500 MG TAB (TYLENOL) PO ONE (11:00)
[2019-07-04] MEDS ORDERED: POTA20TA15 PO ×2 (11:04→11:08)
[2019-07-04] MEDS ORDERED: FURO-125 PO (11:04)
[2019-07-04] MEDS ORDERED: FURO20TA4 PO (11:08)
[2019-07-04 11:42] VITALS: BP 188/88
== END 2019-07-04 11:42 | disposition home or self-care (01) ==
LOC: EDUNIT# 07:56 → ER FS 07:57
DX: I13.0 Hypertensive heart and chronic kidney disease with heart failure and stage 1 through stage 4 chronic kidney disease, or unspecified chronic kidney disease (principal); E11.22 Type 2 diabetes mellitus with diabetic chronic kidney disease; I50.9 Heart failure, unspecified; I48.91 Unspecified atrial fibrillation; I10 Essential (primary) hypertension; F03.90 Unspecified dementia, unspecified severity, without behavioral disturbance, psychotic disturbance, mood disturbance, and anxiety; Z88.0 Allergy status to penicillin; Z86.73 Personal history of transient ischemic attack (TIA), and cerebral infarction without residual deficits; Z87.440 Personal history of urinary (tract) infections; Z88.8 Allergy status to other drugs, medicaments and biological substances; Z88.2 Allergy status to sulfonamides; Z88.1 Allergy status to other antibiotic agents; Z79.02 Long term (current) use of antithrombotics/antiplatelets; Z79.01 Long term (current) use of anticoagulants; Z95.5 Presence of coronary angioplasty implant and graft
CPT/HCPCS: 36415; 71045; 71250; 80053; 81000; 83880; 85007; 85027; 85610; 85730; 87804; 93005; 96374

== ENCOUNTER → 2019-07-08 | Outpatient (CLI) | payer MEDICARE, OTHER ==
[~2019-07-08] MED LIST changes: +FURO-125 PO
[2019-07-08 11:51] LABS: INR 1.6 (0.8-1.4); PROTHROMBIN TIME PATIENT 19.6 SEC (12.2-14.7)
[2019-07-08 11:52] LABS: HEMATOCRIT 26 % (35-52); HEMOGLOBIN 7.4 G/DL (11.5-16.0); LYMPHOCYTES % (AUTO) 11 % (12-44); MEAN CORPUSCULAR HEMOGLOBIN 21 PG (25-34); MEAN CORPUSCULAR HGB CONC 28 G/DL (32-36); MEAN CORPUSCULAR VOLUME 75 FL (80-99); MEAN PLATELET VOLUME 10.8 FL (7.4-10.4); MONOCYTES % (AUTO) 9 % (0-12); PLATELET COUNT 320 10^3/uL (130-400); RED CELL DISTRIBUTION WIDTH 18.2 % (10.0-14.5); WHITE BLOOD COUNT 8.7 10^3/uL (4.3-11.0)
[2019-07-08 11:53] LABS: BASOPHILS # (AUTO) 0.1 10^3/uL (0.0-0.1); BASOPHILS % (AUTO) 1 % (0-10); EOSINOPHILS # (AUTO) 0.3 10^3/uL (0.0-0.3); EOSINOPHILS % (AUTO) 3 % (0-10); MONOCYTES # (AUTO) 0.8 X 10^3 (0.0-1.0); NEUTROPHILS # (AUTO) 6.6 X 10^3 (1.8-7.8); NEUTROPHILS % (AUTO) 76 % (42-75)
[2019-07-08 13:29] LABS: ALBUMIN 3.6 GM/DL (3.2-4.5); BILIRUBIN,TOTAL 0.3 MG/DL (0.1-1.0); CALCIUM 9.1 MG/DL (8.5-10.1); CREATININE SERUM 2.89 MG/DL (0.60-1.30); TOTAL PROTEIN 6.8 GM/DL (6.4-8.2)
[2019-07-08 13:30] LABS: POTASSIUM 5.2 MMOL/L (3.6-5.0)
[2019-07-08 13:37] LABS: BAND NEUTROPHILS 3 %; LYMPHOCYTES % (MANUAL) 9 %; MONOCYTES % (MANUAL) 8 %; NEUTROPHILS % (MANUAL) 76 %
[2019-07-08 13:38] LABS: BASOPHILS % (MANUAL) 0 %; EOSINOPHILS % (MANUAL) 4 %; HYPOCHROMASIA 3+; MICROCYTOSIS 2+
== END ==
LOC: LAB FS 10:03
PROVIDERS: ATTEND Family Medicine
DX: I50.9 Heart failure, unspecified (principal); I48.91 Unspecified atrial fibrillation; N18.9 Chronic kidney disease, unspecified
CPT/HCPCS: 36415; 80053; 83880; 85007; 85027; 85610; 85730

== ENCOUNTER → 2019-07-11 | Outpatient (CLI) | payer MEDICARE, OTHER ==
[~2019-07-11] MED LIST changes: -DIGO125T PO; +DIGO125T3 PO; -MAGN400T6 PO; +MAGN400T8 PO; +OMEP-280 PO; -OMEP20CA13 PO
[2019-07-11 11:07] LABS: BACTERIA,URINE NEGATIVE /HPF; BILIRUBIN,URINE NEGATIVE (NEGATIVE); CLARITY,URINE CLEAR; COLOR,URINE YELLOW; GLUCOSE, URINE (UA) NEGATIVE (NEGATIVE); KETONES,URINE NEGATIVE (NEGATIVE); LEUKOCYTE ESTERASE ,URINE NEGATIVE (NEGATIVE); NITRITE,URINE NEGATIVE (NEGATIVE); PH,URINE 5.5 (5-9); PROTEIN,URINE 2+ (NEGATIVE); RBC,URINE 0-2 /HPF
== END ==
LOC: LAB FS 10:45
PROVIDERS: ATTEND Nurse Practitioner Family
DX: N39.0 Urinary tract infection, site not specified (principal)
CPT/HCPCS: 81000

== ENCOUNTER 2019-07-18 03:41 | Inpatient (IN) | payer MEDICARE, OTHER ==
[2019-07-18] VITALS (8 sets, daily range): BP systolic 179–200; BP diastolic 65–103
[~2019-07-18] VITALS: Ht 160 cm; Wt 71.9 kg
--- NOTE | 2019-07-18 04:12 | ED Respiratory ---
General Chief Complaint: Respiratory Problems Stated Complaint: SOB Source: patient Exam Limitations: no limitations History of Present Illness Date Seen by Provider: Jul 18, 2019 Time Seen by Provider: 03:44 Initial Comments Here with report of acute worsening of shortness of breath. She's been short of breath for several days and has been followed with her doctor in [place]. She has had blood in her stools recently and that has been followed over the last few weeks. Blood counts have been in the low 7 for hemoglobin. Tonight acutely worse short of air with increased swelling of her legs. She does have known heart failure. She is on Lasix currently Allergies and Home Medications Allergies Coded Allergies: SYLVIE Inhibitors (Verified Allergy, Unknown, 09/24/18) Penicillins (Unverified Allergy, Unknown, reacted to Rocephin 11/30/18 itching, had tolerated Ancef hx, 12/01/18) Sulfa (Sulfonamide Antibiotics) (Verified Allergy, Unknown, 09/24/18) amlodipine (Verified Allergy, Unknown, 09/24/18) ciprofloxacin (Verified Allergy, Unknown, 09/24/18) diltiazem (Verified Allergy, Unknown, 09/24/18) levofloxacin (Verified Allergy, Unknown, 09/24/18) loratadine (Verified Allergy, Unknown, 09/24/18) pseudoephedrine (Verified Allergy, Unknown, 09/24/18) simvastatin (Verified Allergy, Unknown, 09/24/18) ceftriaxone (Unverified Adverse Reaction, Mild, Itching, 12/01/18) Incident post one dose Rocephin IV with pt scratching hands/arms. Medicated Benadryl 25 mg IV and SoluMedrol 125 mg IV. had discussed allergies prior with dgt and it was thought she tolerated Rocephin in past. Home Medications Acetaminophen 500 Mg Tablet, 500-1,000 MG PO Q4H PRN for PAIN-MILD (1-4), (Reported) Albuterol Sulfate 18 Gm Hfa.aer.ad, 2 PUFF INH Q4H PRN for SHORTNESS OF BREATH, (Reported) Amlodipine Besylate 5 Mg Tablet, 5 MG PO DAILY, (Reported) Ascorbic Acid 250 Mg Tab, 250 MG PO DAILY, (Reported) Atorvastatin Calcium 10 Mg Tablet, 10 MG PO HS, (Reported) Calcium Carbonate/Vitamin D3 1 Each Tablet, 1 TAB PO HS, (Reported) Ciprofloxacin HCl 500 Mg Tablet, 500 MG PO DAILY START 06/29/2019 Prescribed by: REHAN PRIDE on 06/28/19 1032 Clopidogrel Bisulfate 75 Mg Tablet, 75 MG PO DAILY, (Reported) Cyanocobalamin 1,000 Mcg/Ml Inj, 1,000 MCG IM MONTHLY, (Reported) Digoxin 125 Mcg Tablet, 125 MCG PO Q48H, (Reported) Furosemide 20 Mg Tablet, 20 MG PO BID Prescribed by: JORGE LUIS POWERS on 07/04/19 1425 Furosemide 20 Mg Tablet, 20 MG PO BID Prescribed by: JORGE LUIS POWERS on 07/04/19 1108 Isosorbide Mononitrate 60 Mg Tab, 60 MG PO DAILY, (Reported) Loperamide HCl 2 Mg Tablet, 2 MG PO UD PRN for DIARRHEA, (Reported) Magnesium Oxide 400 Mg Tablet, 800 MG PO BID, (Reported) Methyl Salicylate/Menthol 1 Each Adh..patch, 1 PATCH TP DAILY, (Reported) Metoprolol Tartrate 100 Mg Tablet, 100 MG PO BID, (Reported) Omeprazole 20 Mg Capsule.dr, 20 MG PO BID, (Reported) Potassium Chloride 20 Meq Tab.er.prt, 20 MEQ PO BID Prescribed by: JORGE LUIS POWERS on 07/04/19 1425 Potassium Chloride 20 Meq Tab.er.prt, 20 MEQ PO BID Prescribed by: JORGE LUIS POWERS on 07/04/19 1108 Sitagliptin Phosphate 50 Mg Tablet, 100 MG PO DAILY, (Reported) Trimethoprim 100 Mg Tablet, 100 MG PO 1800, (Reported) Warfarin Sodium 1 Mg Tablet, 1 MG PO DAILY Prescribed by: TERE KOCH on 06/28/19 1056 Patient Home Medication List Home Medication List Reviewed: Yes Review of Systems Review of Systems Constitutional: see HPI; No chills, No fever EENTM: no symptoms reported Respiratory: No cough; short of breath, wheezing Cardiovascular: No chest pain; edema; No palpitations Gastrointestinal: No abdominal pain, No nausea, No vomiting; other (blood per rectum) Genitourinary: no symptoms reported, other (history of urinary tract infections frequently) : No Musculoskeletal: joint pain, muscle pain Skin: No lesions, No rash Psychiatric/Neurological: No Symptoms Reported, Weakness Hematologic/Lymphatic: Anemia Immunological/Allergic: no symptoms reported All Other Systems Reviewed Negative Unless Noted: Yes Past Dlgvasb-Kkgqkk-Mqdyrt Hx Past Med/Social Hx: Reviewed Nursing Past Med/Soc Hx Patient Social History Alcohol Use: Denies Use Recreational Drug Use: No Smoking Status: Never a Smoker 2nd Hand Smoke Exposure: No Recent Foreign Travel: No Contact w/Someone Who Travel: No Recent Hopitalizations: No Immunizations Up To Date Tetanus Booster (TDap): Unknown PED Vaccines UTD: No Date of Pneumonia Vaccine: Mar 29, 2018 Date of Influenza Vaccine: Mar 29, 2019 Seasonal Allergies Seasonal Allergies: No Past Medical History Surgeries: Yes Cardiac, Coronary Stent, Gallbladder, Pacemaker Respiratory: No Currently Using CPAP: No Currently Using BIPAP: No Cardiac: Yes (PACEMAKER, CHF) Atrial Fibrillation, Cardiomyopathy, Hypertension, Valvular Heart Disease Neurological: Yes Dementia, Stroke Female Reproductive Disorders: Denies Sexually Transmitted Disease: No HIV/AIDS: No Genitourinary: Yes (NEPHRECTOMY) Bladder Infection, Renal Failure, UTI-Chronic Gastrointestinal: No Musculoskeletal: Yes Arthritis Endocrine: Yes Diabetes, Non-Insulin dep HEENT: Yes Loss of Vision: Denies Hearing Impairment: Hard of Hearing, Hearing Aide Right Cancer: No Psychosocial: No Integumentary: No Blood Disorders: No Adverse Reaction/Blood Tranf: No Family Medical History Reviewed Nursing Family Hx Patient reports no known family medical history. No Pertinent Family Hx Physical Exam Vital Signs - First Documented 07/18/19 03:42 Temp 36.4 Pulse 97 Resp 22 B/P (MAP) 173/90 (117) Pulse Ox 94 O2 Delivery Room Air O2 Flow Rate 2.00 Capillary Refill : Height: 5'3.00" Weight: 162lbs. 14.8oz. 73.205690jq; 30.31 BMI Method:Stated General Appearance: WD/WN, moderate distress (respiratory) HEENT: PERRL/EOMI, pharynx normal, pale conjunctivae (R), pale conjunctivae (L) Neck: full range of motion, supple Respiratory: no respiratory distress, no accessory muscle use, wheezing (few trace), expiration Cardiovascular: regular rate, rhythm, no murmur Gastrointestinal: non tender, soft Extremities: non-tender, normal inspection Neurologic/Psychiatric: alert, normal mood/affect, other (hard of hearing and in some distress but follows commands) Skin: warm/dry, pallor Focused Exam Lactate Level 07/18/19 03:55: Lactic Acid Level 1.22 Lactic Acid Level Laboratory Tests Test 1/20/20 03:55 Lactic Acid Level 1.22 MMOL/L (0.50-2.00) Progress/Results/Core Measures Suspected Sepsis SIRS Temperature: Pulse: Respiratory Rate: Laboratory Tests 07/18/19 03:55: White Blood Count 9.1 Blood Pressure / Mean: 07/18/19 03:55: Lactic Acid Level 1.22 Laboratory Tests 07/18/19 03:55: Creatinine 2.92H, Platelet Count 202, Total Bilirubin 0.5 07/18/19 04:25: INR Comment 3.2H Results/Orders Lab Results Laboratory Tests Test 07/18/19 03:55 07/18/19 04:15 07/18/19 04:25 Range/Units White Blood Count 9.1 4.3-11.0 10^3/uL Red Blood Count 3.46 L 4.35-5.85 10^6/uL Hemoglobin 7.3 L 11.5-16.0 G/DL Hematocrit 25 L 35-52 % Mean Corpuscular Volume 73 L 80-99 FL Mean Corpuscular Hemoglobin 21 L 25-34 PG Mean Corpuscular Hemoglobin Concent 29 L 32-36 G/DL Red Cell Distribution Width 18.7 H 10.0-14.5 % Platelet Count 202 130-400 10^3/uL Mean Platelet Volume 11.0 H 7.4-10.4 FL Neutrophils (%) (Auto) 76 H 42-75 % Lymphocytes (%) (Auto) 12 12-44 % Monocytes (%) (Auto) 8 0-12 % Eosinophils (%) (Auto) 3 0-10 % Basophils (%) (Auto) 1 0-10 % Neutrophils # (Auto) 6.9 1.8-7.8 X 10^3 Lymphocytes # (Auto) 1.1 1.0-4.0 X 10^3 Monocytes # (Auto) 0.8 0.0-1.0 X 10^3 Eosinophils # (Auto) 0.2 0.0-0.3 10^3/uL Basophils # (Auto) 0.1 0.0-0.1 10^3/uL Sodium Level 138 135-145 MMOL/L Potassium Level 5.4 H 3.6-5.0 MMOL/L Chloride Level 111 H 98-107 MMOL/L Carbon Dioxide Level 14 L 21-32 MMOL/L Anion Gap 13 5-14 MMOL/L Blood Urea Nitrogen 33 H 7-18 MG/DL Creatinine 2.92 H 0.60-1.30 MG/DL Estimat Glomerular Filtration Rate 15 BUN/Creatinine Ratio 11 Glucose Level 162 H 70-105 MG/DL Lactic Acid Level 1.22 0.50-2.00 MMOL/L Calcium Level 9.2 8.5-10.1 MG/DL Corrected Calcium 9.5 8.5-10.1 MG/DL Total Bilirubin 0.5 0.1-1.0 MG/DL Aspartate Amino Transf (AST/SGOT) 21 5-34 U/L Alanine Aminotransferase (ALT/SGPT) 13 0-55 U/L Alkaline Phosphatase 52 40-136 U/L Troponin I < 0.028 <0.028 NG/ML B-Type Natriuretic Peptide 1482.2 H <100.0 PG/ML Total Protein 6.8 6.4-8.2 GM/DL Albumin 3.6 3.2-4.5 GM/DL Urine Color YELLOW Urine Clarity CLEAR Urine pH 5.5 5-9 Urine Specific [place] >=1.030 1.016-1.022 Urine Protein 3+ H NEGATIVE Urine Glucose (UA) TRACE H NEGATIVE Urine Ketones NEGATIVE NEGATIVE Urine Nitrite NEGATIVE NEGATIVE Urine Bilirubin NEGATIVE NEGATIVE Urine Urobilinogen 0.2 < = 1.0 MG/DL Urine Leukocyte Esterase NEGATIVE NEGATIVE Urine RBC (Auto) TRACE-I NEGATIVE Urine RBC RARE /HPF Urine WBC NONE /HPF Urine Squamous Epithelial Cells RARE /HPF Urine Crystals PRESENT H /LPF Urine Amorphous Sediment LARGE MIKE URATES H /LPF Urine Bacteria MODERATE H /HPF Urine Casts NONE /LPF Urine Mucus NEGATIVE /LPF Urine Culture Indicated CULTURE PENDING Prothrombin Time 34.0 H 12.2-14.7 SEC INR Comment 3.2 H 0.8-1.4 Activated Partial Thromboplast Time 67 H 24-35 SEC Micro Results Microbiology 07/18/19 Influenza Types A,B Antigen (JESUS ALBERTO) - Final, Complete My Orders Orders - ERIN VILLARREAL MD Cbc With Automated Diff (07/18/19 03:59) Comprehensive Metabolic Panel (07/18/19 03:59) Blood Culture (07/18/19 03:59) Sputum Culture (07/18/19 03:59) Urinalysis (07/18/19 03:59) Urine Culture (07/18/19 03:59) Protime With Inr (07/18/19 03:59) Partial Thromboplastin Time (07/18/19 03:59) Chest 1 View, Ap/Pa Only (07/18/19 03:59) Ed Iv/Invasive Line Start (07/18/19 03:59) Ed Iv/Invasive Line Start (07/18/19 03:59) Ekg Tracing (07/18/19 03:59) Troponin I (07/18/19 03:59) Vital Signs Adult Sepsis Patie Q15M (07/18/19 03:59) O2 (07/18/19 03:59) Remove Rings In Anticipation O (07/18/19 03:59) Lactic Acid Analyzer (07/18/19 03:59) Influenza A And B Antigens (07/18/19 03:59) BNP (07/18/19 03:59) Red Cells Leukocytes Reduced (07/18/19 03:59) Type And Screen (07/18/19 03:59) Catheter(Urinary) Insert & Ass 03,15 (07/18/19 04:03) Albuterol/Ipra Inhalation Soln (Duoneb I (07/18/19 04:45) Svn Small Volume Nebulizer (07/18/19 04:34) Fentanyl Injection (Sublimaze Injection (07/18/19 05:00) Fentanyl Injection (Sublimaze Injection (07/18/19 04:50) Furosemide Injection (Lasix Injection) (07/18/19 05:13) Medications Given in ED Current Medications Medications Dose Ordered Sig/Fransisco Route Start Time Stop Time Status Last Admin Dose Admin Albuterol/ Ipratropium 3 ml ONCE ONCE INH 07/18/19 04:45 07/18/19 04:46 DC 07/18/19 04:43 3 ML Fentanyl Citrate 25 mcg ONCE ONCE IVP 07/18/19 05:00 07/18/19 05:01 DC 07/18/19 04:55 25 MCG Vital Signs/I&O 07/18/19 07/18/19 07/18/19 07/18/19 03:42 03:42 04:37 04:44 Temp 36.4 36.4 Pulse 97 63 Resp 22 20 B/P (MAP) 173/90 (117) 183/92 Pulse Ox 94 97 99 O2 Delivery Room Air Nasal Cannula Nasal Cannula O2 Flow Rate 2.00 2.00 2.00 Capillary Refill : Progress Note : Progress Note Seen and evaluated on arrival. Patient was extricated from the car due to significant weakness. She is dyspneic and tachypnea. History of blood loss. Sepsis protocol initiated with BNP, influenza screen and type and cross for 2 units given her history of hemoglobin of 7.1-7.4 over the last several weeks. Chest x-ray and Johnston catheter ordered. Patient placed on O2 for dyspnea but O2 sat 94% on room air. Monitor patient. 0520: Patient has chest x-ray findings consistent with acute heart failure as well as BNP that has tripled over the last few weeks. I think this is related to low hemoglobin and demand. We have given Lasix 40 mg IV. I have ordered 2 units of blood that we will transfuse with Lasix 20 mg IV between units. She will be admitted to cardiac step down. I did discuss the case with Dr. Worrell, on-call for [facility] who agrees with admission, inpatient status. I will consult cardiology in the morning, . All findings and concerns discussed with family who agree with plan. Resuscitation status is DO NOT RESUSCITATE. Do not find obvious infection at this point and blood counts do not reflect that either. Question of contamination with culture pending on urine and I believe chest x-ray is related to heart failure. Patient has multiple multiple drug allergies including several classes of antibiotics. Lactic acid is negative. We will treat for heart failure and she can be reevaluated for infection as indicated. ECG Initial ECG Impression Date: Jul 18, 2019 Initial ECG Impression Time: 03:58 Initial ECG Rate: 81 Comment Ventricular paced rhythm with underlying atrial fibrillation. No evidence of ST elevation AR. Left axis deviation. Change from previous of 07/04/19 which was just atrial fibrillation with occasional paced beat. Diagnostic Imaging Diagonstic Imaging: Xray Plain Films/CT/US/NM/MRI: chest Comments Chest x-ray is consistent with pulmonary edema Departure Communication (Admissions) Time/Spoke to Admitting Phy: 05:20 Impression Primary Impression: Acute heart failure Qualified Codes: I50.31 - Acute diastolic (congestive) heart failure Additional Impression: Anemia Qualified Codes: D64.9 - Anemia, unspecified Disposition: 09 ADMITTED INPATIENT Condition: Stable Admissions Decision to Admit Reason: Admit from ER (General) Decision to Admit/Date: Jul 18, 2019 Time/Decision to Admit Time: 05:20 Departure-Patient Inst. Referrals: [facility] (PCP) Primary Care Physician JAIMEE PAGE APRN (Family) Primary Care Physician ERIN VILLARREAL MD Jul 18, 2019 04:12
[2019-07-18 04:14] LABS: BASOPHILS # (AUTO) 0.1 10^3/uL (0.0-0.1); BASOPHILS % (AUTO) 1 % (0-10); EOSINOPHILS # (AUTO) 0.2 10^3/uL (0.0-0.3); EOSINOPHILS % (AUTO) 3 % (0-10); HEMATOCRIT 25 % (35-52); HEMOGLOBIN 7.3 G/DL (11.5-16.0); LYMPHOCYTES # (AUTO) 1.1 X 10^3 (1.0-4.0); LYMPHOCYTES % (AUTO) 12 % (12-44); MEAN CORPUSCULAR HEMOGLOBIN 21 PG (25-34); MEAN CORPUSCULAR HGB CONC 29 G/DL (32-36); MEAN CORPUSCULAR VOLUME 73 FL (80-99); MONOCYTES # (AUTO) 0.8 X 10^3 (0.0-1.0); MONOCYTES % (AUTO) 8 % (0-12); NEUTROPHILS # (AUTO) 6.9 X 10^3 (1.8-7.8); NEUTROPHILS % (AUTO) 76 % (42-75); PLATELET COUNT 202 10^3/uL (130-400); RED CELL DISTRIBUTION WIDTH 18.7 % (10.0-14.5); WHITE BLOOD COUNT 9.1 10^3/uL (4.3-11.0)
[2019-07-18 04:22] LABS: BILIRUBIN,URINE NEGATIVE (NEGATIVE); CLARITY,URINE CLEAR; COLOR,URINE YELLOW; GLUCOSE, URINE (UA) TRACE (NEGATIVE); KETONES,URINE NEGATIVE (NEGATIVE); LEUKOCYTE ESTERASE ,URINE NEGATIVE (NEGATIVE); NITRITE,URINE NEGATIVE (NEGATIVE); PH,URINE 5.5 (5-9); PROTEIN,URINE 3+ (NEGATIVE)
[2019-07-18 04:32] LABS: ALANINE AMINOTRANSFERASE 13 U/L (0-55); ALBUMIN 3.6 GM/DL (3.2-4.5); ALKALINE PHOSPHATASE 52 U/L (40-136); BILIRUBIN,TOTAL 0.5 MG/DL (0.1-1.0); BUN/CREATININE RATIO 11; CALCIUM 9.2 MG/DL (8.5-10.1); CARBON DIOXIDE 14 MMOL/L (21-32); CHLORIDE 111 MMOL/L (98-107); CREATININE SERUM 2.92 MG/DL (0.60-1.30); GFR ESTIMATED 15; GLUCOSE 162 MG/DL (70-105); POTASSIUM 5.4 MMOL/L (3.6-5.0); SODIUM 138 MMOL/L (135-145); TOTAL PROTEIN 6.8 GM/DL (6.4-8.2)
[2019-07-18 04:45] LABS: AMORPHOUS SEDIMENT,UR LARGE AMOR URATES /LPF; BACTERIA,URINE MODERATE /HPF; RBC,URINE RARE /HPF; SQUAMOUS EPITHELIAL CELL,UR RARE /HPF
[2019-07-18] MEDS ORDERED: RT-ALBUTEROL/IPRATROPIUM 3 ML (DUONEB) VIAL INH ONE (04:45)
[2019-07-18 04:49] LABS: INR 3.2 (0.8-1.4)
[2019-07-18] MEDS ORDERED: fentaNYL INJECTION 100 MCG/2 ML AMP ONE (04:50)
[2019-07-18] MEDS ORDERED: fentaNYL INJECTION 100 MCG/2 ML AMP IVP ONE (05:00)
[2019-07-18] MEDS ORDERED: METO100T12 PO (05:01)
[2019-07-18] MEDS ORDERED: FUROSEMIDE 40 MG/4 ML INJ (LASIX) IV STA (05:13)
[2019-07-18] MEDS ORDERED: NS IV 500 ML 500 ML ONE (06:12)
--- NOTE | 2019-07-18 06:20 | NUR ---
JUAN HURT admitted to room 509-1, with an admitting diagnosis of CHF,anemia, on 07/18/19 from ED via stretcher, accompanied by family, , son in law, daughter.JUAN HURT introduced to surroundings, call light, bed controls, phone, TV, temperature control, lights, meal times, smoking policy, visitor policy, side rail policy, bathrooms and showers. Patient Rights given to patient in the handbook. JUAN HURT verbalizes understanding that [facility] is not responsible for the loss or damage to any personal effects or valuables that are kept in the patients possession during their hospitalization. The following Patient Care Plans were discussed with the patient: Discharge Planning, pain,activity, and diet. JUAN HURT verbalizes understanding of Interdisciplinary Patient Education. Patient and/or family were informed about the Rapid Response Team and its purpose.
[2019-07-18] MEDS ORDERED: fentaNYL INJECTION 100 MCG/2 ML AMP IV PRN (07:00)
--- NOTE | 2019-07-18 07:00 | Diagnostic Imaging Report ---
INDICATION: Shortness of air. COMPARISON: 07/04/2019. TECHNIQUE: Single radiograph of the chest dated 07/18/2019 FINDINGS: Pacer device is again noted with battery pack overlying left chest. The cardiac silhouette is stable. Central pulmonary vascular congestion is present and increased. Developing perihilar opacities are present with associated developing small left greater than right bibasilar pleural effusions. No pneumothorax. No acute osseous abnormality. IMPRESSION: Constellation of findings is concerning for developing congestive heart failure with associated interstitial edema and small left pleural effusion. Recommend clinical correlation and continued radiographic follow-up. Dictated by: Dictated on workstation # [id number]
--- NOTE | 2019-07-18 07:06 | NUR ---
Dr Liu notified of consult for this am.
[2019-07-18] MEDS ORDERED: FUROSEMIDE 40 MG/4 ML INJ (LASIX) IV NR (08:00)
[2019-07-18] MEDS ORDERED: FURO-125 PO ×2 (08:41)
[2019-07-18] MEDS ORDERED: POTA-51 PO ×2 (08:49)
[2019-07-18] MEDS: meTOprolol TARTRATE 50 MG (LOPRESSOR) TAB PO SCH ×2 (08:49→20:22)
[2019-07-18] MEDS ORDERED: WARF-47 PO (09:03)
[2019-07-18] MEDS ORDERED: WARF1TAB82 PO (09:03)
--- NOTE | 2019-07-18 10:49 | NUR ---
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
[2019-07-18 12:15] LABS: CALCIUM 9.2 MG/DL (8.5-10.1); CREATININE SERUM 2.79 MG/DL (0.60-1.30); POTASSIUM 4.2 MMOL/L (3.6-5.0)
--- NOTE | 2019-07-18 14:12 | Consultation-Cardiology ---
HPI-Cardiology Cardiology Consultation: Date of Consultation 07/18/19 Date of Admission Attending Physician Sybil Worrell MD Admitting Physician [facility] Consulting Physician Calderon LIU MD HPI: Time Seen by a Provider: 14:11 Chief Complaint: shortness of breath, anemia This is a 83-year-old lady with history of chest pain and shortness of breath. She has history of a permanent pacemaker, chronic kidney disease. Her primary nuclear medicine technologist is at [facility]. She presented with shortness of breath. Her initial oxygen saturation was 79 percent on room air. She was started on a nonrebreather. She denies any other respiratory or cardiac symptoms including coughs, fever, syncope, near-syncope, palpitation. No active smoking. No significant pertinent family history. Review of Systems-Cardiology Review of Systems Constitutional: As described under HPI; No As described under HPI, No no sy mptoms reported, No chills, No fever, No lightheadedness Eyes: No As described under HPI, No no symptoms reported, No blindness, No blurred vision, No contact lenses, No drainage, No decreased acuity, No foreign body sensation, No pain, No vision change Ears/Nose/Throat: No As described under HPI, No no symptoms reported, No chronic hearing loss, No ear discharge, No ear pain, No nasal drainage, No ulcerations Respiratory: No no symptoms reported; As described under HPI; No As described under HPI, No cough, No orthopnea; shortness of breath; No SOB with excertion Cardiovascular: No no symptoms reported; As described under HPI; No As described under HPI, No chest pain, No edema, No irregular heart rate, No lightheadedness, No palpitations Gastrointestinal: No no symptoms reported, No As described under HPI, No abdomen distended, No abdominal pain, No blood streaked bowels, No constipation, No diarrhea, No nausea, No vomiting, No stool coloration changes Genitourinary: No As described under HPI, No burning, No dysuria, No discharge, No frequency, No flank pain, No hematuria, No urgency : No Skin: No rash, No skin related problems, No ulcerations Psychiatric/Neurological: No anxiety, No depression, No seizure, No focal weakness, No syncope Hematologic: No bleeding abnormalities All Other Systems Reviewed Negative Unless Noted: Yes PVO-Onmnwc-Wbqanl Hx Patient Social History Alcohol Use: Denies Use Recreational Drug Use: No Smoking Status: Never a Smoker 2nd Hand Smoke Exposure: No Recent Foreign Travel: No Recent Infectious Disease Expo: No Immunizations Up To Date Tetanus Booster (TDap): Unknown Date of Pneumonia Vaccine: Apr 15, 2018 Date of Influenza Vaccine: Apr 01, 2019 Past Medical History PMH As described under Assessment. Family Medical History Family History: Patient reports no known family medical history. Allergies and Home Medications Allergies Coded Allergies: SYLVIE Inhibitors (Verified Allergy, Unknown, 09/24/18) Penicillins (Unverified Allergy, Unknown, reacted to Rocephin 11/30/18 itching, had tolerated Ancef hx, 12/01/18) Sulfa (Sulfonamide Antibiotics) (Verified Allergy, Unknown, 09/24/18) amlodipine (Verified Allergy, Unknown, 09/24/18) ciprofloxacin (Verified Allergy, Unknown, 09/24/18) diltiazem (Verified Allergy, Unknown, 09/24/18) levofloxacin (Verified Allergy, Unknown, 09/24/18) loratadine (Verified Allergy, Unknown, 09/24/18) pseudoephedrine (Verified Allergy, Unknown, 09/24/18) simvastatin (Verified Allergy, Unknown, 09/24/18) ceftriaxone (Unverified Adverse Reaction, Mild, Itching, 12/01/18) Incident post one dose Rocephin IV with pt scratching hands/arms. Medicated Benadryl 25 mg IV and SoluMedrol [address] had discussed allergies prior with dgt and it was thought she tolerated Rocephin in past. Home Medications Acetaminophen 500 Mg Tablet, 500-1,000 MG PO Q4H PRN for PAIN-MILD (1-4), (Reported) Amlodipine Besylate 5 Mg Tablet, 5 MG PO DAILY, (Reported) Ascorbic Acid 250 Mg Tab, 250 MG PO DAILY, (Reported) Atorvastatin Calcium 10 Mg Tablet, 10 MG PO HS, (Reported) Calcium Carbonate/Vitamin D3 1 Each Tablet, 1 TAB PO HS, (Reported) Clopidogrel Bisulfate 75 Mg Tablet, 75 MG PO DAILY, (Reported) Cyanocobalamin 1,000 Mcg/Ml Inj, 1,000 MCG IM MONTHLY, (Reported) Digoxin 125 Mcg Tablet, 125 MCG PO Q48H, (Reported) Furosemide 20 Mg Tablet, 20 MG PO DAILY, (Reported) Furosemide 20 Mg Tablet, 20 MG PO 1200, (Reported) Isosorbide Mononitrate 60 Mg Tab, 60 MG PO DAILY, (Reported) Loperamide HCl 2 Mg Tablet, 2 MG PO UD PRN for DIARRHEA, (Reported) Magnesium Oxide 400 Mg Tablet, 800 MG PO BID, (Reported) TAKES 2 (400MG) TO EQUAL 800MG TWICE DAILY Methyl Salicylate/Menthol 1 Each Adh..patch, 1 PATCH TP DAILY, (Reported) Metoprolol Tartrate 100 Mg Tablet, 100 MG PO BID, (Reported) Omeprazole 20 Mg Capsule.dr, 20 MG PO BID, (Reported) Potassium Chloride 20 Meq Tablet.er, 20 MEQ PO DAILY, (Reported) Potassium Chloride 20 Meq Tablet.er, 20 MEQ PO 1200, (Reported) Sitagliptin Phosphate 50 Mg Tablet, 100 MG PO DAILY, (Reported) Trimethoprim 100 Mg Tablet, 100 MG PO 1800, (Reported) Warfarin Sodium 1 Mg Tablet, 1 MG PO DAILY, (Reported) TAKES A 1MG AND A 2MG TO EQUAL 3MG DAILY Warfarin Sodium 2 Mg Tablet, 2 MG PO DAILY, (Reported) TAKES A 1MG AND A 2MG TO EQUAL 3MG DAILY LAST FILLED 10-25-18 #180 Patient Home Medication List Home Medication List Reviewed: Yes Physical Exam-Cardiology Physical Exam Vital Signs/I&O 07/18/19 07/18/19 07/18/19 07/18/19 06:14 06:20 06:20 06:26 Temp 36.4 36.4 36.4 Pulse 73 75 75 80 Resp 18 20 18 B/P (MAP) 171/95 (122) 193/82 (119) 193/82 Pulse Ox 96 95 95 O2 Delivery Nasal Cannula Nasal Cannula Nasal Cannula O2 Flow Rate 2.00 2.00 2.00 2.00 07/18/19 07/18/19 07/18/19 07/18/19 06:36 06:41 06:50 07:00 Temp 36.4 36.1 Pulse 75 75 72 Resp 18 20 B/P (MAP) 193/82 195/79 Pulse Ox 95 98 97 O2 Delivery Nasal Cannula Nasal Cannula Nasal Cannula O2 Flow Rate 2.00 2.00 2.00 07/18/19 07/18/19 07/18/19 07/18/19 07:55 08:00 08:20 09:39 Temp 36.1 Pulse 77 Resp 18 B/P (MAP) 200/103 (135) Pulse Ox 97 97 O2 Delivery Nasal Cannula Nasal Cannula Nasal Cannula Nasal Cannula O2 Flow Rate 2.00 2.00 2.00 2.00 07/18/19 07/18/19 07/18/19 07/18/19 09:45 12:00 12:00 12:35 Temp 36.4 36.1 Pulse 71 73 76 Resp 22 19 B/P (MAP) 189/89 188/83 (118) Pulse Ox 96 95 O2 Delivery Nasal Cannula Nasal Cannula O2 Flow Rate 2.00 2.00 07/18/19 07/18/19 15:07 15:28 Temp 36.7 Pulse 74 Resp 20 B/P (MAP) 179/73 (108) Pulse Ox 93 O2 Delivery Nasal Cannula O2 Flow Rate 2.00 2.00 Capillary Refill : Less Than 3 Seconds Constitutional: appears stated age; No apparent distress; well-developed, well- nourished HEENT: PERRL; No discharge; hearing is well preserved, oral hygience is good; No ulceration, No xanthelasmas are seen Neck: No carotid bruit; carotid pulses are 2 + bilaterally Respiratory: chest is bilaterally symmetric, lungs clear to percussion Cardiovascular: irregularly irregular, S1 and S2, systolic murmur Gastrointestinal: soft, audible bowel sounds; No spleenomegaly Rectal: deferred Extremities: normal range of motion, non-tender, normal inspection; No clubbing, No cyanosis; no lower extremity edema bilateral; No significant edema Neurologic/Psychiatric: no motor/sensory deficits, alert, normal mood/affect, oriented x 3, power is 5/5 both on sides Skin: pallor; No rash, No ulcerations Data Review Labs Laboratory Tests 07/18/19 03:55: White Blood Count 9.1, Red Blood Count 3.46L, Hemoglobin 7.3L, Hematocrit 25L, Mean Corpuscular Volume 73L, Mean Corpuscular Hemoglobin 21L, Mean Corpuscular Hemoglobin Concent 29L, Red Cell Distribution Width 18.7H, Platelet Count 202, Mean Platelet Volume 11.0H, Neutrophils (%) (Auto) 76H, Lymphocytes (%) (Auto) 12, Monocytes (%) (Auto) 8, Eosinophils (%) (Auto) 3, Basophils (%) (Auto) 1, Neutrophils # (Auto) 6.9, Lymphocytes # (Auto) 1.1, Monocytes # (Auto) 0.8, Eosinophils # (Auto) 0.2, Basophils # (Auto) 0.1, Sodium Level 138, Potassium Level 5.4H, Chloride Level 111H, Carbon Dioxide Level 14L, Anion Gap 13, Blood Urea Nitrogen 33H, Creatinine 2.92H, Estimat Glomerular Filtration Rate 15, BUN/Creatinine Ratio 11, Glucose Level 162H, Lactic Acid Level 1.22, Calcium Level 9.2, Corrected Calcium 9.5, Total Bilirubin 0.5, Aspartate Amino Transf (AST/SGOT) 21, Alanine Aminotransferase (ALT/SGPT) 13, Alkaline Phosphatase 52, Troponin I < 0.028, B-Type Natriuretic Peptide 1482.2H, Total Protein 6.8, Albumin 3.6 07/18/19 04:15: Urine Color YELLOW, Urine Clarity CLEAR, Urine pH 5.5, Urine Specific [place] >=1.030, Urine Protein 3+H, Urine Glucose (UA) TRACEH, Urine Ketones NEGATIVE, Urine Nitrite NEGATIVE, Urine Bilirubin NEGATIVE, Urine Urobilinogen 0.2, Urine Leukocyte Esterase NEGATIVE, Urine RBC (Auto) TRACE-I, Urine RBC RARE, Urine WBC NONE, Urine Squamous Epithelial Cells RARE, Urine Crystals PRESENTH, Urine Amorphous Sediment LARGE MIKE URATESH, Urine Bacteria MODERATEH, Urine Casts N ONE, Urine Mucus NEGATIVE, Urine Culture Indicated CULTURE PENDING 07/18/19 04:25: Prothrombin Time 34.0H, INR Comment 3.2H, Activated Partial Thromboplast Time 67H 07/18/19 11:49: Hemoglobin 8.9#L, Sodium Level 141, Potassium Level 4.2, Chloride Level 113H, Carbon Dioxide Level 16L, Anion Gap 12, Blood Urea Nitrogen 32H, Creatinine 2.79H, Estimat Glomerular Filtration Rate 16, BUN/Creatinine Ratio 11, Glucose Level 128H, Calcium Level 9.2, Troponin I < 0.028 Microbiology 07/18/19 Influenza Types A,B Antigen (JESUS ALBERTO) - Final, Complete ECG Impression ECG Initial ECG Impression: Atrial Fibrillation Comment occasional paced rhythm. A/P-Cardiology Assessment/Admission Diagnosis Acute diastolic congestive heart failure, Possible COPD, Cardiac pacemaker in place, Atrial fibrillation, Moderate pulmonary hypertension. CKD, Anemia Plan Acute diastolic congestive heart failure, diuretics. Possible COPD, Cardiac pacemaker in place, no active issues. Atrial fibrillation, continue outpatient medical therapy. Moderate pulmonary hypertension. CKD, anemia, status post transfusion. Thank you for your consultation. Please call me if you have any questions. Jhon Liu MD, FACP, FACC, FSCAI, FHRS, CCDS Interventional Cardiology Cardiac Electrophysiology Vascular Medicine and Endovascular Interventions Clinical Quality Measures DVT/VTE Risk/Contraindication: Risk Factor Score Per Nursin RFS Level Per Nursing on Admit: 4+=Very High Calderon LIU MD Jul 18, 2019 14:12
--- NOTE | 2019-07-18 17:34 | History & Physical ---
HPI History of Present Illness: 83 yo F that presented with shortness of breath and slightly altered mental status. Patient has been having increasing shortness of breath for the last few days. She does not have a baseline oxygen demand at home. She has had increasing swelling on her LE. Denies any dypnea at this time but looks uncomfortable. Denies any chest pain or dizziness. She states that she has not missed any doses of medications. States that she has had some blood in her stool and she was noted to be anemic upon admission. Source: patient, RN/MD Exam Limitations: clinical condition Date seen by provider: Jul 18, 2019 Time Seen by Provider: 09:45 Attending Physician Sybil Worrell MD [facility] [place] [facility] Consult Date of Admission Jul 18, 2019 at 05:16 Home Medications Home Medications Reviewed patient Home Medication Reconciliation performed by pharmacy medication reconciliations mixing technician and/or nursing. Patients Allergies have been reviewed. Allergies Coded Allergies: SYLVIE Inhibitors (Verified Allergy, Unknown, 09/24/18) Penicillins (Unverified Allergy, Unknown, reacted to Rocephin 11/30/18 itching, had tolerated Ancef hx, 12/01/18) Sulfa (Sulfonamide Antibiotics) (Verified Allergy, Unknown, 09/24/18) amlodipine (Verified Allergy, Unknown, 09/24/18) ciprofloxacin (Verified Allergy, Unknown, 09/24/18) diltiazem (Verified Allergy, Unknown, 09/24/18) levofloxacin (Verified Allergy, Unknown, 09/24/18) loratadine (Verified Allergy, Unknown, 09/24/18) pseudoephedrine (Verified Allergy, Unknown, 09/24/18) simvastatin (Verified Allergy, Unknown, 09/24/18) ceftriaxone (Unverified Adverse Reaction, Mild, Itching, 12/01/18) Incident post one dose Rocephin IV with pt scratching hands/arms. Medicated Benadryl 25 mg IV and SoluMedrol 125 mg IV. had discussed allergies prior with dgt and it was thought she tolerated Rocephin in past. QDK-Uywoon-Qdlzev Hx Patient Social History Alcohol Use: Denies Use Recreational Drug Use: No Smoking Status: Never a Smoker 2nd Hand Smoke Exposure: No Recent Foreign Travel: No Contact w/other who traveled: No Recent Hopitalizations: No Recent Infectious Disease Expo: No Immunizations Up To Date Tetanus Booster (TDap): Unknown Date of Pneumonia Vaccine: Apr 15, 2018 Date of Influenza Vaccine: Apr 01, 2019 Past Medical History Diastolic HF CKD HTN Chronic Atrial Fibrillation Family Medical History Significant Family History: No Pertinent Family Hx Family History: Patient reports no known family medical history. Review of Systems ([facility]) Constitutional: malaise, weight gain EENTM: no symptoms reported; No mouth pain, No nose congestion, No nose pain, No throat pain Respiratory: dyspnea on exertion, short of breath, wheezing Cardiovascular: No chest pain; edema; No palpitations Gastrointestinal: no symptoms reported; No abdominal pain, No constipation, No diarrhea, No nausea, No vomiting Genitourinary: no symptoms reported; No dysuria, No frequency, No hematuria : No Musculoskeletal: back pain (chronic) Skin: no symptoms reported Psychiatric/Neurological: Other (confusion) Reviewed Test Results Reviewed Test Results Lab Laboratory Tests Test 07/18/19 03:55 07/18/19 04:15 07/18/19 04:25 07/18/19 11:49 Range/Units White Blood Count 9.1 4.3-11.0 10^3/uL Red Blood Count 3.46 L 4.35-5.85 10^6/uL Hemoglobin 7.3 L 8.9 #L 11.5-16.0 G/DL Hematocrit 25 L 35-52 % Mean Corpuscular Volume 73 L 80-99 FL Mean Corpuscular Hemoglobin 21 L 25-34 PG Mean Corpuscular Hemoglobin Concent 29 L 32-36 G/DL Red Cell Distribution Width 18.7 H 10.0-14.5 % Platelet Count 202 130-400 10^3/uL Mean Platelet Volume 11.0 H 7.4-10.4 FL Neutrophils (%) (Auto) 76 H 42-75 % Lymphocytes (%) (Auto) 12 12-44 % Monocytes (%) (Auto) 8 0-12 % Eosinophils (%) (Auto) 3 0-10 % Basophils (%) (Auto) 1 0-10 % Neutrophils # (Auto) 6.9 1.8-7.8 X 10^3 Lymphocytes # (Auto) 1.1 1.0-4.0 X 10^3 Monocytes # (Auto) 0.8 0.0-1.0 X 10^3 Eosinophils # (Auto) 0.2 0.0-0.3 10^3/uL Basophils # (Auto) 0.1 0.0-0.1 10^3/uL Sodium Level 138 141 135-145 MMOL/L Potassium Level 5.4 H 4.2 3.6-5.0 MMOL/L Chloride Level 111 H 113 H 98-107 MMOL/L Carbon Dioxide Level 14 L 16 L 21-32 MMOL/L Anion Gap 13 12 5-14 MMOL/L Blood Urea Nitrogen 33 H 32 H 7-18 MG/DL Creatinine 2.92 H 2.79 H 0.60-1.30 MG/DL Estimat Glomerular Filtration Rate 15 16 BUN/Creatinine Ratio 11 11 Glucose Level 162 H 128 H 70-105 MG/DL Lactic Acid Level 1.22 0.50-2.00 MMOL/L Calcium Level 9.2 9.2 8.5-10.1 MG/DL Corrected Calcium 9.5 8.5-10.1 MG/DL Total Bilirubin 0.5 0.1-1.0 MG/DL Aspartate Amino Transf (AST/SGOT) 21 5-34 U/L Alanine Aminotransferase (ALT/SGPT) 13 0-55 U/L Alkaline Phosphatase 52 40-136 U/L Troponin I < 0.028 < 0.028 <0.028 NG/ML B-Type Natriuretic Peptide 1482.2 H <100.0 PG/ML Total Protein 6.8 6.4-8.2 GM/DL Albumin 3.6 3.2-4.5 GM/DL Urine Color YELLOW Urine Clarity CLEAR Urine pH 5.5 5-9 Urine Specific [place] >=1.030 1.016-1.022 Urine Protein 3+ H NEGATIVE Urine Glucose (UA) TRACE H NEGATIVE Urine Ketones NEGATIVE NEGATIVE Urine Nitrite NEGATIVE NEGATIVE Urine Bilirubin NEGATIVE NEGATIVE Urine Urobilinogen 0.2 < = 1.0 MG/DL Urine Leukocyte Esterase NEGATIVE NEGATIVE Urine RBC (Auto) TRACE-I NEGATIVE Urine RBC RARE /HPF Urine WBC NONE /HPF Urine Squamous Epithelial Cells RARE /HPF Urine Crystals PRESENT H /LPF Urine Amorphous Sediment LARGE MIKE URATES H /LPF Urine Bacteria MODERATE H /HPF Urine Casts NONE /LPF Urine Mucus NEGATIVE /LPF Urine Culture Indicated CULTURE PENDING Prothrombin Time 34.0 H 12.2-14.7 SEC INR Comment 3.2 H 0.8-1.4 Activated Partial Thromboplast Time 67 H 24-35 SEC Physical Exam-([facility]) Physical Exam Vital Signs VS - Last 72 Hours, by Label 07/18/19 07/18/19 07/18/19 07/18/19 03:42 03:42 04:37 04:44 Temp 36.4 36.4 Pulse 97 63 Resp 22 20 B/P (MAP) 173/90 (117) 183/92 Pulse Ox 94 97 99 O2 Delivery Room Air Nasal Cannula Nasal Cannula O2 Flow Rate 2.00 2.00 2.00 07/18/19 07/18/19 07/18/19 07/18/19 06:14 06:20 06:20 06:26 Temp 36.4 36.4 36.4 Pulse 73 75 75 80 Resp 18 20 18 B/P (MAP) 171/95 (122) 193/82 (119) 193/82 Pulse Ox 96 95 95 O2 Delivery Nasal Cannula Nasal Cannula Nasal Cannula O2 Flow Rate 2.00 2.00 2.00 2.00 07/18/19 07/18/19 07/18/19 07/18/19 06:36 06:41 06:50 07:00 Temp 36.4 36.1 Pulse 75 75 72 Resp 18 20 B/P (MAP) 193/82 195/79 Pulse Ox 95 98 97 O2 Delivery Nasal Cannula Nasal Cannula Nasal Cannula O2 Flow Rate 2.00 2.00 2.00 07/18/19 07/18/19 07/18/19 07/18/19 07:55 08:00 08:20 09:39 Temp 36.1 Pulse 77 Resp 18 B/P (MAP) 200/103 (135) Pulse Ox 97 97 O2 Delivery Nasal Cannula Nasal Cannula Nasal Cannula Nasal Cannula O2 Flow Rate 2.00 2.00 2.00 2.00 07/18/19 07/18/19 07/18/19 07/18/19 09:45 12:00 12:00 12:35 Temp 36.4 36.1 Pulse 71 73 76 Resp 22 19 B/P (MAP) 189/89 188/83 (118) Pulse Ox 96 95 O2 Delivery Nasal Cannula Nasal Cannula O2 Flow Rate 2.00 2.00 07/18/19 07/18/19 15:07 15:28 Temp 36.7 Pulse 74 Resp 20 B/P (MAP) 179/73 (108) Pulse Ox 93 O2 Delivery Nasal Cannula O2 Flow Rate 2.00 2.00 Capillary Refill : Less Than 3 Seconds General Appearance: mild distress HEENT: PERRL/EOMI, TMs normal Neck: non-tender, full range of motion, supple Respiratory: chest non-tender, lungs clear, respiratory distress, crackles, wheezing Cardiovascular: normal peripheral pulses, regular rate, rhythm, irregularly irregular Gastrointestinal: normal bowel sounds, non tender, soft, no organomegaly Back: normal inspection, no CVA tenderness, no vertebral tenderness Extremities: non-tender, normal capillary refill, pedal edema Neurologic/Psychiatric: angle furnaceman II-XII nml as tested, no motor/sensory deficits Skin: normal color, warm/dry Lymphatic: no adenopathy Assessment/Plan Assessment/Plan Admission Status: Inpatient Order (span 2 midnights) Reason for Inpatient Admission: Requiring specialist care and IV medications with cardiac stepdown monitoring (1) Acute on chronic combined systolic (congestive) and diastolic (congestive) heart failure Status: Acute Assessment & Plan: - Cardiology consulted and appreciate recommendations, echo shows EF 45% with valvular disease, continue lasix, BB, Statin (2) Acute on chronic renal failure Status: Acute Assessment & Plan: - Continue to monitor BMP with diuresis Qualifiers: (3) Microcytic anemia Status: Acute Assessment & Plan: - Hemoccult pending, likely GI in cause with anti coagulation due to A fib, holding coumadin at this time, s/p 1 unit pRBC (4) Atrial fibrillation Status: Chronic Assessment & Plan: - Rate controlled, holding anticoagulation due to severe anemia Qualifiers: Qualified Codes: I48.20 - Chronic atrial fibrillation, unspecified (5) Dementia Status: Chronic (6) Essential (primary) hypertension Status: Chronic Assessment & Plan: - Restart home meds, monitor closely due to bleeding (7) Non-insulin dependent type 2 diabetes mellitus Status: Chronic (8) Hyperkalemia Status: Acute Assessment & Plan: - Holding home K, continue to monitor BMP (9) Debility Status: Chronic (10) DVT prophylaxis Status: Acute Assessment & Plan: - SCDs, holding anti coagulation at this time due to severe anemia Clinical Quality Measures DVT/VTE Risk/Contraindication: Risk Factor Score Per Nursin RFS Level Per Nursing on Admit: 4+=Very High WHIT TEJADA MD Jul 18, 2019 17:34
[2019-07-18] MEDS: ACETAMINOPHEN 325 MG TABLET PO PRN (17:38)
[2019-07-18] MEDS: FUROSEMIDE 40 MG/4 ML INJ (LASIX) IV SCH (17:38)
[2019-07-18] MEDS: PANTOPRAZOLE 20 MG TABLET (PROTONIX) PO SCH (20:22)
[2019-07-18] MEDS ORDERED: OMEPRAZOLE 20 MG (PriLOSEC) CAP NON-FORMULARY PO SCH (21:00)
[2019-07-19] VITALS: BP 187/77
[2019-07-19] MEDS: ACETAMINOPHEN 325 MG TABLET PO PRN ×4 (00:02→19:37)
[2019-07-19 04:00] VITALS: BP 162/85
[2019-07-19 04:23] LABS: BASOPHILS % (AUTO) 1 % (0-10); EOSINOPHILS # (AUTO) 0.3 10^3/uL (0.0-0.3); EOSINOPHILS % (AUTO) 5 % (0-10); HEMATOCRIT 30 % (35-52); HEMOGLOBIN 8.9 G/DL (11.5-16.0); LYMPHOCYTES # (AUTO) 1.2 X 10^3 (1.0-4.0); LYMPHOCYTES % (AUTO) 16 % (12-44); MEAN CORPUSCULAR HEMOGLOBIN 22 PG (25-34); MEAN CORPUSCULAR HGB CONC 30 G/DL (32-36); MEAN CORPUSCULAR VOLUME 74 FL (80-99); MEAN PLATELET VOLUME 10.8 FL (7.4-10.4); MONOCYTES # (AUTO) 0.8 X 10^3 (0.0-1.0); MONOCYTES % (AUTO) 11 % (0-12); NEUTROPHILS # (AUTO) 5.1 X 10^3 (1.8-7.8); NEUTROPHILS % (AUTO) 68 % (42-75); PLATELET COUNT 319 10^3/uL (130-400); RED CELL DISTRIBUTION WIDTH 19.7 % (10.0-14.5); WHITE BLOOD COUNT 7.5 10^3/uL (4.3-11.0)
[2019-07-19 04:45] LABS: ALBUMIN 3.2 GM/DL (3.2-4.5); BILIRUBIN,TOTAL 0.5 MG/DL (0.1-1.0); CREATININE SERUM 2.76 MG/DL (0.60-1.30); POTASSIUM 3.7 MMOL/L (3.6-5.0); TOTAL PROTEIN 6.2 GM/DL (6.4-8.2)
[2019-07-19 05:18] LABS: EOSINOPHILS % (MANUAL) 3 %; HYPOCHROMASIA MODERATE; LYMPHOCYTES % (MANUAL) 17 %; MONOCYTES % (MANUAL) 6 %; NEUTROPHILS % (MANUAL) 74 %; POLYCHROMASIA SLIGHT
[2019-07-19 05:19] LABS: ANISOCYTOSIS SLIGHT; MICROCYTOSIS SLIGHT
[2019-07-19] MEDS: FUROSEMIDE 40 MG/4 ML INJ (LASIX) IV SCH (06:23)
[2019-07-19 08:00] VITALS: BP 172/77
[2019-07-19] MEDS: LIDOCAINE 4% (SALONPAS) PATCH TOP SCH (09:21)
[2019-07-19] MEDS: ISOSORBIDE MONONITRATE 60 MG (IMDUR) TAB PO SCH (09:21)
[2019-07-19] MEDS: PANTOPRAZOLE 20 MG TABLET (PROTONIX) PO SCH ×2 (09:21→20:18)
[2019-07-19] MEDS: meTOprolol TARTRATE 50 MG (LOPRESSOR) TAB PO SCH ×2 (09:21→20:19)
[2019-07-19] MEDS: amLODIPine 5 MG (NORVASC) TAB PO SCH (09:23)
--- NOTE | 2019-07-19 10:58 | Progress Note ---
Subjective Subjective/Events-last exam Patient much improved this AM. Off oxygen this AM. breathing more comfortably. Has been up to the bathroom but has not tried to walk long distance. Tolerating PO diet. Review of Systems Pulmonary: Cough Cardiovascular: No: Chest Pain, Palpitations Gastrointestinal: No: Nausea, Vomiting, Abdominal Pain, Diarrhea, Constipation Musculoskeletal: back pain Neurological: Weakness Focused Exam Lactate Level 07/18/19 03:55: Lactic Acid Level 1.22 Objective Exam Last Set of Vital Signs Vital Signs Date Time Temp Pulse Resp B/P (MAP) Pulse Ox O2 Delivery O2 Flow Rate FiO2 07/19/19 09:00 Room Air 95 07/19/19 08:00 95 07/19/19 08:00 36.9 76 20 172/77 (108) 07/19/19 05:58 1.00 Capillary Refill : Less Than 3 Seconds I&O Intake and Output 07/19/19 00:00 Intake Total 690 ml Output Total 1650 ml Balance -960 ml Intake Oral 360 ml IV Total 60 ml Other 270 ml Output Urine Total 1650 ml Daily Weight Change No No General: Alert, Oriented X3, No Acute Distress Lungs: Clear to Auscultation, Normal Air Movement Heart: Regular Rate, No Murmurs Abdomen: Normal Bowel Sounds, Soft, No Tenderness, No Masses Extremities: Other (trace edema with ttp, no swelling or erythema) Results/Procedures Lab Laboratory Tests 07/18/19 11:49: Hemoglobin 8.9#L, Sodium Level 141, Potassium Level 4.2, Chloride Level 113H, Carbon Dioxide Level 16L, Anion Gap 12, Blood Urea Nitrogen 32H, Creatinine 2.79H, Estimat Glomerular Filtration Rate 16, BUN/Creatinine Ratio 11, Glucose Level 128H, Calcium Level 9.2, Troponin I < 0.028 07/19/19 03:05: Hemoglobin 8.9L, White Blood Count 7.5, Red Blood Count 4.04L, Hematocrit 30L, Mean Corpuscular Volume 74L, Mean Corpuscular Hemoglobin 22L, Mean Corpuscular Hemoglobin Concent 30L, Red Cell Distribution Width 19.7H, Platelet Count 319, Mean Platelet Volume 10.8H, Neutrophils (%) (Auto) 68, Lymphocytes (%) (Auto) 16, Monocytes (%) (Auto) 11, Eosinophils (%) (Auto) 5, Basophils (%) (Auto) 1, Neutrophils # (Auto) 5.1, Lymphocytes # (Auto) 1.2, Monocytes # (Auto) 0.8, Eosinophils # (Auto) 0.3, Basophils # (Auto) 0.0, Neutrophils % (Manual) 74, Lymphocytes % (Manual) 17, Monocytes % (Manual) 6, Eosinophils % (Manual) 3, Polychromasia SLIGHT, Hypochromasia MODERATE, Anisocytosis SLIGHT, Microcytosis SLIGHT 07/19/19 03:35: Sodium Level 141, Potassium Level 3.7, Chloride Level 112H, Carbon Dioxide Level 17L, Anion Gap 12, Blood Urea Nitrogen 31H, Creatinine 2.76H, Estimat Glomerular Filtration Rate 16, BUN/Creatinine Ratio 11, Glucose Level 94, Calcium Level 9.0, Corrected Calcium 9.6, Total Bilirubin 0.5, Aspartate Amino Transf (AST/SGOT) 17, Alanine Aminotransferase (ALT/SGPT) 8, Alkaline Phosphatase 48, Total Protein 6.2L, Albumin 3.2 Microbiology 07/18/19 Urine Culture - Final, Complete NO GROWTH 07/18/19 Influenza Types A,B Antigen (JESUS ALBERTO) - Final, Complete Assessment/Plan Assessment/Plan (1) Acute on chronic combined systolic (congestive) and diastolic (congestive) heart failure Status: Acute Assessment & Plan: - Cardiology consulted and appreciate recommendations, echo shows EF 45% with valvular disease, continue lasix, BB, Statin 07/19: Decreased IV lasix to daily to help with kidney improvement since patient is off oxygen (2) Acute on chronic renal failure Status: Acute Assessment & Plan: - Continue to monitor BMP with diuresis 07/19: Mild improvement, continue to monitor with daily BMP Qualifiers: (3) Microcytic anemia Status: Acute Assessment & Plan: - Hemoccult pending, likely GI in cause with anti coagulation due to A fib, holding coumadin at this time, s/p 1 unit pRBC 07/19: Hgb stable, will start venofer today, continue holding anticoagulation, will discuss with cardiology (4) Atrial fibrillation Status: Chronic Assessment & Plan: - Rate controlled, holding anticoagulation due to severe anemia Qualifiers: Qualified Codes: I48.20 - Chronic atrial fibrillation, unspecified (5) Dementia Status: Chronic (6) Essential (primary) hypertension Status: Chronic Assessment & Plan: - Restart home meds, monitor closely due to bleeding (7) Non-insulin dependent type 2 diabetes mellitus Status: Chronic (8) Hyperkalemia Status: Resolved Assessment & Plan: - Holding home K, continue to monitor BMP (9) Debility Status: Chronic (10) DVT prophylaxis Status: Acute Assessment & Plan: - SCDs, holding anti coagulation at this time due to severe anemia Clinical Quality Measures DVT/VTE Risk/Contraindication: Risk Factor Score Per Nursin RFS Level Per Nursing on Admit: 4+=Very High WHIT TEJADA MD Jul 19, 2019 10:58
[2019-07-19 12:00] VITALS: BP 122/92
--- NOTE | 2019-07-19 12:03 | NUR ---
this nurse clarified iron order from , said that she would like the iron order that she put in to start today.
[2019-07-19] MEDS ORDERED: IRON SUCROSE 200 MG/10 ML (VENOFER) VIAL IV SCH (13:00)
--- NOTE | 2019-07-19 13:21 | Cardiology Progress Note ---
Cardiology SOAP Progress Note Subjective: Improved shortness of breath. Objective: I&O/Vital Signs 07/19/19 07/19/19 07/19/19 07/19/19 04:00 04:00 05:58 07:00 Temp 36.0 Pulse 74 79 Resp 20 B/P (MAP) 162/85 (110) Pulse Ox 96 97 O2 Delivery Nasal Cannula Nasal Cannula Nasal Cannula O2 Flow Rate 1.00 1.00 1.00 07/19/19 07/19/19 07/19/19 07/19/19 08:00 08:00 09:00 12:00 Temp 36.9 Pulse 76 Resp 20 B/P (MAP) 172/77 (108) Pulse Ox 95 95 94 O2 Delivery Room Air Room Air Room Air Room Air FiO2 95 07/19/19 07/19/19 12:00 12:21 Temp 36.6 Pulse 84 83 Resp 20 B/P (MAP) 122/92 (102) Pulse Ox 94 O2 Delivery Room Air 07/19/19 00:00 Intake Total 420 ml Output Total 1650 ml Balance -1230 ml Weight (Pounds): 162 Weight (Ounces): 14.8 Weight (Calculated Kilograms): 73.500162 Constitutional: appears stated age; No apparent distress; well-developed, well- nourished Respiratory: chest is bilaterally symmetric, lungs clear to percussion Cardiovascular: irregularly irregular, S1 and S2, systolic murmur Gastrointestional: soft, audible bowel sounds; No spleenomegaly Extremities: normal range of motion, non-tender, normal inspection; No clubbing, No cyanosis; no lower extremity edema bilateral; No significant edema Neurologic/Psychiatric: no motor/sensory deficits, alert, normal mood/affect, oriented x 3, power is 5/5 both on sides Skin: pallor; No rash, No ulcerations Results/Procedures: Labs Laboratory Tests 07/19/19 03:05: White Blood Count 7.5, Red Blood Count 4.04L, Hemoglobin 8.9L, Hematocrit 30L, Mean Corpuscular Volume 74L, Mean Corpuscular Hemoglobin 22L, Mean Corpuscular Hemoglobin Concent 30L, Red Cell Distribution Width 19.7H, Platelet Count 319, Mean Platelet Volume 10.8H, Neutrophils (%) (Auto) 68, Lymphocytes (%) (Auto) 16, Monocytes (%) (Auto) 11, Eosinophils (%) (Auto) 5, Basophils (%) (Auto) 1, Neutrophils # (Auto) 5.1, Lymphocytes # (Auto) 1.2, Monocytes # (Auto) 0.8, Eosinophils # (Auto) 0.3, Basophils # (Auto) 0.0, Neutrophils % (Manual) 74, Lymphocytes % (Manual) 17, Monocytes % (Manual) 6, Eosinophils % (Manual) 3, Polychromasia SLIGHT, Hypochromasia MODERATE, Anisocytosis SLIGHT, Microcytosis SLIGHT 07/19/19 03:35: Sodium Level 141, Potassium Level 3.7, Chloride Level 112H, Carbon Dioxide Level 17L, Anion Gap 12, Blood Urea Nitrogen 31H, Creatinine 2.76H, Estimat Glomerular Filtration Rate 16, BUN/Creatinine Ratio 11, Glucose Level 94, Calcium Level 9.0, Corrected Calcium 9.6, Total Bilirubin 0.5, Aspartate Amino Transf (AST/SGOT) 17, Alanine Aminotransferase (ALT/SGPT) 8, Alkaline Phosphatase 48, Total Protein 6.2L, Albumin 3.2 Microbiology 07/18/19 Urine Culture - Final, Complete NO GROWTH 07/18/19 Influenza Types A,B Antigen (JESUS ALBERTO) - Final, Complete A/P: Assessment/Dx: Acute diastolic congestive heart failure, Possible COPD, Cardiac pacemaker in place, Atrial fibrillation, Moderate pulmonary hypertension. CKD, Anemia, Severe mitral regurgitation Plan: Acute diastolic congestive heart failure, diuretics. Possible COPD, Cardiac pacemaker in place, no active issues. Atrial fibrillation, continue outpatient medical therapy. Hold anticoagulation since patient has severe anemia and workup is still not complete. I have discussed with the primary team and recommended general surgery consultation for possible endoscopy. However if the patient is unwilling for GI bleed workup, we will not be able to continue oral anticoagulation since the risks of excessive bleeding on oral anticoagulation outweigh the risk. Moderate pulmonary hypertension. CKD, anemia, status post transfusion. Severe mitral regurgitation, we'll defer to the outpatient pageant director. Thank you for your consultation. Please call me if you have any questions. Jhon Liu MD, FACP, FACC, FSCAI, FHRS, CCDS Interventional Cardiology Cardiac Electrophysiology Vascular Medicine and Endovascular Interventions Focused Exam Lactate Level 07/18/19 03:55: Lactic Acid Level 1.22 Calderon LIU MD Jul 19, 2019 13:21
--- NOTE | 2019-07-19 14:21 | Physical Therapy Evaluation ---
PT Evaluation-General Medical Diagnosis Admission Date Jul 18, 2019 at 05:16 Medical Diagnosis: Acute heart failure/ anemia Onset Date: Jul 18, 2019 Therapy Diagnosis Therapy Diagnosis: Debility/deconditioning Height/Weight Height (Feet): 5 Height (Inches): 3.00 Weight (Pounds): 162 Weight (Ounces): 14.8 Precautions Precautions/Isolations: Fall Prevention, Standard Precautions Weight Bear Status Right Lower Extremity: Right Weight Bearing/Tolerated Left Lower Extremity: Left Weight Bearing/Tolerated Referral Physician: Amira Reason for Referral: Evaluation/Treatment Medical History Pertinent Medical History: CVA, DM, Dementia, HTN, OA, Renal Insufficiency Current History Patient to the ER with SOB for several days and blood in her stool. Social History Home: Single Level Current Living Status: Spouse Entry Into Home: Stairs With Railing PT Steps Into Home: 3 Prior Prior Level of Function SCALE: Activities may be completed with or without assistive devices. 9-Dhzxsarvyt-mejolnx completes the activity by him/herself with no assistance from a helper. 5-Set-up or Clean-up Assistance-helper sets up or cleans up; patient completes activity. [place] assists only prior to or following the activity. 4-Supervision or Touching Assistance-helper provides verbal cues and/or touching/steadying and/or contact guard assistance as patient completes activity. Assistance may be provided throughout the activity or intermittently. 3-Partial/Moderate Assistance-helper does LESS THAN HALF the effort. [place] lifts, holds or supports trunk or limbs, but provides less than half the effort. 2-Substantial/Maximal Assistance-helper does MORE THAN HALF the effort. [place] lifts or holds trunk or limbs and provides more than half the effort. 1-Xvippufuc-yppjgk does ALL the effort. Patient does none of the effort to complete the activity. Or, the assistance of 2 or more helpers is required for the patient to complete the activity. If activity was not attempted, code reason: 7-Patient Refused. 9-Not Applicable-not attempted and the patient did not perform the activity before the current illness, exacerbation or injury. 10-Not Attempted due to Environmental Limitations-(lack of equipment, weather restraints, etc.). 88-Not Attempted due to Medical Conditions or Safety Concerns. Bed Mobility: 6 Transfers (B,C,W/C): 6 Gait: 6 Stairs: 3 Indoor Mobility (Ambulation): Independent Stairs: Needed Some Help PT Evaluation-Current Subjective Patient is tired but agreeable to therapy. Patient reports no pain at this time. Objective Patient Orientation: Confused Attachments: Johnston Catheter ROM/Strength ROM Lower Extremities BLE WFL Strength Lower Extremities BLE WFL Integumentary/Posture Integumentary See nursing notes. Bladder Incontinence: Johnston Cath Neuromuscular (Tone, Coordination, Reflexes) Grossly intact. Sensory Vision: Functional Hearing: Hearing Aid/Aides (R hearing aide. ) Sensation Right Lower Extremit: Intact Sensation Left Lower Extremity: Intact Transfers Roll Left to Right (QC): 6 Sit to Lying (QC): 6 Lying to Sitting/Side of Bed(Q: 6 Sit to Stand (QC): 4 CGA for safety Gait Does the Patient Walk?: Yes Mode of Locomotion: Walk Anticipated Mode of Locomotion: Walk Walk 10 feet (QC): 4 Walk 50 ft with 2 Turns(QC): 4 Walk 150 ft (QC): 4 Distance: 150' Gait Assistive Device: FWW Comments/Gait Description CGA for safety. Patient was a little wobbly upon standing. Wheelchair Training Does the Pt Use a Wheelchair?: No Balance Sitting Static: Normal Sitting Dynamic: Normal Standing Static: Normal Standing Dynamic: Normal Assessment/Needs Patient moves around well but fatigued quickly. When going from sitting to standing patient was slightly unsteady but self recovered. During ambulation patient was steady. Rehab Potential: Fair PT Kitchen Chef Goals Kitchen Chef Goals PT Kitchen Chef Goals Time Frame: Jul 26, 2019 Roll Left & Right (QC): 6 Sit to Lying (QC): 6 Lying-Sitting on Side/Bed(QC): 6 Sit to Stand (QC): 6 Chair/Cpq-cm-Kzqkc Xfer(QC): 6 Toilet Transfer (QC): 6 Does the Patient Walk: Yes Walk 10 feet (QC): 6 Walk 50ft with 2 Turns (QC): 6 Walk 150 ft (QC): 6 PT Plan Problem List Problem List: Activity Tolerance, Functional Strength, Safety, Balance, Gait, Transfer, Bed Mobility, ROM Treatment/Plan Treatment Plan: Continue Plan of Care Treatment Plan: Bed Mobility, Education, Functional Activity Nina, Functional Strength, Gait, Safety, Therapeutic Exercise, Transfers Treatment Duration: Jul 26, 2019 Frequency: 6 times per week Estimated Hrs Per Day: .25 hour per day Patient and/or Family Agrees t: Yes Safety Risks/Education Patient Education: Gait Training, Transfer Techniques Teaching Recipient: Patient Teaching Methods: Discussion Response to Teaching: Reinforcement Needed Time/GCodes Time In: 1345 Time Out: 1358 Total Billed Treatment Time: 13 Total Billed Treatment 1 visit EVM (13 minutes) BEBETO JARRELL PT Jul 19, 2019 14:20
[2019-07-19 16:00] VITALS: BP 152/89
[2019-07-19] MEDS ORDERED: TRIMETHOPRIM 100 MG TAB (PROLOPRIM) PO SCH (18:00)
[2019-07-19 20:00] VITALS: BP 158/60
[2019-07-20] VITALS: BP 145/73
[2019-07-20] MEDS: ACETAMINOPHEN 325 MG TABLET PO PRN ×2 (01:59→08:42)
[2019-07-20 04:00] VITALS: BP 173/75
[2019-07-20 04:05] LABS: BASOPHILS # (AUTO) 0.1 10^3/uL (0.0-0.1); BASOPHILS % (AUTO) 1 % (0-10); EOSINOPHILS # (AUTO) 0.3 10^3/uL (0.0-0.3); EOSINOPHILS % (AUTO) 4 % (0-10); HEMATOCRIT 29 % (35-52); HEMOGLOBIN 8.7 G/DL (11.5-16.0); LYMPHOCYTES # (AUTO) 1.1 X 10^3 (1.0-4.0); LYMPHOCYTES % (AUTO) 15 % (12-44); MEAN CORPUSCULAR HEMOGLOBIN 22 PG (25-34); MEAN CORPUSCULAR HGB CONC 30 G/DL (32-36); MEAN CORPUSCULAR VOLUME 74 FL (80-99); MEAN PLATELET VOLUME 10.8 FL (7.4-10.4); MONOCYTES # (AUTO) 0.9 X 10^3 (0.0-1.0); MONOCYTES % (AUTO) 13 % (0-12); NEUTROPHILS # (AUTO) 5.1 X 10^3 (1.8-7.8); NEUTROPHILS % (AUTO) 68 % (42-75); PLATELET COUNT 333 10^3/uL (130-400); RED CELL DISTRIBUTION WIDTH 19.9 % (10.0-14.5); WHITE BLOOD COUNT 7.4 10^3/uL (4.3-11.0)
[2019-07-20 04:45] LABS: CREATININE SERUM 3.08 MG/DL (0.60-1.30); POTASSIUM 3.7 MMOL/L (3.6-5.0)
[2019-07-20 08:14] VITALS: BP 199/82
[2019-07-20] MEDS: ISOSORBIDE MONONITRATE 60 MG (IMDUR) TAB PO SCH (08:41)
[2019-07-20] MEDS: meTOprolol TARTRATE 50 MG (LOPRESSOR) TAB PO SCH (08:42)
[2019-07-20] MEDS: LIDOCAINE 4% (SALONPAS) PATCH TOP SCH (08:42)
[2019-07-20] MEDS: amLODIPine 5 MG (NORVASC) TAB PO SCH (08:42)
[2019-07-20] MEDS: PANTOPRAZOLE 20 MG TABLET (PROTONIX) PO SCH (08:43)
[2019-07-20] MEDS ORDERED: FUROSEMIDE 40 MG/4 ML INJ (LASIX) IVP SCH (09:00)
--- NOTE | 2019-07-20 09:15 | Physical Therapy Daily Note ---
PT Daily Note-Current Subjective Pt. up in chair, dtr at side, dtr requests pt. not walk with FWW b/c she doesnt use one at home. Pt. c/o pain in back but does not rate Mental Status Patient Orientation: Normal For Age Transfers SCALE: Activities may be completed with or without assistive devices. 3-Vprxkrgmyj-zajychy completes the activity by him/herself with no assistance from a helper. 5-Set-up or Clean-up Assistance-helper sets up or cleans up; patient completes activity. [place] assists only prior to or following the activity. 4-Supervision or Touching Assistance-helper provides verbal cues and/or touching/steadying and/or contact guard assistance as patient completes activity. Assistance may be provided throughout the activity or intermittently. 3-Partial/Moderate Assistance-helper does LESS THAN HALF the effort. [place] lifts, holds or supports trunk or limbs, but provides less than half the effort. 2-Substantial/Maximal Assistance-helper does MORE THAN HALF the effort. [place] lifts or holds trunk or limbs and provides more than half the effort. 0-Uiihwcbum-atoada does ALL the effort. Patient does none of the effort to complete the activity. Or, the assistance of 2 or more helpers is required for the patient to complete the activity. If activity was not attempted, code reason: 7-Patient Refused. 9-Not Applicable-not attempted and the patient did not perform the activity before the current illness, exacerbation or injury. 10-Not Attempted due to Environmental Limitations-(lack of equipment, weather restraints, etc.). 88-Not Attempted due to Medical Conditions or Safety Concerns. Sit to Stand (QC): 6 Weight Bearing Right Lower Extremity: Right Weight Bearing/Tolerated Left Lower Extremity: Left Weight Bearing/Tolerated Gait Training Does the Patient Walk?: Yes Gait Persons Needed: 1 Gait Assistive Device: None (100ft) pt. ambulated 100ft without device reaching for furniture and rail as well as this PTAs hand and had c/o some SOB. Pt. staggered at times and has some crossover steps. FWW used for second 100 ft with better control and improved breathing. instructed in proper stance and position in FWW and balance p recautions Exercises Seated Therapy Exercises: Ankle pumps, Sit to stand, Long arc quads, Hip flexion, Hip abd/add Seated Reps: 10 Assessment Current Status: Good Progress Dtr is resistent but this RECORDER HELPER SEISMOGRAPH recommends FWW as pt is at some risk for falls. This was communicated to nursing and will recommend FWW for home use as needed at DC PT Mcfp Goals Mcfp Goals PT Scow Derrick Operator Goals Time Frame: Jul 26, 2019 Roll Left & Right (QC): 6 Sit to Lying (QC): 6 Lying-Sitting on Side/Bed(QC): 6 Sit to Stand (QC): 6 Chair/Iqo-zp-Vgdzr Xfer(QC): 6 Toilet Transfer (QC): 6 Does the Patient Walk: Yes Walk 10 feet (QC): 6 Walk 50ft with 2 Turns (QC): 6 Walk 150 ft (QC): 6 PT Plan Treatment/Plan Treatment Plan: Continue Plan of Care Treatment Plan: Bed Mobility, Education, Functional Activity Nina, Functional Strength, Gait, Safety, Therapeutic Exercise, Transfers Treatment Duration: Jul 26, 2019 Frequency: 6 times per week Estimated Hrs Per Day: .25 hour per day Patient and/or Family Agrees t: Yes Safety Risks/Education Patient Education: Gait Training, Transfer Techniques, Correct Positioning, Disease Process, Safety Issues Teaching Recipient: Patient, Family Teaching Methods: Demonstration, Discussion Response to Teaching: Verbalize Understanding, Return Demonstration, Reinforcement Needed Time/GCodes Time In: 850 Time Out: 910 Total Billed Treatment Time: 20 Total Billed Treatment 1,GT20m MARY BETH DELACRUZ RECORDER HELPER SEISMOGRAPH Jul 20, 2019 09:15
--- NOTE | 2019-07-20 11:11 | Discharge Summary ---
Diagnosis/Chief Complaint Date of Admission Jul 18, 2019 at 05:16 Date of Discharge 07/20/2019 Admission Diagnosis Admission Diagnosis See problem list Discharge Diagnosis See Below Problems/Diagnosis: (1) Acute on chronic combined systolic (congestive) and diastolic (congestive) heart failure Assessment & Plan: - Cardiology consulted and appreciate recommendations, echo shows EF 45% with valvular disease, continue lasix, BB, Statin 07/19: Decreased IV lasix to daily to help with kidney improvement since patient is off oxygen 07/20: Patient will take increased lasix for the next 3 days then go back to 20 mg BID Status: Acute (2) Acute on chronic renal failure Assessment & Plan: - Continue to monitor BMP with diuresis 07/19: Mild improvement, continue to monitor with daily BMP Qualifiers: Status: Acute (3) Microcytic anemia Assessment & Plan: - Hemoccult pending, likely GI in cause with anti coagulation due to A fib, holding coumadin at this time, s/p 1 unit pRBC 07/19: Hgb stable, will start venofer today, continue holding anticoagulation, will discuss with cardiology 07/20: Holding anticoagulation due to severe anemia and patient not wanting to have colonoscopy, patient will have close f.u with primary cardiology, discussed the risk of stroke while off anticoagulation and patient and daughter understand risk. Status: Acute (4) Atrial fibrillation Assessment & Plan: - Rate controlled, holding anticoagulation due to severe anemia 07/20: Continue to hold all anticoagulation due to anemia Qualifiers: Qualified Codes: I48.20 - Chronic atrial fibrillation, unspecified Status: Chronic (5) Dementia Status: Chronic (6) Essential (primary) hypertension Assessment & Plan: - Restart home meds, monitor closely due to bleeding Status: Chronic (7) Non-insulin dependent type 2 diabetes mellitus Status: Chronic (8) Hyperkalemia Assessment & Plan: - Holding home K, continue to monitor BMP Status: Resolved Resolution Date/Time: 07/19/19 @ 11:01 (9) Debility Status: Chronic (10) DVT prophylaxis Assessment & Plan: - SCDs, holding anti coagulation at this time due to severe anemia Status: Acute Chief Complaint/HPI Chief Complaint/HPI 83 yo F that presented with shortness of breath and slightly altered mental status. Patient has been having increasing shortness of breath for the last few days. She does not have a baseline oxygen demand at home. She has had increasing swelling on her LE. Denies any dypnea at this time but looks uncomfortable. Denies any chest pain or dizziness. She states that she has not missed any doses of medications. States that she has had some blood in her stool and she was noted to be anemic upon admission. Discharge Summary-Simple/Stand Consultations Dr Liu: Cardiology Discharge Physical Examination Allergies: Coded Allergies: SYLVIE Inhibitors (Verified Allergy, Unknown, 09/24/18) Penicillins (Unverified Allergy, Unknown, reacted to Rocephin 11/30/18 itching, had tolerated Ancef hx, 12/01/18) Sulfa (Sulfonamide Antibiotics) (Verified Allergy, Unknown, 09/24/18) amlodipine (Verified Allergy, Unknown, 09/24/18) ciprofloxacin (Verified Allergy, Unknown, 09/24/18) diltiazem (Verified Allergy, Unknown, 09/24/18) levofloxacin (Verified Allergy, Unknown, 09/24/18) loratadine (Verified Allergy, Unknown, 09/24/18) pseudoephedrine (Verified Allergy, Unknown, 09/24/18) simvastatin (Verified Allergy, Unknown, 09/24/18) ceftriaxone (Unverified Adverse Reaction, Mild, Itching, 12/01/18) Incident post one dose Rocephin IV with pt scratching hands/arms. Medicated Benadryl 25 mg IV and SoluMedrol [address] had discussed allergies prior with dgt and it was thought she tolerated Rocephin in past. Vitals & I&Os Vital Sign - Last 12Hours Date Time Temp Pulse Resp B/P (MAP) Pulse Ox O2 Delivery O2 Flow Rate FiO2 07/20/19 09:00 Room Air 95 07/20/19 08:14 36.1 78 20 199/82 (121) 98 07/19/19 05:58 1.00 Intake and Output 07/20/19 00:00 Intake Total 1200 ml Output Total 1701 ml Balance -501 ml General Appearance: Alert, Oriented X3, Cooperative, No Acute Distress HEENT: Mucous Memb Moist/[place] Respiratory: Clear to Auscultation, Normal Air Movement Cardiovascular: Regular Rate, Other (systolic murmur) Abdominal: Normal Bowel Sounds, Soft, No Tenderness, No Masses Extremities: No Edema, No Tenderness/Swelling Skin: No Rashes, No Breakdown Neuro: Normal Speech, Strength at 5/5 X4 Ext, Sensation Intact, Cranial Nerves 3-12 NL Psych/Mental Status: Mental Status NL, Mood NL Hospital Course See final discharge diagnosis. Discussion & Recommendations 83 yo F that presented with acute CHF and severe anemia. Patient's anticoagulation was held during admission and she was told to hold until she had f.u with cardiology. Patient had Echo during admission that showed mild diminished systolic dysfunction with severe mitrial regurgitation. She did not desire to have any GI workup during admission. Discharge Condition at discharge Gaurded Instructions to patient/family Please see electronic discharge instructions given to patient. Discharge Medications Reviewed and agree with Discharge Medication list on patient's Discharge Instruction sheet Clinical Quality Measures DVT/VTE Risk/Contraindication: Risk Factor Score Per Nursin RFS Level Per Nursing on Admit: 4+=Very High Copy Copies To 1: RITCHIE Slater HOLLY R MD Jul 20, 2019 11:11
[2019-07-20] MEDS ORDERED: FURO-125 PO (11:17)
--- NOTE | 2019-07-20 11:37 | Discharge Summary ---
Discharge [facility] Discharge Medications New, Converted or Re-Newed RX: Transmitted to Pharmacy Changed Medications: Furosemide (Lasix) 20 Mg Tablet 20 MG PO BID, #60 TAB (Changed from: DAILY) Take 2 tabs BID for the next 3 days then 1 tab BID Continued Medications: Acetaminophen (Tylenol Extra Strength) 500 Mg Tablet 500-1000 MG PO Q4H PRN for PAIN-MILD (1-4), TAB Amlodipine Besylate (Amlodipine Besylate) 5 Mg Tablet 5 MG PO DAILY, TAB Ascorbic Acid (Vitamin C) 250 Mg Tab 250 MG PO DAILY, TAB Atorvastatin Calcium (Atorvastatin Calcium) 10 Mg Tablet 10 MG PO HS, TAB Calcium Carbonate/Vitamin D3 (Calcium 600 + Vit D 400 Tablet) 1 Each Tablet 1 TAB PO HS, TAB Cyanocobalamin (Cyanocobalamin Injection) 1,000 Mcg/Ml Inj 1000 MCG IM MONTHLY, VIAL Digoxin (Digoxin) 125 Mcg Tablet 125 MCG PO Q48H, TAB Isosorbide Mononitrate (Isosorbide Mononitrate ER) 60 Mg Tab 60 MG PO DAILY, TAB Loperamide HCl (Imodium A-D) 2 Mg Tablet 2 MG PO UD PRN for DIARRHEA, TAB Magnesium Oxide (Magnesium Oxide) 400 Mg Tablet 800 MG PO BID, TAB TAKES 2 (400MG) TO EQUAL 800MG TWICE DAILY Methyl Salicylate/Menthol (Salonpas Patch) 1 Each Adh..patch 1 PATCH TP DAILY, PATCH Metoprolol Tartrate (Metoprolol Tartrate) 100 Mg Tablet 100 MG PO BID, TAB Omeprazole (Omeprazole) 20 Mg Capsule.dr 20 MG PO BID, CAP Potassium Chloride (Potassium Chloride) 20 Meq Tablet.er 20 MEQ PO DAILY, TAB Sitagliptin Phosphate (Januvia) 50 Mg Tablet 100 MG PO DAILY, TAB Trimethoprim (Trimethoprim) 100 Mg Tablet 100 MG PO 1800, TAB Discontinued Medications: Clopidogrel Bisulfate (Clopidogrel) 75 Mg Tablet 75 MG PO DAILY, TAB Furosemide (Lasix) 20 Mg Tablet 20 MG PO 1200, TAB Potassium Chloride (Potassium Chloride) 20 Meq Tablet.er 20 MEQ PO 1200, TAB Warfarin Sodium (Warfarin Sodium) 1 Mg Tablet 1 MG PO DAILY, TAB TAKES A 1MG AND A 2MG TO EQUAL 3MG DAILY Warfarin Sodium (Warfarin Sodium) 2 Mg Tablet 2 MG PO DAILY, TAB TAKES A 1MG AND A 2MG TO EQUAL 3MG DAILY LAST FILLED 04-29-19 #180 Patient Instructions Goal/Follow Up Appt: You have a follow up appt with Mariposa Curry on Jul 28 @ 1 PM Make sure you see your cardiology doctor next week Patient Instructions: - Stopped blood thinning medications [facility]: Dizziness Shortness of breath Activity & Diet Discharge Diet: Cardiac Diet Activity as Tolerated: Yes Copy Copies To 1: RITCHIE Slater HOLLY R MD Jul 20, 2019 11:37
[2019-07-20 12:00] VITALS: BP 196/82
--- NOTE | 2019-07-20 12:04 | NUR ---
THIS NURSE CLARIFIED DC MEDS WITH DR TEJADA. MEDICATIONS REVIEWED WITH PT AND FAMILY. FAMILY AND PT STATED UNDERSTANDING. DR TEJADA NOTIFIED PT BP 196/82. PT RECEIVED MEDICATIONS FOR BP THIS MORNING. PT HAS NO COMPLAINTS OF CHEST PAIN, NAUSEA, JAW OR ARM PAIN, AND NO HEADACHE. PT OKAY TO DC. PT TAKEN DOWN VIA WHEELCHAIR BY AID WITH BELONGINGS.
[2019-07-20 12:29] VITALS: BP 196/82
--- NOTE | 2019-07-20 17:05 | Cardiology Progress Note ---
Cardiology SOAP Progress Note Subjective: Significantly improved shortness of breath. Objective: I&O/Vital Signs 07/20/19 07/20/19 07/20/19 07/20/19 06:45 08:00 08:14 09:00 Temp 36.1 Pulse 82 78 Resp 20 B/P (MAP) 199/82 (121) Pulse Ox 98 98 O2 Delivery Room Air Room Air Room Air FiO2 95 07/20/19 07/20/19 07/20/19 12:00 12:00 12:29 Temp 35.9 35.9 Pulse 78 78 Resp 20 20 B/P (MAP) 196/82 (120) 196/82 Pulse Ox 91 98 91 O2 Delivery Room Air Room Air Room Air O2 Flow Rate 07/20/19 00:00 Intake Total 1200 ml Output Total 1701 ml Balance -501 ml Weight (Pounds): 162 Weight (Ounces): 14.8 Weight (Calculated Kilograms): [id number] Constitutional: appears stated age; No apparent distress; well-developed, well- nourished Respiratory: chest is bilaterally symmetric, lungs clear to percussion Cardiovascular: irregularly irregular, S1 and S2, systolic murmur Gastrointestional: soft, audible bowel sounds; No spleenomegaly Extremities: normal range of motion, non-tender, normal inspection; No clubbing, No cyanosis; no lower extremity edema bilateral; No significant edema Neurologic/Psychiatric: no motor/sensory deficits, alert, normal mood/affect, oriented x 3, power is 5/5 both on sides Skin: pallor; No rash, No ulcerations Results/Procedures: Labs Laboratory Tests 07/20/19 03:40: White Blood Count 7.4, Red Blood Count 3.91L, Hemoglobin 8.7L, Hematocrit 29L, Mean Corpuscular Volume 74L, Mean Corpuscular Hemoglobin 22L, Mean Corpuscular Hemoglobin Concent 30L, Red Cell Distribution Width 19.9H, Platelet Count 333, Mean Platelet Volume 10.8H, Neutrophils (%) (Auto) 68, Lymphocytes (%) (Auto) 15, Monocytes (%) (Auto) 13H, Eosinophils (%) (Auto) 4, Basophils (%) (Auto) 1, Neutrophils # (Auto) 5.1, Lymphocytes # (Auto) 1.1, Monocytes # (Auto) 0.9, Eosinophils # (Auto) 0.3, Basophils # (Auto) 0.1, Sodium Level 142, Potassium Level 3.7, Chloride Level 111H, Carbon Dioxide Level 16L, Anion Gap 15H, Blood Urea Nitrogen 33H, Creatinine 3.08H, Estimat Glomerular Filtration Rate 14, BU N/Creatinine Ratio 11, Glucose Level 141H, Calcium Level 9.0 Microbiology 07/18/19 Blood Culture - Preliminary, Resulted No growth 07/18/19 Urine Culture - Final, Complete NO GROWTH 07/18/19 Influenza Types A,B Antigen (JESUS ALBERTO) - Final, Complete A/P: Assessment/Dx: Acute diastolic congestive heart failure, Possible COPD, Cardiac pacemaker in place, Atrial fibrillation, Moderate pulmonary hypertension. CKD, Anemia, Severe mitral regurgitation Plan: Acute diastolic congestive heart failure, diuretics. Can be discharged on Lasix 40 mg twice a day for 3 days and then follow-up with her bell hole digger in [facility]. Patient daughters understand. Possible COPD, Cardiac pacemaker in place, no active issues. Atrial fibrillation, continue outpatient medical therapy. Hold anticoagulation since patient has severe anemia and workup is still not complete. I have discussed with the primary team and recommended general surgery consultation for possible endoscopy. However if the patient is unwilling for GI bleed workup, we will not be able to continue oral anticoagulation since the risks of excessive bleeding on oral anticoagulation outweigh the risk. We will not discharge the patient on oral anticoagulation. We will defer to the outpatient bell hole digger to make the final decision. Moderate pulmonary hypertension. CKD, anemia, status post transfusion. Severe mitral regurgitation, we'll defer to the outpatient bell hole digger. Thank you for your consultation. Please call me if you have any questions. Jhon Liu MD, FACP, FACC, FSCAI, FHRS, CCDS Interventional Cardiology Cardiac Electrophysiology Vascular Medicine and Endovascular Interventions Focused Exam Lactate Level 07/18/19 03:55: Lactic Acid Level 1.22 Calderon ILU MD Jul 20, 2019 17:05
[2019-07-21] MEDS ORDERED: IRON SUCROSE 200 MG/10 ML (VENOFER) VIAL IV SCH (09:00)
== END 2019-07-20 12:20 | disposition home or self-care (01) | DRG 291 ==
LOC: EDUNIT# 03:41 → ER 03:42 → CSD 05:16
PROVIDERS: ADMIT Internal Medicine; ATTEND Internal Medicine
DX: I13.0 Hypertensive heart and chronic kidney disease with heart failure and stage 1 through stage 4 chronic kidney disease, or unspecified chronic kidney disease (principal); I50.43 Acute on chronic combined systolic (congestive) and diastolic (congestive) heart failure; N18.9 Chronic kidney disease, unspecified; I48.20 Chronic atrial fibrillation, unspecified; N17.9 Acute kidney failure, unspecified; K92.1 Melena; D62 Acute posthemorrhagic anemia; Z66 Do not resuscitate; I38 Endocarditis, valve unspecified; R06.03 Acute respiratory distress; I42.9 Cardiomyopathy, unspecified; J44.9 Chronic obstructive pulmonary disease, unspecified; Z95.0 Presence of cardiac pacemaker; I27.20 Pulmonary hypertension, unspecified; F03.90 Unspecified dementia, unspecified severity, without behavioral disturbance, psychotic disturbance, mood disturbance, and anxiety; E11.9 Type 2 diabetes mellitus without complications; E87.5 Hyperkalemia; R53.81 Other malaise; M19.91 Primary osteoarthritis, unspecified site; H91.91 Unspecified hearing loss, right ear; Z90.5 Acquired absence of kidney; Z95.5 Presence of coronary angioplasty implant and graft; Z86.73 Personal history of transient ischemic attack (TIA), and cerebral infarction without residual deficits; Z97.4 Presence of external hearing-aid
CPT/HCPCS: 36415; 51702; 71045; 80048; 80053; 81000; 83605; 83880; 84484; 85007; 85018; 85025; 85027; 85610; 85730; 86850; 86900; 86901; 86920; 87040; 87088; 87804; 93005; 93306; 94640; 94760; 96374; 96375

== ENCOUNTER → 2019-07-28 | Outpatient (CLI) | payer MEDICARE, OTHER ==
[~2019-07-28] MED LIST changes: +CATHETER FLUSH 10 ML SYR IV PRN; +METO100T12 PO; -OMEP-280 PO; +OMEP20CA18 PO; +POTA-51 PO; +REGADENOSON 0.4 MG/5 ML SYR (LEXISCAN) IV ONE
[2019-07-28 09:04] VITALS: BP 229/92
[2019-07-28 09:15] VITALS: BP 195/90
[2019-07-28 09:22] VITALS: BP 210/102
--- NOTE | 2019-08-19 12:36 | Cardiology Stress Test Report ---
Stress Test Report Type of NM Stress Test: Test Type: LEXISCAN 0.4MG/5ML Date of Procedure/Referring: Date of Procedure: Jul 28, 2019 Simin Garduno Admitting Physician [facility] Indications: Chronic heart failure Baseline Heart Rate: 73 Baseline Blood Pressure: Blood Pressure Systolic: 210 Blood Pressure Diastolic: 102 Baseline EKG: Baseline EKG: sinus rhythm Summary & Conclusion: Summary: The patient was brought to the stress lab after informed consent was taken. Stress test was performed according to the Lexiscan protocol. 0.4 mg of IV Lexiscan was given. Low-grade exercise was performed. Baseline EKG showed sinus rhythm at 73 bpm, blood pressure 168/106 mmHg. Maximum heart rate 76 bpm and blood pressure 223/100. Patient did not have any chest pain, arrhythmias or ST segment changes during the stress test. 10.38 mCi of Myoview were given for rest imaging and 32.6 mCi of Myoview given for stress imaging. Transient ischemic dilatation score 1.04, normal EF. Normal wall motion. Normal myocardial perfusion imaging during rest and stress. Conclusion: Pharmacological stress test was negative for ischemia. Severe hypertension. Normal LV function with no wall motion abnormalities. Normal myocardial perfusion imaging during rest and stress. Calderon JENKINS MD Aug 19, 2019 12:36
== END ==
LOC: CARD 08:04
PROVIDERS: ATTEND Nurse Practitioner Family
DX: I48.0 Paroxysmal atrial fibrillation (principal); I11.0 Hypertensive heart disease with heart failure; I50.32 Chronic diastolic (congestive) heart failure
CPT/HCPCS: 78452; 93017

== ENCOUNTER 2019-08-30 10:41 | Outpatient (RCR) | payer MEDICARE, OTHER ==
[2019-08-23] MEDS: FERRIC CARBOXYMALTOSE INJ 750 MG in NS (IVPB) 250 ML IV SCH (11:27)
[2019-08-23 11:28] VITALS: BP 189/78
[2019-08-23 12:20] VITALS: BP 189/78
--- NOTE | 2019-08-23 12:20 | NUR ---
PT. & FAMILY STATES THAT PT. HAS HAD IRON INFUSIONS BEFORE IN [facility]. PT. STAYED 10 MIN. AFTER INFUSION TO MAKE SURE SHE HAD NO REACTIONS. PT. LEFT ALONGSIDE FAMILY AT 1220.
[~2019-08-30] VITALS: Ht 160 cm; Wt 71.9 kg
[~2019-08-30 10:41] MED LIST changes: +ACETAMINOPHEN 500 MG TAB (TYLENOL) PO PRN; -CATHETER FLUSH 10 ML SYR IV PRN; -REGADENOSON 0.4 MG/5 ML SYR (LEXISCAN) IV ONE; +diphenhydrAMINE 50 MG/ML INJ (BENADRYL) IV PRN
[2019-08-30 10:55] VITALS: BP 178/82
[2019-08-30] MEDS: FERRIC CARBOXYMALTOSE INJ 750 MG in NS (IVPB) 250 ML IV SCH (11:01)
== END 2019-08-30 11:22 | disposition home or self-care (01) ==
LOC: SDC 10:41
PROVIDERS: ATTEND Nurse Practitioner
DX: N18.4 Chronic kidney disease, stage 4 (severe) (principal); D63.1 Anemia in chronic kidney disease; D50.9 Iron deficiency anemia, unspecified
CPT/HCPCS: 96365

== ENCOUNTER 2019-09-21 13:16 | Emergency (ER) | payer MEDICARE, OTHER ==
[~2019-09-21] VITALS: Ht 168 cm; Wt 71.9 kg
[~2019-09-21 13:16] MED LIST changes: -ACETAMINOPHEN 500 MG TAB (TYLENOL) PO PRN; -diphenhydrAMINE 50 MG/ML INJ (BENADRYL) IV PRN
--- OUTSIDE RECORDS SUMMARY | 2019-09-21 14:41 | XMS REPORT ---
Author Author YUMIKO Nancyashwin KENNEY Organization [facility] [facility] Address [address] [place] [address] Care Team Providers Care Internet Consultant Name Role Phone ANNE MARIE CALDERON Unavailable PROBLEMS Type Condition ICD9-CM Code ERI02-XU Code Onset Dates Condition S tatus SNOMED Code Problem Hyperlipidemia E78.5 11 May, 2009 Active 55 870301 Problem Weakness R53.1 Apr, Active 1695669 8 Problem Renal insufficiency N28.9 Dec, Active 275297256 Problem Sleep apnea G47.30 Dec, Active 98726 006 Problem B12 deficiency E53.8 Dec, Active 64 715193 Problem Pacemaker Z95.0 Jun, Active 3326252 02 Problem Esophageal reflux K21.9 Active 24 1597709 Problem Pulmonary hypertension I27.20 Apr, Acti ve 72175507 Problem Hypokalemia E87.6 Sep, Active 30116 004 Problem Type 2 diabetes with stage 3 chronic kidney disease GF R 30-59 E11.22 May, Active 314434202 Problem Fibromyalgia M79.7 Jan, Active 2030 40645 Problem Hypomagnesemia E83.42 October, Active 19 1421480 Problem Hypocalcemia E83.51 Sep, Active 5291 005 Problem Essential hypertension, benign I10 Active 5581901 Problem PAF (paroxysmal atrial fibrillation) I48.0 Mar, Active 00456773 Problem Atherosclerotic JOSH (renal artery stenosis), bilateral I70.1 Apr, Active 53453512 Problem Health maintenance examination Z00.00 22 Feb, 2 009 Active 99171984 Problem 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 Active 278894158 Problem MR (mitral regurgitation) I34.0 Apr, A ctive 04567040 Problem Osteoarthritis of left knee M17.12 Sep, Active 263948195 Problem Osteoarthritis of right knee M17.11 Jan, 201 1 Active 192214676 Problem Stable angina I20.8 May, Active 233 380132 Problem 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 Jun, Active 257183005 Problem CKD (chronic kidney disease) stage 3, GFR 30-59 ml/min N18.3 May, Active 519900121 Problem Left renal mass N28.89 Active 4438 92579 Problem Diastolic heart failure I50.30 Apr, Act susanna 330871959 Problem Chronic kidney disease, stage 4 (severe) N18.4 Active 329327936 Problem Anemia D64.9 Nov, Active 3934134 00 Problem Dry mouth R68.2 May, Active 5469390 8 Problem Atrial fibrillation, unspecified type I48.91 Active 91081066 Problem Vitamin B12 deficiency E53.8 Active 583853334 Problem Type 2 diabetes mellitus wit hout complication, without long-term current use of insulin E11.9 Active 486587877 Problem Sinusitis J32.9 Active 73387005 ALLERGIES No Information ENCOUNTERS Encounter Location Date Diagnosis [address] [address] Sep, [address] [address] Jul, [address] [address] Jul, Urinary pain R30.9 ; Weaknes s R53.1 and Anemia D64.9 [address] [place] [address] Jul, B12 deficiency E53.8 [address] [address] Jul, [address] [place] [address] Jun, Diastolic heart failure I50. 30 ; Atherosclerotic JOSH (renal artery stenosis), bilateral I70.1 ; Chronic kidney disease, stage 4 (severe) N18.4 and Anemia, unspecified type D64.[address] [place] [address] Jun, Essential hypertension, rayn gn I10 ; Atrial fibrillation, unspecified type I48.91 ; Renal insufficiency N28.9 ; Diastolic heart failure I50.30 ; Anemia D64.9 and Recurrent UTI (urinary tract infection) N39.0 [address] [place] [address] Jun, Recurrent UTI (urinary tract infection) N39.0 [place] [address] [address] [address] Jun, Diastolic heart failure I50.30 ; Anemia D64.9 ; Renal insufficiency N28.9 ; Essential hypertension, benign I10 and Atrial fibrillation, unspecified type I48.91 [place] [address] [address] Jun, [place] [address] [address] Jun, [address] [address] Jun, [place] [address] [address] Jun, [address] [address] Jun, [address] [address] Jun, Essential hypertension, ryan gn I10 ; Anemia D64.9 and Atrial fibrillation, unspecified type I48.91 [address] [address] Jun, Chronic kidney disease, stag e 4 (severe) N18.4 ; Atherosclerotic JOSH (renal artery stenosis), bilateral I70.1 ; Pulmonary hypertension I27.20 ; PAF (paroxysmal atrial fibrillation) I48.0 and Recurrent UTI (urinary tract infection) N39.0 [place] [address] [address] Jun, [facility] [address] [place] [address] Jun, [facility] [address] [id number] [place] [address] Jun, [facility] [place] [address] [place] [address] Jun, [facility] [address] [place] [address] Jun, [facility] [address] [facility] [place] [address] Jun, [address] [place] [address] Jun, Atrial fibrillation, unspeci fied type I48.91 and Type 2 diabetes mellitus without complication, without long-term current use of insulin E11.9 [facility] [address] [place] [address] May, [facility] [place] [address] [place] [address] May, [facility] [place] [address] [place] [address] May, Atrial fibrillation, unspeci fied type I48.91 [facility] [address] [place] [address] May, [facility] [place] [address] [place] [address] May, Atrial fibrillation, unspeci fied type I48.91 [facility] [address] [facility] [place] [address] May, Recurrent UTI (urinary tract infection) N39.0 [facility] [place] [address] [place] [address] May, [facility] [address] [place] [address] May, [facility] [address] [id number] [place] [address] Apr, [address] [place] [address] Apr, [address] [place] [address] Apr, [address] [place] [address] Apr, Atrial fibrillation, unspeci fied type I48.91 [address] [place] [address] Apr, [address] [place] [address] Apr, [address] [place] [address] Apr, Type 2 diabetes mellitus wit hout complication, without long-term current use of insulin E11.9 [address] [place] [address] Apr, Hyperglycemia R73.9 and Weak ness R53.[address] [place] [address] Apr, [facility] [address] [facility] [place] [address] Apr, [address] [place] [address] Apr, Viral upper respiratory trac t infection J06.9 and Fever of unknown origin R50.[address] [place] [address] Apr, [address] [place] [address] Apr, B12 deficiency E53.8 [address] [address] Apr, Pain with urination R30.9 an d Confusion R41.0 [address] [address] Mar, Type 2 diabetes mellitus wit hout complication, without long-term current use of insulin E11.9 [address] [place] [address] Mar, [address] [address] Mar, Type 2 diabetes with stage 3 chronic kidney disease GFR 30-59 E11.22 [address] [address] Mar, Atrial fibrillation, unspeci fied type I48.91 [address] [address] Mar, [address] [address] Mar, [address] [place] [address] Mar, Atrial fibrillation, unspeci fied type I48.91 ; Type 2 diabetes mellitus without complication, without long-term current use of insulin E11.9 and Essential hypertension, benign I10 [address] [address] Mar, Atrial fibrillation, unspeci fied type I48.91 ; Type 2 diabetes mellitus without complication, without long-term current use of insulin E11.9 and Essential hypertension, benign I10 [address] [place] [address] Mar, [address] [place] [address] Mar, Dysuria R30.0 [address] [place] [address] Mar, [facility] [address] [place] [address] Mar, Dysuria R30.0 [facility] [place] [address] [place] [address] Feb, Atrial fibrillation, unspeci fied type I48.91 [facility] [address] [place] [address] Feb, Atrial fibrillation, unspeci fied type I48.91 [facility] [place] [address] [place] [address] Feb, [facility] [place] [address] [place] [address] Feb, Atrial fibrillation, unspeci fied type I48.91 [facility] [place] [address] [place] [address] Feb, Recurrent UTI (urinary tract infection) N39.0 [facility] [place] [address] [place] [address] Feb, Atrial fibrillation, unspeci fied type I48.91 [facility] [address] [place] [address] Feb, [facility] [address] [place] [address] Feb, [facility] [place] [address] [place] [address] Feb, Atrial fibrillation, unspeci fied type I48.91 [facility] [address] [place] [address] Jan, Left renal mass N28.89 [facility] [place] [address] [place] [address] Jan, Left renal mass N28.89 [facility] [place] [address] [place] [address] Jan, [facility] [place] [address] [place] [address] Jan, Dysuria R30.0 [facility] [place] [address] [place] [address] Jan, Atrial fibrillation, unspeci fied type I48.91 [facility] [place] [address] [place] [address] Jan, [facility] [place] [address] [place] [address] Jan, Atrial fibrillation, unspeci fied type I48.91 [facility] [place] [address] [place] [address] Jan, B12 deficiency E53.8 [facility] [place] [address] [place] [address] Dec, Osteoarthritis of left knee M17.12 and Osteoarthritis of right knee M17.11 [facility] [address] [place] [address] Dec, [facility] [place] [address] [place] [address] Dec, [facility] [place] [address] [place] [address] Dec, Atrial fibrillation, unspeci fied type I48.91 [facility] [place] [address] [place] [address] Dec, Atrial fibrillation, unspeci fied type I48.91 [facility] [place] [address] [place] [address] Dec, [facility] [place] [address] [place] [address] Dec, [facility] [place] [address] [place] [address] Dec, Type 2 diabetes mellitus wit hout complication, without long-term current use of insulin E11.9 [facility] [place] [address] [place] [address] Dec, [facility] [place] [address] [place] [address] Dec, Atrial fibrillation, unspeci fied type I48.91 ; Recurrent UTI (urinary tract infection) N39.0 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 [facility] [place] [address] [place] [address] Dec, [facility] [address] [place] [address] Nov, B12 deficiency E53.8 [facility] [address] [place] [address] Nov, Type 2 diabetes mellitus wit hout complication, without long-term current use of insulin E11.9 [facility] [place] [address] [place] [address] Nov, Recurrent UTI N39.0 ; Atrial fibrillation, unspecified type I48.91 and halfway current use of anticoagulant therapy Z79.01 [facility] [place] [address] [place] [address] Nov, [facility] [address] [place] [address] Nov, Dysuria R30.0 and Chronic UT I N39.0 [facility] [place] [address] [place] [address] Nov, Type 2 diabetes mellitus wit hout complication, without long-term current use of insulin E11.9 [facility] [place] [address] [place] [address] Nov, [address] [place] [address] Nov, Atrial fibrillation, unspeci fied type I48.91 [facility] [place] [address] [place] [address] Nov, Dysuria R30.0 [facility] [address] [place] [address] October, B12 deficiency E53.[address] [place] [address] October, Atrial fibrillation, unspeci fied type I48.91 and Type 2 diabetes mellitus without complication, without long-term current use of insulin E11.[address] [place] [address] October, [facility] [address] [place] [address] October, [facility] [address] [place] [address] October, Dysuria R30.0 [address] [place] [address] October, Dysuria R30.[address] [place] [address] Sep, Deficiency of other specifie d B group vitamins E53.[address] [place] [address] Sep, Atrial fibrillation, unspeci fied type I48.[address] [place] [address] Sep, Type 2 diabetes mellitus wit hout complication, without long-term current use of insulin E11.[address] [place] [address] Sep, [address] [place] [address] Sep, Dysuria R30.0 and Atrial fib rillation, unspecified type I48.[address] [place] [address] Sep, Dysuria R30.0 [facility] [place] [address] [place] [address] Aug, B12 deficiency E53.8 [facility] [place] [address] [place] [address] Aug, Dysuria R30.0 [facility] [address] [place] [address] Aug, Sinusitis J32.9 [facility] [address] [place] [address] Aug, Atrial fibrillation, unspeci fied type I48.91 [facility] [address] [place] [address] Aug, [facility] [address] [place] [address] Aug, Dysuria R30.0 and Atrial fib rillation, unspecified type I48.91 [facility] [place] [address] [place] [address] Aug, Dysuria R30.0 [facility] [place] [address] [place] [address] Aug, Dysuria R30.0 [facility] [address] [place] [address] Jul, Vitamin B12 deficiency E53.8 [facility] [address] [place] [address] Jul, Acute cystitis without hemat uria N30.00 [facility] [address] [place] [address] Jul, Dysuria R30.0 [facility] [address] [place] [address] Jul, Dysuria R30.0 and Atrial fib rillation, unspecified type I48.91 [facility] [address] [place] [address] Jul, Atrial fibrillation, unspeci fied type I48.[address] [place] [address] Jul, Atrial fibrillation, unspeci fied type I48.91 [facility] [id number] [place] [address] Jun, [facility] [id number] [place] [address] May, [facility] [address] [address] May, [facility] [address] [address] May, [facility] [address] [address] May, [facility] [address] [address] May, [facility] [id number] [place] [address] Apr, [facility] [address] [address] Apr, [facility] [id number] [place] [address] Apr, [facility] [address] [address] Mar, [facility] [id number] [place] [address] Jul, IMMUNIZATIONS No Known Immunizations SOCIAL HISTORY Never Assessed REASON FOR VISIT Lab work PLAN OF CARE VITAL SIGNS MEDICATIONS Unknown Medications RESULTS No Results PROCEDURES No Known procedures INSTRUCTIONS MEDICATIONS ADMINISTERED No Known Medications MEDICAL (GENERAL) HISTORY Type Description Date Medical History type II diabetes Medical History hypertension Medical History hyperlipidemia Medical History kidney diease Medical History a-fib Medical History pacemaker Medical History Esophageal reflux Medical History anemia Medical History health maintenance examination Medical History hypocalcemia Medical History hypokalemia Medical History hypomagnesemia Medical History renal insufficiency Medical History diastolic heart failure Medical History renal artery stenosis Medical History pulmonary hypertension Medical History MR Medical History sleep apnea Medical History B12 deifiency Medical History PAF Medical History CKD Medical History Stable angina Medical History Dry mouth Medical History CVA Surgical History colectomy Surgical History kidney transplant Surgical History heart cath Surgical History cardiac pacemaker Hospitalization History Surgery(s) only Hospitalization History childbirth only Hospitalization History UTI Hospitalization History via [facility] 06/2019
--- OUTSIDE RECORDS SUMMARY | 2019-09-21 14:42 | XMS REPORT | Continuity of Care Document ---
Author Organization Unknown Address Unknown Phone Unavailable Allergies Active Description Code Type Severity Reaction Onset Reported/Identified Relationship to Patient Clinical Status Yes Penicillins [id number] Drug Aller gy Unknown N/A 08/11/2018 [address] SYLVIE [address] [id number] Dr ug Allergy Unknown N/A 09/24/2018 Yes amlodipine [id number] Drug Allerg y Unknown N/A 09/24/2018 Yes ciprofloxacin [id number] Caleb g Allergy Unknown N/A 09/24/2018 Yes diltiazem [id number] Drug Allergy Unknown N/A 09/24/2018 Yes levofloxacin [id number] Drug Allergy Unknown N/A 09/24/2018 Yes loratadine [id number] Drug Allerg y Unknown N/A 09/24/2018 Yes Penicillins [id number] Drug Aller gy Unknown Pt has received 09/24/2018 Yes pseudoephedrine [id number] D rug Allergy Unknown N/A 09/24/2018 Yes simvastatin [id number] Drug Aller gy Unknown N/A 09/24/2018 Yes Sulfa (Sulfonamide Antibiotics) [id number] Drug Allergy Unknown N/A 019 Yes ceftriaxone [id number] Drug Aller gy Mild Itching 12/01/2018 Yes Penicillins [id number] Drug Aller gy Unknown reacted to Roce 12/01/2018 Medications There is no data. Problems Date Dx Coded Attending Type Code Diagnosis Diagnosed By 05/28/1121 GITA BORREGO APRN Ot D50.9 IRON DEFICIENCY ANEMIA, UNSPECIFIED 05/28/1121 GITA BORREGO APRN Ot D63.1 ANEMIA IN CHRONIC KIDNEY DISEASE 05/28/1121 GITA BORREGO APRN Ot N18.4 CHRONIC KIDNEY DISEASE, STAGE 4 (SEVERE) 08/12/2018 JERAD IBARRA, MAXINE Mancera Ot A41. 9 SEPSIS, UNSPECIFIED ORGANISM 08/12/2018 JERAD IBARRA, MAXINE Mancera Ot E11. 9 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 MELLITUS WITHOUT COMPLIC 08/12/2018 MAXINE MARS MD, Ot E87. 2 ACIDOSIS 08/12/2018 MAXINE MARS MD, Ot F03. 90 UNSPECIFIED DEMENTIA WITHOUT BEHAVIORAL 08/12/2018 MAXINE MARS MD, Ot I13. 0 HYP HRT CHR KDNY DIS W HRT FAIL AND ST 08/12/2018 MAXINE MARS MD, Ot I34. 0 NONRHEUMATIC MITRAL (VALVE) INSUFFICIENC 08/12/2018 MAXINE MARS MD, Ot I42. 9 CARDIOMYOPATHY, UNSPECIFIED 08/12/2018 MAXINE MARS MD, Ot I48. 0 PAROXYSMAL ATRIAL FIBRILLATION 08/12/2018 MAXINE MARS MD, Ot I50. 32 CHRONIC DIASTOLIC (CONGESTIVE) HEART [place] 08/12/2018 MAXINE MARS MD, Ot M19. 91 PRIMARY OSTEOARTHRITIS, UNSPECIFIED SITE 08/12/2018 MAXINE MARS MD, Ot N18. 3 CHRONIC KIDNEY DISEASE, STAGE 3 (MODERAT 08/12/2018 MAXINE MARS MD, Ot N30. 00 ACUTE CYSTITIS WITHOUT HEMATURIA 08/12/2018 MAXINE MARS MD, Ot R19. 7 DIARRHEA, UNSPECIFIED 08/12/2018 MAXINE MARS MD Ot Z66 DO NOT RESUSCITATE 08/12/2018 MAXINE MARS MD, Ot Z79. 01 USP (CURRENT) USE OF ANTICOAGULANT 08/12/2018 MAXINE MARS MD, Ot Z86. 73 PRSNL HX OF TIA (TIA), AND CEREB INFRC W 08/12/2018 MAXINE MARS MD, Ot Z90. 5 ACQUIRED ABSENCE OF KIDNEY 08/12/2018 MAXINE MARS MD Ot Z95. 0 PRESENCE OF CARDIAC PACEMAKER 08/12/2018 MAXINE MARS MD Ot Z95. 5 PRESENCE OF CORONARY ANGIOPLASTY IMPLANT 08/13/2018 MAXINE MARS MD, Ot A41. 9 SEPSIS, UNSPECIFIED ORGANISM 08/13/2018 MAXINE MARS MD Ot E11. 9 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 MELLITUS WITHOUT COMPLIC 08/13/2018 MAXINE MARS MD Ot E87. 2 ACIDOSIS 08/13/2018 MAXINE MARS MD, Ot F03. 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 0 NONRHEUMATIC MITRAL (VALVE) INSUFFICIENC 08/13/2018 MAXINE MARS MD Ot I42. 9 CARDIOMYOPATHY, UNSPECIFIED 08/13/2018 MAXINE MARS MD Ot I48. 0 PAROXYSMAL ATRIAL FIBRILLATION 08/13/2018 MAXINE MARS MD Ot I50. 32 CHRONIC DIASTOLIC (CONGESTIVE) HEART [place] 08/13/2018 MAXINE MARS MD, Ot M19. 91 PRIMARY OSTEOARTHRITIS, UNSPECIFIED SITE 08/13/2018 MAXINE MARS MD, Ot N18. 3 CHRONIC KIDNEY DISEASE, STAGE 3 (MODERAT 08/13/2018 MAXINE MARS MD Ot N30. 00 ACUTE CYSTITIS WITHOUT HEMATURIA 08/13/2018 MAXINE MARS MD Ot R19. 7 DIARRHEA, UNSPECIFIED 08/13/2018 MAXINE MARS MD Ot Z66 DO NOT RESUSCITATE 08/13/2018 MAXINE MARS MD Ot Z79. 01 CLOTH FINISHING RANGE TENDER (CURRENT) USE OF ANTICOAGULANT 08/13/2018 MAXINE MARS MD Ot Z86. 73 PRSNL HX OF TIA (TIA), AND CEREB INFRC W 08/13/2018 MAXINE MARS MD Ot Z90. 5 ACQUIRED ABSENCE OF KIDNEY 08/13/2018 MAXINE MARS MD Ot Z95. 0 PRESENCE OF CARDIAC PACEMAKER 08/13/2018 MAXINE MARS MD Ot Z95. 5 PRESENCE OF CORONARY ANGIOPLASTY IMPLANT 08/13/2018 MAXINE MARS MD Ot A41. 9 SEPSIS, UNSPECIFIED ORGANISM 08/13/2018 MAXINE MARS MD Ot E11. 9 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 MELLITUS WITHOUT COMPLIC 08/13/2018 MAXINE MARS MD Ot E87. 2 ACIDOSIS 08/13/2018 MAXINE MARS MD Ot F03. 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 0 NONRHEUMATIC MITRAL (VALVE) INSUFFICIENC 08/13/2018 MAXINE MARS MD, Ot I42. 9 CARDIOMYOPATHY, UNSPECIFIED 08/13/2018 MAXINE MARS MD, Ot I48. 0 PAROXYSMAL ATRIAL FIBRILLATION 08/13/2018 MAXINE MARS MD, Ot I50. 32 CHRONIC DIASTOLIC (CONGESTIVE) HEART [place] 08/13/2018 MAXINE MARS MD, Ot M19. 91 PRIMARY OSTEOARTHRITIS, UNSPECIFIED SITE 08/13/2018 MAXINE MARS MD, Ot N18. 3 CHRONIC KIDNEY DISEASE, STAGE 3 (MODERAT 08/13/2018 MAXINE MARS MD, Ot N30. 00 ACUTE CYSTITIS WITHOUT HEMATURIA 08/13/2018 MAXINE MARS MD, Ot R19. 7 DIARRHEA, UNSPECIFIED 08/13/2018 MAXINE MARS MD, Ot Z66 DO NOT RESUSCITATE 08/13/2018 MAXINE MARS MD, Ot Z79. 01 CLOTH FINISHING RANGE TENDER (CURRENT) USE OF ANTICOAGULANT 08/13/2018 MAXINE MARS MD Ot Z86. 73 PRSNL HX OF TIA (TIA), AND CEREB INFRC W 08/13/2018 MAXINE MARS MD Ot Z90. 5 ACQUIRED ABSENCE OF KIDNEY 08/13/2018 MAXINE MARS MD Ot Z95. 0 PRESENCE OF CARDIAC PACEMAKER 08/13/2018 MAXINE MARS MD Ot Z95. 5 PRESENCE OF CORONARY ANGIOPLASTY IMPLANT 08/14/2018 MAXINE MARS MD Ot A41. 51 SEPSIS DUE TO ESCHERICHIA COLI [E. COLI] 08/14/2018 MAXINE MARS MD Ot E11. 9 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 MELLITUS WITHOUT COMPLIC 08/14/2018 MAXINE MARS MD Ot E87. 2 ACIDOSIS 08/14/2018 MAXINE MARS MD Ot F03. 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 0 NONRHEUMATIC MITRAL (VALVE) INSUFFICIENC 08/14/2018 MAXINE MARS MD, Ot I42. 9 CARDIOMYOPATHY, UNSPECIFIED 08/14/2018 MAXINE MARS MD Ot I48. 0 PAROXYSMAL ATRIAL FIBRILLATION 08/14/2018 MAXINE MARS MD, Ot I50. 32 CHRONIC DIASTOLIC (CONGESTIVE) HEART [place] 08/14/2018 MAXINE MARS MD, Ot M19. 91 PRIMARY OSTEOARTHRITIS, UNSPECIFIED SITE 08/14/2018 MAXINE MARS MD, Ot N18. 3 CHRONIC KIDNEY DISEASE, STAGE 3 (MODERAT 08/14/2018 MAXINE MARS MD, Ot N30. 00 ACUTE CYSTITIS WITHOUT HEMATURIA 08/14/2018 MAXINE MARS MD, Ot R19. 7 DIARRHEA, UNSPECIFIED 08/14/2018 MAXINE MARS MD, Ot Z66 DO NOT RESUSCITATE 08/14/2018 MAXINE MARS MD, Ot Z79. 01 USP (CURRENT) USE OF ANTICOAGULANT 08/14/2018 MAXINE MARS MD, Ot Z86. 73 PRSNL HX OF TIA (TIA), AND CEREB INFRC W 08/14/2018 MAXINE MARS MD, Ot Z90. 5 ACQUIRED ABSENCE OF KIDNEY 08/14/2018 MAXINE MARS MD Ot Z95. 0 PRESENCE OF CARDIAC PACEMAKER 08/14/2018 MAXINE MARS MD Ot Z95. 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 09/26/2018 ZEE RICARDO TERE Ot E78.5 HYPERLIPIDEMIA, [...] 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 09/26/2018 KOCH DO TERE Ot K21.9 GASTRO-ESOPHAGEAL REFLUX DISEASE WITHOUT 09/26/2018 ZEE DOSCOTI Ot N17.9 ACUTE KIDNEY FAILURE, UNSPECIFIED 09/26/2018 KOCH DO TERE Ot N18.2 CHRONIC KIDNEY DISEASE, STAGE 2 (MILD) 09/26/2018 KOCH DO TERE Ot N39.0 URINARY TRACT INFECTION, SITE NOT SPECIF 09/26/2018 TERE KOCH DO Ot Z79.01 CLOTH FINISHING RANGE TENDER (CURRENT) USE OF ANTICOAGULANT 09/26/2018 ZEE DOSCOTI Ot Z95.0 PRESENCE OF CARDIAC PACEMAKER 09/26/2018 TERE KOCH DO Ot Z95.5 PRESENCE OF CORONARY ANGIOPLASTY IMPLANT 10/12/2018 SAULO BRIGHT MD Ot E27.8 OTHER SPECIFIED DISORDERS OF ADRENAL GLA 10/12/2018 SAULO BRIGHT MD Ot K57.3 0 DVRTCLOS OF LG INT W/O PERFORATION OR AB 10/12/2018 SAULO BRIGHT MD Ot K76.9 LIVER DISEASE, UNSPECIFIED 10/12/2018 SAULO BRIGHT MD Ot N28.1 CYST OF KIDNEY, ACQUIRED 10/12/2018 SAULO BRIGHT MD, Ot N39.0 URINARY TRACT INFECTION, SITE NOT SPECIF 10/12/2018 SAULO BRIGHT MD Ot Z90.4 9 ACQUIRED ABSENCE OF OTHER SPECIFIED PART 10/14/2018 SAULO BRIGHT MD Ot E27.8 OTHER SPECIFIED DISORDERS OF ADRENAL GLA 10/14/2018 SAULO BRIGHT MD Ot K57.3 0 DVRTCLOS OF LG INT W/O PERFORATION OR AB 10/14/2018 SAULO BRIGHT MD, Ot K76.9 LIVER DISEASE, UNSPECIFIED 10/14/2018 SAULO BRIGHT MD Ot N28.1 CYST OF KIDNEY, ACQUIRED 10/14/2018 SAULO BRIGHT MD Ot N39.0 URINARY TRACT INFECTION, SITE NOT SPECIF 10/14/2018 SAULO BRIGHT MD Ot Z90.4 9 ACQUIRED ABSENCE OF OTHER SPECIFIED PART 10/22/2018 SAULO BRIGHT MD Ot N28.1 CYST OF KIDNEY, ACQUIRED 10/26/2018 SAULO BRIGHT MD Ot E27.8 OTHER SPECIFIED DISORDERS OF ADRENAL GLA 10/26/2018 SAULO BRIGHT MD Ot K57.3 0 DVRTCLOS OF LG INT W/O PERFORATION OR AB 10/26/2018 SAULO BRIGHT MD Ot K76.9 LIVER DISEASE, UNSPECIFIED 10/26/2018 SAULO BRIGHT MD Ot N28.1 CYST OF KIDNEY, ACQUIRED 10/26/2018 SAULO BRIGHT MD Ot N39.0 URINARY TRACT INFECTION, SITE NOT SPECIF 10/26/2018 SAULO BRIGHT MD Ot Z90.4 9 ACQUIRED ABSENCE OF OTHER SPECIFIED PART 10/26/2018 SAULO BRIGHT MD Ot N28.1 CYST OF KIDNEY, ACQUIRED 11/02/2018 SAULO BRIGHT MD Ot E27.8 OTHER SPECIFIED DISORDERS OF ADRENAL GLA 11/02/2018 SAULO BRIGHT MD Ot K57.3 0 DVRTCLOS OF LG INT W/O PERFORATION OR AB 11/02/2018 SAULO BRIGHT MD Ot K76.9 LIVER DISEASE, UNSPECIFIED 11/02/2018 SAULO BRIGHT MD Ot N28.1 CYST OF KIDNEY, ACQUIRED 11/02/2018 SAULO BRIGHT MD Ot N39.0 URINARY TRACT INFECTION, SITE NOT SPECIF 11/02/2018 SAULO BRIGHT MD Ot Z90.4 9 ACQUIRED ABSENCE OF OTHER SPECIFIED PART 11/10/2018 SAULO BRIGHT MD Ot N28.1 CYST OF KIDNEY, ACQUIRED 12/01/2018 SAULO BRIGHT MD Ot E27.8 OTHER SPECIFIED DISORDERS OF ADRENAL GLA 12/01/2018 SAULO BRIGHT MD Ot K57.3 0 DVRTCLOS OF LG INT W/O PERFORATION OR AB 12/01/2018 SAULO BRIGHT MD Ot K76.9 LIVER DISEASE, UNSPECIFIED 12/01/2018 SAULO BRIGHT MD Ot N28.1 CYST OF KIDNEY, ACQUIRED 12/01/2018 SAULO BRIGHT MD Ot N39.0 URINARY TRACT INFECTION, SITE NOT SPECIF 12/01/2018 SAULO BRIGHT MD Ot Z90.4 9 ACQUIRED ABSENCE OF OTHER SPECIFIED PART 12/01/2018 KAILA IBARAR, SAULO Pal Ot N28.1 CYST OF KIDNEY, ACQUIRED 12/02/2018 KOCH DO TERE Ot E11.9 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 MELLITUS WITHOUT COMPLIC 12/02/2018 KOCH DO TERE Ot E78.5 HYPERLIPIDEMIA, UNSPECIFIED 12/02/2018 KOCH DO, TERE Ot F03.90 UNSPECIFIED DEMENTIA WITHOUT BEHAVIORAL 12/02/2018 KOCH DO TERE Ot F05 DELIRIUM DUE TO KNOWN PHYSIOLOGICAL COND 12/02/2018 KOCH DO TERE Ot G93.40 ENCEPHALOPATHY, UNSPECIFIED 12/02/2018 KOCH DO, TERE Ot H91.90 UNSPECIFIED HEARING LOSS, UNSPECIFIED EA 12/02/2018 ZEE DO TERE Ot I13.0 HYP HRT CHR KDNY DIS W HRT FAIL AND ST 12/02/2018 ZEE DO TERE Ot I38 ENDOCARDITIS, VALVE UNSPECIFIED 12/02/2018 ZEE DO TERE Ot I42.9 CARDIOMYOPATHY, UNSPECIFIED 12/02/2018 ZEE RICARDO TERE Ot I50.9 HEART FAILURE, UNSPECIFIED 12/02/2018 ZEE DO TERE Ot M19.91 PRIMARY OSTEOARTHRITIS, UNSPECIFIED SITE 12/02/2018 ZEE DO TERE Ot N17.9 ACUTE KIDNEY FAILURE, UNSPECIFIED 12/02/2018 ZEE DO TERE Ot N18.9 CHRONIC KIDNEY DISEASE, UNSPECIFIED 12/02/2018 ZEE DO TERE Ot N30.00 ACUTE CYSTITIS WITHOUT HEMATURIA 12/02/2018 ZEE RICARDO TERE Ot Z79.01 USP (CURRENT) USE OF ANTICOAGULANT 12/02/2018 ZEE RICARDO TERE Ot Z79.89 9 OTHER USP (CURRENT) DRUG THERAPY 12/02/2018 ZEE RICARDO TERE Ot Z86.73 PRSNL HX OF TIA (TIA), AND CEREB INFRC W 12/02/2018 ZEE RICARDO TERE Ot Z88.0 ALLERGY STATUS TO PENICILLIN 12/02/2018 ZEE RICARDO TERE Ot Z88.1 ALLERGY STATUS TO OTHER ANTIBIOTIC AGENT 12/02/2018 ZEE RICARDO TERE Ot Z88.2 ALLERGY STATUS TO SULFONAMIDES STATUS 12/02/2018 ZEE RICARDO TERE Ot Z90.5 ACQUIRED ABSENCE OF KIDNEY 12/02/2018 ZEE RICARDO TERE Ot Z95.0 PRESENCE OF CARDIAC PACEMAKER 12/02/2018 TERE KOCH DO Ot Z95.5 PRESENCE OF CORONARY ANGIOPLASTY IMPLANT 12/02/2018 TERE KOCH DO Ot Z97.4 PRESENCE OF EXTERNAL HEARING-AID 12/02/2018 TERE KOCH DO Ot E11.9 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 MELLITUS WITHOUT COMPLIC 12/02/2018 TERE KOCH DO Ot E78.5 HYPERLIPIDEMIA, UNSPECIFIED 12/02/2018 SCOT KOCH DOI Ot F03.90 UNSPECIFIED DEMENTIA WITHOUT BEHAVIORAL 12/02/2018 TERE KOCH DO Ot F05 DELIRIUM DUE TO KNOWN PHYSIOLOGICAL COND 12/02/2018 SCOT KOCH DOI Ot G93.40 ENCEPHALOPATHY, UNSPECIFIED 12/02/2018 SCOT KOCH DOI Ot H91.90 UNSPECIFIED HEARING LOSS, UNSPECIFIED EA 12/02/2018 TERE KOCH DO Ot I13.0 HYP HRT CHR KDNY DIS W HRT FAIL AND ST 12/02/2018 TERE KOCH DO Ot I38 ENDOCARDITIS, VALVE UNSPECIFIED 12/02/2018 TERE KOCH DO Ot I42.9 CARDIOMYOPATHY, UNSPECIFIED 12/02/2018 SCOT KOCH DOI Ot I50.9 HEART FAILURE, UNSPECIFIED 12/02/2018 SCOT KOCH DOI Ot M19.91 PRIMARY OSTEOARTHRITIS, UNSPECIFIED SITE 12/02/2018 SCOT KOCH DOI Ot N17.9 ACUTE KIDNEY FAILURE, UNSPECIFIED 12/02/2018 ZEE RICARDO TERE Ot N18.9 CHRONIC KIDNEY DISEASE, UNSPECIFIED 12/02/2018 SCOT KOCH DOI Ot N30.00 ACUTE CYSTITIS WITHOUT HEMATURIA 12/02/2018 TERE KOCH DO Ot Z79.01 USP (CURRENT) USE OF ANTICOAGULANT 12/02/2018 SCOT KOCH DOI Ot Z79.89 9 OTHER CLOTH FINISHING RANGE TENDER (CURRENT) DRUG THERAPY 12/02/2018 TERE KOCH DO Ot Z86.73 PRSNL HX OF TIA (TIA), AND CEREB INFRC W 12/02/2018 SCOT KOCH DOI Ot Z88.0 ALLERGY STATUS TO PENICILLIN 12/02/2018 SCOT KOCH DOI Ot Z88.1 ALLERGY STATUS TO OTHER ANTIBIOTIC AGENT 12/02/2018 SCOT KOCH DOI Ot Z88.2 ALLERGY STATUS TO SULFONAMIDES STATUS 12/02/2018 TERE KOCH DO Ot Z90.5 ACQUIRED ABSENCE OF KIDNEY 12/02/2018 TERE KOCH DO Ot Z95.0 PRESENCE OF CARDIAC PACEMAKER 12/02/2018 TERE KOCH DO Ot Z95.5 PRESENCE OF CORONARY ANGIOPLASTY IMPLANT 12/02/2018 TERE KOCH DO Ot Z97.4 PRESENCE OF EXTERNAL HEARING-AID 12/10/2018 TERE KOCH DO Ot E11.9 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 MELLITUS WITHOUT COMPLIC 12/10/2018 TERE KOCH DO Ot E78.5 HYPERLIPIDEMIA, UNSPECIFIED 12/10/2018 ZEE RICARDO TERE Ot F03.90 UNSPECIFIED DEMENTIA WITHOUT BEHAVIORAL 12/10/2018 TERE KOCH DO Ot F05 DELIRIUM DUE TO KNOWN PHYSIOLOGICAL COND 12/10/2018 TERE KOCH DO Ot G93.40 ENCEPHALOPATHY, UNSPECIFIED 12/10/2018 ZEE RICARDO TERE Ot H91.90 UNSPECIFIED HEARING LOSS, UNSPECIFIED EA 12/10/2018 TERE KOCH DO Ot I13.0 HYP HRT CHR KDNY DIS W HRT FAIL AND ST 12/10/2018 TERE KOCH DO Ot I38 ENDOCARDITIS, VALVE UNSPECIFIED 12/10/2018 TERE KOCH DO Ot I42.9 CARDIOMYOPATHY, UNSPECIFIED 12/10/2018 TERE KOCH DO Ot I50.9 HEART FAILURE, UNSPECIFIED 12/10/2018 TERE KOCH DO Ot M19.91 PRIMARY OSTEOARTHRITIS, UNSPECIFIED SITE 12/10/2018 TERE KOCH DO Ot N17.9 ACUTE KIDNEY FAILURE, UNSPECIFIED 12/10/2018 TERE KOCH DO Ot N18.9 CHRONIC KIDNEY DISEASE, UNSPECIFIED 12/10/2018 TERE KOCH DO Ot N30.00 ACUTE CYSTITIS WITHOUT HEMATURIA 12/10/2018 TERE KOCH DO Ot Z79.01 CLOTH FINISHING RANGE TENDER (CURRENT) USE OF ANTICOAGULANT 12/10/2018 TERE KOCH DO Ot Z79.89 9 OTHER CLOTH FINISHING RANGE TENDER (CURRENT) DRUG THERAPY 12/10/2018 TERE KOCH DO Ot Z86.73 PRSNL HX OF TIA (TIA), AND CEREB INFRC W 12/10/2018 TERE KOCH DO Ot Z88.0 ALLERGY STATUS TO PENICILLIN 12/10/2018 TERE KOCH DO Ot Z88.1 ALLERGY STATUS TO OTHER ANTIBIOTIC AGENT 12/10/2018 TERE KOCH DO Ot Z88.2 ALLERGY STATUS TO SULFONAMIDES STATUS 12/10/2018 TERE KOCH DO Ot Z90.5 ACQUIRED ABSENCE OF KIDNEY 12/10/2018 TERE KOCH DO Ot Z95.0 PRESENCE OF CARDIAC PACEMAKER 12/10/2018 TERE KOCH DO Ot Z95.5 PRESENCE OF CORONARY ANGIOPLASTY IMPLANT 12/10/2018 TERE KOCH DO Ot Z97.4 PRESENCE OF EXTERNAL HEARING-AID 12/10/2018 TERE KOCH DO Ot E11.9 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 MELLITUS WITHOUT COMPLIC 12/10/2018 TERE KOCH DO Ot E78.5 HYPERLIPIDEMIA, UNSPECIFIED 12/10/2018 TERE KOCH DO Ot F03.90 UNSPECIFIED DEMENTIA WITHOUT BEHAVIORAL 12/10/2018 TERE KOCH DO Ot F05 DELIRIUM DUE TO KNOWN PHYSIOLOGICAL COND 12/10/2018 TERE KOCH DO Ot G93.40 ENCEPHALOPATHY, UNSPECIFIED 12/10/2018 ZEE RICARDO TEER Ot H91.90 UNSPECIFIED HEARING LOSS, UNSPECIFIED EA 12/10/2018 TERE KOCH DO Ot I13.0 HYP HRT CHR KDNY DIS W HRT FAIL AND ST 12/10/2018 TERE KOCH DO Ot I38 ENDOCARDITIS, VALVE UNSPECIFIED 12/10/2018 SCOT KOCH DOI Ot I42.9 CARDIOMYOPATHY, UNSPECIFIED 12/10/2018 ZEE RICARDO TERE Ot I50.9 HEART FAILURE, UNSPECIFIED 12/10/2018 ZEE RICARDO TERE Ot M19.91 PRIMARY OSTEOARTHRITIS, UNSPECIFIED SITE 12/10/2018 SCOT KOCH DOI Ot N17.9 ACUTE KIDNEY FAILURE, UNSPECIFIED 12/10/2018 ZEE RICARDO TERE Ot N18.9 CHRONIC KIDNEY DISEASE, UNSPECIFIED 12/10/2018 ZEE RICARDO TERE Ot N30.00 ACUTE CYSTITIS WITHOUT HEMATURIA 12/10/2018 TERE KOCH DO Ot Z79.01 CLOTH FINISHING RANGE TENDER (CURRENT) USE OF ANTICOAGULANT 12/10/2018 TERE KOCH DO Ot Z79.89 9 OTHER USP (CURRENT) DRUG THERAPY 12/10/2018 SCOT KOCH DOI Ot Z86.73 PRSNL HX OF TIA (TIA), AND CEREB INFRC W 12/10/2018 TERE KOCH DO Ot Z88.0 ALLERGY STATUS TO PENICILLIN 12/10/2018 KOCH DO TERE Ot Z88.1 ALLERGY STATUS TO OTHER ANTIBIOTIC AGENT 12/10/2018 KOCH DO, TERE Ot Z88.2 ALLERGY STATUS TO SULFONAMIDES STATUS 12/10/2018 KOCH DO, TERE Ot Z90.5 ACQUIRED ABSENCE OF KIDNEY 12/10/2018 KOCH DO, TERE Ot Z95.0 PRESENCE OF CARDIAC PACEMAKER 12/10/2018 KOCH DO, TERE Ot Z95.5 PRESENCE OF CORONARY ANGIOPLASTY IMPLANT 12/10/2018 KOCH DO TERE Ot Z97.4 PRESENCE OF EXTERNAL HEARING-AID 12/21/2018 YUMIKO IBARRA, ANNE MARIE Mancera Ot R30 .0 DYSURIA 01/06/2019 ANNE MARIE CALDERON MD Ot R30 .0 DYSURIA 01/14/2019 LAURELNICOLETTE CAINP Ot N39.0 URINARY TRACT INFECTION, SITE NOT SPECIF 01/14/2019 LAURELNICOLETTE KEYSEATER OPERATOR Ot N39.0 URINARY TRACT INFECTION, SITE NOT SPECIF 01/28/2019 LAURELNICOLETTEP Ot N39.0 URINARY TRACT INFECTION, SITE NOT SPECIF 02/04/2019 ANNE MARIE CALDERON MD Ot R30 .0 DYSURIA 02/23/2019 ANNE MARIE CALDERON MD Ot R30 .0 DYSURIA 03/17/2019 SAULO BRIGHT MD Ot 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) 03/17/2019 SAULO BRIGHT MD, Ot N28.1 CYST OF KIDNEY, ACQUIRED 03/17/2019 SAULO BRIGHT MD Ot Z87.4 42 PERSONAL HISTORY OF URINARY CALCULI 03/17/2019 SAULO BRIGHT MD Ot Z90.4 9 ACQUIRED ABSENCE OF OTHER SPECIFIED PART 05/04/2019 ANNE MARIE CALDERON MD Ot R30 .9 PAINFUL MICTURITION, UNSPECIFIED 05/04/2019 ANNE MARIE CALDERON MD, Ot R41 .0 DISORIENTATION, UNSPECIFIED 05/05/2019 JS MC MD Ot 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 05/05/2019 JS MC MD Ot E11.65 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 MELLITUS WITH HYPERGLYCE 05/05/2019 JS MC MD Ot E86.1 HYPOVOLEMIA 05/05/2019 JS MC MD, Ot F03.90 UNSPECIFIED DEMENTIA WITHOUT BEHAVIORAL 05/05/2019 JS MC MD, Ot I13.0 HYP HRT CHR [place] DIS W HRT FAIL AND ST 05/05/2019 JS MC MD, Ot I50.9 HEART FAILURE, UNSPECIFIED 05/05/2019 JS MC MD, Ot N18.9 CHRONIC KIDNEY DISEASE, UNSPECIFIED 05/05/2019 JS MC MD, Ot N39.0 URINARY TRACT INFECTION, SITE NOT SPECIF 05/05/2019 JS MC MD, Ot R06.2 WHEEZING 05/05/2019 JS MC MD, Ot R73.9 HYPERGLYCEMIA, UNSPECIFIED 05/05/2019 JS MC MD, Ot Z79.01 CLOTH FINISHING RANGE TENDER (CURRENT) USE OF ANTICOAGULANT 05/05/2019 JS MC MD, Ot Z79.02 USP (CURRENT) USE OF ANTITHROMBOTI 05/05/2019 JS MC MD, Ot Z86.73 PRSNL HX OF TIA (TIA), AND CEREB INFRC W 05/05/2019 JS MC MD, Ot Z88.0 ALLERGY STATUS TO PENICILLIN 05/05/2019 JS MC MD, Ot Z88.1 ALLERGY STATUS TO OTHER ANTIBIOTIC AGENT 05/05/2019 JS MC MD, Ot Z88.2 ALLERGY STATUS TO SULFONAMIDES STATUS 05/05/2019 JS MC MD, Ot Z88.8 ALLERGY STATUS TO OT DRUG/MEDS/BIOL SUB 05/05/2019 JS MC MD, Ot Z90.5 ACQUIRED ABSENCE OF KIDNEY 05/05/2019 JS MC MD, Ot Z95.0 PRESENCE OF CARDIAC PACEMAKER 05/05/2019 JS MC MD, Ot Z95.5 PRESENCE OF CORONARY ANGIOPLASTY IMPLANT 05/09/2019 JS MC MD, Ot 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 05/09/2019 BRUEGGEMANN MD, JS T Ot E11.65 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 MELLITUS WITH HYPERGLYCE 05/09/2019 JS MC MD Ot E86.1 HYPOVOLEMIA 05/09/2019 JS MC MD, Ot F03.90 UNSPECIFIED DEMENTIA WITHOUT BEHAVIORAL 05/09/2019 JS MC MD, Ot I13.0 HYP HRT CHR [place] DIS W HRT FAIL AND ST 05/09/2019 JS MC MD, Ot I50.9 HEART FAILURE, UNSPECIFIED 05/09/2019 JS MC MD, Ot N18.9 CHRONIC KIDNEY DISEASE, UNSPECIFIED 05/09/2019 JS MC MD, Ot N39.0 URINARY TRACT INFECTION, SITE NOT SPECIF 05/09/2019 JS MC MD Ot R06.2 WHEEZING 05/09/2019 JS MC MD, Ot R73.9 HYPERGLYCEMIA, UNSPECIFIED 05/09/2019 JS MC MD, Ot Z79.01 CLOTH FINISHING RANGE TENDER (CURRENT) USE OF ANTICOAGULANT 05/09/2019 JS MC MD, Ot Z79.02 USP (CURRENT) USE OF ANTITHROMBOTI 05/09/2019 JS MC MD, Ot Z86.73 PRSNL HX OF TIA (TIA), AND CEREB INFRC W 05/09/2019 JS MC MD, Ot Z88.0 ALLERGY STATUS TO PENICILLIN 05/09/2019 JS MC MD, Ot Z88.1 ALLERGY STATUS TO OTHER ANTIBIOTIC AGENT 05/09/2019 JS MC MD, Ot Z88.2 ALLERGY STATUS TO SULFONAMIDES STATUS 05/09/2019 JS MC MD, Ot Z88.8 ALLERGY STATUS TO OTH DRUG/MEDS/BIOL SUB 05/09/2019 JS MC MD, Ot Z90.5 ACQUIRED ABSENCE OF KIDNEY 05/09/2019 JS MC MD, Ot Z95.0 PRESENCE OF CARDIAC PACEMAKER 05/09/2019 JS MC MD, Ot Z95.5 PRESENCE OF CORONARY ANGIOPLASTY IMPLANT 05/24/2019 YUMIKO IBARRA, ANNE MARIE Mancera Ot R30 .9 PAINFUL MICTURITION, UNSPECIFIED 05/24/2019 YUMIKO IBARRA, ANNE MARIE Mancera Ot R41 .0 DISORIENTATION, UNSPECIFIED 06/28/2019 KOCH DO, TERE Ot D63.1 ANEMIA IN CHRONIC KIDNEY DISEASE 06/28/2019 KOCH DO, TERE Ot 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 06/28/2019 KOCH DO, TERE Ot F03.90 UNSPECIFIED DEMENTIA WITHOUT BEHAVIORAL 06/28/2019 ZEE DO TERE Ot I13.0 HYP HRT CHR [place] DIS W HRT FAIL AND ST 06/28/2019 ZEE DO, TERE Ot I27.20 PULMONARY HYPERTENSION, UNSPECIFIED 06/28/2019 KOCH DO TERE Ot I42.9 CARDIOMYOPATHY, UNSPECIFIED 06/28/2019 KOCH DO TERE Ot I48.20 CHRONIC ATRIAL FIBRILLATION, UNSPECIFIED 06/28/2019 KOCH DO, TERE Ot I50.31 ACUTE DIASTOLIC (CONGESTIVE) HEART FAILU 06/28/2019 ZEE DO TERE Ot J44.9 CHRONIC OBSTRUCTIVE PULMONARY DISEASE, U 06/28/2019 ZEE DO, TERE Ot M19.90 UNSPECIFIED OSTEOARTHRITIS, UNSPECIFIED 06/28/2019 KOCH DO, TERE Ot N17.9 ACUTE KIDNEY FAILURE, UNSPECIFIED 06/28/2019 KOCH DO, TERE Ot N18.4 CHRONIC KIDNEY DISEASE, STAGE 4 (SEVERE) 06/28/2019 KOCH DO TERE Ot N39.0 URINARY TRACT INFECTION, SITE NOT SPECIF 06/28/2019 ZEE DO TERE Ot Z79.01 CLOTH FINISHING RANGE TENDER (CURRENT) USE OF ANTICOAGULANT 06/28/2019 ZEE DO TERE Ot Z86.73 PRSNL HX OF TIA (TIA), AND CEREB INFRC W 06/28/2019 ZEE DO TERE Ot Z88.0 ALLERGY STATUS TO PENICILLIN 06/28/2019 ZEE DO TERE Ot Z88.1 ALLERGY STATUS TO OTHER ANTIBIOTIC AGENT 06/28/2019 ZEE RICARDO TERE Ot Z89.52 9 ACQUIRED ABSENCE OF UNSPECIFIED KNEE 06/28/2019 ZEE DO TERE Ot Z95.0 PRESENCE OF CARDIAC PACEMAKER 06/28/2019 ZEE DO TERE Ot Z95.5 PRESENCE OF CORONARY ANGIOPLASTY IMPLANT 06/28/2019 YUMIKO IBARRA, ANNE MARIE M Ot N39 .0 URINARY TRACT INFECTION, SITE NOT SPECIF 07/04/2019 JORGE LUIS POWERS MD Ot 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 07/04/2019 JORGE LUIS POWERS MD Ot F03.90 UNSPECIFIED DEMENTIA WITHOUT BEHAVIORAL 07/04/2019 JORGE LUIS POWERS MD Ot I1 0 ESSENTIAL (PRIMARY) HYPERTENSION 07/04/2019 JORGE LUIS POWERS MD, Ot I13.0 HYP HRT CHR KDNY DIS W HRT FAIL AND ST 07/04/2019 JORGE LUIS POWERS MD Ot I48.91 UNSPECIFIED ATRIAL FIBRILLATION 07/04/2019 JORGE LUIS POWERS MD, Ot I50.9 HEART FAILURE, UNSPECIFIED 07/04/2019 JORGE LUIS POWERS MD Ot R06.89 OTHER ABNORMALITIES OF BREATHING 07/04/2019 JORGE LUIS POWERS MD, Ot Z79.01 USP (CURRENT) USE OF ANTICOAGULANT 07/04/2019 JORGE LUIS POWERS MD, Ot Z79.02 USP (CURRENT) USE OF ANTITHROMBOTI 07/04/2019 JORGE LUIS POWERS MD, Ot Z86.73 PRSNL HX OF TIA (TIA), AND CEREB INFRC W 07/04/2019 JORGE LUIS POWERS MD Ot Z87.440 PERSONAL HISTORY OF URINARY (TRACT) INFE 07/04/2019 JORGE LUIS POWERS MD Ot Z88.0 ALLERGY STATUS TO PENICILLIN 07/04/2019 JORGE LUIS POWERS MD Ot Z88.1 ALLERGY STATUS TO OTHER ANTIBIOTIC AGENT 07/04/2019 JORGE LUIS POWERS MD, Ot Z88.2 ALLERGY STATUS TO SULFONAMIDES STATUS 07/04/2019 JORGE LUIS POWERS MD Ot Z88.8 ALLERGY STATUS TO OTH DRUG/MEDS/BIOL SUB 07/04/2019 JORGE LUIS POWERS MD Ot Z95.5 PRESENCE OF CORONARY ANGIOPLASTY IMPLANT 07/11/2019 JORGE LUIS POWERS MD, Ot 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 07/11/2019 JORGE LUIS POWERS MD Ot F03.90 UNSPECIFIED DEMENTIA WITHOUT BEHAVIORAL 07/11/2019 JORGE LUIS POWERS MD, Ot I1 0 ESSENTIAL (PRIMARY) HYPERTENSION 07/11/2019 JORGE LUIS POWERS MD Ot I13.0 HYP HRT CHR KDNY DIS W HRT FAIL AND ST 07/11/2019 JORGE LUIS POWERS MD Ot I48.91 UNSPECIFIED ATRIAL FIBRILLATION 07/11/2019 JORGE LUIS POWERS MD Ot I50.9 HEART FAILURE, UNSPECIFIED 07/11/2019 JORGE LUIS POWERS MD Ot R06.89 OTHER ABNORMALITIES OF BREATHING 07/11/2019 GIO IBARRA, JORGE LUIS Alonso Ot Z79.01 USP (CURRENT) USE OF ANTICOAGULANT 07/11/2019 JORGE LUIS POWERS MD, Ot Z79.02 USP (CURRENT) USE OF ANTITHROMBOTI 07/11/2019 JORGE LUIS POWERS MD Ot Z86.73 PRSNL HX OF TIA (TIA), AND CEREB INFRC W 07/11/2019 JORGE LUIS POWERS MD Ot Z87.440 PERSONAL HISTORY OF URINARY (TRACT) INFE 07/11/2019 JORGE LUIS POWERS MD, Ot Z88.0 ALLERGY STATUS TO PENICILLIN 07/11/2019 JORGE LUIS POWERS MD, Ot Z88.1 ALLERGY STATUS TO OTHER ANTIBIOTIC AGENT 07/11/2019 JORGE LUIS POWERS MD, Ot Z88.2 ALLERGY STATUS TO SULFONAMIDES STATUS 07/11/2019 JORGE LUIS POWERS MD, Ot Z88.8 ALLERGY STATUS TO OTH DRUG/MEDS/BIOL SUB 07/11/2019 JORGE LUIS POWERS MD Ot Z95.5 PRESENCE OF CORONARY ANGIOPLASTY IMPLANT 07/11/2019 YUMIKO IBARRA, ANNE MARIE Mancera Ot I48.91 UNSPECIFIED ATRIAL FIBRILLATION 07/11/2019 ANNE MARIE CALDERON MD Ot I50 .9 HEART FAILURE, UNSPECIFIED 07/11/2019 ANNE MARIE CALDERON MD Ot N18 .9 CHRONIC KIDNEY DISEASE, UNSPECIFIED 07/20/2019 MARILY HOFFMANN MD Ot D62 ACUTE POSTHEMORRHAGIC ANEMIA 07/20/2019 MARILY HOFFMANN MD Ot E11.9 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 MELLITUS WITHOUT COMPLIC 07/20/2019 MARILY HOFFMANN MD Ot E87.5 HYPERKALEMIA 07/20/2019 MARILY HOFFMANN MD Ot F03.90 UNSPECIFIED DEMENTIA WITHOUT BEHAVIORAL 07/20/2019 MARILY HOFFMANN MD Ot H91.91 UNSPECIFIED HEARING LOSS, RIGHT EAR 07/20/2019 MARILY HOFFMANN MD Ot I13.0 HYP HRT CHR KDNY DIS W HRT FAIL AND ST 07/20/2019 MARILY HOFFMANN MD Ot I27.20 PULMONARY HYPERTENSION, UNSPECIFIED 07/20/2019 MARILY HOFFMANN MD Ot I38 ENDOCARDITIS, VALVE UNSPECIFIED 07/20/2019 MARILY HOFFMANN MD, Ot I42.9 CARDIOMYOPATHY, UNSPECIFIED 07/20/2019 MARILY HOFFMANN MD Ot I48.20 CHRONIC ATRIAL FIBRILLATION, UNSPECIFIED 07/20/2019 MARILY HOFFMANN MD Ot 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 07/20/2019 MARILY HOFFMANN MD Ot J44.9 CHRONIC OBSTRUCTIVE PULMONARY DISEASE, U 07/20/2019 MARILY HOFFMANN MD Ot K92.1 MELENA 07/20/2019 MARILY HOFFMANN MD Ot M19.91 PRIMARY OSTEOARTHRITIS, UNSPECIFIED SITE 07/20/2019 MARILY HOFFMANN MD Ot N17.9 ACUTE KIDNEY FAILURE, UNSPECIFIED 07/20/2019 MARILY HOFFMANN MD Ot N18.9 CHRONIC KIDNEY DISEASE, UNSPECIFIED 07/20/2019 MARILY HOFFMANN MD Ot R06.03 ACUTE RESPIRATORY DISTRESS 07/20/2019 MARILY HOFFMANN MD Ot R53.81 OTHER MALAISE 07/20/2019 MARILY HOFFMANN MD Ot Z66 DO NOT RESUSCITATE 07/20/2019 MARILY HOFFMANN MD Ot Z86.73 PRSNL HX OF TIA (TIA), AND CEREB INFRC W 07/20/2019 MARILY HOFFMANN MD Ot Z90.5 ACQUIRED ABSENCE OF KIDNEY 07/20/2019 MARILY HOFFMANN MD Ot Z95.0 PRESENCE OF CARDIAC PACEMAKER 07/20/2019 MARILY HOFFMANN MD Ot Z95.5 PRESENCE OF CORONARY ANGIOPLASTY IMPLANT 07/20/2019 MARILY HOFFMANN MD Ot Z97.4 PRESENCE OF EXTERNAL HEARING-AID 07/28/2019 ANNE MARIE CALDERON MD Ot I48.91 UNSPECIFIED ATRIAL FIBRILLATION 07/28/2019 ANNE MARIE CALDERON MD Ot I50 .9 HEART FAILURE, UNSPECIFIED 07/28/2019 ANNE MARIE CALDERON MD Ot N18 .9 CHRONIC KIDNEY DISEASE, UNSPECIFIED 08/04/2019 JAIMEE PAGE APRN Ot N39.0 URINARY TRACT INFECTION, SITE NOT SPECIF 08/29/2019 RIVERA SAWYER Ot I11. 0 HYPERTENSIVE HEART DISEASE WITH HEART FA 08/29/2019 DIGNARIVERA Nava Ot I48. 0 PAROXYSMAL ATRIAL FIBRILLATION 08/29/2019 DIGNA, RIVERA M SORTER PACKER Ot I50. 32 CHRONIC DIASTOLIC (CONGESTIVE) HEART [place] 08/30/2019 GITA BORREGO APRN Ot D50.9 IRON DEFICIENCY ANEMIA, UNSPECIFIED 08/30/2019 GITA BORREGO APRN Ot D63.1 ANEMIA IN CHRONIC KIDNEY DISEASE 08/30/2019 GITA BORREGO APRN Ot N18.4 CHRONIC KIDNEY DISEASE, STAGE 4 (SEVERE) 08/30/2019 GITA BORREGO APRN Ot D50.9 IRON DEFICIENCY ANEMIA, UNSPECIFIED 08/30/2019 GITA BORREGO APRN Ot D63.1 ANEMIA IN CHRONIC KIDNEY DISEASE 08/30/2019 GITA BORREGO APRN Ot N18.4 CHRONIC KIDNEY DISEASE, STAGE 4 (SEVERE) 08/30/2019 GITA BORREGO APRN Ot D50.9 IRON DEFICIENCY ANEMIA, UNSPECIFIED 08/30/2019 GITA BORREGO APRN Ot D63.1 ANEMIA IN CHRONIC KIDNEY DISEASE 08/30/2019 GITA BORREGO APRN Ot N18.4 CHRONIC KIDNEY DISEASE, STAGE 4 (SEVERE) 08/30/2019 GITA BORREGO APRN Ot D50.9 IRON DEFICIENCY ANEMIA, UNSPECIFIED 08/30/2019 GITA BORREGO APRN Ot D63.1 ANEMIA IN CHRONIC KIDNEY DISEASE 08/30/2019 GITA BORREGO APRN Ot N18.4 CHRONIC KIDNEY DISEASE, STAGE 4 (SEVERE) 09/14/2019 RIVERA SAWYER S[employer] PACKER Ot I11. 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 0 PAROXYSMAL ATRIAL FIBRILLATION 09/14/2019 RIVERA SAWYER S[employer] P[employer]ER Ot I50. 32 CHRONIC DIASTOLIC (CONGESTIVE) HEART [place] Procedures There is no data. Results Test Result Range Complete urinalysis with reflex to cultu re - 08/11/18 11:30 Urine color determination YELLOW NRG Urine clarity determination VERY CLOUDY NRG Urine pH measurement by test strip 6 5-9 Specific gravity of urine by test strip 1.020 1.016-1.022 Urine protein assay by test strip, semi-quantitative 4+ NEGATIVE Urine glucose detection by automated test strip 2+ NEGATIVE Erythrocytes detection in urine sediment by light micr oscopy 5+ NEGATIVE Urine ketones detection by automated test strip NE GATIVE NEGATIVE Urine nitrite detection by test strip POSITIVE NEGATIVE Urine total bilirubin detection by test strip NEGA TIVE NEGATIVE Urine urobilinogen measurement by automated test strip (mass/volume) NORMAL NORMAL Urine leukocyte esterase detection by dipstick 3+ NEGATIVE Automated urine sediment erythrocyte cou nt by microscopy (number/high power field) TNTC NRG Automated urine sediment leukocyte count by microscopy (number/high power field) TNTC NRG Bacteria detection in urine sediment by light microsco py LARGE NRG Crystals detection in urine sediment by light microsco py NONE NRG Casts detection in urine sediment by light microscopy NONE NRG Mucus detection in urine sediment by light microscopy NEGATIVE NRG Complete urinalysis with reflex to culture YES NRG Bacterial urine culture - 08/11/18 11:30 Bacterial urine culture [id number] NRG COLONY COUNT >100,000/ML NRG FTX;REPORTABLE SUSCEPTIBILITY REPORT RCD 08/14 10:0 5 NRG [facility] Sensitivity Panel - 08/11/18 11:30 Gentamicin susceptibility test by minimum inhibitory c oncentration <= NRG Trimethoprim/sulfamethoxazole susceptibi lity test by minimum inhibitoryconcentration <= NRG Levofloxacin susceptibility test by minimum inhibitory concentration <= NRG Ampicillin susceptibility test by minimum inhibitory c oncentration <= NRG Cefazolin susceptibility test by minimum inhibitory co ncentration <= NRG Ceftriaxone susceptibility test by minimum inhibitory concentration <= NRG Ciprofloxacin susceptibility test by minimum inhibitor y concentration <= NRG Meropenem susceptibility test by minimum inhibitory co ncentration <= NRG Nitrofurantoin susceptibility test by mi nimum inhibitory concentration 32 NRG Amoxicillin and clavulanate potassium susc JESUS ALBERTO <= NRG RML Sensitivity Panel - 08/11/18 11:30 Gentamicin susceptibility test by minimum inhibitory c oncentration <= NRG Trimethoprim/sulfamethoxazole susceptibi lity test by minimum inhibitoryconcentration <= NRG Levofloxacin susceptibility test by minimum inhibitory concentration <= NRG Ampicillin susceptibility test by minimum inhibitory c oncentration <= NRG Cefazolin susceptibility test by minimum inhibitory co ncentration <= NRG Ceftriaxone susceptibility test by minimum inhibitory concentration <= NRG Ciprofloxacin susceptibility test by minimum inhibitor y concentration <= NRG Meropenem susceptibility test by minimum inhibitory co ncentration <= NRG Nitrofurantoin susceptibility test by ct nimum inhibitory concentration <= NRG Amoxicillin and clavulanate potassium susc JESUS ALBERTO <= NRG Complete blood count (CBC) with automate d white blood cell (WBC) differential - 08/11/18 11:39 Blood leukocytes automated count (number/volume) 6.9 10*3/uL 4.3-11.0 Blood erythrocytes automated count (number/volume) 4.17 10*6/uL 4.35-5.85 Venous blood hemoglobin measurement (mass/volume) 11.9 g/dL 11.5-16.0 Blood hematocrit (volume fraction) 36 % 35-52 Automated erythrocyte mean corpuscular volume 85 [ foz_us] 80-99 Automated erythrocyte mean corpuscular h emoglobin (mass per erythrocyte) 29 pg 25-34 Automated erythrocyte mean corpuscular h emoglobin concentration measurement (mass/volume) 33 g/dL 32-36 Automated erythrocyte distribution width ratio 13. 7 % 10.0- 14.5 Automated blood platelet count [...] 10*3 1.0-4.0 Blood monocytes automated count (number/volume) 0. 7 10*3 0.0-1.0 Automated eosinophil count 0.0 10*3/uL 0 .0-0.3 Automated blood basophil count (count/volume) 0.0 10*3/uL 0.0-0.1 Blood lactic acid measurement (moles/vol ume) - 08/11/18 11:39 Blood lactic acid measurement (moles/volume) 2.70 mmol/L 0.50-2.00 PT panel in platelet poor plasma by coag ulation assay - 08/11/18 11:39 Prothrombin time (PT) in platelet poor plasma by coagu lation assay 22.2 s 12.2-14.7 INR in platelet poor plasma or blood by coagulation as say 1.9 0.8-1.4 Activated partial thromboplastin time (a PTT) in platelet poor plasma bycoagulation assay - 08/11/18 11:39 Activated partial thromboplastin time (a PTT) in platelet poor plasma bycoagulation assay 45 s 24-35 Comprehensive metabolic panel - 08/11/18 11:39 Serum or plasma sodium measurement (moles/volume) 135 mmol/L 135-145 Serum or plasma potassium measurement (moles/volume) 4.2 mmol/L 3.6-5.0 Serum or plasma chloride measurement (moles/volume) 100 mmol/L 98-107 Carbon dioxide 24 mmol/L 21-32 Serum or plasma anion gap determination (moles/volume) 11 mmol/L 5-14 Serum or plasma urea nitrogen measurement (mass/volume ) 16 mg/dL 7-18 Serum or plasma creatinine measurement (mass/volume) 1.79 mg/dL 0.60-1.30 Serum or plasma urea nitrogen/creatinine mass ratio 9 [facility] Serum or plasma creatinine measurement w ith calculation of estimated glomerular filtration rate 27 [facility] Serum or plasma glucose measurement (mass/volume) 244 mg/dL 70-105 Serum or plasma calcium measurement (mass/volume) 9.1 mg/dL 8.5-10.1 Serum or plasma total bilirubin measurement (mass/volu me) 0.5 mg/dL 0.1-1.0 Serum or plasma alkaline phosphatase yaima surement (enzymatic activity/volume) 51 U/L 40-136 Serum or plasma aspartate aminotransfera se measurement (enzymatic activity/volume) 22 U/L 5-34 Serum or plasma alanine aminotransferase measurement (enzymatic activity/volume) 16 U/L 0-55 Serum or plasma protein measurement (mass/volume) 6.3 g/dL 6.4-8.2 Serum or plasma albumin measurement (mass/volume) 3.3 g/dL 3.2-4.5 CALCIUM CORRECTED 9.7 mg/dL 8.5-10.1 Bacterial blood culture - 08/11/18 11:39 QUANTITY OF GROWTH . [facility] Bacterial blood culture SEE COMMEN [facility] Influenza virus A and B antigen detectio n - 08/11/18 11:50 FLU RESULT NEGATIVE FOR INFLUENZA A AND B ANTIGENS BY IA [facility] Bacterial blood culture - 08/11/18 12:34 Bacterial blood culture NG NRG Serum or plasma lactate measurement (mol es/volume) - 08/11/18 13:52 Serum or plasma lactate measurement (moles/volume) 2.20 mmol/L 0.50-2.00 Capillary blood glucose measurement by g lucometer (mass/volume) - 08/11/18 20:45 Capillary blood glucose measurement by glucometer (mas s/volume) 187 mg/dL 70-110 Complete blood count (CBC) with automate d white blood cell (WBC) differential - 08/12/18 05:20 Blood leukocytes automated count (number/volume) 6.5 10*3/uL 4.3-11.0 Blood erythrocytes automated count (number/volume) 3.83 10*6/uL 4.35-5.85 Venous blood hemoglobin measurement (mass/volume) 10.5 g/dL 11.5-16.0 Blood hematocrit (volume fraction) 33 % 35-52 Automated erythrocyte mean corpuscular volume 87 [ foz_us] 80-99 Automated erythrocyte mean corpuscular h emoglobin (mass per erythrocyte) 27 pg 25-34 Automated erythrocyte mean corpuscular h emoglobin concentration measurement (mass/volume) 32 g/dL 32-36 Automated erythrocyte distribution width ratio 13. 5 % 10.0- 14.5 Automated blood platelet count [...] 10*3 1.0-4.0 Blood monocytes automated count (number/volume) 0. 8 10*3 0.0-1.0 Automated eosinophil count 0.2 10*3/uL 0 .0-0.3 Automated blood basophil count (count/volume) 0.0 10*3/uL 0.0-0.1 Comprehensive metabolic panel - 08/12/18 05:20 Serum or plasma sodium measurement (moles/volume) 136 mmol/L 135-145 Serum or plasma potassium measurement (moles/volume) 3.7 mmol/L 3.6-5.0 Serum or plasma chloride measurement (moles/volume) 106 mmol/L 98-107 Carbon dioxide 21 mmol/L 21-32 Serum or plasma anion gap determination (moles/volume) 9 mmol/L 5-14 Serum or plasma urea nitrogen measurement (mass/volume ) 18 mg/dL 7-18 Serum or plasma creatinine measurement (mass/volume) 1.50 mg/dL 0.60-1.30 Serum or plasma urea nitrogen/creatinine mass ratio 12 NRG Serum or plasma creatinine measurement w ith calculation of estimated glomerular filtration rate 33 NRG Serum or plasma glucose measurement (mass/volume) 173 mg/dL 70-105 Serum or plasma calcium measurement (mass/volume) 8.5 mg/dL 8.5-10.1 Serum or plasma total bilirubin measurement (mass/volu me) 0.2 mg/dL 0.1-1.0 Serum or plasma alkaline phosphatase yaima surement (enzymatic activity/volume) 49 U/L 40-136 Serum or plasma aspartate aminotransfera se measurement (enzymatic activity/volume) 23 U/L 5-34 Serum or plasma alanine aminotransferase measurement (enzymatic activity/volume) 14 U/L 0-55 Serum or plasma protein measurement (mass/volume) 5.6 g/dL 6.4-8.2 Serum or plasma albumin measurement (mass/volume) 2.9 g/dL 3.2-4.5 CALCIUM CORRECTED 9.4 mg/dL 8.5-10.1 Capillary blood glucose measurement by g lucometer (mass/volume) - 08/12/18 05:21 Capillary blood glucose measurement by glucometer (mas s/volume) 167 mg/dL 70-110 Capillary blood glucose measurement by g lucometer (mass/volume) - 08/12/18 09:34 Capillary blood glucose measurement by glucometer (mas s/volume) 229 mg/dL 70-110 Capillary blood glucose measurement by g lucometer (mass/volume) - 08/12/18 15:31 Capillary blood glucose measurement by glucometer (mas s/volume) 185 mg/dL 70-110 Capillary blood glucose measurement by g lucometer (mass/volume) - 08/12/18 19:46 Capillary blood glucose measurement by glucometer (mas s/volume) 166 mg/dL 70-110 Whole blood basic metabolic panel - 07/30 11/14 05:30 Serum or plasma sodium measurement (moles/volume) 139 mmol/L 135-145 Serum or plasma potassium measurement (moles/volume) 3.4 mmol/L 3.6-5.0 Serum or plasma chloride measurement (moles/volume) 109 mmol/L 98-107 Carbon dioxide 21 mmol/L 21-32 Serum or plasma anion gap determination (moles/volume) 9 mmol/L 5-14 Serum or plasma urea nitrogen measurement (mass/volume ) 14 mg/dL 7-18 Serum or plasma creatinine measurement (mass/volume) 1.33 mg/dL 0.60-1.30 Serum or plasma urea nitrogen/creatinine mass ratio 11 NRG Serum or plasma creatinine measurement w ith calculation of estimated glomerular filtration rate 38 NRG Serum or plasma glucose measurement (mass/volume) 159 mg/dL 70-105 Serum or plasma calcium measurement (mass/volume) 8.4 mg/dL 8.5-10.1 Complete blood count (CBC) with automate d white blood cell (WBC) differential - 08/13/18 05:30 Blood leukocytes automated count (number/volume) 5.4 10*3/uL 4.3-11.0 Blood erythrocytes automated count (number/volume) 3.80 10*6/uL 4.35-5.85 Venous blood hemoglobin measurement (mass/volume) 10.4 g/dL 11.5-16.0 Blood hematocrit (volume fraction) 33 % 35-52 Automated erythrocyte mean corpuscular volume 87 [ foz_us] 80-99 Automated erythrocyte mean corpuscular h emoglobin (mass per erythrocyte) 27 pg 25-34 Automated erythrocyte mean corpuscular h emoglobin concentration measurement (mass/volume) 32 g/dL 32-36 Automated erythrocyte distribution width ratio 13. 6 % 10.0- 14.5 Automated blood platelet count [...] 10*3 1.0-4.0 Blood monocytes automated count (number/volume) 0. 7 10*3 0.0-1.0 Automated eosinophil count 0.2 10*3/uL 0 .0-0.3 Automated blood basophil count (count/volume) 0.0 10*3/uL 0.0-0.1 PT panel in platelet poor plasma by coag ulation assay - 08/13/18 05:30 Prothrombin time (PT) in platelet poor plasma by coagu lation assay 23.2 s 12.2-14.7 INR in platelet poor plasma or blood by coagulation as say 2.0 0.8-1.4 Capillary blood glucose measurement by g lucometer (mass/volume) - 08/13/18 05:33 Capillary blood glucose measurement by glucometer (mas s/volume) 150 mg/dL 70-110 C DIFFICILE AG + TOXIN A/B. - 08/13/18 0 8:40 RESULTS NEGATIVE FOR ANTIGEN AND TOXIN A/B NRG Capillary blood glucose measurement by g lucometer (mass/volume) - 08/13/18 09:53 Capillary blood glucose measurement by glucometer (mas s/volume) 216 mg/dL 70-110 Capillary blood glucose measurement by g lucometer (mass/volume) - 08/13/18 14:42 Capillary blood glucose measurement by glucometer (mas s/volume) 161 mg/dL 70-110 Capillary blood glucose measurement by g lucometer (mass/volume) - 08/13/18 20:00 Capillary blood glucose measurement by glucometer (mas s/volume) 194 mg/dL 70-110 Capillary blood glucose measurement by g lucometer (mass/volume) - 08/14/18 06:13 Capillary blood glucose measurement by glucometer (mas s/volume) 166 mg/dL 70-110 Capillary blood glucose measurement by g lucometer (mass/volume) - 08/14/18 09:50 Capillary blood glucose measurement by glucometer (mas s/volume) 193 mg/dL 70-110 PT/INR - 09/10/18 10:30 INR 1.9 NRG PT 18.9 sec 9.0-11.5 Complete urinalysis with reflex to cultu re - 09/24/18 11:50 Urine color determination YELLOW NRG Urine clarity determination CLOUDY NR G Urine pH measurement by test strip 6.0 5-9 Specific gravity of urine by test strip 1.020 1.016-1.022 Urine protein assay by test strip, semi-quantitative 3+ NEGATIVE Urine glucose detection by automated test strip 1+ NEGATIVE Erythrocytes detection in urine sediment by light micr oscopy 1+ NEGATIVE Urine ketones detection by automated test strip NE GATIVE NEGATIVE Urine nitrite detection by test strip NEGATIVE NEGATIVE Urine total bilirubin detection by test strip NEGA TIVE NEGATIVE Urine urobilinogen measurement by automated test strip (mass/volume) 0.2 mg/dL NORMAL Urine leukocyte esterase detection by dipstick 2+ NEGATIVE Automated urine sediment erythrocyte cou nt by microscopy (number/high power field) [HPF] NRG Automated urine sediment leukocyte count by microscopy (number/high power field) TNTC NRG Bacteria detection in urine sediment by light microsco py LARGE NRG Squamous epithelial cells detection in u rine sediment by light microscopy 2-5 NRG Crystals detection in urine sediment by light microsco py NONE NRG Casts detection in urine sediment by light microscopy NONE NRG Mucus detection in urine sediment by light microscopy NEGATIVE NRG Complete urinalysis with reflex to culture YES NRG Capillary blood glucose measurement by g lucometer (mass/volume) - 09/24/18 12:01 Capillary blood glucose measurement by glucometer (mas s/volume) 277 mg/dL 70-110 Automated blood complete blood count ( mogram) panel - 09/24/18 12:10 Blood leukocytes automated count (number/volume) 12.8 10*3/uL 4.3-11.0 Blood erythrocytes automated count (number/volume) 4.62 10*6/uL 4.35-5.85 Venous blood hemoglobin measurement (mass/volume) 12.0 g/dL 11.5-16.0 Blood hematocrit (volume fraction) 38 % 35-52 Automated erythrocyte mean corpuscular volume 83 [ foz_us] 80-99 Automated erythrocyte mean corpuscular h emoglobin (mass per erythrocyte) 26 pg 25-34 Automated erythrocyte mean corpuscular h emoglobin concentration measurement (mass/volume) 31 g/dL 32-36 Automated erythrocyte distribution width ratio 14. 0 % 10.0- 14.5 Automated blood platelet count (count/volume) 240 10*3/uL 130-400 Automated blood platelet mean volume measurement 11.6 [foz_us] 7.4-10.4 PT panel in platelet poor plasma by coag ulation assay - 09/24/18 12:10 Prothrombin time (PT) in platelet poor plasma by coagu lation assay 19.0 s 12.2-14.7 INR in platelet poor plasma or blood by coagulation as say 1.6 0.8-1.4 Activated partial thromboplastin time (a PTT) in platelet poor plasma bycoagulation assay - 09/24/18 12:10 Activated partial thromboplastin time (a PTT) in platelet poor plasma bycoagulation assay 46 s 24-35 Blood lactic acid measurement (moles/vol ume) - 09/24/18 12:10 Blood lactic acid measurement (moles/volume) 1.99 mmol/L 0.50-2.00 Whole blood basic metabolic panel - 08/28 03/17 12:10 Serum or plasma sodium measurement (moles/volume) 137 mmol/L 135-145 Serum or plasma potassium measurement (moles/volume) 4.3 mmol/L 3.6-5.0 Serum or plasma chloride measurement (moles/volume) 97 mmol/L 98-107 Carbon dioxide 26 mmol/L 21-32 Serum or plasma anion gap determination (moles/volume) 14 mmol/L 5-14 Serum or plasma urea nitrogen measurement (mass/volume ) 24 mg/dL 7-18 Serum or plasma creatinine measurement (mass/volume) 2.00 mg/dL 0.60-1.30 Serum or plasma urea nitrogen/creatinine mass ratio 12 NRG Serum or plasma creatinine measurement w ith calculation of estimated glomerular filtration rate 24 NRG Serum or plasma glucose measurement (mass/volume) 252 mg/dL 70-105 Serum or plasma calcium measurement (mass/volume) 9.5 mg/dL 8.5-10.1 TROPONIN T - 09/24/18 12:10 TROPONIN T 34 % <=10 Bacterial blood culture - 09/24/18 12:10 Bacterial blood culture NG NRG Bacterial blood culture - 09/24/18 13:15 Bacterial blood culture NG NRG Complete urinalysis with reflex to cultu re - 09/24/18 13:29 Urine color determination YELLOW NRG Urine clarity determination CLOUDY NR G Urine pH measurement by test strip 6.0 5-9 Specific gravity of urine by test strip 1.020 1.016-1.022 Urine protein assay by test strip, semi-quantitative 3+ NEGATIVE Urine glucose detection by automated test strip 1+ NEGATIVE Erythrocytes detection in urine sediment by light micr oscopy TRACE NEGATIVE Urine ketones detection by automated test strip NE GATIVE NEGATIVE Urine nitrite detection by test strip NEGATIVE NEGATIVE Urine total bilirubin detection by test strip NEGA TIVE NEGATIVE Urine urobilinogen measurement by automated test strip (mass/volume) 0.2 mg/dL NORMAL Urine leukocyte esterase detection by dipstick TRA CE NEGATIVE Automated urine sediment erythrocyte cou nt by microscopy (number/high power field) 2+5 NRG Automated urine sediment leukocyte count by microscopy (number/high power field) [HPF] NRG Bacteria detection in urine sediment by light microsco py LARGE NRG Crystals detection in urine sediment by light microsco py NONE NRG Casts detection in urine sediment by light microscopy NONE NRG Mucus detection in urine sediment by light microscopy NEGATIVE NRG Complete urinalysis with reflex to culture YES NRG Bacterial urine culture - 09/24/18 13:29 Bacterial urine culture [id number] NRG COLONY COUNT >100,000/ML NRG FTX;REPORTABLE SUSCEPTIBILITY REPORTED 09-26-18 05. NRG FREE TEXT ENTRY 2 ID REPORTED 09/25/18 13:05 NRG RML Sensitivity Panel - 09/24/18 13:29 Gentamicin susceptibility test by minimum inhibitory c oncentration > NRG Trimethoprim/sulfamethoxazole susceptibi lity test by minimum inhibitoryconcentration <= NRG Levofloxacin susceptibility test by minimum inhibitory concentration > NRG Ampicillin susceptibility test by minimum inhibitory c oncentration > NRG Cefazolin susceptibility test by minimum inhibitory co ncentration <= NRG Ceftriaxone susceptibility test by minimum inhibitory concentration <= NRG Ciprofloxacin susceptibility test by minimum inhibitor y concentration > NRG Meropenem susceptibility test by minimum inhibitory co ncentration <= NRG Nitrofurantoin susceptibility test by mi nimum inhibitory concentration <= NRG Amoxicillin and clavulanate potassium susc JESUS ALBERTO = NRG Blood lactic acid measurement (moles/vol ume) - 09/24/18 16:50 Blood lactic acid measurement (moles/volume) 1.08 mmol/L 0.50-2.00 Serum or plasma troponin i.cardiac measu rement (mass/volume) - 09/24/18 16:50 Serum or plasma troponin i.cardiac measurement (mass/v olume) < ng/mL <0.028 Complete blood count (CBC) with automate d white blood cell (WBC) differential - 09/25/18 05:45 Blood leukocytes automated count (number/volume) 9.5 10*3/uL 4.3-11.0 Blood erythrocytes automated count (number/volume) 4.10 10*6/uL 4.35-5.85 Venous blood hemoglobin measurement (mass/volume) 10.7 g/dL 11.5-16.0 Blood hematocrit (volume fraction) 34 % 35-52 Automated erythrocyte mean corpuscular volume 82 [ foz_us] 80-99 Automated erythrocyte mean corpuscular h emoglobin (mass per erythrocyte) 26 pg 25-34 Automated erythrocyte mean corpuscular h emoglobin concentration measurement (mass/volume) 32 g/dL 32-36 Automated erythrocyte distribution width ratio 14. 5 % 10.0- 14.5 Automated blood platelet count [...] 10*3 1.0-4.0 Blood monocytes automated count (number/volume) 0. 9 10*3 0.0-1.0 Automated eosinophil count 0.2 10*3/uL 0 .0-0.3 Automated blood basophil count (count/volume) 0.0 10*3/uL 0.0-0.1 Comprehensive metabolic panel - 09/25/18 05:45 Serum or plasma sodium measurement (moles/volume) 139 mmol/L 135-145 Serum or plasma potassium measurement (moles/volume) 3.9 mmol/L 3.6-5.0 Serum or plasma chloride measurement (moles/volume) 108 mmol/L 98-107 Carbon dioxide 20 mmol/L 21-32 Serum or plasma anion gap determination (moles/volume) 11 mmol/L 5-14 Serum or plasma urea nitrogen measurement (mass/volume ) 19 mg/dL 7-18 Serum or plasma creatinine measurement (mass/volume) 1.77 mg/dL 0.60-1.30 Serum or plasma urea nitrogen/creatinine mass ratio 11 NRG Serum or plasma creatinine measurement w ith calculation of estimated glomerular filtration rate 27 NRG Serum or plasma glucose measurement (mass/volume) 172 mg/dL 70-105 Serum or plasma calcium measurement (mass/volume) 9.0 mg/dL 8.5-10.1 Serum or plasma total bilirubin measurement (mass/volu me) 0.3 mg/dL 0.1-1.0 Serum or plasma alkaline phosphatase yaima surement (enzymatic activity/volume) 51 U/L 40-136 Serum or plasma aspartate aminotransfera se measurement (enzymatic activity/volume) 11 U/L 5-34 Serum or plasma alanine aminotransferase measurement (enzymatic activity/volume) 9 U/L 0-55 Serum or plasma protein measurement (mass/volume) 6.0 g/dL 6.4-8.2 Serum or plasma albumin measurement (mass/volume) 2.9 g/dL 3.2-4.5 CALCIUM CORRECTED 9.9 mg/dL 8.5-10.1 Complete blood count (CBC) with automate d white blood cell (WBC) differential - 09/26/18 06:30 Blood leukocytes automated count (number/volume) 8.5 10*3/uL 4.3-11.0 Blood erythrocytes automated count (number/volume) 4.53 10*6/uL 4.35-5.85 Venous blood hemoglobin measurement (mass/volume) 11.6 g/dL 11.5-16.0 Blood hematocrit (volume fraction) 37 % 35-52 Automated erythrocyte mean corpuscular volume 82 [ foz_us] 80-99 Automated erythrocyte mean corpuscular h emoglobin (mass per erythrocyte) 26 pg 25-34 Automated erythrocyte mean corpuscular h emoglobin concentration measurement (mass/volume) 31 g/dL 32-36 Automated erythrocyte distribution width ratio 14. 3 % 10.0- 14.5 Automated blood platelet count [...] 10*3 1.0-4.0 Blood monocytes automated count (number/volume) 0. 7 10*3 0.0-1.0 Automated eosinophil count 0.4 10*3/uL 0 .0-0.3 Automated blood basophil count (count/volume) 0.0 10*3/uL 0.0-0.1 PT panel in platelet poor plasma by coag ulation assay - 09/26/18 06:30 Prothrombin time (PT) in platelet poor plasma by coagu lation assay 17.8 s 12.2-14.7 INR in platelet poor plasma or blood by coagulation as say 1.4 0.8-1.4 Comprehensive metabolic panel - 09/26/18 06:30 Serum or plasma sodium measurement (moles/volume) 142 mmol/L 135-145 Serum or plasma potassium measurement (moles/volume) 3.8 mmol/L 3.6-5.0 Serum or plasma chloride measurement (moles/volume) 108 mmol/L 98-107 Carbon dioxide 20 mmol/L 21-32 Serum or plasma anion gap determination (moles/volume) 14 mmol/L 5-14 Serum or plasma urea nitrogen measurement (mass/volume ) 21 mg/dL 7-18 Serum or plasma creatinine measurement (mass/volume) 1.82 mg/dL 0.60-1.30 Serum or plasma urea nitrogen/creatinine mass ratio 12 NRG Serum or plasma creatinine measurement w ith calculation of estimated glomerular filtration rate 26 NRG Serum or plasma glucose measurement (mass/volume) 213 mg/dL 70-105 Serum or plasma calcium measurement (mass/volume) 9.3 mg/dL 8.5-10.1 Serum or plasma total bilirubin measurement (mass/volu me) 0.3 mg/dL 0.1-1.0 Serum or plasma alkaline phosphatase yaima surement (enzymatic activity/volume) 61 U/L 40-136 Serum or plasma aspartate aminotransfera se measurement (enzymatic activity/volume) 10 U/L 5-34 Serum [...] Serum or plasma cholesterol in HDL measurement (mass/v olume) 35 mg/dL 40-60 Cholesterol in LDL [mass/volume] in serum or plasma by direct assay 133 mg/dL 1-129 Serum or plasma cholesterol in VLDL measurement (mass/ volume) 48 mg/dL 5-40 DIGOXIN - 09/26/18 06:30 DIGOXIN 0.52 ng/mL 0.80-2.00 CULTURE, URINE - 10/29/18 11:54 CULTURE, URINE, ROUTINE SEE NOTE NRG A1C - 11/09/18 12:32 HEMOGLOBIN A1c 9.4 % of total Hgb <5.7 Complete urinalysis with reflex to cultu re - 12/01/18 14:27 Urine color determination YELLOW NRG Urine clarity determination CLEAR NR G Urine pH measurement by test strip 5.5 5-9 Specific gravity of urine by test strip 1.025 1.016-1.022 Urine protein assay by test strip, semi-quantitative 3+ NEGATIVE Urine glucose detection by automated test strip 1+ NEGATIVE Erythrocytes detection in urine sediment by light micr oscopy TRACE NEGATIVE Urine ketones detection by automated test strip NE GATIVE NEGATIVE Urine nitrite detection by test strip NEGATIVE NEGATIVE Urine total bilirubin detection by test strip NEGA TIVE NEGATIVE Urine urobilinogen measurement by automated test strip (mass/volume) 0.2 mg/dL NORMAL Urine leukocyte esterase detection by dipstick TRA CE NEGATIVE Automated urine sediment erythrocyte cou nt by microscopy (number/high power field) [HPF] NRG Automated urine sediment leukocyte count by microscopy (number/high power field) [HPF] NRG Bacteria detection in urine sediment by light microsco py FEW NRG Squamous epithelial cells detection in u rine sediment by light microscopy 10-25 NRG Crystals detection in urine sediment by light microsco py NONE NRG Casts detection in urine sediment by light microscopy NONE NRG Mucus detection in urine sediment by light microscopy NEGATIVE NRG Complete urinalysis with reflex to culture YES NRG Renal epithelial cells detection in urin e sediment by light microscopy 2-5 NRG Bacterial urine culture - 12/01/18 14:27 Bacterial urine culture [id number] NRG COLONY COUNT 60,000 cfu/ml NRG FTX;REPORTABLE VRE SUSCEPTIBILITY REPORTED 12/06 12 :45 NRG FREE TEXT ENTRY 2 NOTE SUSCEPTIBILITY RESULTS BANKS GED NRG FREE TEXT ENTRY 3 DAPTOMYCIN JESUS ALBERTO: >4 (NO INTERP) NRG Dirithromycin susceptibility test by dis k diffusion - 12/01/18 14:27 Gentamicin susceptibility test by minimum inhibitory c oncentration > NRG Trimethoprim/sulfamethoxazole susceptibi lity test by minimum inhibitoryconcentration <= NRG Levofloxacin susceptibility test by minimum inhibitory concentration > NRG Ampicillin susceptibility test by minimum inhibitory c oncentration > NRG Cefazolin susceptibility test by minimum inhibitory co ncentration <= NRG Ceftriaxone susceptibility test by minimum inhibitory concentration <= NRG Ciprofloxacin susceptibility test by minimum inhibitor y concentration > NRG Meropenem susceptibility test by minimum inhibitory co ncentration <= NRG Nitrofurantoin susceptibility test by mi nimum inhibitory concentration <= NRG Amoxicillin and clavulanate potassium susc JESUS ALBERTO = NRG Dirithromycin susceptibility test by dis k diffusion - 12/01/18 14:27 Vancomycin susceptibility test by minimum inhibitory c oncentration > NRG Levofloxacin susceptibility test by minimum inhibitory concentration > NRG Ampicillin susceptibility test by minimum inhibitory c oncentration > NRG Linezolid susceptibility test by minimum inhibitory co ncentration 2 NRG Daptomycin susc JESUS ALBERTO 4 NRG Complete blood count (CBC) with automate d white blood cell (WBC) differential - 12/01/18 14:55 Blood leukocytes automated count (number/volume) 8.5 10*3/uL 4.3-11.0 Blood erythrocytes automated count (number/volume) 4.28 10*6/uL 4.35-5.85 Venous blood hemoglobin measurement (mass/volume) 10.8 g/dL 11.5-16.0 Blood hematocrit (volume fraction) 34 % 35-52 Automated erythrocyte mean corpuscular volume 80 [ foz_us] 80-99 Automated erythrocyte mean corpuscular h emoglobin (mass per erythrocyte) 25 pg 25-34 Automated erythrocyte mean corpuscular h emoglobin concentration measurement (mass/volume) 32 g/dL 32-36 Automated erythrocyte distribution width ratio 16. 4 % 10.0- 14.5 Automated blood platelet count [...] 10*3 1.0-4.0 Blood monocytes automated count (number/volume) 0. 8 10*3 0.0-1.0 Automated eosinophil count 0.3 10*3/uL 0 .0-0.3 Automated blood basophil count (count/volume) 0.1 10*3/uL 0.0-0.1 PT panel in platelet poor plasma by coag ulation assay - 12/01/18 14:55 Prothrombin time (PT) in platelet poor plasma by coagu lation assay 22.5 s 12.2-14.7 INR in platelet poor plasma or blood by coagulation as say 1.9 0.8-1.4 Activated partial thromboplastin time (a PTT) in platelet poor plasma bycoagulation assay - 12/01/18 14:55 Activated partial thromboplastin time (a PTT) in platelet poor plasma bycoagulation assay 43 s 24-35 Comprehensive metabolic panel - 12/01/18 14:55 Serum or plasma sodium measurement (moles/volume) 139 mmol/L 135-145 Serum or plasma potassium measurement (moles/volume) 4.4 mmol/L 3.6-5.0 Serum or plasma chloride measurement (moles/volume) 101 mmol/L 98-107 Carbon dioxide 27 mmol/L 21-32 Serum or plasma anion gap determination (moles/volume) 11 mmol/L 5-14 Serum or plasma urea nitrogen measurement (mass/volume ) 17 mg/dL 7-18 Serum or plasma creatinine measurement (mass/volume) 2.08 mg/dL 0.60-1.30 Serum or plasma urea nitrogen/creatinine mass ratio 8 NRG Serum or plasma creatinine measurement w ith calculation of estimated glomerular filtration rate 23 NRG Serum or plasma glucose measurement (mass/volume) 261 mg/dL 70-105 Serum or plasma calcium measurement (mass/volume) 9.6 mg/dL 8.5-10.1 Serum or plasma total bilirubin measurement (mass/volu me) 0.3 mg/dL 0.1-1.0 Serum or plasma alkaline phosphatase yaima surement (enzymatic activity/volume) 64 U/L 40-136 Serum or plasma aspartate aminotransfera se measurement (enzymatic activity/volume) 23 U/L 5-34 Serum or plasma alanine aminotransferase measurement (enzymatic activity/volume) 14 U/L 0-55 Serum or plasma protein measurement (mass/volume) 6.6 g/dL 6.4-8.2 Serum or plasma albumin measurement (mass/volume) 3.5 g/dL 3.2-4.5 CALCIUM CORRECTED 10.0 mg/dL 8.5-10.1 TROPONIN T - 12/01/18 14:55 TROPONIN T 29 % <=10 PROBNP FS - 12/01/18 14:55 PROBNP FS 2673.0 pg/mL <75.0 Serum or plasma troponin i.cardiac measu rement (mass/volume) - 12/01/18 23:58 Serum or plasma troponin i.cardiac measurement (mass/v olume) < ng/mL <0.028 Blood CBC with ordered manual differenti al panel - 12/02/18 04:55 Blood leukocytes automated count (number/volume) 10.3 10*3/uL 4.3-11.0 Blood erythrocytes automated count (number/volume) 4.19 10*6/uL 4.35-5.85 Venous blood hemoglobin measurement (mass/volume) 10.5 g/dL 11.5-16.0 Blood hematocrit (volume fraction) 33 % 35-52 Automated erythrocyte mean corpuscular volume 78 [ foz_us] 80-99 Automated erythrocyte mean corpuscular h emoglobin (mass per erythrocyte) 25 pg 25-34 Automated erythrocyte mean corpuscular h emoglobin concentration measurement (mass/volume) 32 g/dL 32-36 Automated erythrocyte distribution width ratio 16. 3 % 10.0- 14.5 Automated blood platelet count (count/volume) 274 10*3/uL 130-400 Automated blood platelet mean volume measurement 11.4 [foz_us] 7.4-10.4 Automated blood neutrophils/100 leukocytes 93 % 42-75 Automated blood lymphocytes/100 leukocytes 6 % 12-44 Blood monocytes/100 leukocytes 1 % NRG Automated blood eosinophils/100 leukocytes 0 % 0-10 Automated blood basophils/100 leukocytes 0 % 0-10 Blood neutrophils automated count (number/volume) 9.6 10*3 1.8-7.8 Blood lymphocytes automated count (number/volume) 0.6 10*3 1.0-4.0 Blood monocytes automated count (number/volume) 0. 1 10*3 0.0-1.0 Automated eosinophil count 0.0 10*3/uL 0 .0-0.3 Automated blood basophil count (count/volume) 0.0 10*3/uL 0.0-0.1 Manual blood segmented neutrophils/100 leukocytes 91 % NRG Blood band neutrophils/100 leukocytes 2 % NRG Manual blood lymphocytes/100 leukocytes 6 % NRG Manual eosinophils/100 leukocytes in nose 0 % NRG Manual blood basophils/100 leukocytes 0 % NRG Blood polychromasia detection by light microscopy SLIGHT NRG Blood anisocytosis detection by light microscopy S LIGHT NRG Blood poikilocytosis detection by light microscopy SLIGHT NRG Blood hypochromia detection by light microscopy SL IGHT NRG PT panel in platelet poor plasma by coag ulation assay - 12/02/18 04:55 Prothrombin time (PT) in platelet poor plasma by coagu lation assay 23.9 s 12.2-14.7 INR in platelet poor plasma or blood by coagulation as say 2.0 0.8-1.4 Comprehensive metabolic panel - 12/02/18 04:55 Serum or plasma sodium measurement (moles/volume) 135 mmol/L 135-145 Serum or plasma potassium measurement (moles/volume) 4.6 mmol/L 3.6-5.0 Serum or plasma chloride measurement (moles/volume) 104 mmol/L 98-107 Carbon dioxide 17 mmol/L 21-32 Serum or plasma anion gap determination (moles/volume) 14 mmol/L 5-14 Serum or plasma urea nitrogen measurement (mass/volume ) 21 mg/dL 7-18 Serum or plasma creatinine measurement (mass/volume) 2.23 mg/dL 0.60-1.30 Serum or plasma urea nitrogen/creatinine mass ratio 9 NRG Serum or plasma creatinine measurement w ith calculation of estimated glomerular filtration rate 21 NRG Serum or plasma glucose measurement (mass/volume) 467 mg/dL 70-105 Serum or plasma calcium measurement (mass/volume) 8.8 mg/dL 8.5-10.1 Serum or plasma total bilirubin measurement (mass/volu me) 0.2 mg/dL 0.1-1.0 Serum or plasma alkaline phosphatase yaima surement (enzymatic activity/volume) 72 U/L 40-136 Serum or plasma aspartate aminotransfera se measurement (enzymatic activity/volume) 17 U/L 5-34 Serum or plasma alanine aminotransferase measurement (enzymatic activity/volume) 16 U/L 0-55 Serum or plasma protein measurement (mass/volume) 6.4 g/dL 6.4-8.2 Serum or plasma albumin measurement (mass/volume) 3.3 g/dL 3.2-4.5 CALCIUM CORRECTED 9.4 mg/dL 8.5-10.1 Serum or plasma troponin i.cardiac measu rement (mass/volume) - 12/02/18 04:55 Serum or plasma troponin i.cardiac measurement (mass/v olume) < ng/mL <0.028 Capillary blood glucose measurement by g lucometer (mass/volume) - 12/02/18 11:05 Capillary blood glucose measurement by glucometer (mas s/volume) 332 mg/dL 70-110 Complete urinalysis with reflex to cultu re - 12/16/18 13:07 Urine color determination YELLOW NRG Urine clarity determination CLOUDY NR G Urine pH measurement by test strip 6.0 5-9 Specific gravity of urine by test strip 1.025 1.016-1.022 Urine protein assay by test strip, semi-quantitative 3+ NEGATIVE Urine glucose detection by automated test strip 2+ NEGATIVE Erythrocytes detection in urine sediment by light micr oscopy 1+ NEGATIVE Urine ketones detection by automated test strip TR SYLVIE NEGATIVE Urine nitrite detection by test strip NEGATIVE NEGATIVE Urine total bilirubin detection by test strip NEGA TIVE NEGATIVE Urine urobilinogen measurement by automated test strip (mass/volume) 0.2 mg/dL NORMAL Urine leukocyte esterase detection by dipstick 2+ NEGATIVE Automated urine sediment erythrocyte cou nt by microscopy (number/high power field) [HPF] NRG Automated urine sediment leukocyte count by microscopy (number/high power field) [HPF] NRG Bacteria detection in urine sediment by light microsco py FEW NRG Squamous epithelial cells detection in u rine sediment by light microscopy 5-10 NRG Crystals detection in urine sediment by light microsco py NONE NRG Casts detection in urine sediment by light microscopy PRESENT NRG Mucus detection in urine sediment by light microscopy SMALL NRG Complete urinalysis with reflex to culture YES NRG Hyaline casts detection in urine sediment by light jesus alberto roscopy RARE NRG Bacterial urine culture - 12/16/18 13:07 Bacterial urine culture 3 OR MORE NRG COLONY COUNT 80,000 CFU/ML NRG FTX;REPORTABLE GRAM POSITIVE ISOLATES; SUGGESTING NRG FREE TEXT ENTRY 2 PROBABLE COLLECTION CONTAMINATIO N WITH NRG FREE TEXT ENTRY 3 SKIN ISAIAH. NO SUSCEPTIBILITY PE RFORMED. NRG Complete urinalysis with reflex to cultu re - 01/04/19 11:45 Urine color determination YELLOW NRG Urine clarity determination CLEAR NR G Urine pH measurement by test strip 6.5 5-9 Specific gravity of urine by test strip 1.025 1.016-1.022 Urine protein assay by test strip, semi-quantitative 3+ NEGATIVE Urine glucose detection by automated test strip 2+ NEGATIVE Erythrocytes detection in urine sediment by light micr oscopy NEGATIVE NEGATIVE Urine ketones detection by automated test strip NE GATIVE NEGATIVE Urine nitrite detection by test strip NEGATIVE NEGATIVE Urine total bilirubin detection by test strip NEGA TIVE NEGATIVE Urine urobilinogen measurement by automated test strip (mass/volume) 0.2 mg/dL NORMAL Urine leukocyte esterase detection by dipstick NEG ATIVE NEGATIVE Automated urine sediment erythrocyte cou nt by microscopy (number/high power field) RARE NRG Automated urine sediment leukocyte count by microscopy (number/high power field) [HPF] NRG Bacteria detection in urine sediment by light microsco py NEGATIVE NRG Squamous epithelial cells detection in u rine sediment by light microscopy 5-10 NRG Crystals detection in urine sediment by light microsco py NONE NRG Casts detection in urine sediment by light microscopy PRESENT NRG Mucus detection in urine sediment by light microscopy NEGATIVE NRG Complete urinalysis with reflex to culture NO NRG Hyaline casts detection in urine sediment by light jesus alberto roscopy 5-10 NRG Complete urinalysis with reflex to cultu re - 02/02/19 15:30 Urine color determination YELLOW NRG Urine clarity determination CLEAR NR G Urine pH measurement by test strip 7.5 5-9 Specific gravity of urine by test strip 1.020 1.016-1.022 Urine protein assay by test strip, semi-quantitative 3+ NEGATIVE Urine glucose detection by automated test strip 3+ NEGATIVE Erythrocytes detection in urine sediment by light micr oscopy NEGATIVE NEGATIVE Urine ketones detection by automated test strip NE GATIVE NEGATIVE Urine nitrite detection by test strip NEGATIVE NEGATIVE Urine total bilirubin detection by test strip NEGA TIVE NEGATIVE Urine urobilinogen measurement by automated test strip (mass/volume) 0.2 mg/dL NORMAL Urine leukocyte esterase detection by dipstick NEG ATIVE NEGATIVE Automated urine sediment erythrocyte cou nt by microscopy (number/high power field) NONE NRG Automated urine sediment leukocyte count by microscopy (number/high power field) [HPF] NRG Bacteria detection in urine sediment by light microsco py FEW NRG Squamous epithelial cells detection in u rine sediment by light microscopy 2-5 NRG Crystals detection in urine sediment by light microsco py NONE NRG Casts detection in urine sediment by light microscopy NONE NRG Mucus detection in urine sediment by light microscopy NEGATIVE NRG Complete urinalysis with reflex to culture YES NRG Bacterial urine culture - 02/02/19 15:30 Bacterial urine culture 3 OR MORE NRG COLONY COUNT 40,000 CFU/ML NRG FTX;REPORTABLE (GRAM POSITIVE) SUGGESTING PROBABLE NRG FREE TEXT ENTRY 2 COLLECTION CONTAMIANTION WITH SK IN NRG FREE TEXT ENTRY 3 ISAIAH. NO SUSCEPTIBILITY PERFOR MED NRG Complete urinalysis with reflex to cultu re - 03/04/19 00:00 Urine color determination YELLOW NRG Urine clarity determination CLOUDY NR G Urine pH measurement by test strip 6.0 5-9 Specific gravity of urine by test strip 1.025 1.016-1.022 Urine protein assay by test strip, semi-quantitative 3+ NEGATIVE Urine glucose detection by automated test strip TR SYLVIE NEGATIVE Erythrocytes detection in urine sediment by light micr oscopy TRACE NEGATIVE Urine ketones detection by automated test strip NE GATIVE NEGATIVE Urine nitrite detection by test strip NEGATIVE NEGATIVE Urine total bilirubin detection by test strip NEGA TIVE NEGATIVE Urine urobilinogen measurement by automated test strip (mass/volume) 0.2 mg/dL NORMAL Urine leukocyte esterase detection by dipstick 1+ NEGATIVE Automated urine sediment erythrocyte cou nt by microscopy (number/high power field) [HPF] NRG Automated urine sediment leukocyte count by microscopy (number/high power field) > [HPF] NRG Bacteria detection in urine sediment by light microsco py LARGE NRG Squamous epithelial cells detection in u rine sediment by light microscopy 10-25 NRG Crystals detection in urine sediment by light microsco py NONE NRG Casts detection in urine sediment by light microscopy NONE NRG Mucus detection in urine sediment by light microscopy NEGATIVE NRG Complete urinalysis with reflex to culture YES NRG Bacterial urine culture - 03/04/19 00:00 Bacterial urine culture [id number] NRG COLONY COUNT >100,000/ML NRG FTX;REPORTABLE SUSCEPTIBILITY REPORTED 03-07-19, 130 2 NRG Dirithromycin susceptibility test by dis k diffusion - 03/04/19 00:00 Gentamicin susceptibility test by minimum inhibitory c oncentration <= NRG Trimethoprim/sulfamethoxazole susceptibi lity test by minimum inhibitoryconcentration > NRG Levofloxacin susceptibility test by minimum inhibitory concentration <= NRG Ampicillin susceptibility test by minimum inhibitory c oncentration > NRG Cefazolin susceptibility test by minimum inhibitory co ncentration 4 NRG Ceftriaxone susceptibility test by minimum inhibitory concentration <= NRG Ciprofloxacin susceptibility test by minimum inhibitor y concentration <= NRG Meropenem susceptibility test by minimum inhibitory co ncentration <= NRG Nitrofurantoin susceptibility test by mi nimum inhibitory concentration > NRG Amoxicillin and clavulanate potassium susc JESUS ALBERTO = NRG CULTURE, URINE - 03/31/19 11:01 CULTURE, URINE, ROUTINE SEE NOTE NRG PT/INR - 04/11/19 15:25 INR 1.8 NRG PT 18.1 sec 9.0-11.5 Complete urinalysis with reflex to cultu re - 05/02/19 14:05 Urine color determination YELLOW NRG Urine clarity determination CLEAR NR G Urine pH measurement by test strip 6.0 5-9 Specific gravity of urine by test strip 1.025 1.016-1.022 Urine protein assay by test strip, semi-quantitative 3+ NEGATIVE Urine glucose detection by automated test strip 1+ NEGATIVE Erythrocytes detection in urine sediment by light micr oscopy TRACE NEGATIVE Urine ketones detection by automated test strip NE GATIVE NEGATIVE Urine nitrite detection by test strip NEGATIVE NEGATIVE Urine total bilirubin detection by test strip NEGA TIVE NEGATIVE Urine urobilinogen measurement by automated test strip (mass/volume) 0.2 mg/dL NORMAL Urine leukocyte esterase detection by dipstick NEG ATIVE NEGATIVE Automated urine sediment erythrocyte cou nt by microscopy (number/high power field) RARE NRG Automated urine sediment leukocyte count by microscopy (number/high power field) [HPF] NRG Bacteria detection in urine sediment by light microsco py FEW NRG Squamous epithelial cells detection in u rine sediment by light microscopy 25-50 NRG Crystals detection in urine sediment by light microsco py NONE NRG Casts detection in urine sediment by light microscopy NONE NRG Mucus detection in urine sediment by light microscopy NEGATIVE NRG Complete urinalysis with reflex to culture YES NRG Bacterial urine culture - 05/02/19 14:05 Bacterial urine culture [id number] NRG COLONY COUNT 40,000 CFU/ML NRG FTX;REPORTABLE SUSCEPTIBILITY REPORTED 05/05/19 14: 10 NRG Dirithromycin susceptibility test by dis k diffusion - 05/02/19 14:05 Gentamicin susceptibility test by minimum inhibitory c oncentration <= NRG Trimethoprim/sulfamethoxazole susceptibi lity test by minimum inhibitoryconcentration > NRG Levofloxacin susceptibility test by minimum inhibitory concentration <= NRG Ampicillin susceptibility test by minimum inhibitory c oncentration > NRG Cefazolin susceptibility test by minimum inhibitory co ncentration 2 NRG Ceftriaxone susceptibility test by minimum inhibitory concentration <= NRG Ciprofloxacin susceptibility test by minimum inhibitor y concentration <= NRG Meropenem susceptibility test by minimum inhibitory co ncentration <= NRG Nitrofurantoin susceptibility test by mi nimum inhibitory concentration <= NRG Amoxicillin and clavulanate potassium susc JESUS ALBERTO = NRG Capillary blood glucose measurement by g lucometer (mass/volume) - 05/05/19 14:03 Capillary blood glucose measurement by glucometer (mas s/volume) 317 mg/dL 70-110 Complete blood count (CBC) with automate d white blood cell (WBC) differential - 05/05/19 14:20 Blood leukocytes automated count (number/volume) 12.8 10*3/uL 4.3-11.0 Blood erythrocytes automated count (number/volume) 3.98 10*6/uL 4.35-5.85 Venous blood hemoglobin measurement (mass/volume) 8.9 g/dL 11.5-16.0 Blood hematocrit (volume fraction) 30 % 35-52 Automated erythrocyte mean corpuscular volume 75 [ foz_us] 80-99 Automated erythrocyte mean corpuscular h emoglobin (mass per erythrocyte) 22 pg 25-34 Automated erythrocyte mean corpuscular h emoglobin concentration measurement (mass/volume) 30 g/dL 32-36 Automated erythrocyte distribution width ratio 16. 5 % 10.0- 14.5 Automated blood platelet count (count/volume) 315 10*3/uL 130-400 Automated blood platelet mean volume measurement 11.5 [foz_us] 7.4-10.4 Automated blood neutrophils/100 leukocytes 94 % 42-75 Automated blood lymphocytes/100 leukocytes 4 % 12-44 Blood monocytes/100 leukocytes 2 % 0-12 Automated blood eosinophils/100 leukocytes 0 % 0-10 Automated blood basophils/100 leukocytes 0 % 0-10 Blood neutrophils automated count (number/volume) 11.9 10*3 1.8-7.8 Blood lymphocytes automated count (number/volume) 0.6 10*3 1.0-4.0 Blood monocytes automated count (number/volume) 0. 3 10*3 0.0-1.0 Automated eosinophil count 0.0 10*3/uL 0 .0-0.3 Automated blood basophil count (count/volume) 0.0 10*3/uL 0.0-0.1 PT panel in platelet poor plasma by coag ulation assay - 05/05/19 14:20 Prothrombin time (PT) in platelet poor plasma by coagu lation assay 26.6 s 12.2-14.7 INR in platelet poor plasma or blood by coagulation as say 2.3 0.8-1.4 Activated partial thromboplastin time (a PTT) in platelet poor plasma bycoagulation assay - 05/05/19 14:20 Activated partial thromboplastin time (a PTT) in platelet poor plasma bycoagulation assay 46 s 24-35 Comprehensive metabolic panel - 05/05/19 14:20 Serum or plasma sodium measurement (moles/volume) 134 mmol/L 135-145 Serum or plasma potassium measurement (moles/volume) 5.1 mmol/L 3.6-5.0 Serum or plasma chloride measurement (moles/volume) 96 mmol/L 98-107 Carbon dioxide 23 mmol/L 21-32 Serum or plasma anion gap determination (moles/volume) 15 mmol/L 5-14 Serum or plasma urea nitrogen measurement (mass/volume ) 31 mg/dL 7-18 Serum or plasma creatinine measurement (mass/volume) 2.55 mg/dL 0.60-1.30 Serum or plasma urea nitrogen/creatinine mass ratio 12 NRG Serum or plasma creatinine measurement w ith calculation of estimated glomerular filtration rate 18 NRG Serum or plasma glucose measurement (mass/volume) 341 mg/dL 70-105 Serum or plasma calcium measurement (mass/volume) 9.4 mg/dL 8.5-10.1 Serum or plasma total bilirubin measurement (mass/volu me) 0.2 mg/dL 0.1-1.0 Serum or plasma alkaline phosphatase yaima surement (enzymatic activity/volume) 64 U/L 40-136 Serum or plasma aspartate aminotransfera se measurement (enzymatic activity/volume) 14 U/L 5-34 Serum or plasma alanine aminotransferase measurement (enzymatic activity/volume) 10 U/L 0-55 Serum or plasma protein measurement (mass/volume) 7.0 g/dL 6.4-8.2 Serum or plasma albumin measurement (mass/volume) 3.7 g/dL 3.2-4.5 CALCIUM CORRECTED 9.6 mg/dL 8.5-10.1 Magnesium - 05/05/19 14:20 Magnesium 2.3 mg/dL 1.6-2.4 Lipase - 05/05/19 14:20 Lipase 37 U/L 8-78 Manual absolute plasma cell count - 110 01/14 14:20 Blood monocytes/100 leukocytes 2 % NRG Manual blood segmented neutrophils/100 leukocytes 86 % NRG Blood band neutrophils/100 leukocytes 5 % NRG Manual blood lymphocytes/100 leukocytes 7 % NRG Blood hypochromia detection by light microscopy 1+ NRG Blood microcytes detection by light microscopy 2+ NRG [id number] - 05/05/19 14:20 [id number] 0.83 ng/mL 0.80-2.00 Complete urinalysis with reflex to cultu re - 05/05/19 14:25 Urine color determination YELLOW NRG Urine clarity determination SLT CLOUDY NRG Urine pH measurement by test strip 7.0 5-9 Specific gravity of urine by test strip 1.020 1.016-1.022 Urine protein assay by test strip, semi-quantitative 2+ NEGATIVE Urine glucose detection by automated test strip 2+ NEGATIVE Erythrocytes detection in urine sediment by light micr oscopy TRACE NEGATIVE Urine ketones detection by automated test strip NE GATIVE NEGATIVE Urine nitrite detection by test strip NEGATIVE NEGATIVE Urine total bilirubin detection by test strip NEGA TIVE NEGATIVE Urine urobilinogen measurement by automated test strip (mass/volume) 0.2 mg/dL < = 1.0 Urine leukocyte esterase detection by dipstick TRA CE NEGATIVE Automated urine sediment erythrocyte cou nt by microscopy (number/high power field) RARE NRG Automated urine sediment leukocyte count by microscopy (number/high power field) [HPF] NRG Bacteria detection in urine sediment by light microsco py TRACE NRG Squamous epithelial cells detection in u rine sediment by light microscopy 2-5 NRG Crystals detection in urine sediment by light microsco py NONE NRG Casts detection in urine sediment by light microscopy NONE NRG Mucus detection in urine sediment by light microscopy NONE NRG Complete urinalysis with reflex to culture YES NRG Bacterial urine culture - 05/05/19 14:25 Bacterial urine culture 3 OR MORE NRG COLONY COUNT 10,000 CFU/ML NRG FTX;REPORTABLE (GRAM POSITIVE) SUGGESTING PROBABLE NRG FREE TEXT ENTRY 2 COLLECTION CONTAMINATION WITH SK IN ISAIAH NRG FREE TEXT ENTRY 3 NO SUSCEPTIBILITY PERFORMED NRG Capillary blood glucose measurement by g lucometer (mass/volume) - 05/05/19 15:55 Capillary blood glucose measurement by glucometer (mas s/volume) 320 mg/dL 70-110 Capillary blood glucose measurement by g lucometer (mass/volume) - 05/05/19 16:42 Capillary blood glucose measurement by glucometer (mas s/volume) 310 mg/dL 70-110 Complete urinalysis with reflex to cultu re - 06/06/19 14:45 Urine color determination YELLOW NRG Urine clarity determination SL CLOUDY N RG Urine pH measurement by test strip 6.0 5-9 Specific gravity of urine by test strip 1.025 1.016-1.022 Urine protein assay by test strip, semi-quantitative 2+ NEGATIVE Urine glucose detection by automated test strip 1+ NEGATIVE Erythrocytes detection in urine sediment by light micr oscopy 2+ NEGATIVE Urine ketones detection by automated test strip NE GATIVE NEGATIVE Urine nitrite detection by test strip NEGATIVE NEGATIVE Urine total bilirubin detection by test strip NEGA TIVE NEGATIVE Urine urobilinogen measurement by automated test strip (mass/volume) 0.2 mg/dL < = 1.0 Urine leukocyte esterase detection by dipstick 1+ NEGATIVE Automated urine sediment erythrocyte cou nt by microscopy (number/high power field) [HPF] NRG Automated urine sediment leukocyte count by microscopy (number/high power field) > [HPF] NRG Bacteria detection in urine sediment by light microsco py FEW NRG Squamous epithelial cells detection in u rine sediment by light microscopy 2-5 NRG Crystals detection in urine sediment by light microsco py NONE NRG Casts detection in urine sediment by light microscopy NONE NRG Mucus detection in urine sediment by light microscopy NEGATIVE NRG Complete urinalysis with reflex to culture YES NRG Bacterial urine culture - 06/06/19 14:45 Bacterial urine culture [id number] NRG COLONY COUNT >100,000/ML NRG FTX;REPORTABLE SUSCEPTIBILITY REPORTED 06-09-19, 1 207 NRG Dirithromycin susceptibility test by dis k diffusion - 06/06/19 14:45 Gentamicin susceptibility test by minimum inhibitory c oncentration <= NRG Trimethoprim/sulfamethoxazole susceptibi lity test by minimum inhibitoryconcentration > NRG Levofloxacin susceptibility test by minimum inhibitory concentration <= NRG Ampicillin susceptibility test by minimum inhibitory c oncentration > NRG Cefazolin susceptibility test by minimum inhibitory co ncentration 4 NRG Ceftriaxone susceptibility test by minimum inhibitory concentration <= NRG Ciprofloxacin susceptibility test by minimum inhibitor y concentration <= NRG Meropenem susceptibility test by minimum inhibitory co ncentration <= NRG Nitrofurantoin susceptibility test by mi nimum inhibitory concentration 64 NRG Amoxicillin and clavulanate potassium susc JESUS ALBERTO = NRG Complete blood count (CBC) with automate d white blood cell (WBC) differential - 06/26/19 04:20 Blood leukocytes automated count (number/volume) 13.5 10*3/uL 4.3-11.0 Blood erythrocytes automated count (number/volume) 3.55 10*6/uL 4.35-5.85 Venous blood hemoglobin measurement (mass/volume) 7.8 g/dL 11.5-16.0 Blood hematocrit (volume fraction) 27 % 35-52 Automated erythrocyte mean corpuscular volume 76 [ foz_us] 80-99 Automated erythrocyte mean corpuscular h emoglobin (mass per erythrocyte) 22 pg 25-34 Automated erythrocyte mean corpuscular h emoglobin concentration measurement (mass/volume) 29 g/dL 32-36 Automated erythrocyte distribution width ratio 17. 4 % 10.0- 14.5 Automated blood platelet count (count/volume) 329 10*3/uL 130-400 Automated blood platelet mean volume measurement 10.7 [foz_us] 7.4-10.4 Automated blood neutrophils/100 leukocytes 83 % 42-75 Automated blood lymphocytes/100 leukocytes 6 % 12-44 Blood monocytes/100 leukocytes 7 % 0-12 Automated blood eosinophils/100 leukocytes 2 % 0-10 Automated blood basophils/100 leukocytes 1 % 0-10 Blood neutrophils automated count (number/volume) 11.1 10*3 1.8-7.8 Blood lymphocytes automated count (number/volume) 0.8 10*3 1.0-4.0 Blood monocytes automated count (number/volume) 0. 9 10*3 0.0-1.0 Automated eosinophil count 0.3 10*3/uL 0 .0-0.3 Automated blood basophil count (count/volume) 0.1 10*3/uL 0.0-0.1 Blood blood smear finding identification by light micr oscopy SLIGHT LARGE PLTS NRG PT panel in platelet poor plasma by coag ulation assay - 06/26/19 04:20 Prothrombin time (PT) in platelet poor plasma by coagu lation assay 23.1 s 12.2-14.7 INR in platelet poor plasma or blood by coagulation as say 1.9 0.8-1.4 Activated partial thromboplastin time (a PTT) in platelet poor plasma bycoagulation assay - 06/26/19 04:20 Activated partial thromboplastin time (a PTT) in platelet poor plasma bycoagulation assay 43 s 24-35 Manual absolute plasma cell count - 05/30 03/17 04:20 Blood monocytes/100 leukocytes 3 % NRG Manual blood segmented neutrophils/100 leukocytes 84 % NRG Blood band neutrophils/100 leukocytes 2 % NRG Manual blood lymphocytes/100 leukocytes 4 % NRG Manual eosinophils/100 leukocytes in nose 7 % NRG Blood polychromasia detection by light microscopy SLIGHT NRG Blood ovalocytes detection by light microscopy SLI GHT NRG Blood poikilocytosis detection by light microscopy SLIGHT NRG Blood microcytes detection by light microscopy MOD ERATE NRG Acanthocyte detection SLIGHT NRG Comprehensive metabolic panel - 06/26/19 04:20 Serum or plasma sodium measurement (moles/volume) 137 mmol/L 135-145 Serum or plasma potassium measurement (moles/volume) 5.0 mmol/L 3.6-5.0 Serum or plasma chloride measurement (moles/volume) 102 mmol/L 98-107 Carbon dioxide 21 mmol/L 21-32 Serum or plasma anion gap determination (moles/volume) 14 mmol/L 5-14 Serum or plasma urea nitrogen measurement (mass/volume ) 28 mg/dL 7-18 Serum or plasma creatinine measurement (mass/volume) 2.93 mg/dL 0.60-1.30 Serum or plasma urea nitrogen/creatinine mass ratio 10 NRG Serum or plasma creatinine measurement w ith calculation of estimated glomerular filtration rate 15 NRG Serum or plasma glucose measurement (mass/volume) 288 mg/dL 70-105 Serum or plasma calcium measurement (mass/volume) 9.4 mg/dL 8.5-10.1 Serum or plasma total bilirubin measurement (mass/volu me) 0.3 mg/dL 0.1-1.0 Serum or plasma alkaline phosphatase yaima surement (enzymatic activity/volume) 61 U/L 40-136 Serum or plasma aspartate aminotransfera se measurement (enzymatic activity/volume) 18 U/L 5-34 Serum or plasma alanine aminotransferase measurement (enzymatic activity/volume) 10 U/L 0-55 Serum or plasma protein measurement (mass/volume) 6.6 g/dL 6.4-8.2 Serum or plasma albumin measurement (mass/volume) 3.5 g/dL 3.2-4.5 CALCIUM CORRECTED 9.8 mg/dL 8.5-10.1 Magnesium - 06/26/19 04:20 Magnesium 1.9 mg/dL 1.6-2.4 TROPONIN I FS - 06/26/19 04:20 TROPONIN I FS < 0.30 <0.30 PROBNP FS - 06/26/19 04:20 PROBNP FS 7047.0 pg/mL <75.0 Complete urinalysis with reflex to cultu re - 06/26/19 06:15 Urine color determination YELLOW NRG Urine clarity determination SLIGHTLY CLOUDY NRG Urine pH measurement by test strip 6.0 5-9 Specific gravity of urine by test strip 1.025 1.016-1.022 Urine protein assay by test strip, semi-quantitative 3+ NEGATIVE Urine glucose detection by automated test strip 1+ NEGATIVE Erythrocytes detection in urine sediment by light micr oscopy TRACE-I NEGATIVE Urine ketones detection by automated test strip NE GATIVE NEGATIVE Urine nitrite detection by test strip NEGATIVE NEGATIVE Urine total bilirubin detection by test strip NEGA TIVE NEGATIVE Urine urobilinogen measurement by automated test strip (mass/volume) 0.2 mg/dL < = 1.0 Urine leukocyte esterase detection by dipstick NEG ATIVE NEGATIVE Automated urine sediment erythrocyte cou nt by microscopy (number/high power field) NONE NRG Automated urine sediment leukocyte count by microscopy (number/high power field) [HPF] NRG Bacteria detection in urine sediment by light microsco py LARGE NRG Squamous epithelial cells detection in u rine sediment by light microscopy 5-10 NRG Crystals detection in urine sediment by light microsco py NONE NRG Casts detection in urine sediment by light microscopy NONE NRG Mucus detection in urine sediment by light microscopy NEGATIVE NRG Complete urinalysis with reflex to culture YES NRG Bacterial urine culture - 06/26/19 06:15 Bacterial urine culture [id number] NRG COLONY COUNT >100,000/ML NRG FTX;REPORTABLE PRELIM RAPID ID TEST AT [facility] 06/27 0 8:00 NRG FREE TEXT ENTRY 2 ID CONFIRMED BY RML N RG FREE TEXT ENTRY 3 RML SUSCEPTIBILITY REPORTED 05/31 1 10:30 NRG Dirithromycin susceptibility test by dis k diffusion - 06/26/19 06:15 Gentamicin susceptibility test by minimum inhibitory c oncentration <= NRG Trimethoprim/sulfamethoxazole susceptibi lity test by minimum inhibitoryconcentration > NRG Levofloxacin susceptibility test by minimum inhibitory concentration <= NRG Ampicillin susceptibility test by minimum inhibitory c oncentration > NRG Cefazolin susceptibility test by minimum inhibitory co ncentration 8 NRG Ceftriaxone susceptibility test by minimum inhibitory concentration <= NRG Ciprofloxacin susceptibility test by minimum inhibitor y concentration <= NRG Meropenem susceptibility test by minimum inhibitory co ncentration <= NRG Nitrofurantoin susceptibility test by mi nimum inhibitory concentration 64 NRG Amoxicillin and clavulanate potassium susc JESUS ALBERTO = NRG OCCULT BLOOD STOOL - 06/26/19 14:30 Stool gastrointestinal hemoglobin detection POSITI VE NEGATIVE PT panel in platelet poor plasma by coag ulation assay - 06/27/19 04:14 Prothrombin time (PT) in platelet poor plasma by coagu lation assay 24.9 s 12.2-14.7 INR in platelet poor plasma or blood by coagulation as say 2.1 0.8-1.4 Complete blood count (CBC) with automate d white blood cell (WBC) differential - 06/27/19 04:14 Blood leukocytes automated count (number/volume) 7.7 10*3/uL 4.3-11.0 Blood erythrocytes automated count (number/volume) 3.43 10*6/uL 4.35-5.85 Venous blood hemoglobin measurement (mass/volume) 7.5 g/dL 11.5-16.0 Blood hematocrit (volume fraction) 26 % 35-52 Automated erythrocyte mean corpuscular volume 75 [ foz_us] 80-99 Automated erythrocyte mean corpuscular h emoglobin (mass per erythrocyte) 22 pg 25-34 Automated erythrocyte mean corpuscular h emoglobin concentration measurement (mass/volume) 29 g/dL 32-36 Automated erythrocyte distribution width ratio 17. 8 % 10.0- 14.5 Automated blood platelet count (count/volume) 287 10*3/uL 130-400 Automated blood platelet mean volume measurement 11.6 [foz_us] 7.4-10.4 Automated blood neutrophils/100 leukocytes 70 % 42-75 Automated blood lymphocytes/100 leukocytes 17 % 12-44 Blood monocytes/100 leukocytes 10 % 0-12 Automated blood eosinophils/100 leukocytes 3 % 0-10 Automated blood basophils/100 leukocytes 1 % 0-10 Blood neutrophils automated count (number/volume) 5.4 10*3 1.8-7.8 Blood lymphocytes automated count (number/volume) 1.3 10*3 1.0-4.0 Blood monocytes automated count (number/volume) 0. 8 10*3 0.0-1.0 Automated eosinophil count 0.3 10*3/uL 0 .0-0.3 Automated blood basophil count (count/volume) 0.0 10*3/uL 0.0-0.1 Comprehensive metabolic panel - 06/27/19 04:14 Serum or plasma sodium measurement (moles/volume) 139 mmol/L 135-145 Serum or plasma potassium measurement (moles/volume) 4.3 mmol/L 3.6-5.0 Serum or plasma chloride measurement (moles/volume) 109 mmol/L 98-107 Carbon dioxide 18 mmol/L 21-32 Serum or plasma anion gap determination (moles/volume) 12 mmol/L 5-14 Serum or plasma urea nitrogen measurement (mass/volume ) 25 mg/dL 7-18 Serum or plasma creatinine measurement (mass/volume) 2.80 mg/dL 0.60-1.30 Serum or plasma urea nitrogen/creatinine mass ratio 9 NRG Serum or plasma creatinine measurement w ith calculation of estimated glomerular filtration rate 16 NRG Serum or plasma glucose measurement (mass/volume) 121 mg/dL 70-105 Serum or plasma calcium measurement (mass/volume) 8.9 mg/dL 8.5-10.1 Serum or plasma total bilirubin measurement (mass/volu me) 0.4 mg/dL 0.1-1.0 Serum or plasma alkaline phosphatase yaima surement (enzymatic activity/volume) 49 U/L 40-136 Serum or plasma aspartate aminotransfera se measurement (enzymatic activity/volume) 15 U/L 5-34 Serum or plasma alanine aminotransferase measurement (enzymatic activity/volume) 10 U/L 0-55 Serum or plasma protein measurement (mass/volume) 5.8 g/dL 6.4-8.2 Serum or plasma albumin measurement (mass/volume) 3.1 g/dL 3.2-4.5 CALCIUM CORRECTED 9.6 mg/dL 8.5-10.1 Serum or plasma lithium measurement (mol es/volume) - 06/27/19 04:14 BNP PT 536.5 pg/mL <100.0 Capillary blood glucose measurement by g lucometer (mass/volume) - 06/27/19 22:22 Capillary blood glucose measurement by glucometer (mas s/volume) 199 mg/dL 70-110 Complete blood count (CBC) with automate d white blood cell (WBC) differential - 06/28/19 04:39 Blood leukocytes automated count (number/volume) 6.5 10*3/uL 4.3-11.0 Blood erythrocytes automated count (number/volume) 3.33 10*6/uL 4.35-5.85 Venous blood hemoglobin measurement (mass/volume) 7.1 g/dL 11.5-16.0 Blood hematocrit (volume fraction) 25 % 35-52 Automated erythrocyte mean corpuscular volume 75 [ foz_us] 80-99 Automated erythrocyte mean corpuscular h emoglobin (mass per erythrocyte) 21 pg 25-34 Automated erythrocyte mean corpuscular h emoglobin concentration measurement (mass/volume) 28 g/dL 32-36 Automated erythrocyte distribution width ratio 17. 9 % 10.0- 14.5 Automated blood platelet count (count/volume) 283 10*3/uL 130-400 Automated blood platelet mean volume measurement 10.9 [foz_us] 7.4-10.4 Automated blood neutrophils/100 leukocytes 67 % 42-75 Automated blood lymphocytes/100 leukocytes 18 % 12-44 Blood monocytes/100 leukocytes 11 % 0-12 Automated blood eosinophils/100 leukocytes 4 % 0-10 Automated blood basophils/100 leukocytes 1 % 0-10 Blood neutrophils automated count (number/volume) 4.3 10*3 1.8-7.8 Blood lymphocytes automated count (number/volume) 1.1 10*3 1.0-4.0 Blood monocytes automated count (number/volume) 0. 7 10*3 0.0-1.0 Automated eosinophil count 0.3 10*3/uL 0 .0-0.3 Automated blood basophil count (count/volume) 0.0 10*3/uL 0.0-0.1 Comprehensive metabolic panel - 06/28/19 04:39 Serum or plasma sodium measurement (moles/volume) 138 mmol/L 135-145 Serum or plasma potassium measurement (moles/volume) 4.4 mmol/L 3.6-5.0 Serum or plasma chloride measurement (moles/volume) 109 mmol/L 98-107 Carbon dioxide 18 mmol/L 21-32 Serum or plasma anion gap determination (moles/volume) 11 mmol/L 5-14 Serum or plasma urea nitrogen measurement (mass/volume ) 26 mg/dL 7-18 Serum or plasma creatinine measurement (mass/volume) 2.67 mg/dL 0.60-1.30 Serum or plasma urea nitrogen/creatinine mass ratio 10 NRG Serum or plasma creatinine measurement w ith calculation of estimated glomerular filtration rate 17 NRG Serum or plasma glucose measurement (mass/volume) 154 mg/dL 70-105 Serum or plasma calcium measurement (mass/volume) 8.5 mg/dL 8.5-10.1 Serum or plasma total bilirubin measurement (mass/volu me) 0.3 mg/dL 0.1-1.0 Serum or plasma alkaline phosphatase yaima surement (enzymatic activity/volume) 45 U/L 40-136 Serum or plasma aspartate aminotransfera se measurement (enzymatic activity/volume) 17 U/L 5-34 Serum or plasma alanine aminotransferase measurement (enzymatic activity/volume) 11 U/L 0-55 Serum or plasma protein measurement (mass/volume) 5.7 g/dL 6.4-8.2 Serum or plasma albumin measurement (mass/volume) 3.2 g/dL 3.2-4.5 CALCIUM CORRECTED 9.1 mg/dL 8.5-10.1 PT/INR - 06/30/19 09:34 INR 1.5 NRG PT 15.2 sec 9.0-11.5 Complete urinalysis with reflex to cultu re - 07/04/19 08:30 Urine color determination YELLOW NRG Urine clarity determination CLEAR NR G Urine pH measurement by test strip 7.0 5-9 Specific gravity of urine by test strip 1.025 1.016-1.022 Urine protein assay by test strip, semi-quantitative 3+ NEGATIVE Urine glucose detection by automated test strip TR SYLVIE NEGATIVE Erythrocytes detection in urine sediment by light micr oscopy TRACE NEGATIVE Urine ketones detection by automated test strip NE GATIVE NEGATIVE Urine nitrite detection by test strip NEGATIVE NEGATIVE Urine total bilirubin detection by test strip NEGA TIVE NEGATIVE Urine urobilinogen measurement by automated test strip (mass/volume) 0.2 mg/dL < = 1.0 Urine leukocyte esterase detection by dipstick TRA CE NEGATIVE Automated urine sediment erythrocyte cou nt by microscopy (number/high power field) RARE NRG Automated urine sediment leukocyte count by microscopy (number/high power field) [HPF] NRG Bacteria detection in urine sediment by light microsco py TRACE NRG Squamous epithelial cells detection in u rine sediment by light microscopy 10-25 NRG Crystals detection in urine sediment by light microsco py NONE NRG Casts detection in urine sediment by light microscopy NONE NRG Mucus detection in urine sediment by light microscopy NEGATIVE NRG Complete urinalysis with reflex to culture NO NRG Blood CBC with ordered manual differenti al panel - 07/04/19 08:38 Blood leukocytes automated count (number/volume) 9.6 10*3/uL 4.3-11.0 Blood erythrocytes automated count (number/volume) 3.49 10*6/uL 4.35-5.85 Venous blood hemoglobin measurement (mass/volume) 7.5 g/dL 11.5-16.0 Blood hematocrit (volume fraction) 26 % 35-52 Automated erythrocyte mean corpuscular volume 75 [ foz_us] 80-99 Automated erythrocyte mean corpuscular h emoglobin (mass per erythrocyte) 21 pg 25-34 Automated erythrocyte mean corpuscular h emoglobin concentration measurement (mass/volume) 29 g/dL 32-36 Automated erythrocyte distribution width ratio 17. 9 % 10.0- 14.5 Automated blood platelet count (count/volume) 315 10*3/uL 130-400 Automated blood platelet mean volume measurement 10.4 [foz_us] 7.4-10.4 Automated blood neutrophils/100 leukocytes 79 % 42-75 Automated blood lymphocytes/100 leukocytes 9 % 12-44 Blood monocytes/100 leukocytes 4 % NRG Automated blood eosinophils/100 leukocytes 3 % 0-10 Automated blood basophils/100 leukocytes 1 % 0-10 Blood neutrophils automated count (number/volume) 7.6 10*3 1.8-7.8 Blood lymphocytes automated count (number/volume) 0.8 10*3 1.0-4.0 Blood monocytes automated count (number/volume) 0. 8 10*3 0.0-1.0 Automated eosinophil count 0.3 10*3/uL 0 .0-0.3 Automated blood basophil count (count/volume) 0.1 10*3/uL 0.0-0.1 Manual blood segmented neutrophils/100 leukocytes 87 % NRG Blood band neutrophils/100 leukocytes 1 % NRG Manual blood lymphocytes/100 leukocytes 7 % NRG Manual eosinophils/100 leukocytes in nose 1 % NRG Manual blood basophils/100 leukocytes 0 % NRG Blood anisocytosis detection by light microscopy S LIGHT NRG Manual blood nucleated erythrocytes/100 leukocytes ratio 1 NRG Blood microcytes detection by light microscopy [facility] Comprehensive metabolic panel - 07/04/19 08:38 Serum or plasma sodium measurement (moles/volume) 134 mmol/L 135-145 Serum or plasma potassium measurement (moles/volume) 4.7 mmol/L 3.6-5.0 Serum or plasma chloride measurement (moles/volume) 102 mmol/L 98-107 Carbon dioxide 20 mmol/L 21-32 Serum or plasma anion gap determination (moles/volume) 12 mmol/L 5-14 Serum or plasma urea nitrogen measurement (mass/volume ) 21 mg/dL 7-18 Serum or plasma creatinine measurement (mass/volume) 2.59 mg/dL 0.60-1.30 Serum or plasma urea nitrogen/creatinine mass ratio 8 NRG Serum or plasma creatinine measurement w ith calculation of estimated glomerular filtration rate 18 NRG Serum or plasma glucose measurement (mass/volume) 202 mg/dL 70-105 Serum or plasma calcium measurement (mass/volume) 9.1 mg/dL 8.5-10.1 Serum or plasma total bilirubin measurement (mass/volu me) 0.4 mg/dL 0.1-1.0 Serum or plasma alkaline phosphatase yaima surement (enzymatic activity/volume) 53 U/L 40-136 Serum or plasma aspartate aminotransfera se measurement (enzymatic activity/volume) 13 U/L 5-34 Serum or plasma alanine aminotransferase measurement (enzymatic activity/volume) 9 U/L 0-55 Serum or plasma protein measurement (mass/volume) 6.7 g/dL 6.4-8.2 Serum or plasma albumin measurement (mass/volume) 3.7 g/dL 3.2-4.5 CALCIUM CORRECTED 9.3 mg/dL 8.5-10.1 PROBNP FS - 07/04/19 08:38 PROBNP FS 6902.0 pg/mL <75.0 PT panel in platelet poor plasma by coag ulation assay - 07/08/19 11:00 Prothrombin time (PT) in platelet poor plasma by coagu lation assay 19.6 s 12.2-14.7 INR in platelet poor plasma or blood by coagulation as say 1.6 0.8-1.4 Activated partial thromboplastin time (a PTT) in platelet poor plasma bycoagulation assay - 07/08/19 11:00 Activated partial thromboplastin time (a PTT) in platelet poor plasma bycoagulation assay 42 s 24-35 Comprehensive metabolic panel - 07/08/19 11:00 Serum or plasma sodium measurement (moles/volume) 140 mmol/L 135-145 Serum or plasma potassium measurement (moles/volume) 5.2 mmol/L 3.6-5.0 Serum or plasma chloride measurement (moles/volume) 105 mmol/L 98-107 Carbon dioxide 20 mmol/L 21-32 Serum or plasma anion gap determination (moles/volume) 15 mmol/L 5-14 Serum or plasma urea nitrogen measurement (mass/volume ) 26 mg/dL 7-18 Serum or plasma creatinine measurement (mass/volume) 2.89 mg/dL 0.60-1.30 Serum or plasma urea nitrogen/creatinine mass ratio 9 NRG Serum or plasma creatinine measurement w ith calculation of estimated glomerular filtration rate 15 NRG Serum or plasma glucose measurement (mass/volume) 185 mg/dL 70-105 Serum or plasma calcium measurement (mass/volume) 9.1 mg/dL 8.5-10.1 Serum or plasma total bilirubin measurement (mass/volu me) 0.3 mg/dL 0.1-1.0 Serum or plasma alkaline phosphatase yaima surement (enzymatic activity/volume) 51 U/L 40-136 Serum or plasma aspartate aminotransfera se measurement (enzymatic activity/volume) 17 U/L 5-34 Serum or plasma alanine aminotransferase measurement (enzymatic activity/volume) 8 U/L 0-55 Serum or plasma protein measurement (mass/volume) 6.8 g/dL 6.4-8.2 Serum or plasma albumin measurement (mass/volume) 3.6 g/dL 3.2-4.5 CALCIUM CORRECTED 9.4 mg/dL 8.5-10.1 PROBNP FS - 07/08/19 11:00 PROBNP FS 7401.0 pg/mL <75.0 Blood CBC with ordered manual differenti al panel - 07/08/19 11:00 Blood leukocytes automated count (number/volume) 8.7 10*3/uL 4.3-11.0 Blood erythrocytes automated count (number/volume) 3.51 10*6/uL 4.35-5.85 Venous blood hemoglobin measurement (mass/volume) 7.4 g/dL 11.5-16.0 Blood hematocrit (volume fraction) 26 % 35-52 Automated erythrocyte mean corpuscular volume 75 [ foz_us] 80-99 Automated erythrocyte mean corpuscular h emoglobin (mass per erythrocyte) 21 pg 25-34 Automated erythrocyte mean corpuscular h emoglobin concentration measurement (mass/volume) 28 g/dL 32-36 Automated erythrocyte distribution width ratio 18. 2 % 10.0- 14.5 Automated blood platelet count (count/volume) 320 10*3/uL 130-400 Automated blood platelet mean volume measurement 10.8 [foz_us] 7.4-10.4 Automated blood neutrophils/100 leukocytes 76 % 42-75 Automated blood lymphocytes/100 leukocytes 11 % 12-44 Blood monocytes/100 leukocytes 8 % NRG Automated blood eosinophils/100 leukocytes 3 % 0-10 Automated blood basophils/100 leukocytes 1 % 0-10 Blood neutrophils automated count (number/volume) 6.6 10*3 1.8-7.8 Blood lymphocytes automated count (number/volume) 1.0 10*3 1.0-4.0 Blood monocytes automated count (number/volume) 0. 8 10*3 0.0-1.0 Automated eosinophil count 0.3 10*3/uL 0 .0-0.3 Automated blood basophil count (count/volume) 0.1 10*3/uL 0.0-0.1 Manual blood segmented neutrophils/100 leukocytes 76 % NRG Blood band neutrophils/100 leukocytes 3 % NRG Manual blood lymphocytes/100 leukocytes 9 % NRG Manual eosinophils/100 leukocytes in nose 4 % NRG Manual blood basophils/100 leukocytes 0 % NRG Blood hypochromia detection by light microscopy 3+ NRG Blood microcytes detection by light microscopy 2+ NRG Complete urinalysis with reflex to cultu re - 07/11/19 10:50 Urine color determination YELLOW NRG Urine clarity determination CLEAR NR G Urine pH measurement by test strip 5.5 5-9 Specific gravity of urine by test strip 1.025 1.016-1.022 Urine protein assay by test strip, semi-quantitative 2+ NEGATIVE Urine glucose detection by automated test strip NE GATIVE NEGATIVE Erythrocytes detection in urine sediment by light micr oscopy NEGATIVE NEGATIVE Urine ketones detection by automated test strip NE GATIVE NEGATIVE Urine nitrite detection by test strip NEGATIVE NEGATIVE Urine total bilirubin detection by test strip NEGA TIVE NEGATIVE Urine urobilinogen measurement by automated test strip (mass/volume) 0.2 mg/dL < = 1.0 Urine leukocyte esterase detection by dipstick NEG ATIVE NEGATIVE Automated urine sediment erythrocyte cou nt by microscopy (number/high power field) [HPF] NRG Automated urine sediment leukocyte count by microscopy (number/high power field) [HPF] NRG Bacteria detection in urine sediment by light microsco py NEGATIVE NRG Squamous epithelial cells detection in u rine sediment by light microscopy 5-10 NRG Crystals detection in urine sediment by light microsco py NONE NRG Casts detection in urine sediment by light microscopy PRESENT NRG Mucus detection in urine sediment by light microscopy NEGATIVE NRG Complete urinalysis with reflex to culture NO NRG Hyaline casts detection in urine sediment by light jesus alberto roscopy 2-5 NRG Complete blood count (CBC) with automate d white blood cell (WBC) differential - 07/18/19 03:55 Blood leukocytes automated count (number/volume) 9.1 10*3/uL 4.3-11.0 Blood erythrocytes automated count (number/volume) 3.46 10*6/uL 4.35-5.85 Venous blood hemoglobin measurement (mass/volume) 7.3 g/dL 11.5-16.0 Blood hematocrit (volume fraction) 25 % 35-52 Automated erythrocyte mean corpuscular volume 73 [ foz_us] 80-99 Automated erythrocyte mean corpuscular h emoglobin (mass per erythrocyte) 21 pg 25-34 Automated erythrocyte mean corpuscular h emoglobin concentration measurement (mass/volume) 29 g/dL 32-36 Automated erythrocyte distribution width ratio 18. 7 % 10.0- 14.5 Automated blood platelet count (count/volume) 202 10*3/uL 130-400 Automated blood platelet mean volume measurement 11.0 [foz_us] 7.4-10.4 Automated blood neutrophils/100 leukocytes 76 % 42-75 Automated blood lymphocytes/100 leukocytes 12 % 12-44 Blood monocytes/100 leukocytes 8 % 0-12 Automated blood eosinophils/100 leukocytes 3 % 0-10 Automated blood basophils/100 leukocytes 1 % 0-10 Blood neutrophils automated count (number/volume) 6.9 10*3 1.8-7.8 Blood lymphocytes automated count (number/volume) 1.1 10*3 1.0-4.0 Blood monocytes automated count (number/volume) 0. 8 10*3 0.0-1.0 Automated eosinophil count 0.2 10*3/uL 0 .0-0.3 Automated blood basophil count (count/volume) 0.1 10*3/uL 0.0-0.1 Blood lactic acid measurement (moles/vol ume) - 07/18/19 03:55 Blood lactic acid measurement (moles/volume) 1.22 mmol/L 0.50-2.00 Comprehensive metabolic panel - 07/18/19 03:55 Serum or plasma sodium measurement (moles/volume) 138 mmol/L 135-145 Serum or plasma potassium measurement (moles/volume) 5.4 mmol/L 3.6-5.0 Serum or plasma chloride measurement (moles/volume) 111 mmol/L 98-107 Carbon dioxide 14 mmol/L 21-32 Serum or plasma anion gap determination (moles/volume) 13 mmol/L 5-14 Serum or plasma urea nitrogen measurement (mass/volume ) 33 mg/dL 7-18 Serum or plasma creatinine measurement (mass/volume) 2.92 mg/dL 0.60-1.30 Serum or plasma urea nitrogen/creatinine mass ratio 11 NRG Serum or plasma creatinine measurement w ith calculation of estimated glomerular filtration rate 15 NRG Serum or plasma glucose measurement (mass/volume) 162 mg/dL 70-105 Serum or plasma calcium measurement (mass/volume) 9.2 mg/dL 8.5-10.1 Serum or plasma total bilirubin measurement (mass/volu me) 0.5 mg/dL 0.1-1.0 Serum or plasma alkaline phosphatase yaima surement (enzymatic activity/volume) 52 U/L 40-136 Serum or plasma aspartate aminotransfera se measurement (enzymatic activity/volume) 21 U/L 5-34 Serum or plasma alanine aminotransferase measurement (enzymatic activity/volume) 13 U/L 0-55 Serum or plasma protein measurement (mass/volume) 6.8 g/dL 6.4-8.2 Serum or plasma albumin measurement (mass/volume) 3.6 g/dL 3.2-4.5 CALCIUM CORRECTED 9.5 mg/dL 8.5-10.1 Serum or plasma troponin i.cardiac measu rement (mass/volume) - 07/18/19 03:55 Serum or plasma troponin i.cardiac measurement (mass/v olume) < ng/mL <0.028 Serum or plasma lithium measurement (mol es/volume) - 07/18/19 03:55 BNP PT 1482.2 pg/mL <100.0 RED CELLS LEUKO REDUCED AS1 - 07/18/19 0 3:55 RED CELLS LEUKO REDUCED AS1 N OT AVAILABLE NRG Blood type T Indirect antibody screen pa bill - 07/18/19 03:55 WRISTBAND NUMBER [id number] NRG ABO+Rh group OP NRG Blood group antibody screen NEGATIVE NR G Bacterial blood culture - 07/18/19 03:55 Bacterial blood culture NG NRG Influenza virus A and B antigen detectio n - 07/18/19 04:05 FLU RESULT NEGATIVE FOR INFLUENZA A AND B ANTIGENS BY IA NRG Complete urinalysis with reflex to cultu re - 07/18/19 04:15 Urine color determination YELLOW NRG Urine clarity determination CLEAR NR G Urine pH measurement by test strip 5.5 5-9 Specific gravity of urine by test strip >= 1.016-1.022 Urine protein assay by test strip, semi-quantitative 3+ NEGATIVE Urine glucose detection by automated test strip TR SYLVIE NEGATIVE Erythrocytes detection in urine sediment by light micr oscopy TRACE-I NEGATIVE Urine ketones detection by automated test strip NE GATIVE NEGATIVE Urine nitrite detection by test strip NEGATIVE NEGATIVE Urine total bilirubin detection by test strip NEGA TIVE NEGATIVE Urine urobilinogen measurement by automated test strip (mass/volume) 0.2 mg/dL < = 1.0 Urine leukocyte esterase detection by dipstick NEG ATIVE NEGATIVE Automated urine sediment erythrocyte cou nt by microscopy (number/high power field) RARE NRG Automated urine sediment leukocyte count by microscopy (number/high power field) NONE NRG Bacteria detection in urine sediment by light microsco py MODERATE NRG Squamous epithelial cells detection in u rine sediment by light microscopy RARE NRG Crystals detection in urine sediment by light microsco py PRESENT NRG Casts detection in urine sediment by light microscopy NONE NRG Mucus detection in urine sediment by light microscopy NEGATIVE NRG Complete urinalysis with reflex to culture CULTURE PENDING NRG Amorphous sediment detection in urine sediment by ligh t microscopy LARGE MIKE URATES NRG Bacterial urine culture - 07/18/19 04:15 Bacterial urine culture NG NRG PT panel in platelet poor plasma by coag ulation assay - 07/18/19 04:25 Prothrombin time (PT) in platelet poor plasma by coagu lation assay 34.0 s 12.2-14.7 INR in platelet poor plasma or blood by coagulation as say 3.2 0.8-1.4 Activated partial thromboplastin time (a PTT) in platelet poor plasma bycoagulation assay - 07/18/19 04:25 Activated partial thromboplastin time (a PTT) in platelet poor plasma bycoagulation assay 67 s 24-35 Bacterial blood culture - 07/18/19 04:25 Bacterial blood culture NG NRG Venous blood hemoglobin measurement (mas s/volume) - 07/18/19 11:49 Venous blood hemoglobin measurement (mass/volume) 8.9 g/dL 11.5-16.0 Whole blood basic metabolic panel - 06/30 11:49 Serum or plasma sodium measurement (moles/volume) 141 mmol/L 135-145 Serum or plasma potassium measurement (moles/volume) 4.2 mmol/L 3.6-5.0 Serum or plasma chloride measurement (moles/volume) 113 mmol/L 98-107 Carbon dioxide 16 mmol/L 21-32 Serum or plasma anion gap determination (moles/volume) 12 mmol/L 5-14 Serum or plasma urea nitrogen measurement (mass/volume ) 32 mg/dL 7-18 Serum or plasma creatinine measurement (mass/volume) 2.79 mg/dL 0.60-1.30 Serum or plasma urea nitrogen/creatinine mass ratio 11 NRG Serum or plasma creatinine measurement w ith calculation of estimated glomerular filtration rate 16 NRG Serum or plasma glucose measurement (mass/volume) 128 mg/dL 70-105 Serum or plasma calcium measurement (mass/volume) 9.2 mg/dL 8.5-10.1 Serum or plasma troponin i.cardiac measu rement (mass/volume) - 07/18/19 11:49 Serum or plasma troponin i.cardiac measurement (mass/v olume) < ng/mL <0.028 Blood CBC with ordered manual differenti al panel - 07/19/19 03:05 Blood leukocytes automated count (number/volume) 7.5 10*3/uL 4.3-11.0 Blood erythrocytes automated count (number/volume) 4.04 10*6/uL 4.35-5.85 Venous blood hemoglobin measurement (mass/volume) 8.9 g/dL 11.5-16.0 Blood hematocrit (volume fraction) 30 % 35-52 Automated erythrocyte mean corpuscular volume 74 [ foz_us] 80-99 Automated erythrocyte mean corpuscular h emoglobin (mass per erythrocyte) 22 pg 25-34 Automated erythrocyte mean corpuscular h emoglobin concentration measurement (mass/volume) 30 g/dL 32-36 Automated erythrocyte distribution width ratio 19. 7 % 10.0- 14.5 Automated blood platelet count (count/volume) 319 10*3/uL 130-400 Automated blood platelet mean volume measurement 10.8 [foz_us] 7.4-10.4 Automated blood neutrophils/100 leukocytes 68 % 42-75 Automated blood lymphocytes/100 leukocytes 16 % 12-44 Blood monocytes/100 leukocytes 6 % NRG Automated blood eosinophils/100 leukocytes 5 % 0-10 Automated blood basophils/100 leukocytes 1 % 0-10 Blood neutrophils automated count (number/volume) 5.1 10*3 1.8-7.8 Blood lymphocytes automated count (number/volume) 1.2 10*3 1.0-4.0 Blood monocytes automated count (number/volume) 0. 8 10*3 0.0-1.0 Automated eosinophil count 0.3 10*3/uL 0 .0-0.3 Automated blood basophil count (count/volume) 0.0 10*3/uL 0.0-0.1 Manual blood segmented neutrophils/100 leukocytes 74 % NRG Manual blood lymphocytes/100 leukocytes 17 % NRG Manual eosinophils/100 leukocytes in nose 3 % NRG Blood polychromasia detection by light microscopy SLIGHT NRG Blood anisocytosis detection by light microscopy S LIGHT NRG Blood hypochromia detection by light microscopy MO DERATE NRG Blood microcytes detection by light microscopy SLI [facility] Comprehensive metabolic panel - 07/19/19 03:35 Serum or plasma sodium measurement (moles/volume) 141 mmol/L 135-145 Serum or plasma potassium measurement (moles/volume) 3.7 mmol/L 3.6-5.0 Serum or plasma chloride measurement (moles/volume) 112 mmol/L 98-107 Carbon dioxide 17 mmol/L 21-32 Serum or plasma anion gap determination (moles/volume) 12 mmol/L 5-14 Serum or plasma urea nitrogen measurement (mass/volume ) 31 mg/dL 7-18 Serum or plasma creatinine measurement (mass/volume) 2.76 mg/dL 0.60-1.30 Serum or plasma urea nitrogen/creatinine mass ratio 11 NRG Serum or plasma creatinine measurement w ith calculation of estimated glomerular filtration rate 16 NRG Serum or plasma glucose measurement (mass/volume) 94 mg/dL 70-105 Serum or plasma calcium measurement (mass/volume) 9.0 mg/dL 8.5-10.1 Serum or plasma total bilirubin measurement (mass/volu me) 0.5 mg/dL 0.1-1.0 Serum or plasma alkaline phosphatase yaima surement (enzymatic activity/volume) 48 U/L 40-136 Serum or plasma aspartate aminotransfera se measurement (enzymatic activity/volume) 17 U/L 5-34 Serum or plasma alanine aminotransferase measurement (enzymatic activity/volume) 8 U/L 0-55 Serum or plasma protein measurement (mass/volume) 6.2 g/dL 6.4-8.2 Serum or plasma albumin measurement (mass/volume) 3.2 g/dL 3.2-4.5 CALCIUM CORRECTED 9.6 mg/dL 8.5-10.1 Complete blood count (CBC) with automate d white blood cell (WBC) differential - 07/20/19 03:40 Blood leukocytes automated count (number/volume) 7.4 10*3/uL 4.3-11.0 Blood erythrocytes automated count (number/volume) 3.91 10*6/uL 4.35-5.85 Venous blood hemoglobin measurement (mass/volume) 8.7 g/dL 11.5-16.0 Blood hematocrit (volume fraction) 29 % 35-52 Automated erythrocyte mean corpuscular volume 74 [ foz_us] 80-99 Automated erythrocyte mean corpuscular h emoglobin (mass per erythrocyte) 22 pg 25-34 Automated erythrocyte mean corpuscular h emoglobin concentration measurement (mass/volume) 30 g/dL 32-36 Automated erythrocyte distribution width ratio 19. 9 % 10.0- 14.5 Automated blood platelet count (count/volume) 333 10*3/uL 130-400 Automated blood platelet mean volume measurement 10.8 [foz_us] 7.4-10.4 Automated blood neutrophils/100 leukocytes 68 % 42-75 Automated blood lymphocytes/100 leukocytes 15 % 12-44 Blood monocytes/100 leukocytes 13 % 0-12 Automated blood eosinophils/100 leukocytes 4 % 0-10 Automated blood basophils/100 leukocytes 1 % 0-10 Blood neutrophils automated count (number/volume) 5.1 10*3 1.8-7.8 Blood lymphocytes automated count (number/volume) 1.1 10*3 1.0-4.0 Blood monocytes automated count (number/volume) 0. 9 10*3 0.0-1.0 Automated eosinophil count 0.3 10*3/uL 0 .0-0.3 Automated blood basophil count (count/volume) 0.1 10*3/uL 0.0-0.1 Whole blood basic metabolic panel - 06/30 08/18 03:40 Serum or plasma sodium measurement (moles/volume) 142 mmol/L 135-145 Serum or plasma potassium measurement (moles/volume) 3.7 mmol/L 3.6-5.0 Serum or plasma chloride measurement (moles/volume) 111 mmol/L 98-107 Carbon dioxide 16 mmol/L 21-32 Serum or plasma anion gap determination (moles/volume) 15 mmol/L 5-14 Serum or plasma urea nitrogen measurement (mass/volume ) 33 mg/dL 7-18 Serum or plasma creatinine measurement (mass/volume) 3.08 mg/dL 0.60-1.30 Serum or plasma urea nitrogen/creatinine mass ratio 11 NRG Serum or plasma creatinine measurement w ith calculation of estimated glomerular filtration rate 14 NRG Serum or plasma glucose measurement (mass/volume) 141 mg/dL 70-105 Serum or plasma calcium measurement (mass/volume) 9.0 mg/dL 8.5-10.1 BNP - 07/28/19 11:44 B TYPE NATRIURETIC PEPTIDE (BNP) 732 pg/mL <100 CULTURE, URINE - 07/28/19 12:15 CULTURE, URINE, ROUTINE SEE NOTE NRG CULTURE, URINE - 08/16/19 13:26 CULTURE, URINE, ROUTINE SEE NOTE NRG CBC - 08/24/19 14:58 WHITE BLOOD CELL COUNT 8.0 Thousand/uL 3 .8-10.8 RED BLOOD CELL COUNT 4.94 Million/uL 3.8 0-5.10 HEMOGLOBIN 11.8 g/dL 11.7-15.5 HEMATOCRIT 37.7 % 35.0-45.0 MCV 76.3 fL 80.0-100.0 MCH 23.9 pg 27.0-33.0 MCHC 31.3 g/dL 32.0-36.0 RDW 20.1 % 11.0-15.0 PLATELET COUNT 252 Thousand/uL 140-400 MPV 11.3 fL 7.5-12.5 ABSOLUTE NEUTROPHILS 5608 cells/uL 1500- 7800 ABSOLUTE LYMPHOCYTES 1152 cells/uL 850-3 900 ABSOLUTE MONOCYTES 752 cells/uL 200-950 ABSOLUTE EOSINOPHILS 424 cells/uL 15-500 ABSOLUTE BASOPHILS 64 cells/uL 0-200 NEUTROPHILS 70.1 % NRG LYMPHOCYTES 14.4 % NRG MONOCYTES 9.4 % NRG EOSINOPHILS 5.3 % NRG BASOPHILS 0.8 % NRG CULTURE, URINE - 09/05/19 12:10 CULTURE, URINE, ROUTINE SEE NOTE NRG CMP - 09/14/19 10:16 GLUCOSE 158 mg/dL 65-99 UREA NITROGEN (BUN) 21 mg/dL 7-25 CREATININE 2.52 mg/dL 0.60-0.88 eGFR NON-AFR. ENGLISH 17 mL/min/1.73m2 > OR = 60 eGFR 19 mL/min/1.73m2 > OR = 60 BUN/CREATININE RATIO 8 (calc) 6-22 SODIUM 139 mmol/L 135-146 POTASSIUM 4.6 mmol/L 3.5-5.3 CHLORIDE 107 mmol/L 98-110 CARBON DIOXIDE 21 mmol/L 20-32 CALCIUM 9.3 mg/dL 8.6-10.4 PROTEIN, TOTAL 6.0 g/dL 6.1-8.1 ALBUMIN 3.5 g/dL 3.6-5.1 GLOBULIN 2.5 g/dL (calc) 1.9-3.7 ALBUMIN/GLOBULIN RATIO 1.4 (calc) 1.0-2. 5 BILIRUBIN, TOTAL 0.4 mg/dL 0.2-1.2 ALKALINE PHOSPHATASE 51 U/L 37-153 AST 14 U/L 10-35 ALT 9 U/L 6-29 CBC - 09/14/19 10:16 WHITE BLOOD CELL COUNT 7.5 Thousand/uL 3 .8-10.8 RED BLOOD CELL COUNT 5.34 Million/uL 3.8 0-5.10 HEMOGLOBIN 13.5 g/dL 11.7-15.5 HEMATOCRIT 43.2 % 35.0-45.0 MCV 80.9 fL 80.0-100.0 MCH 25.3 pg 27.0-33.0 MCHC 31.3 g/dL 32.0-36.0 RDW 22.8 % 11.0-15.0 PLATELET COUNT 238 Thousand/uL 140-400 MPV 10.7 fL 7.5-12.5 ABSOLUTE NEUTROPHILS 4755 cells/uL 1500- 7800 ABSOLUTE LYMPHOCYTES 1185 cells/uL 850-3 900 ABSOLUTE MONOCYTES 600 cells/uL 200-950 ABSOLUTE EOSINOPHILS 893 cells/uL 15-500 ABSOLUTE BASOPHILS 68 cells/uL 0-200 NEUTROPHILS 63.4 % NRG LYMPHOCYTES 15.8 % NRG MONOCYTES 8.0 % NRG EOSINOPHILS 11.9 % NRG BASOPHILS 0.9 % NRG CBC MORPHOLOGY NORMAL PT/INR - 09/14/19 10:16 INR 1.0 NRG PT 10.2 sec 9.0-11.5 A1C - 09/14/19 10:16 HEMOGLOBIN A1c 6.2 % of total Hgb <5.7 Encounters ACCT No. Visit Date/Time Discharge Status Pt. Type Provider Facility Loc./Unit Complaint [id number] 09/05/2019 11:45:00 09/05/2019 23:59: 59 [facility] [id number] 09/14/2019 10:15:00 Document Registration [id number] 09/05/2019 11:45:00 Document Registration [id number] 08/24/2019 14:00:00 Document Registration [id number] 08/16/2019 13:00:00 Document Registration [id number] 07/28/2019 11:15:00 Document Registration [id number] 06/30/2019 08:15:00 Document Registration [id number] 04/11/2019 14:00:00 Document Registration [id number] 03/31/2019 11:00:00 Document Registration [id number] 11/09/2018 12:15:00 Document Registration [id number] 10/29/2018 11:45:00 Document Registration [id number] 09/10/2018 11:00:00 Document Registration [id number] 08/30/2019 10:41:00 11:22:00 DIS Outpatient GITA BORREGO APRN 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 CARD CHRONIC HEART FAILURE [id number] 07/18/2019 05:16:00 12:20:00 DIS Inpatient MARILY HOFFMANN MD [facility] CSD ACUTW HEART [place] LURE, ANEMIA [id number] 07/11/2019 10:45:00 23:59:59 CLS Outpatient JAIMEE PAGE [employer] [facility] LAB FS N39.0 [id number] 07/08/2019 10:03:00 23:59:59 CLS Outpatient ANNE MARIE CALDERON MD [facility] LAB FS CHF [id number] 07/04/2019 07:57:00 11:42:00 DIS Emergency GIO IBARRA, JORGE LUIS Alonso [facility] ER FS SOB [id number] 06/26/2019 06:56:00 11:27:00 DIS Inpatient TERE KOCH DO, V [facility] CSD SOB [id number] 06/06/2019 14:15:00 23:59:59 CLS Outpatient YUMIKO IBARRA, ANNE MARIE Mancera [facility] LAB FS N39.0 [id number] 05/05/2019 13:48:00 17:55:00 DIS Emergency JESUSITA IBARRA, JS Clark [facility] ER FS WHEEZING; HYPER GLYCEMIA [id number] 05/02/2019 13:53:00 23:59:59 CLS Outpatient ANNE MARIE CALDERON MD [facility] LAB FS R41.0 R30.9 [id number] 03/04/2019 12:46:00 23:59:59 CLS Outpatient BAY HERNAN العلي [facility] LAB FS [id number] 02/23/2019 13:44:00 23:59:59 CLS Outpatient SAULO BRIGHT MD [facility] RAD FS STONES [id number] 02/02/2019 16:00:00 23:59:59 CLS Outpatient ANNE MARIE CALDERON MD [facility] LAB FS R30.0 [id number] 01/04/2019 11:17:00 23:59:59 CLS Outpatient NICOLETTE BARRAGAN [facility] LAB FS N390 [id number] 12/16/2018 13:03:00 23:59:59 CLS Outpatient ANNE MARIE CALDERON MD [facility] LAB FS R30.0 [id number] 12/01/2018 17:53:00 09:48:00 DIS Inpatient TERE KOCH DO, V [facility] 4TH UTI [id number] 10/21/2018 10:32:00 23:59:59 CLS Outpatient SAULO BRIGHT MD [facility] RAD FS LT RENAL LOWER POLE MAS S [id number] 10/11/2018 08:59:00 23:59:59 CLS Outpatient SAULO BRIGHT MD [facility] RAD FS H/O UTI'S [id number] 09/24/2018 14:50:00 13:32:00 DIS Inpatient TERE KOCH DO, V [facility] 4TH ALTERED MENTAL STATUS; BACK/URINARY PAIN [id number] 08/11/2018 14:02:00 13:15:00 DIS Inpatient JERAD IBARRA, MAXINE Mancera [facility] 4TH UTI;SEPSIS
[2019-09-21 15:38] LABS: HEMATOCRIT 45 % (35-52); HEMOGLOBIN 14.6 G/DL (11.5-16.0); MEAN CORPUSCULAR HEMOGLOBIN 26 PG (25-34); MEAN CORPUSCULAR HGB CONC 32 G/DL (32-36); MEAN CORPUSCULAR VOLUME 82 FL (80-99); PLATELET COUNT 204 10^3/uL (130-400); RED CELL DISTRIBUTION WIDTH 24.1 % (10.0-14.5); WHITE BLOOD COUNT 7.6 10^3/uL (4.3-11.0)
[2019-09-21 15:39] LABS: BASOPHILS # (AUTO) 0.1 10^3/uL (0.0-0.1); BASOPHILS % (AUTO) 1 % (0-10); EOSINOPHILS # (AUTO) 0.4 10^3/uL (0.0-0.3); EOSINOPHILS % (AUTO) 6 % (0-10); LYMPHOCYTES # (AUTO) 1.3 X 10^3 (1.0-4.0); LYMPHOCYTES % (AUTO) 18 % (12-44); MEAN PLATELET VOLUME 10.4 FL (7.4-10.4); MONOCYTES # (AUTO) 0.7 X 10^3 (0.0-1.0); MONOCYTES % (AUTO) 9 % (0-12); NEUTROPHILS # (AUTO) 5.1 X 10^3 (1.8-7.8); NEUTROPHILS % (AUTO) 66 % (42-75)
[2019-09-21 15:51] LABS: BACTERIA,URINE FEW /HPF; BILIRUBIN,URINE NEGATIVE (NEGATIVE); CLARITY,URINE CLEAR; COLOR,URINE YELLOW; GLUCOSE, URINE (UA) NEGATIVE (NEGATIVE); KETONES,URINE NEGATIVE (NEGATIVE); LEUKOCYTE ESTERASE ,URINE NEGATIVE (NEGATIVE); NITRITE,URINE NEGATIVE (NEGATIVE); PROTEIN,URINE 3+ (NEGATIVE); RBC,URINE 0-2 /HPF; SQUAMOUS EPITHELIAL CELL,UR 0-2 /HPF
[2019-09-21 16:02] LABS: CREATININE SERUM 2.2 MG/DL (0.60-1.30); POTASSIUM 5.2 MMOL/L (3.6-5.0)
[2019-09-21 16:03] LABS: ALBUMIN 3.2 GM/DL (3.2-4.5); BILIRUBIN,TOTAL 0.2 MG/DL (0.1-1.0); CALCIUM 9.3 MG/DL (8.5-10.1); TOTAL PROTEIN 6.8 GM/DL (6.4-8.2)
[2019-09-21 16:21] LABS: BAND NEUTROPHILS 1 %; BASOPHILS % (MANUAL) 1 %; EOSINOPHILS % (MANUAL) 4 %; LYMPHOCYTES % (MANUAL) 24 %; MONOCYTES % (MANUAL) 4 %; NEUTROPHILS % (MANUAL) 66 %
[2019-09-21 16:22] LABS: ANISOCYTOSIS MODERATE
--- NOTE | 2019-09-21 16:32 | ED Cough/URI ---
General Chief Complaint: Respiratory Problems Stated Complaint: WEAKNESS; SOB; AMS Nursing Triage Note: Per daughter, patient is having increased SOA with exertion. states she is being treated for UTI Sepsis Screen: No Definite Risk Source: family (daughter provides all history is patient is demented and nonverbal) History of Present Illness Date Seen by Provider: Sep 21, 2019 Time Seen by Provider: 15:10 Initial Comments 84-year-old female presents to the emergency room and is a poor historian. Her daughter is present states the patient has recurrent urinary tract infections and appears to have a recurrent infection again she has multiple allergies to SYLVIE inhibitor is penicillins and sulfa amlodipine ceftriaxone ciprofloxacin diltiazem levofloxacin ranitidine pseudoephedrine and simvastatin. Auditory evaluation shows the patient has a negative leukocyte esterase. She is slightly hyperkalemic with a potassium of 5.2 she has chronic kidney disease stage V with a creatinine of 2.2. Her stencil maker is in [facility] and she has a new set of labs be drawn tomorrow and they will see the stencil maker sometime later this month. The patient's glucose was 128 hemoglobin 14.6 white count is 7.6 urinalysis has a specific gravity of 1.025 she had 3+ protein but negative leukocyte esterase and no significant abnormalities on the urinanalysis. He did have a chest x-ray July 18, 2019 which showed early CHF but the patient is not Short of breath or have any chest pain. The patient is pleasant and does give some single word responses and smiles often. Daughter admits the patient does have a history of dementia. Timing/Duration: week Severity/Quality: mild (with most complaints consistent with UTI-type syndrome) Prior Episodes/Possible Cause: occasional episodes (patient has a history of repeated urinary tract infections and has been treated with Macrobid) Modifying Factors: Improves With Coughing Associated Symptoms: lightheadedness, other (dementia) Allergies and Home Medications Allergies Coded Allergies: SYLVIE Inhibitors (Verified Allergy, Unknown, 09/24/18) Penicillins (Unverified Allergy, Unknown, reacted to Rocephin 11/30/18 itching, had tolerated Ancef hx, 12/01/18) Sulfa (Sulfonamide Antibiotics) (Verified Allergy, Unknown, 09/24/18) amlodipine (Verified Allergy, Unknown, 09/24/18) ciprofloxacin (Verified Allergy, Unknown, 09/24/18) diltiazem (Verified Allergy, Unknown, 09/24/18) levofloxacin (Verified Allergy, Unknown, 09/24/18) loratadine (Verified Allergy, Unknown, 09/24/18) pseudoephedrine (Verified Allergy, Unknown, 09/24/18) simvastatin (Verified Allergy, Unknown, 09/24/18) ceftriaxone (Unverified Adverse Reaction, Mild, Itching, 12/01/18) Incident post one dose Rocephin IV with pt scratching hands/arms. Medicated Benadryl 25 mg IV and SoluMedrol 125 mg IV. had discussed allergies prior with dgt and it was thought she tolerated Rocephin in past. Home Medications Acetaminophen 500 Mg Tablet, 500-1,000 MG PO Q4H PRN for PAIN-MILD (1-4), (Reported) Amlodipine Besylate 5 Mg Tablet, 5 MG PO DAILY, (Reported) Ascorbic Acid 250 Mg Tab, 250 MG PO DAILY, (Reported) Atorvastatin Calcium 10 Mg Tablet, 10 MG PO HS, (Reported) Calcium Carbonate/Vitamin D3 1 Each Tablet, 1 TAB PO HS, (Reported) Cyanocobalamin 1,000 Mcg/Ml Inj, 1,000 MCG IM MONTHLY, (Reported) Digoxin 125 Mcg Tablet, 125 MCG PO Q48H, (Reported) Furosemide 20 Mg Tablet, 20 MG PO BID Take 2 tabs BID for the next 3 days then 1 tab BID Prescribed by: WHIT TEJADA on 07/20/19 1117 Isosorbide Mononitrate 60 Mg Tab, 60 MG PO DAILY, (Reported) Loperamide HCl 2 Mg Tablet, 2 MG PO UD PRN for DIARRHEA, (Reported) Magnesium Oxide 400 Mg Tablet, 800 MG PO BID, (Reported) TAKES 2 (400MG) TO EQUAL 800MG TWICE DAILY Methyl Salicylate/Menthol 1 Each Adh..patch, 1 PATCH TP DAILY, (Reported) Metoprolol Tartrate 100 Mg Tablet, 100 MG PO BID, (Reported) Omeprazole 20 Mg Capsule.dr, 20 MG PO BID, (Reported) Potassium Chloride 20 Meq Tablet.er, 20 MEQ PO DAILY, (Reported) Sitagliptin Phosphate 50 Mg Tablet, 100 MG PO DAILY, (Reported) Trimethoprim 100 Mg Tablet, 100 MG PO 1800, (Reported) Patient Home Medication List Home Medication List Reviewed: Yes Review of Systems Review of Systems Constitutional: malaise, weakness, other (dementia) EENTM: see HPI, no symptoms reported Respiratory: no symptoms reported, cough (minimal cough not observed in the emergency room) Cardiovascular: other (she has a history of congestive heart failure but no significant edema today) Gastrointestinal: see HPI, other (minimal abdominal discomfort no rebound tenderness) Genitourinary: see HPI, other (history of recurrent UTIs she is currently taking vitamin C and thousand milligrams a day and tries to maintain good hydration) : No Musculoskeletal: back pain (but negative Sam's and no costovertebral angle pain) Skin: dryness Psychiatric/Neurological: Weakness, Other (history of dementia) Hematologic/Lymphatic: No Symptoms Reported (no evidence of anemia) Immunological/Allergic: no symptoms reported Past Ryradrc-Eqhqzi-Stkada Hx Past Med/Social Hx: Reviewed Nursing Past Med/Soc Hx Patient Social History Alcohol Use: Denies Use Recreational Drug Use: No Smoking Status: Never a Smoker 2nd Hand Smoke Exposure: No Recent Foreign Travel: No Contact w/Someone Who Travel: No Recent Infectious Disease Expo: No Recent Hopitalizations: No Immunizations Up To Date Tetanus Booster (TDap): Unknown PED Vaccines UTD: No Date of Pneumonia Vaccine: Apr 15, 2018 Date of Influenza Vaccine: Apr 01, 2019 Seasonal Allergies Seasonal Allergies: No Past Medical History Surgeries: Yes Cardiac, Coronary Stent, Gallbladder, Pacemaker Respiratory: No Currently Using CPAP: No Currently Using BIPAP: No Cardiac: Yes (PACEMAKER, CHF) Atrial Fibrillation, Cardiomyopathy, Hypertension, Valvular Heart Disease Neurological: Yes Dementia, Stroke Female Reproductive Disorders: Denies Sexually Transmitted Disease: No HIV/AIDS: No Genitourinary: Yes (NEPHRECTOMY) Bladder Infection, Renal Failure, UTI-Chronic Gastrointestinal: No Musculoskeletal: Yes Arthritis Endocrine: Yes Diabetes, Non-Insulin dep HEENT: Yes Loss of Vision: Denies Hearing Impairment: Hard of Hearing, Hearing Aide Right Cancer: No Psychosocial: No Integumentary: No Blood Disorders: No Adverse Reaction/Blood Tranf: No Family Medical History Patient reports no known family medical history. No Pertinent Family Hx Physical Exam Vital Signs - First Documented 09/21/19 13:36 Temp 36.4 Pulse 71 Resp 17 B/P (MAP) 201/88 (125) Pulse Ox 99 O2 Delivery Simple Mask Capillary Refill : Less Than 3 Seconds Height: 5'3.00" Weight: 162lbs. 14.8oz. [id number]; 25.00 BMI Method:Stated General Appearance: WD/WN, mild distress (selectivity because of dementia but pleasant and smiles) Eyes: Bilateral Eye Normal Inspection, Bilateral Eye PERRL, Bilateral Eye EOMI HEENT: PERRL/EOMI, normal ENT inspection, pharynx normal Neck: non-tender, full range of motion, supple, normal inspection Respiratory: chest non-tender, lungs clear, normal breath sounds, no respiratory distress, no accessory muscle use Cardiovascular: regular rate, rhythm, no edema, no gallop, no JVD, no murmur Gastrointestinal: normal bowel sounds, non tender, soft, no organomegaly, no pulsatile mass Extremities: normal range of motion, normal inspection, no pedal edema, no calf tenderness, other (arthritic changes and right knee pain) Neurologic/Psychiatric: meal attendant II-XII nml as tested, no motor/sensory deficits, alert (with a history of dementia patient is pleasant and smiles), normal mood/affect, oriented x 3 Skin: normal color, warm/dry Lymphatic: no adenopathy Progress/Results/Core Measures Suspected Sepsis Recent Fever Within 48 Hours: No Infection Criteria Present: None New/Unexplained Altered Menta: No Sepsis Screen: No Definite Risk SIRS Temperature: Pulse: 71 Respiratory Rate: 17 Laboratory Tests 09/21/19 15:25: White Blood Count 7.6 Blood Pressure 201 /88 Mean: 125 Laboratory Tests 09/21/19 15:25: Creatinine 2.20H, Platelet Count 204, Total Bilirubin 0.2 Results/Orders Lab Results Laboratory Tests Test 09/21/19 15:25 09/21/19 15:35 Range/Units White Blood Count 7.6 4.3-11.0 10^3/uL Red Blood Count 5.52 4.35-5.85 10^6/uL Hemoglobin 14.6 11.5-16.0 G/DL Hematocrit 45 35-52 % Mean Corpuscular Volume 82 80-99 FL Mean Corpuscular Hemoglobin 26 25-34 PG Mean Corpuscular Hemoglobin Concent 32 32-36 G/DL Red Cell Distribution Width 24.1 H 10.0-14.5 % Platelet Count 204 130-400 10^3/uL Mean Platelet Volume 10.4 7.4-10.4 FL Neutrophils (%) (Auto) 66 42-75 % Lymphocytes (%) (Auto) 18 12-44 % Monocytes (%) (Auto) 9 0-12 % Eosinophils (%) (Auto) 6 0-10 % Basophils (%) (Auto) 1 0-10 % Neutrophils # (Auto) 5.1 1.8-7.8 X 10^3 Lymphocytes # (Auto) 1.3 1.0-4.0 X 10^3 Monocytes # (Auto) 0.7 0.0-1.0 X 10^3 Eosinophils # (Auto) 0.4 H 0.0-0.3 10^3/uL Basophils # (Auto) 0.1 0.0-0.1 10^3/uL Neutrophils % (Manual) 66 % Lymphocytes % (Manual) 24 % Monocytes % (Manual) 4 % Eosinophils % (Manual) 4 % Basophils % (Manual) 1 % Band Neutrophils 1 % Anisocytosis MODERATE Sodium Level 137 135-145 MMOL/L Potassium Level 5.2 H 3.6-5.0 MMOL/L Chloride Level 105 98-107 MMOL/L Carbon Dioxide Level 18 L 21-32 MMOL/L Anion Gap 14 5-14 MMOL/L Blood Urea Nitrogen 19 H 7-18 MG/DL Creatinine 2.20 H 0.60-1.30 MG/DL Estimat Glomerular Filtration Rate 21 BUN/Creatinine Ratio 9 Glucose Level 128 H 70-105 MG/DL Calcium Level 9.3 8.5-10.1 MG/DL Corrected Calcium 9.9 8.5-10.1 MG/DL Total Bilirubin 0.2 0.1-1.0 MG/DL Aspartate Amino Transf (AST/SGOT) 25 5-34 U/L Alanine Aminotransferase (ALT/SGPT) 13 0-55 U/L Alkaline Phosphatase 67 40-136 U/L Total Protein 6.8 6.4-8.2 GM/DL Albumin 3.2 3.2-4.5 GM/DL Urine Color YELLOW Urine Clarity CLEAR Urine pH 5.0 5-9 Urine Specific Martinez 1.025 H 1.016-1.022 Urine Protein 3+ H NEGATIVE Urine Glucose (UA) NEGATIVE NEGATIVE Urine Ketones NEGATIVE NEGATIVE Urine Nitrite NEGATIVE NEGATIVE Urine Bilirubin NEGATIVE NEGATIVE Urine Urobilinogen 0.2 < = 1.0 MG/DL Urine Leukocyte Esterase NEGATIVE NEGATIVE Urine RBC (Auto) TRACE H NEGATIVE Urine RBC 0-2 /HPF Urine WBC 2-5 /HPF Urine Squamous Epithelial Cells 0-2 /HPF Urine Crystals NONE /LPF Urine Bacteria FEW H /HPF Urine Casts NONE /LPF Urine Mucus NEGATIVE /LPF Urine Culture Indicated NO My Orders Orders - DEEDEE FOLEY DO Urinalysis (09/21/19 14:56) Cbc And Manual Diff (09/21/19 14:56) Comprehensive Metabolic Panel (09/21/19 14:56) Vital Signs/I&O 09/21/19 13:36 Temp 36.4 Pulse 71 Resp 17 B/P (MAP) 201/88 (125) Pulse Ox 99 O2 Delivery Simple Mask Capillary Refill : Less Than 3 Seconds Blood Pressure Mean: 125 Departure Impression Primary Impression: Hyperkalemia Additional Impressions: Acute on chronic renal failure Dementia Acute on chronic combined systolic (congestive) and diastolic (congestive) heart failure Disposition: HOME, SELF-CARE (daughter is providing care and patient has follow-up with her stencil maker) Condition: Improved Departure-Patient Inst. Decision time for Depature: 16:59 Referrals: [facility]/ (PCP) Primary Care Physician JAIMEE PAGE APRN (Family) Primary Care Physician Patient Instructions: Heart Failure, Adult (DC), Chronic Kidney Disease (DC), Dementia (DC) Add. Discharge Instructions: 84-year-old female presents with symptoms of UTI. No evidence of leukocyte esterase and urine is essentially clear with a 3+ protein. Patient does have a history of chronic kidney disease and will see her stencil maker in the near future she has labs ordered for her for tomorrow for the stencil maker. Patient has a history of congestive heart failure and will watch her salt intake. All discharge instructions reviewed with patient and/or family. Voiced understanding. DEEDEE FOLEY DO Sep 21, 2019 16:32
[2019-09-21 17:16] VITALS: BP 168/88
== END 2019-09-21 17:15 | disposition home or self-care (01) ==
LOC: EDUNIT# 13:16 → ER FS 13:17
DX: E87.5 Hyperkalemia (principal); N17.9 Acute kidney failure, unspecified; I13.0 Hypertensive heart and chronic kidney disease with heart failure and stage 1 through stage 4 chronic kidney disease, or unspecified chronic kidney disease; N18.9 Chronic kidney disease, unspecified; I50.43 Acute on chronic combined systolic (congestive) and diastolic (congestive) heart failure; F03.90 Unspecified dementia, unspecified severity, without behavioral disturbance, psychotic disturbance, mood disturbance, and anxiety; I48.91 Unspecified atrial fibrillation; I42.9 Cardiomyopathy, unspecified; E11.9 Type 2 diabetes mellitus without complications; M19.91 Primary osteoarthritis, unspecified site; Z95.5 Presence of coronary angioplasty implant and graft; Z95.0 Presence of cardiac pacemaker; Z86.73 Personal history of transient ischemic attack (TIA), and cerebral infarction without residual deficits; Z79.899 Other long term (current) drug therapy
CPT/HCPCS: 36415; 80053; 81000; 85007; 85027; 99282

== ENCOUNTER 2020-06-02 11:09 | Emergency (ER) | payer MEDICARE, OTHER ==
[~2020-06-02 11:09] MED LIST changes: +AMLO-250 PO; -AMLO5TAB9 PO; +ASCO250T16 PO; +ASPI-1238 PO; -ASPI-983 PO; -C250T PO; +CALC-664 PO; -CALC1TAB94 PO; -IBUP-2186 PO; +IBUP-47 PO; -WARF1TAB PO; -WARF1TAB82 PO; +WRF1T PO
--- NOTE | 2020-06-02 11:46 | ED Respiratory ---
General Chief Complaint: Respiratory Problems Stated Complaint: SOA Source: patient, family History of Present Illness Date Seen by Provider: Jun 02, 2020 Time Seen by Provider: 11:45 84-year-old female with a past medical history significant for congestive heart failure brought to the emergency department by her daughter with concerns for generalized weakness and shortness of air. Patient is difficult to obtain history from as she does not know when her symptoms started. She denies chest pain, but does endorse having shortness of breath and she believes that her lower extremities are more swollen. She is unsure if she takes Lasix. Per chart review she does have a history of congestive heart failure. She is unsure if she has had any known positive COVID-19 contacts. She denies any recent cough, fever, shortness of breath, changes in taste or smell. The patient's daughter, Concha, provided most of the history. She reports that her mother has been acting normally recently, but notes that she has been having worsening dyspnea over the past couple days. She has noted worsening lower extremity edema. The patient does intermittently use oxygen as needed for symptomatic control at home. There was no reported hypoxia. Patient's daughter checks on her daily and noted her symptoms to be worsening today prompting evaluation in the emergency department. Allergies and Home Medications Allergies Coded Allergies: SYLVIE Inhibitors (Verified Allergy, Unknown, 09/24/18) Penicillins (Unverified Allergy, Unknown, reacted to Rocephin 11/30/18 itching, had tolerated Ancef hx, 12/01/18) Sulfa (Sulfonamide Antibiotics) (Verified Allergy, Unknown, 09/24/18) amlodipine (Verified Allergy, Unknown, 09/24/18) ciprofloxacin (Verified Allergy, Unknown, 09/24/18) diltiazem (Verified Allergy, Unknown, 09/24/18) levofloxacin (Verified Allergy, Unknown, 09/24/18) loratadine (Verified Allergy, Unknown, 09/24/18) pseudoephedrine (Verified Allergy, Unknown, 09/24/18) simvastatin (Verified Allergy, Unknown, 09/24/18) ceftriaxone (Unverified Adverse Reaction, Mild, Itching, 12/01/18) Incident post one dose Rocephin IV with pt scratching hands/arms. Medicated Benadryl 25 mg IV and SoluMedrol 125 mg IV. had discussed allergies prior with dgt and it was thought she tolerated Rocephin in past. Home Medications Acetaminophen 500 Mg Tablet, 500-1,000 MG PO Q4H PRN for PAIN-MILD (1-4), (Reported) Amlodipine Besylate 5 Mg Tablet, 5 MG PO DAILY, (Reported) Ascorbic Acid 250 Mg Tab, 250 MG PO DAILY, (Reported) Atorvastatin Calcium 10 Mg Tablet, 10 MG PO HS, (Reported) Calcium Carbonate/Vitamin D3 1 Each Tablet, 1 TAB PO HS, (Reported) Cyanocobalamin 1,000 Mcg/Ml Inj, 1,000 MCG IM MONTHLY, (Reported) Digoxin 125 Mcg Tablet, 125 MCG PO Q48H, (Reported) Furosemide 20 Mg Tablet, 20 MG PO BID Take 2 tabs BID for the next 3 days then 1 tab BID Prescribed by: WHIT TEJADA on 07/20/19 1117 Isosorbide Mononitrate 60 Mg Tab, 60 MG PO DAILY, (Reported) Loperamide HCl 2 Mg Tablet, 2 MG PO UD PRN for DIARRHEA, (Reported) Magnesium Oxide 400 Mg Tablet, 800 MG PO BID, (Reported) TAKES 2 (400MG) TO EQUAL 800MG TWICE DAILY Methyl Salicylate/Menthol 1 Each Adh..patch, 1 PATCH TP DAILY, (Reported) Metoprolol Tartrate 100 Mg Tablet, 100 MG PO BID, (Reported) Omeprazole 20 Mg Capsule.dr, 20 MG PO BID, (Reported) Potassium Chloride 20 Meq Tablet.er, 20 MEQ PO DAILY, (Reported) Sitagliptin Phosphate 50 Mg Tablet, 100 MG PO DAILY, (Reported) Trimethoprim 100 Mg Tablet, 100 MG PO 1800, (Reported) Patient Home Medication List Home Medication List Reviewed: Yes Review of Systems Review of Systems Constitutional: see HPI; No diaphoresis Respiratory: No cough; dyspnea on exertion, short of breath Cardiovascular: No chest pain; edema Past Fsjsrix-Mrhktr-Uplkyh Hx Patient Social History Alcohol Use: Denies Use Recreational Drug Use: No 2nd Hand Smoke Exposure: No Recent Hopitalizations: No Physical Abuse: No Sexual Abuse: No Mistreated: No Fear: No Immunizations Up To Date Tetanus Booster (TDap): Unknown PED Vaccines UTD: No Date of Pneumonia Vaccine: Apr 15, 2018 Date of Influenza Vaccine: Apr 01, 2019 Seasonal Allergies Seasonal Allergies: No Past Medical History Surgeries: Yes Cardiac, Coronary Stent, Gallbladder, Pacemaker Respiratory: No Currently Using CPAP: No Currently Using BIPAP: No Cardiac: Yes (PACEMAKER, CHF) Atrial Fibrillation, Cardiomyopathy, Hypertension, Valvular Heart Disease Neurological: Yes Dementia, Stroke Female Reproductive Disorders: Denies Sexually Transmitted Disease: No HIV/AIDS: No Genitourinary: Yes (NEPHRECTOMY) Bladder Infection, Renal Failure, UTI-Chronic Gastrointestinal: No Musculoskeletal: Yes Arthritis Endocrine: Yes Diabetes, Non-Insulin dep HEENT: Yes Loss of Vision: Denies Hearing Impairment: Hard of Hearing, Hearing Aide Right Cancer: No Psychosocial: No Integumentary: No Blood Disorders: No Adverse Reaction/Blood Tranf: No Family Medical History Patient reports no known family medical history. No Pertinent Family Hx Physical Exam Vital Signs - First Documented 06/02/20 11:43 Temp 36.3 Pulse 73 Resp 20 B/P (MAP) 184/60 (101) Pulse Ox 95 O2 Delivery Room Air Capillary Refill : Height: 5'3.00" Weight: 162lbs. 14.8oz. [id number]; 25.00 BMI Method:Stated General Appearance: WD/WN, no apparent distress Eyes: Bilateral Eye Normal Inspection HEENT: PERRL/EOMI Neck: supple Respiratory: lungs clear, normal breath sounds, no respiratory distress, no accessory muscle use Cardiovascular: regular rate, rhythm, other (Bilateral pitting edema in the lower extremities. Well-perfused legs.) Gastrointestinal: normal bowel sounds, non tender, soft Extremities: normal range of motion, normal inspection Neurologic/Psychiatric: alert, normal mood/affect Focused Exam Lactate Level 06/02/20 11:53: Lactic Acid Level 1.30 Lactic Acid Level Laboratory Tests Test 06/02/20 11:53 Lactic Acid Level 1.30 MMOL/L (0.50-2.00) Progress/Results/Core Measures Suspected Sepsis SIRS Temperature: Pulse: Respiratory Rate: Laboratory Tests 06/02/20 11:30: White Blood Count 11.0 Blood Pressure / Mean: 06/02/20 11:53: Lactic Acid Level 1.30 Laboratory Tests 06/02/20 11:30: Creatinine 3.38H, Platelet Count 276, Total Bilirubin 0.5 Results/Orders Lab Results Laboratory Tests Test 06/02/20 11:30 06/02/20 11:53 06/02/20 12:43 Range/Units White Blood Count 11.0 4.3-11.0 10^3/uL Red Blood Count 3.81 L 4.35-5.85 10^6/uL Hemoglobin 11.3 L 11.5-16.0 G/DL Hematocrit 34 L 35-52 % Mean Corpuscular Volume 89 80-99 FL Mean Corpuscular Hemoglobin 30 25-34 PG Mean Corpuscular Hemoglobin Concent 33 32-36 G/DL Red Cell Distribution Width 44.0 H 10.0-14.5 % Platelet Count 276 130-400 10^3/uL Mean Platelet Volume 11.5 H 7.4-10.4 FL Immature Granulocyte % (Auto) 1 % Neutrophils (%) (Auto) 79 H 42-75 % Lymphocytes (%) (Auto) 11 L 12-44 % Monocytes (%) (Auto) 7 0-12 % Eosinophils (%) (Auto) 3 0-10 % Basophils (%) (Auto) 1 0-10 % Neutrophils # (Auto) 8.6 H 1.8-7.8 X 10^3 Lymphocytes # (Auto) 1.2 1.0-4.0 X 10^3 Monocytes # (Auto) 0.7 0.0-1.0 X 10^3 Eosinophils # (Auto) 0.3 0.0-0.3 10^3/uL Basophils # (Auto) 0.1 0.0-0.1 10^3/uL Immature Granulocyte # (Auto) 0.1 0.0-0.1 10^3/uL Sodium Level 138 135-145 MMOL/L Potassium Level 5.2 H 3.6-5.0 MMOL/L Chloride Level 104 98-107 MMOL/L Carbon Dioxide Level 21 21-32 MMOL/L Anion Gap 13 5-14 MMOL/L Blood Urea Nitrogen 25 H 7-18 MG/DL Creatinine 3.38 H 0.60-1.30 MG/DL Estimat Glomerular Filtration Rate 13 BUN/Creatinine Ratio 7 Glucose Level 168 H 70-105 MG/DL Calcium Level 9.6 8.5-10.1 MG/DL Corrected Calcium 9.8 8.5-10.1 MG/DL Magnesium Level 1.9 1.6-2.4 MG/DL Total Bilirubin 0.5 0.1-1.0 MG/DL Aspartate Amino Transf (AST/SGOT) 11 5-34 U/L Alanine Aminotransferase (ALT/SGPT) 7 0-55 U/L Alkaline Phosphatase 61 40-136 U/L Troponin I < 0.30 <0.30 NG/ML Pro-B-Type Natriuretic Peptide 31794.0 H <75.0 PG/ML Total Protein 7.1 6.4-8.2 GM/DL Albumin 3.8 3.2-4.5 GM/DL Lactic Acid Level 1.30 0.50-2.00 MMOL/L Urine Color YELLOW Urine Clarity CLEAR Urine pH 5.5 5-9 Urine Specific [place] 1.025 H 1.016-1.022 Urine Protein 2+ H NEGATIVE Urine Glucose (UA) NEGATIVE NEGATIVE Urine Ketones NEGATIVE NEGATIVE Urine Nitrite NEGATIVE NEGATIVE Urine Bilirubin NEGATIVE NEGATIVE Urine Urobilinogen 0.2 < = 1.0 MG/DL Urine Leukocyte Esterase 1+ H NEGATIVE Urine RBC (Auto) TRACE H NEGATIVE Urine RBC RARE /HPF Urine WBC 50-100 H /HPF Urine Squamous Epithelial Cells 0-2 /HPF Urine Crystals NONE /LPF Urine Bacteria FEW H /HPF Urine Casts NONE /LPF Urine Mucus NEGATIVE /LPF Urine Culture Indicated YES My Orders Orders - JUSTIN NEWMAN MD Vital Signs: Every 4 Hours (Or (06/02/20 11:41) Monitor-Rhythm Ecg Trace Only (06/02/20 11:41) Cbc With Automated Diff (06/02/20 11:41) Comprehensive Metabolic Panel (06/02/20 11:41) Troponin I Fs (06/02/20 11:41) Lactic Acid Analyzer (06/02/20 11:41) Ekg Tracing (06/02/20 11:41) Chest 1 View Ap/Pa Only (06/02/20 11:41) Magnesium (06/02/20 11:41) Ekg Tracing (06/02/20 11:41) O2 (06/02/20 11:41) Ed Iv/Invasive Line Start (06/02/20 11:41) Monitor-Rhythm Ecg Trace Only (06/02/20 11:41) Probnp Fs (06/02/20 11:41) Ua Culture If Indicated (06/02/20 11:41) Coronavirus Sars-Cov-2 So 2018 (06/02/20 11:41) Furosemide Injection (Lasix Injection) (06/02/20 12:45) Urine Culture (06/02/20 12:43) Medications Given in ED Current Medications Medications Dose Ordered Sig/Fransisco Route Start Time Stop Time Status Last Admin Dose Admin Furosemide 40 mg ONCE ONCE IVP 06/02/20 12:45 06/02/20 12:46 DC 06/02/20 13:36 40 MG Vital Signs/I&O 06/02/20 11:43 Temp 36.3 Pulse 73 Resp 20 B/P (MAP) 184/60 (101) Pulse Ox 95 O2 Delivery Room Air Capillary Refill : Progress Note : Progress Note Patient is a nontoxic 84-year-old female presenting with a complaint of dyspnea. Exam is consistent with congestive heart failure exacerbation appears to be mild though she is on room air having nonlabored respirations. She had a elevated proBNP, lower extremity edema. Per my conversation with the daughter, Concha, she has been intermittently using oxygen as needed for symptomatic control at home. She currently had been taking 20 mg of Lasix twice daily. Chest x-ray without obvious pulmonary edema, but I suspect her symptoms are due to her CHF. EKG was reassuring along with a negative troponin. Patient appeared to have slightly worsening renal function. She does have baseline chronic kidney disease and appears to run a creatinine of approximately 2.5 is her baseline. She increased today to 3.38. Potassium was slightly elevated. I discussed the findings with the patient's daughter with admission versus increasing her Lasix with prompt follow-up for repeat blood work on Thursday with her primary care provider. Given that she was on room air and having nonlabored respirations her daughter was comfortable with discharging home and doubling her Lasix dose for the next 2 days and following up on Thursday for repeat laboratory work. COVID-19 swab was obtained in the emergency department although I suspect her clinical picture is due to her CHF. Return precautions were discussed with the daughter who checks on her mother daily and with the patient. Both parties were in agreement with the plan of care. All questions were answered prior to discharge. ECG EKG : EKG Time: 11:52 Comment Ventricularly paced rhythm without sgarbossa's criteria. Rate of 68, QRS 107, variability with some QRS complexes with narrow versus wide. lbbb Diagnostic Imaging Diagonstic Imaging: Xray Comments Formal radiology read of the chest x-ray was without acute pathology. Departure Impression Primary Impression: SKYLER (acute kidney injury) Additional Impressions: Shortness of breath Acute on chronic combined systolic (congestive) and diastolic (congestive) heart failure Disposition: 01 HOME, SELF-CARE Condition: Stable Departure-Patient Inst. Decision time for Depature: 13:20 [facility]: [facility] Primary Care Physician JAIMEE PAGE APRN (Family) Primary Care Physician Patient Instructions: Heart Failure, Adult Add. Discharge Instructions: You were seen in the emergency department for shortness of breath. This is likely due to your congestive heart failure. You are to double your home Lasix dose and take 40 mg twice daily for the next 2 days. Contact your primary care provider on Thursday for immediate follow-up and to review further medication adjustments. You were found to have slight worsening of your kidney function in the emergency department. BUN 25, creatinine 3.38. These labs need to be rechecked by your primary care provider. If you develop worsening symptoms over the weekend, please return immediately to the emergency department to be reassessed. All discharge instructions reviewed with patient and/or family. Voiced understanding. JUSTIN NEWMAN MD Jun 02, 2020 11:46
[2020-06-02 11:52] LABS: BASOPHILS % (AUTO) 1 % (0-10); EOSINOPHILS % (AUTO) 3 % (0-10); HEMATOCRIT 34 % (35-52); HEMOGLOBIN 11.3 G/DL (11.5-16.0); LYMPHOCYTES # (AUTO) 1.2 X 10^3 (1.0-4.0); LYMPHOCYTES % (AUTO) 11 % (12-44); MEAN CORPUSCULAR HEMOGLOBIN 30 PG (25-34); MEAN CORPUSCULAR HGB CONC 33 G/DL (32-36); MEAN CORPUSCULAR VOLUME 89 FL (80-99); MEAN PLATELET VOLUME 11.5 FL (7.4-10.4); MONOCYTES % (AUTO) 7 % (0-12); NEUTROPHILS # (AUTO) 8.6 X 10^3 (1.8-7.8); NEUTROPHILS % (AUTO) 79 % (42-75); PLATELET COUNT 276 10^3/uL (130-400)
[2020-06-02 11:53] LABS: BASOPHILS # (AUTO) 0.1 10^3/uL (0.0-0.1); EOSINOPHILS # (AUTO) 0.3 10^3/uL (0.0-0.3); MONOCYTES # (AUTO) 0.7 X 10^3 (0.0-1.0)
[2020-06-02 12:15] LABS: ALANINE AMINOTRANSFERASE 7 U/L (0-55); ALBUMIN 3.8 GM/DL (3.2-4.5); ALKALINE PHOSPHATASE 61 U/L (40-136); BILIRUBIN,TOTAL 0.5 MG/DL (0.1-1.0); BUN/CREATININE RATIO 7; CALCIUM 9.6 MG/DL (8.5-10.1); CARBON DIOXIDE 21 MMOL/L (21-32); CHLORIDE 104 MMOL/L (98-107); CREATININE SERUM 3.38 MG/DL (0.60-1.30); GFR ESTIMATED 13; GLUCOSE 168 MG/DL (70-105); MAGNESIUM 1.9 MG/DL (1.6-2.4); POTASSIUM 5.2 MMOL/L (3.6-5.0); SODIUM 138 MMOL/L (135-145); TOTAL PROTEIN 7.1 GM/DL (6.4-8.2)
[2020-06-02] MEDS ORDERED: FUROSEMIDE 40 MG/4 ML INJ (LASIX) IVP ONE (12:45)
--- NOTE | 2020-06-02 12:50 | Diagnostic Imaging Report ---
INDICATION: Short of breath Portable chest shows normal heart size and vascularity. No infiltrates or effusions are seen. A pacemaker is present. IMPRESSION: No acute abnormality is seen. Infiltrate seen on the study from 07/18/2019 have resolved. Dictated by: Dictated on workstation # [id number]
[2020-06-02 13:31] LABS: BACTERIA,URINE FEW /HPF; BILIRUBIN,URINE NEGATIVE (NEGATIVE); CLARITY,URINE CLEAR; COLOR,URINE YELLOW; GLUCOSE, URINE (UA) NEGATIVE (NEGATIVE); KETONES,URINE NEGATIVE (NEGATIVE); LEUKOCYTE ESTERASE ,URINE 1+ (NEGATIVE); NITRITE,URINE NEGATIVE (NEGATIVE); PH,URINE 5.5 (5-9); PROTEIN,URINE 2+ (NEGATIVE); RBC,URINE RARE /HPF; WBC,URINE 50-100 /HPF
[2020-06-02 13:32] LABS: SQUAMOUS EPITHELIAL CELL,UR 0-2 /HPF
[2020-06-02 13:44] VITALS: BP 166/66
== END 2020-06-02 13:44 | disposition home or self-care (01) ==
LOC: EDUNIT# 11:09 → ER FS 11:11
DX: N17.9 Acute kidney failure, unspecified (principal); R06.02 Shortness of breath; I11.0 Hypertensive heart disease with heart failure; I50.9 Heart failure, unspecified; I48.91 Unspecified atrial fibrillation; E11.9 Type 2 diabetes mellitus without complications; Z20.828 Contact with and (suspected) exposure to other viral communicable diseases; Z95.0 Presence of cardiac pacemaker; Z95.5 Presence of coronary angioplasty implant and graft; Z88.0 Allergy status to penicillin; Z88.2 Allergy status to sulfonamides; Z88.1 Allergy status to other antibiotic agents; Z88.8 Allergy status to other drugs, medicaments and biological substances
CPT/HCPCS: 36415; 71045; 80053; 81000; 83605; 83735; 83880; 84484; 85025; 87088; 93041; 99284; U0002; 87077; 87635; 93005

== ENCOUNTER → 2020-06-06 | Outpatient (CLI) | payer MEDICARE, OTHER ==
[~2020-06-06] MED LIST changes: +AMLO-251 PO; +DIGO-8 PO; +NITR100C10 PO; +SITA100T12 PO
[2020-06-06 11:03] LABS: BACTERIA,URINE LARGE /HPF; BILIRUBIN,URINE NEGATIVE (NEGATIVE); CLARITY,URINE CLOUDY; COLOR,URINE YELLOW; GLUCOSE, URINE (UA) NEGATIVE (NEGATIVE); KETONES,URINE NEGATIVE (NEGATIVE); LEUKOCYTE ESTERASE ,URINE 1+ (NEGATIVE); NITRITE,URINE POSITIVE (NEGATIVE); PH,URINE 6.2 (5-9); PROTEIN,URINE 3+ (NEGATIVE); RBC,URINE 0-2 /HPF; WBC,URINE >100 /HPF
[2020-06-06 11:32] LABS: CREATININE SERUM 3.41 MG/DL (0.60-1.30); POTASSIUM 4.6 MMOL/L (3.6-5.0)
[2020-06-06 11:33] LABS: CALCIUM 9.5 MG/DL (8.5-10.1)
== END ==
LOC: LAB FS 10:37
PROVIDERS: ATTEND Nurse Practitioner Family
DX: E87.5 Hyperkalemia (principal); N28.9 Disorder of kidney and ureter, unspecified; R30.0 Dysuria
CPT/HCPCS: 36415; 80048; 81000; 83880; 87077; 87088; 87186

== ENCOUNTER 2020-06-08 09:53 | Inpatient (IN) | payer MEDICARE, OTHER ==
[~2020-06-08] VITALS: Ht 160 cm; Wt 78.8 kg
[~2020-06-08 09:53] MED LIST changes: -AMLO-251 PO; -DIGO-8 PO; -NITR100C10 PO; -SITA100T12 PO
--- NOTE | 2020-06-08 10:05 | ED Respiratory ---
General Chief Complaint: Respiratory Problems Stated Complaint: SOB Source: patient, family Exam Limitations: clinical condition History of Present Illness Date Seen by Provider: Jun 08, 2020 Time Seen by Provider: 09:48 Initial Comments Patient presents ER by private conveyance with family chief complaint of shortness of air weakness and confusion worsening. She lives with family and has a history of frequent UTIs as well as CHF. She was seen here Thursday and had negative Covid screening but labs and x-ray supportive of CHF. She was given 40 mg p.o. dose of Lasix prior to coming in. Has had no fevers or productive cough. She says she has some mild nausea but no chest pain. Patient is a very poor historian. June 2019 echocardiogram by Collated demonstrates EF of 45 to 50% and grade 4 diastolic dysfunction. Severe mitral regurgitation and severe tricuspid regurgitation. Primary care by Dr. Jaimee Page Allergies and Home Medications Allergies Coded Allergies: SYLVIE Inhibitors (Verified Allergy, Unknown, 09/24/18) Penicillins (Unverified Allergy, Unknown, reacted to Rocephin 11/30/18 itching, had tolerated Ancef hx, 12/01/18) Sulfa (Sulfonamide Antibiotics) (Verified Allergy, Unknown, 09/24/18) amlodipine (Verified Allergy, Unknown, 09/24/18) ciprofloxacin (Verified Allergy, Unknown, 09/24/18) diltiazem (Verified Allergy, Unknown, 09/24/18) levofloxacin (Verified Allergy, Unknown, 09/24/18) loratadine (Verified Allergy, Unknown, 09/24/18) pseudoephedrine (Verified Allergy, Unknown, 09/24/18) simvastatin (Verified Allergy, Unknown, 09/24/18) ceftriaxone (Unverified Adverse Reaction, Mild, Itching, 12/01/18) Incident post one dose Rocephin IV with pt scratching hands/arms. Medicated Benadryl 25 mg IV and SoluMedrol [address] had discussed allergies prior with dgt and it was thought she tolerated Rocephin in past. Home Medications Acetaminophen 500 Mg Tablet, 500-1,000 MG PO Q4H PRN for PAIN-MILD (1-4), (Reported) Amlodipine Besylate 5 Mg Tablet, 5 MG PO DAILY, (Reported) Ascorbic Acid 250 Mg Tab, 250 MG PO DAILY, (Reported) Atorvastatin Calcium 10 Mg Tablet, 10 MG PO HS, (Reported) Calcium Carbonate/Vitamin D3 1 Each Tablet, 1 TAB PO HS, (Reported) Cyanocobalamin 1,000 Mcg/Ml Inj, 1,000 MCG IM MONTHLY, (Reported) Digoxin 125 Mcg Tablet, 125 MCG PO Q48H, (Reported) Furosemide 20 Mg Tablet, 20 MG PO BID Take 2 tabs BID for the next 3 days then 1 tab BID Prescribed by: WHIT TEJADA on 07/20/19 1117 Isosorbide Mononitrate 60 Mg Tab, 60 MG PO DAILY, (Reported) Loperamide HCl 2 Mg Tablet, 2 MG PO UD PRN for DIARRHEA, (Reported) Magnesium Oxide 400 Mg Tablet, 800 MG PO BID, (Reported) TAKES 2 (400MG) TO EQUAL 800MG TWICE DAILY Methyl Salicylate/Menthol 1 Each Adh..patch, 1 PATCH TP DAILY, (Reported) Metoprolol Tartrate 100 Mg Tablet, 100 MG PO BID, (Reported) Omeprazole 20 Mg Capsule.dr, 20 MG PO BID, (Reported) Potassium Chloride 20 Meq Tablet.er, 20 MEQ PO DAILY, (Reported) Sitagliptin Phosphate 50 Mg Tablet, 100 MG PO DAILY, (Reported) Trimethoprim 100 Mg Tablet, 100 MG PO 1800, (Reported) Patient Home Medication List Home Medication List Reviewed: Yes Review of Systems Review of Systems Constitutional: No chills, No fever, No malaise; weakness EENTM: No ear discharge, No ear pain Respiratory: No cough; short of breath; No wheezing Cardiovascular: No chest pain; edema; No palpitations Gastrointestinal: No abdominal pain; nausea; No vomiting Genitourinary: No discharge, No dysuria Musculoskeletal: No back pain, No joint pain All Other Systems Reviewed Negative Unless Noted: Yes Past Siynjss-Fluqyv-Vzanyn Hx Patient Social History Alcohol Use: Denies Use Recreational Drug Use: No Smoking Status: Never a Smoker 2nd Hand Smoke Exposure: No Recent Hopitalizations: No Immunizations Up To Date Tetanus Booster (TDap): Unknown PED Vaccines UTD: No Date of Pneumonia Vaccine: Apr 15, 2018 Date of Influenza Vaccine: Apr 01, 2019 Seasonal Allergies Seasonal Allergies: No Past Medical History Surgeries: Yes Cardiac, Coronary Stent, Gallbladder, Pacemaker Respiratory: No Currently Using CPAP: No Currently Using BIPAP: No Cardiac: Yes (PACEMAKER, CHF) Atrial Fibrillation, Cardiomyopathy, Hypertension, Valvular Heart Disease Neurological: Yes Dementia, Stroke Female Reproductive Disorders: Denies Sexually Transmitted Disease: No HIV/AIDS: No Genitourinary: Yes (NEPHRECTOMY) Bladder Infection, Renal Failure, UTI-Chronic Gastrointestinal: No Musculoskeletal: Yes Arthritis Endocrine: Yes Diabetes, Non-Insulin dep HEENT: Yes Loss of Vision: Denies Hearing Impairment: Hard of Hearing, Hearing Aide Right Cancer: No Psychosocial: No Integumentary: No Blood Disorders: No Adverse Reaction/Blood Tranf: No Family Medical History Patient reports no known family medical history. No Pertinent Family Hx Physical Exam Vital Signs - First Documented 06/08/20 06/08/20 09:53 11:40 Temp 37.0 Pulse 67 Resp 29 B/P (MAP) 172/54 (93) Pulse Ox 97 O2 Delivery Room Air O2 Flow Rate 4.00 Capillary Refill : Height: 5'3.00" Weight: 162lbs. 14.8oz. [id number]; 25.00 BMI Method:Stated General Appearance: WD/WN, mild distress Eyes: Bilateral Eye Normal Inspection, Bilateral Eye PERRL, Bilateral Eye EOMI HEENT: PERRL/EOMI, normal ENT inspection, pharynx normal Neck: full range of motion, supple, normal inspection Respiratory: lungs clear, respiratory distress (mild), accessory muscle use (mild) Cardiovascular: normal peripheral pulses, regular rate, rhythm Gastrointestinal: normal bowel sounds, non tender, soft Neurologic/Psychiatric: alert, normal mood/affect, oriented x 3 Skin: normal color, warm/dry Progress/Results/Core Measures Suspected Sepsis SIRS Temperature: Pulse: Respiratory Rate: Laboratory Tests 06/08/20 10:05: White Blood Count 11.0 Blood Pressure / Mean: Laboratory Tests 06/08/20 10:05: Creatinine 3.37H, INR Comment 1.0, Platelet Count 257, Total Bilirubin 0.4 Results/Orders Lab Results Laboratory Tests Test 06/08/20 10:05 06/08/20 11:10 Range/Units White Blood Count 11.0 4.3-11.0 10^3/uL Red Blood Count 3.72 L 4.35-5.85 10^6/uL Hemoglobin 10.9 L 11.5-16.0 G/DL Hematocrit 34 L 35-52 % Mean Corpuscular Volume 90 80-99 FL Mean Corpuscular Hemoglobin 29 25-34 PG Mean Corpuscular Hemoglobin Concent 33 32-36 G/DL Red Cell Distribution Width 13.7 10.0-14.5 % Platelet Count 257 130-400 10^3/uL Mean Platelet Volume 11.0 H 7.4-10.4 FL Immature Granulocyte % (Auto) 1 % Neutrophils (%) (Auto) 75 42-75 % Lymphocytes (%) (Auto) 9 L 12-44 % Monocytes (%) (Auto) 8 0-12 % Eosinophils (%) (Auto) 6 0-10 % Basophils (%) (Auto) 1 0-10 % Neutrophils # (Auto) 8.3 H 1.8-7.8 X 10^3 Lymphocytes # (Auto) 1.0 1.0-4.0 X 10^3 Monocytes # (Auto) 0.9 0.0-1.0 X 10^3 Eosinophils # (Auto) 0.7 H 0.0-0.3 10^3/uL Basophils # (Auto) 0.1 0.0-0.1 10^3/uL Immature Granulocyte # (Auto) 0.1 0.0-0.1 10^3/uL Prothrombin Time 13.2 12.2-14.7 SEC INR Comment 1.0 0.8-1.4 Activated Partial Thromboplast Time 35 24-35 SEC Sodium Level 137 135-145 MMOL/L Potassium Level 4.6 3.6-5.0 MMOL/L Chloride Level 104 98-107 MMOL/L Carbon Dioxide Level 19 L 21-32 MMOL/L Anion Gap 14 5-14 MMOL/L Blood Urea Nitrogen 28 H 7-18 MG/DL Creatinine 3.37 H 0.60-1.30 MG/DL Estimat Glomerular Filtration Rate 13 BUN/Creatinine Ratio 8 Glucose Level 230 H 70-105 MG/DL Calcium Level 9.1 8.5-10.1 MG/DL Corrected Calcium 9.3 8.5-10.1 MG/DL Total Bilirubin 0.4 0.1-1.0 MG/DL Aspartate Amino Transf (AST/SGOT) 10 5-34 U/L Alanine Aminotransferase (ALT/SGPT) 7 0-55 U/L Alkaline Phosphatase 59 40-136 U/L Troponin I < 0.30 <0.30 NG/ML C-Reactive Protein 0.31 <0.50 MG/DL Pro-B-Type Natriuretic Peptide 26330.0 H <75.0 PG/ML Total Protein 6.9 6.4-8.2 GM/DL Albumin 3.7 3.2-4.5 GM/DL Urine Color YELLOW Urine Clarity CLOUDY H Urine pH 6.0 5-9 Urine Specific [place] >=1.030 1.016-1.022 Urine Protein 3+ H NEGATIVE Urine Glucose (UA) TRACE H NEGATIVE Urine Ketones NEGATIVE NEGATIVE Urine Nitrite NEGATIVE NEGATIVE Urine Bilirubin NEGATIVE NEGATIVE Urine Urobilinogen 0.2 < = 1.0 MG/DL Urine Leukocyte Esterase 2+ H NEGATIVE Urine RBC (Auto) 1+ H NEGATIVE Urine RBC 5-10 H /HPF Urine WBC >100 H /HPF Urine Squamous Epithelial Cells 5-10 /HPF Urine Crystals NONE /LPF Urine Bacteria FEW H /HPF Urine Casts NONE /LPF Urine Mucus NEGATIVE /LPF Urine Culture Indicated YES My Orders Orders - CIRILO KIRKLAND Cbc With Automated Diff (06/08/20 09:58) Comprehensive Metabolic Panel (06/08/20 09:58) Crp Fs (06/08/20 09:58) Probnp Fs (06/08/20 09:58) Troponin I Fs (06/08/20 09:58) Ekg Tracing (06/08/20 09:58) Continuous Ekg Monitoring (06/08/20 09:58) Chest 1 View Ap/Pa Only (06/08/20 09:58) Ed Iv/Invasive Line Start (06/08/20 09:58) Protime With Inr (06/08/20 10:09) Partial Thromboplastin Time (06/08/20 10:09) Ceftriaxone For Iv Use (Rocephin For I (06/08/20 11:15) Ua Culture If Indicated (06/08/20 11:01) Urine Culture (06/08/20 11:10) Furosemide Injection (Lasix Injection) (06/08/20 11:30) Albuterol/Ipra Inhalation Soln (Duoneb I (06/08/20 11:31) Albuterol/Ipra Inhalation Soln (Duoneb I (06/08/20 11:45) Svn Small Volume Nebulizer (06/08/20 11:45) Furosemide Injection (Lasix Injection) (06/08/20 11:45) Epinephrine 1 Mg Injection (Adrenalin I (06/08/20 11:45) Epinephrine 1 Mg Injection (Adrenalin I (06/08/20 11:43) Ekg Tracing (06/08/20 11:49) Catheter(Urinary) Insert & Ass 15 (06/08/20 11:50) Medications Given in ED Current Medications Medications Dose Ordered Sig/Fransisco Route Start Time Stop Time Status Last Admin Dose Admin Albuterol/ Ipratropium 3 ml STK-MED ONCE .ROUTE 06/08/20 11:31 06/08/20 11:34 DC 06/08/20 11:44 3 ML Ceftriaxone Sodium 1000 mg/ Sterile Water 10 ml @ 200 mls/hr ONCE ONCE IV 06/08/20 11:15 06/08/20 11:17 DC 06/08/20 11:21 200 MLS/HR Epinephrine HCl 0.3 mg ONCE ONCE IM 06/08/20 11:45 06/08/20 11:46 DC 06/08/20 11:49 0.3 MG Furosemide 40 mg STK-MED ONCE .ROUTE 06/08/20 11:30 06/08/20 11:33 DC 06/08/20 11:44 40 MG Vital Signs/I&O 06/08/20 06/08/20 06/08/20 06/08/20 09:53 11:40 11:44 12:40 Temp 37.0 37.2 Pulse 67 71 Resp 29 21 B/P (MAP) 172/54 (93) 102/72 (93) Pulse Ox 97 80 80 99 O2 Delivery Room Air OxyMask OxyMask OxyMask O2 Flow Rate 4.00 4.00 3.00 Capillary Refill : Progress Note #1: Time: 10:03 Progress Note Patient presents with shortness of air, and a recent history 6 days ago of elevated BNP above 13,000 as well as UTI. At that time they elected to try and treat her outpatient on an increased dose of 40 mg Lasix. No mention of antibiotic being started for UTI. Repeat labs were obtained 2 days ago demonstrating a BNP of 14,000 and stable creatinine 3.4 versus 3.3. Plan to repeat EKG and labs and give her some IV Lasix. Repeat chest x-ray. Patient has a stated allergy to practically every class of antibiotic. We will discuss with family what these allergies really entail. Suspect her clinical course is related to worsening CHF and UTI. Discussed the case with the daughter and her history of multiple antibiotic allergies. She is not aware of what most of them due to her. Is not felt that ceftriaxone Levaquin or ciprofloxacin or true anaphylaxis allergies but she is certain that penicillin causes this. We discussed the risk of using these antibiotics and that we would be able to monitor for any counter reactions and treat them here and she is okay with us proceeding with IV antibiotic selection. Were going to try ceftriaxone. Baseline creatinine seems to run around 2.5-2.9 in the past year. Her previous BNPs prior to this latest episode seem to be around 6-7000 earlier in the year. Progress Note #2: Time: 11:46 Progress Note Patient was able to get up with assistance using a wheelchair to go to the bathroom and did receive her dose of Rocephin. She had acute change in her oxygenation status getting down to low 80s on room air. We put her on an oxygen mask as she was mouth breathing and got her oxygen sats back up to 97-99 at 4 L. She was having some diminished breath sounds and audible wheezing so dose of DuoNeb was given. The patient states this did not help her breathing so a 0.3 mg dose of epinephrine was administered IM. She does not have swollen tongue nor does she endorse feeling tightness in her throat. She is still answering questions appropriately. Her blood pressure is acceptable 120/55. Heart rate in the range of 70. No acute EKG changes on the monitor. We will get another EKG. Progress Note #3: Time: 12:02 Progress Note After a dose of IM epinephrine the patient still having some increased work of breathing but it has relaxed. Her oxygen saturation is 98% on 4 L. I have asked them to put a Johnston catheter in. Repeat EKG does not show any acute ST changes. We did inform Dr. Dumont and I can recommend a different antibiotic. If this is related to an allergy to a third GEN cephalosporins felt that there is no retained allergy between generations of cephalosporins so we will try cefepime instead. Progress Note #4: Time: 12:22 Progress Note Patient is resting comfortably with no more increased work of breathing. She is on 3 L by oxygen mask because she has mouth breathing still. She has an oxygen sat consistently 99 to 100%. She states that she feels much improved. ECG Initial ECG Impression Date: Jun 08, 2020 Initial ECG Impression Time: 10:07 Initial ECG Rate: 65 Initial ECG Intervals: OH (208) Initial ECG Impression: Nonspecific Changes Initial ECG Comparisson: Unchanged Comment Ventricularly paced complexes without clinically relevant ST changes. EKG : EKG Time: 11:48 Rate: 69 Intervals: QT (488) ECG Comparisson: Unchanged ECG Impression: Nonspecific Changes Comment Ventricularly placed complexes without clinically relevant ST changes. Diagnostic Imaging Diagonstic Imaging: Xray Plain Films/CT/US/NM/MRI: chest Comments NAME: JUAN HURT [facility] REC#: [id number] PT STATUS: REG ER : 1935 PHYSICIAN: CIRILO KIRKLAND MD ADMIT DATE: 06/08/20/ER FS Draft Date of Exam:06/08/20 CHEST 1 VIEW AP/PA ONLY EXAMINATION: Chest radiograph, portable AP view. DATE: 06/08/2020 10:08 AM INDICATION: 84-year-old female, shortness of breath. COMPARISON: May 2020. FINDINGS: There is a left-sided cardiac assist device with leads. Heart size and mediastinal contours are unchanged. There are aortic calcifications. There is no identified pneumothorax. There is no large pleural effusion. There is no identified focal airspace consolidation. IMPRESSION: 1. No identified acute cardiopulmonary abnormality. Dictated on workstation # [id number] Dict: 06/08/20 1039 Trans: 06/08/20 1045 [facility] [id number] Interpreted by: ALEXIS ZAMBRANO MD Electronically signed by: Reviewed: Reviewed by Me Departure Communication (Admissions) Time/Spoke to Admitting Phy: 11:00 Discussed the case and treatment plan with 40 mg Lasix and Rocephin despite the stated allergy. She is in agreement to take the patient to the floor. Impression Primary Impression: Acute on chronic combined systolic (congestive) and diastolic (congestive) heart failure Additional Impression: UTI (urinary tract infection) Qualified Codes: N30.00 - Acute cystitis without hematuria Disposition: ADMITTED INPATIENT Condition: Stable Admissions Decision to Admit Reason: Admit from ER (General) Decision to Admit/Date: Jun 08, 2020 Time/Decision to Admit Time: 10:30 Departure-Patient Inst. Referrals: [facility] (PCP) Primary Care Physician JAIMEE PAGE APRN (Family) Primary Care Physician CIRILO KIRKLAND Jun 08, 2020 10:05
[2020-06-08 10:18] LABS: HEMATOCRIT 34 % (35-52); HEMOGLOBIN 10.9 G/DL (11.5-16.0); LYMPHOCYTES % (AUTO) 9 % (12-44); MEAN CORPUSCULAR HEMOGLOBIN 29 PG (25-34); MEAN CORPUSCULAR HGB CONC 33 G/DL (32-36); MEAN CORPUSCULAR VOLUME 90 FL (80-99); NEUTROPHILS % (AUTO) 75 % (42-75); PLATELET COUNT 257 10^3/uL (130-400)
[2020-06-08 10:19] LABS: BASOPHILS # (AUTO) 0.1 10^3/uL (0.0-0.1); BASOPHILS % (AUTO) 1 % (0-10); EOSINOPHILS # (AUTO) 0.7 10^3/uL (0.0-0.3); EOSINOPHILS % (AUTO) 6 % (0-10); MONOCYTES # (AUTO) 0.9 X 10^3 (0.0-1.0); MONOCYTES % (AUTO) 8 % (0-12); NEUTROPHILS # (AUTO) 8.3 X 10^3 (1.8-7.8)
[2020-06-08 10:30] LABS: PROTHROMBIN TIME PATIENT 13.2 SEC (12.2-14.7)
[2020-06-08 10:42] LABS: BUN/CREATININE RATIO 8; CARBON DIOXIDE 19 MMOL/L (21-32); CHLORIDE 104 MMOL/L (98-107); CREATININE SERUM 3.37 MG/DL (0.60-1.30); GFR ESTIMATED 13; POTASSIUM 4.6 MMOL/L (3.6-5.0); SODIUM 137 MMOL/L (135-145)
[2020-06-08 10:43] LABS: ALANINE AMINOTRANSFERASE 7 U/L (0-55); ALBUMIN 3.7 GM/DL (3.2-4.5); ALKALINE PHOSPHATASE 59 U/L (40-136); BILIRUBIN,TOTAL 0.4 MG/DL (0.1-1.0); CALCIUM 9.1 MG/DL (8.5-10.1); GLUCOSE 230 MG/DL (70-105); TOTAL PROTEIN 6.9 GM/DL (6.4-8.2)
--- NOTE | 2020-06-08 10:45 | Diagnostic Imaging Report ---
EXAMINATION: Chest radiograph, portable AP view. DATE: 06/08/2020 10:08 AM INDICATION: 84-year-old female, shortness of breath. COMPARISON: May 2020. FINDINGS: There is a left-sided cardiac assist device with leads. Heart size and mediastinal contours are unchanged. There are aortic calcifications. There is no identified pneumothorax. There is no large pleural effusion. There is no identified focal airspace consolidation. IMPRESSION: 1. No identified acute cardiopulmonary abnormality. Dictated by: Dictated on workstation # [id number]
[2020-06-08] MEDS ORDERED: cefTRIAXone FOR IV USE 1,000 MG in WATER (STERILE) FOR INJECTION 10 ML IV ONE (11:15)
[2020-06-08 11:27] LABS: BILIRUBIN,URINE NEGATIVE (NEGATIVE); CLARITY,URINE CLOUDY; COLOR,URINE YELLOW; GLUCOSE, URINE (UA) TRACE (NEGATIVE); KETONES,URINE NEGATIVE (NEGATIVE); LEUKOCYTE ESTERASE ,URINE 2+ (NEGATIVE); NITRITE,URINE NEGATIVE (NEGATIVE); PROTEIN,URINE 3+ (NEGATIVE); WBC,URINE >100 /HPF
[2020-06-08 11:28] LABS: BACTERIA,URINE FEW /HPF
[2020-06-08] MEDS ORDERED: FUROSEMIDE 40 MG/4 ML INJ (LASIX) ONE (11:30)
[2020-06-08] MEDS ORDERED: RT-ALBUTEROL/IPRATROPIUM 3 ML (DUONEB) VIAL ONE (11:31)
--- NOTE | 2020-06-08 11:40 | NUR ---
Patient calling out and Dr to room, patient had just rec'd Rocephin prior to change in Resp status with labored breathing and SaO2 to 80% on Rm air. Oxymask applied at 4 L/m and Dr directing staff to pull medications to include RT tx, Lasix, and Epinephrine.
[2020-06-08] MEDS ORDERED: EPINEPHrine INJECTION 1 MG/ML AMP ONE (11:43)
--- NOTE | 2020-06-08 11:44 | NUR ---
Pt receiving Duoneb breathing Tx per Arline and then Lasix 40 mg SIVP.
[2020-06-08] MEDS ORDERED: RT-ALBUTEROL/IPRATROPIUM 3 ML (DUONEB) VIAL INH ONE (11:45)
[2020-06-08] MEDS ORDERED: EPINEPHrine INJECTION 1 MG/ML AMP IM ONE (11:45)
[2020-06-08] MEDS ORDERED: FUROSEMIDE 40 MG/4 ML INJ (LASIX) IVP ONE (11:45)
--- NOTE | 2020-06-08 11:48 | NUR ---
Repeated EKG. Pt is now incont of foul smelling yellowish liquid stool.
--- NOTE | 2020-06-08 11:49 | NUR ---
Adrenalin 0.3 mg given per Arline PALOMARES to L deltoid, scanned by this RN.
--- NOTE | 2020-06-08 11:55 | NUR ---
Pt given pericare and clothing removed with gown placed. SaO2 in mid-upper 90's Dr Rose turned Oxymask O2 to 3 L/m. Pt is mouth breathing in ER from presentation. No accessory muscle usage is noted now. Pt reports breathing is better. Pt has dementia and simple questions utilized with repeating also.
--- NOTE | 2020-06-08 12:00 | NUR ---
16 fr Johnston catheter is placed per aseptic technique and return hazy strong smelling straw colored urine. 30 ml rec'd, new 10 ml sample sent to lab for the urine culture portion of testing. Pt has been on Macrobid. EMS notified for transfer.
--- NOTE | 2020-06-08 12:30 | NUR ---
EMS arriving to ER for transfer, romeo Kern called to come to ambulance bay to greet patient and speak with her. Dgt has taken bag of pt's clothing/soiled underwear, necklace, 2 rings, and hearing aids (does not hear well with them). Pt has her watch, she relies on per dgt, and is wearing glasses.
--- NOTE | 2020-06-08 12:40 | NUR ---
EMS departing at this time with pt alert and conversing with dgt. Oxymask O2 on at 3L/m. Pt is reflecting good oxygenation upper 90's without distress. Johnston patent with 25 ml urine noted. NIBP normotensive. Pt is intermittant AFib to paced rhythm. Call to Lucia PALOMARES and updated. Pt is in new gown and clean sheets.
--- NOTE | 2020-06-08 13:30 | NUR ---
JUAN HURT admitted to room 414-1, with an admitting diagnosis of CHF EX, on 06/08/20 from [place] via , accompanied by STAFF.JUAN HURT introduced to surroundings, call light, bed controls, phone, TV, temperature control, lights, meal times, smoking policy, visitor policy, side rail policy, bathrooms and showers. Patient Rights given to patient in the handbook. JUAN HURT verbalizes understanding that [facility] is not responsible for the loss or damage to any personal effects or valuables that are kept in the patients posession during their hospitalization. JUAN HURT verbalizes understanding of Interdisciplinary Patient Education. Patient and/or family were informed about the Rapid Response Team and its purpose.
[2020-06-08 13:47] VITALS: BP 160/82
[2020-06-08] MEDS ORDERED: ONDANSETRON 4 MG/2 ML (SDV) Z0FRAN IVP PRN (14:15)
[2020-06-08] MEDS ORDERED: inSUlin ASPART (NovoLOG) 1 UNIT/0.01 ML (CHARGE PER UNIT) SC SCH (14:30)
[2020-06-08] MEDS ORDERED: FUROSEMIDE 40 MG/4 ML INJ (LASIX) IVP SCH (15:00)
[2020-06-08] MEDS ORDERED: CEFEPIME 1,000 MG/SWFI 10 ML IV PUSH IV SCH ×2 (15:00)
[2020-06-08] MEDS ORDERED: FURO20TA4 PO (15:20)
[2020-06-08] MEDS ORDERED: CLOP75TA28 PO (15:20)
[2020-06-08] MEDS ORDERED: AMLO-251 PO (15:20)
[2020-06-08] MEDS ORDERED: DIGO-8 PO (15:20)
[2020-06-08] MEDS ORDERED: NITR100C10 PO (15:27)
[2020-06-08] MEDS ORDERED: SITA100T12 PO (15:27)
[2020-06-08 15:28] VITALS: BP 179/66
--- NOTE | 2020-06-08 15:28 | NUR ---
SPOKE WITH THE PTS DAUGHTER (BEBETO), GOT A MED LIST FROM THE NURSE, WENT THRU THE EXT MED HISTORY AND CALLED [facility] TO COMPLETE THE MED REC POTASSIUM ER 20MEQ HAS DIRECTIONS OF 1 TAB BID HOWEVER PT JUST TAKES 1 TAB DAILY PT GETS JANUVIA 100MG THRU THE PALS PROGRAM AT [facility] OT MEDS: MAGNESIUM VIT C CALCIUM W/ VIT D IMODIUM TYLENOL
--- NOTE | 2020-06-08 15:33 | History & Physical ---
SUSY THORNE MED STUDENT 06/08/20 1533: HPI History of Present Illness: CC: Shortness of breath HPI per ED: Patient presents ER by private conveyance with family chief complaint of shortness of air weakness and confusion worsening. She lives with family and has a history of frequent UTIs as well as CHF. She was seen here Thursday and had negative Covid screening but labs and x-ray supportive of CHF. She was given 40 mg p.o. dose of Lasix prior to coming in. Has had no fevers or productive cough. She says she has some mild nausea but no chest pain. Patient is a very poor historian. HPI: Nancy is sitting up and eating a late lunch. She states that she has no idea why she is in the hospital. She denies any trouble breathing. She knows her full name, but was unable to identify her location and what year it currently is. Per chart review, she was recently seen in the ED on 06/06 for a chief complaint of dysuria. Urine culture from that visit grew out E. coli. Pt denies chest pain, palpitations, shortness of breath, cough, dysuria, incontinence and frequency. Pt is a poor historian. Source: patient, old records Date seen by provider: Jun 08, 2020 Attending Physician Karla Dumont MD [facility] Consult Date of Admission Jun 08, 2020 at 13:25 Home Medications Home Medications Reviewed patient Home Medication Reconciliation performed by pharmacy medication reconciliations downstream biomanufacturing technician and/or nursing. Patients Allergies have been reviewed. Allergies Coded Allergies: SYLVIE Inhibitors (Verified Allergy, Unknown, 09/24/18) Penicillins (Unverified Allergy, Unknown, reacted to Rocephin 11/30/18 itching, had tolerated Ancef hx, 12/01/18) Sulfa (Sulfonamide Antibiotics) (Verified Allergy, Unknown, 09/24/18) amlodipine (Verified Allergy, Unknown, 09/24/18) ciprofloxacin (Verified Allergy, Unknown, 09/24/18) diltiazem (Verified Allergy, Unknown, 09/24/18) levofloxacin (Verified Allergy, Unknown, 09/24/18) loratadine (Verified Allergy, Unknown, 09/24/18) pseudoephedrine (Verified Allergy, Unknown, 09/24/18) simvastatin (Verified Allergy, Unknown, 09/24/18) ceftriaxone (Unverified Adverse Reaction, Mild, Itching, 12/01/18) Incident post one dose Rocephin IV with pt scratching hands/arms. Medicated Benadryl 25 mg IV and SoluMedrol [address] had discussed allergies prior with dgt and it was thought she tolerated Rocephin in past. [id number] Hx Patient Social History Marrital Status: Employed/Student: retired Alcohol Use: Denies Use Recreational Drug Use: No Smoking Status: Never a Smoker 2nd Hand Smoke Exposure: No Recent Foreign Travel: No Contact w/other who traveled: No Recent Hopitalizations: No Recent Infectious Disease Expo: No Immunizations Up To Date Tetanus Booster (TDap): Unknown Date of Pneumonia Vaccine: Apr 15, 2018 Date of Influenza Vaccine: Apr 01, 2019 Past Medical History Diastolic HF CKD HTN Chronic Atrial Fibrillation Family Medical History Significant Family History: No Pertinent Family Hx (Unable to obtain accurate family history) Family History: Patient reports no known family medical history. Review of Systems ([facility]) Constitutional: No chills, No fever, No weakness EENTM: No blurred vision, No mouth pain Respiratory: No cough, No hemoptysis, No short of breath Cardiovascular: No chest pain, No palpitations Gastrointestinal: No abdominal pain, No constipation, No diarrhea, No nausea, No vomiting Genitourinary: No dysuria, No frequency, No incontinence Physical Exam-([facility]) Physical Exam Vital Signs VS - Last 72 Hours, by Label 06/08/20 06/08/20 06/08/20 06/08/20 09:53 11:40 11:44 12:40 Temp 37.0 37.2 Pulse 67 71 Resp 29 21 B/P (MAP) 172/54 (93) 102/72 (93) Pulse Ox 97 80 80 99 O2 Delivery Room Air OxyMask OxyMask OxyMask O2 Flow Rate 4.00 4.00 3.00 06/08/20 06/08/20 13:47 15:28 Temp 36.4 36.2 Pulse 74 73 Resp 18 22 B/P (MAP) 160/82 179/66 (103) Pulse Ox 95 94 O2 Delivery Room Air Room Air Capillary Refill : Less Than 3 Seconds General Appearance: WD/WN, no apparent distress Eyes: Bilateral Eye Normal Inspection, Bilateral Eye PERRL, Bilateral Eye EOMI HEENT: PERRL/EOMI, pharynx normal; No scleral icterus (R), No scleral icterus (L) Neck: non-tender, normal inspection; No lymphadenopathy (R), No lymphadenopathy (L) Respiratory: no respiratory distress, no accessory muscle use, decreased breath sounds Cardiovascular: systolic murmur Peripheral Pulses: 2+ Carotid (R), 2+ Carotid (L); 1+ Dorsalis Pedis (R), 1+ Left Dors-Pedis (L); 2+ Radial Pulses (R), 2+ Radial Pulses (L) Gastrointestinal: normal bowel sounds, non tender, soft Extremities: non-tender Neurologic/Psychiatric: alert, other (Disoriented X 2, see HPI) Skin: normal color, warm/dry Lymphatic: no adenopathy Assessment/Plan Assessment/Plan Admission Dx Acute Exacerbation of Diastolic Congestive Heart Failure (1) Acute exacerbation of CHF (congestive heart failure) Status: Acute Assessment & Plan: 06/08- Provide supportive care as needed. Start Lasix 40mg IV. Provide O2 as needed via nasal cannula. Qualifiers: Qualified Codes: I50.33 - Acute on chronic diastolic (congestive) heart failure (2) Urinary tract infection Status: Acute Assessment & Plan: 06/08- Urine culture from 06/06 grew E. coli. It is possible that this is bacteriuria. Pt does not present with dysuria, frequency or incontinence. Currently choosing to wait on antibiotic administration. Qualifiers: (3) Acute kidney injury superimposed on chronic kidney disease Status: Acute Assessment & Plan: 06/08- Possible acute on chronic kidney disease. Possible worsening of chronic kidney disease. Continue Lasix 40mg IV. No fluids will be started. Continue to monitor BUN and Cr. Bun 28, Cr 3.37 (4) Diabetes mellitus Status: Chronic Assessment & Plan: 06/08- Insulin Aspart based on Insulin sliding scale A Qualifiers: (5) Hypertension Status: Chronic Assessment & Plan: 06/08- Continue home medication dosage of Amlodipine, Metoprolol, Isosorbide Mononitrate, and Digoxin. Qualifiers: Qualified Codes: I10 - Essential (primary) hypertension (6) Chronic anemia Status: Chronic Assessment & Plan: 06/08- Possibly anemia of chronic disease. Order Iron studies. History of FOBT positive in May 2019. Continue to monitor Hemoglobin levels. (7) Hyperlipemia Status: Chronic Assessment & Plan: 06/08- Continue home medication dosage of Atorvastatin. Qualifiers: Qualified Codes: E78.5 - Hyperlipidemia, unspecified (8) DVT prophylaxis Status: Acute Assessment & Plan: 06/08- Start sequential compression devices. Consider starting pharmacological therapy, but need to monitor Hemoglobin levels. KARLA DUMONT MD 06/08/20 1703: HPI History of Present Illness: Time Seen by Provider: 16:00 Home Medications Allergies Coded Allergies: SYLVIE Inhibitors (Verified Allergy, Unknown, 09/24/18) Penicillins (Unverified Allergy, Unknown, reacted to Rocephin 11/30/18 itching, had tolerated Ancef hx, 12/01/18) Sulfa (Sulfonamide Antibiotics) (Verified Allergy, Unknown, 09/24/18) amlodipine (Verified Allergy, Unknown, 09/24/18) ciprofloxacin (Verified Allergy, Unknown, 09/24/18) diltiazem (Verified Allergy, Unknown, 09/24/18) levofloxacin (Verified Allergy, Unknown, 09/24/18) loratadine (Verified Allergy, Unknown, 09/24/18) pseudoephedrine (Verified Allergy, Unknown, 09/24/18) simvastatin (Verified Allergy, Unknown, 09/24/18) ceftriaxone (Unverified Adverse Reaction, Mild, Itching, 12/01/18) Incident post one dose Rocephin IV with pt scratching hands/arms. Medicated Benadryl 25 mg IV and SoluMedrol [address] had discussed allergies prior with dgt and it was thought she tolerated Rocephin in past. [id number] Hx Family Medical History Family History: Patient reports no known family medical history. Assessment/Plan Assessment/Plan Admission Status: Observation Supervisory-Addendum Brief Supervisory Addendum I saw this patient and did my own history and exam which confirm the findings documented by the medical student. She had possible allergic reaction to ceftriaxone in ER, will hold off on abx for now given unclear if true UTI due to no apparent symptoms and no signs of sepsis. Holding off on pharmacologic DVT p rophylaxis because she had severe enough anemia earlier this year to require stopping anticoagulation for a fib. SUSY THORNE MED STUDENT Jun 08, 2020 15:33 KARLA DUMONT MD Jun 08, 2020 17:03
[2020-06-08] MEDS: DIGOXIN 0.125 MG (LANOXIN) TAB PO SCH (16:53)
[2020-06-08 19:49] VITALS: BP 162/79
[2020-06-08] MEDS: amLODIPine 10 MG (NORVASC) TAB PO SCH (19:58)
[2020-06-08] MEDS: meTOprolol TARTRATE 50 MG (LOPRESSOR) TAB PO SCH (19:58)
[2020-06-08] MEDS: ISOSORBIDE MONONITRATE 60 MG (IMDUR) TAB PO SCH (19:58)
[2020-06-08] MEDS: PANTOPRAZOLE 20 MG TABLET (PROTONIX) PO SCH (19:58)
[2020-06-08] MEDS: KCL 20 MEQ TAB (K-DUR) PO SCH (19:59)
[2020-06-08] MEDS: MAGNESIUM OXIDE (MAG-OX)400 MG TAB PO SCH (19:59)
[2020-06-08] MEDS: inSUlin ASPART (NovoLOG) 1 UNIT/0.01 ML (CHARGE PER UNIT) SC SCH (20:09)
[2020-06-08] MEDS: ACETAMINOPHEN 325 MG TABLET PO PRN (22:29)
[2020-06-09 00:05] VITALS: BP 160/75
[2020-06-09 04:00] VITALS: BP 175/82
[2020-06-09 05:37] LABS: BASOPHILS % (AUTO) 1 % (0-10); EOSINOPHILS # (AUTO) 0.5 10^3/uL (0.0-0.3); EOSINOPHILS % (AUTO) 7 % (0-10); HEMATOCRIT 33 % (35-52); HEMOGLOBIN 10.4 g/dL (11.5-16.0); LYMPHOCYTES % (AUTO) 13 % (12-44); MEAN CORPUSCULAR HEMOGLOBIN 29 pg (25-34); MEAN CORPUSCULAR HGB CONC 31 g/dL (32-36); MEAN CORPUSCULAR VOLUME 92 fL (80-99); MEAN PLATELET VOLUME 11.1 fL (9.0-12.2); MONOCYTES # (AUTO) 0.6 10^3/uL (0.0-1.0); MONOCYTES % (AUTO) 9 % (0-12); NEUTROPHILS # (AUTO) 5.1 10^3/uL (1.8-7.8); NEUTROPHILS % (AUTO) 70 % (42-75); PLATELET COUNT 221 10^3/uL (130-400); WHITE BLOOD COUNT 7.3 10^3/uL (4.3-11.0)
[2020-06-09] MEDS: inSUlin ASPART (NovoLOG) 1 UNIT/0.01 ML (CHARGE PER UNIT) SC SCH ×4 (05:39→20:29)
[2020-06-09 05:57] LABS: ALBUMIN 3.3 GM/DL (3.2-4.5)
[2020-06-09 05:58] LABS: POTASSIUM 4.5 MMOL/L (3.6-5.0)
[2020-06-09 05:59] LABS: CALCIUM 8.8 MG/DL (8.5-10.1)
[2020-06-09 06:00] LABS: TOTAL PROTEIN 6.4 GM/DL (6.4-8.2)
[2020-06-09 06:02] LABS: BILIRUBIN,TOTAL 0.4 MG/DL (0.1-1.0)
[2020-06-09 06:04] LABS: CREATININE SERUM 3.43 MG/DL (0.60-1.30)
--- NOTE | 2020-06-09 06:31 | Diagnostic Imaging Report ---
INDICATION: Congestive heart failure. Comparison is made with prior examination from 06/08/2020. FINDINGS: There is cardiomegaly. There is moderate venous congestion. There is no pleural effusion or pneumothorax. Mediastinum is unremarkable. Pacemaker overlies the left hemithorax. IMPRESSION: Cardiomegaly and moderate central pulmonary venous congestion. Superimposed perihilar pneumonia cannot be excluded. Recommend clinical correlation. Dictated by: Dictated on workstation # [id number]
[2020-06-09 07:40] VITALS: BP 190/82
[2020-06-09] MEDS: CLOPIDOGREL 75 MG (PLAVIX) TABLET PO SCH (08:48)
[2020-06-09] MEDS: MAGNESIUM OXIDE (MAG-OX)400 MG TAB PO SCH ×2 (08:48→20:29)
[2020-06-09] MEDS: meTOprolol TARTRATE 50 MG (LOPRESSOR) TAB PO SCH ×2 (08:48→20:29)
[2020-06-09] MEDS: PANTOPRAZOLE 20 MG TABLET (PROTONIX) PO SCH ×2 (08:48→20:29)
[2020-06-09] MEDS: ISOSORBIDE MONONITRATE 60 MG (IMDUR) TAB PO SCH ×2 (08:48→20:29)
[2020-06-09] MEDS: KCL 20 MEQ TAB (K-DUR) PO SCH ×2 (08:48→20:28)
[2020-06-09] MEDS: ACETAMINOPHEN 325 MG TABLET PO PRN ×2 (08:49→15:30)
[2020-06-09] MEDS: FUROSEMIDE 40 MG/4 ML INJ (LASIX) IVP SCH (11:54)
--- NOTE | 2020-06-09 13:31 | Progress Note ---
Subjective Subjective/Events-last exam Afebrile, denies concerns. States her breathing feels fine. She is slightly more confused today. Objective Exam Last Set of Vital Signs Vital Signs Date Time Temp Pulse Resp B/P (MAP) Pulse Ox O2 Delivery O2 Flow Rate FiO2 06/09/20 08:00 Room Air 06/09/20 07:40 36.4 73 18 190/82 (118) 92 06/08/20 12:40 3.00 Capillary Refill : Less Than 3 Seconds I&O Intake and Output 06/09/20 00:00 Intake Total 855 ml Output Total 475 ml Balance 380 ml Intake Oral 845 ml IV Total 10 ml Output Urine Total 475 ml Daily Weight Change No No General: Alert, No Acute Distress Lungs: Clear to Auscultation, Normal Air Movement Heart: Regular Rate, No Murmurs Neuro: Normal Speech, Other (oriented to self only) Psych/Mental Status: Mood NL Results/Procedures Lab Laboratory Tests 06/08/20 15:30: Glucometer 187H 06/08/20 20:08: Glucometer 152H 06/09/20 05:07: Glucometer 103 06/09/20 05:27: White Blood Count 7.3, Red Blood Count 3.61L, Hemoglobin 10.4L, Hematocrit 33L, Mean Corpuscular Volume 92, Mean Corpuscular Hemoglobin 29, Mean Corpuscular Hemoglobin Concent 31L, Red Cell Distribution Width 13.6, Platelet Count 221, Mean Platelet Volume 11.1, Immature Granulocyte % (Auto) 1, Neutrophils (%) (Auto) 70, Lymphocytes (%) (Auto) 13, Monocytes (%) (Auto) 9, Eosinophils (%) (Auto) 7, Basophils (%) (Auto) 1, Neutrophils # (Auto) 5.1, Lymphocytes # (Auto) 1.0, Monocytes # (Auto) 0.6, Eosinophils # (Auto) 0.5H, Basophils # (Auto) 0.0, Immature Granulocyte # (Auto) 0.1, Sodium Level 139, Potassium Level 4.5, Chloride Level 109H, Carbon Dioxide Level 19L, Anion Gap 11, Blood Urea Nitrogen 31H, Creatinine 3.43H, Estimat Glomerular Filtration Rate 13, BUN/Creatinine Ratio 9, Glucose Level 119H, Calcium Level 8.8, Corrected Calcium 9.4, Total Bilirubin 0.4, Aspartate Amino Transf (AST/SGOT) 9, Alanine Aminotransferase (ALT/SGPT) 8, Alkaline Phosphatase 48, B-Type Natriuretic Peptide 653.4H, Total Protein 6.4, Albumin 3.3 06/09/20 11:31: Glucometer 145H Assessment/Plan Assessment/Plan (1) Acute exacerbation of CHF (congestive heart failure) Status: Acute Assessment & Plan: 06/08- Provide supportive care as needed. Start Lasix 40mg IV. Provide O2 as needed via nasal cannula. 06/09- still stable on room air, recheck BNP. Qualifiers: Qualified Codes: I50.33 - Acute on chronic diastolic (congestive) heart failure (2) Urinary tract infection Status: Acute Assessment & Plan: 06/08- Urine culture from 06/06 grew E. coli. It is possible that this is bacteriuria. Pt does not present with dysuria, frequency or incontinence. Currently choosing to wait on antibiotic administration. 06/09 received ceftriaxone yesterday, holding off on abx for today given limited options due to allergies and renal function and no clear indicator of true infection. If status worsens will start abx, likely will need to use meropenem. Discussed with daughter via telephone. Qualifiers: (3) Acute kidney injury superimposed on chronic kidney disease Status: Acute Assessment & Plan: 06/08- Possible acute on chronic kidney disease. Possible worsening of chronic kidney disease. Continue Lasix 40mg IV. No fluids will be started. Continue to monitor BUN and Cr. Bun 28, Cr 3.37 06/09 - creatinine increased to 3.47, discussed with daughter via telephone who states patient has one kidney and stage IV kidney disease and they will not pursue dialysis. Electrolytes stable, monitor. (4) Diabetes mellitus Status: Chronic Assessment & Plan: 06/08- Insulin Aspart based on Insulin sliding scale A Qualifiers: (5) Hypertension Status: Chronic Assessment & Plan: 06/08- Continue home medication dosage of Amlodipine, Metoprolol, Isosorbide Mononitrate, and Digoxin. Qualifiers: Qualified Codes: I10 - Essential (primary) hypertension (6) Chronic anemia Status: Chronic Assessment & Plan: 06/08- Possibly anemia of chronic disease. Order Iron studies. History of FOBT positive in May 2019. Continue to monitor Hemoglobin levels. 06/09 pending (7) Hyperlipemia Status: Chronic Assessment & Plan: 06/08- Continue home medication dosage of Atorvastatin. Qualifiers: Qualified Codes: E78.5 - Hyperlipidemia, unspecified (8) Dementia Status: Chronic Assessment & Plan: Talked to daughter Concha today (06/09), patient lives with with 24 hour care, and her current mental status is baseline. (9) Goals of care, counseling/discussion Status: Acute Assessment & Plan: Talked to daughter Concha today (06/09) who is DPOA, states patient would want to be DNR, code status updated. (10) DVT prophylaxis Status: Acute Assessment & Plan: 06/08- Start sequential compression devices. Consider starting pharmacological therapy, but need to monitor Hemoglobin levels. 06/09- earlier this year had anemia requiring transfusion and cardiac anticoagulation stopped at that time, will continue SCDs. Clinical Quality Measures DVT/VTE Risk/Contraindication: Risk Factor Score Per Nursin RFS Level Per Nursing on Admit: 3=High KARLA HALE MD Jun 09, 2020 13:31
--- NOTE | 2020-06-09 16:06 | NUR ---
increasing confusion throughout the evening. patient continues to yell out, set off bed alarm and pull at kerr. redirected multiple times and patient unable to comprehend. requested to speak to family, daughter called on patient's room phone and patient yelled "Concha Concha Concha" into the phone and was unable to hold an actual conversation with daughter. requested something PRN at this time. orders to DC Kerr and Seroquel 25mg X1 PO
[2020-06-09] MEDS ORDERED: QUEtiapine 25 MG (SEROquel) TAB IMMEDIATE RELEASE PO ONE (16:15)
[2020-06-09 16:30] VITALS: BP 186/77
[2020-06-09 19:23] VITALS: BP 193/83
[2020-06-09] MEDS ORDERED: LORazepam 0.5 MG (ATIVAN) TABLET ONE (20:25)
[2020-06-09] MEDS ORDERED: hydrALAZINE (APRESOLINE) 25 MG TAB ONE (20:25)
[2020-06-09] MEDS: amLODIPine 10 MG (NORVASC) TAB PO SCH (20:29)
[2020-06-09] MEDS ORDERED: LORazepam 0.5 MG (ATIVAN) TABLET PO ONE (20:30)
[2020-06-09] MEDS ORDERED: hydrALAZINE (APRESOLINE) 25 MG TAB PO ONE (20:30)
--- NOTE | 2020-06-09 20:55 | NUR ---
Patient BP at 1930 was 193/83. Rechecked at 2014 and BP was 212/[address] Dumont notified of elevated BP and patient anxiety. Order received for Hydralazine 25mg po once now and Ativan 0.5mg po once now. Will continue to monitor.
[2020-06-09 22:32] VITALS: BP 160/76
--- NOTE | 2020-06-09 22:38 | NUR ---
BP recheck 160/76. Patient is resting quietly in bed.
[2020-06-10] VITALS (15 sets, daily range): BP systolic 142–209; BP diastolic 72–85
--- NOTE | 2020-06-10 00:40 | NUR ---
Pateint BP at 2345 was 179/77. Recheck of BP at 0040- 201/[address] Dumont notified and order received for Lopressor 5mg IV x1 dose.
[2020-06-10] MEDS ORDERED: meTOprolol 5 MG/5 ML (LOPRESSOR) VIAL IV ONE ×2 (00:45→06:45)
--- NOTE | 2020-06-10 02:45 | NUR ---
BP 175/84 at 0052, 181/79 at 0100, 190/79 with heart rate of 60 at 0145 and 159/72 with heart rate of 60 at 0245. Will continue to monitor.
[2020-06-10] MEDS: hydrALAZINE (APESOLINE) 20 MG/ML VIAL IV PRN (05:46)
[2020-06-10] MEDS: inSUlin ASPART (NovoLOG) 1 UNIT/0.01 ML (CHARGE PER UNIT) SC SCH ×4 (06:28→21:03)
--- NOTE | 2020-06-10 06:36 | NUR ---
Patient was given IV Hydralazine 10mg at 0546 per order for elevated SBP. BP recheck at 0635 is 209/[address] Dumont is on site and notified of elevated BP. Verbal order received for Lopressor 5mg IV once now.
[2020-06-10] MEDS ORDERED: PHARMACY TO DOSE IV SCH (06:45)
[2020-06-10 07:08] LABS: BASOPHILS # (AUTO) 0.1 10^3/uL (0.0-0.1); BASOPHILS % (AUTO) 1 % (0-10); EOSINOPHILS # (AUTO) 0.6 10^3/uL (0.0-0.3); EOSINOPHILS % (AUTO) 7 % (0-10); HEMATOCRIT 33 % (35-52); HEMOGLOBIN 10.5 g/dL (11.5-16.0); LYMPHOCYTES % (AUTO) 12 % (12-44); MEAN CORPUSCULAR HEMOGLOBIN 29 pg (25-34); MEAN CORPUSCULAR HGB CONC 31 g/dL (32-36); MEAN CORPUSCULAR VOLUME 92 fL (80-99); MEAN PLATELET VOLUME 11.4 fL (9.0-12.2); MONOCYTES # (AUTO) 0.7 10^3/uL (0.0-1.0); MONOCYTES % (AUTO) 8 % (0-12); NEUTROPHILS # (AUTO) 5.8 10^3/uL (1.8-7.8); NEUTROPHILS % (AUTO) 71 % (42-75); PLATELET COUNT 234 10^3/uL (130-400); WHITE BLOOD COUNT 8.1 10^3/uL (4.3-11.0)
[2020-06-10 07:20] LABS: POTASSIUM 4.8 MMOL/L (3.6-5.0)
[2020-06-10 07:26] LABS: CREATININE SERUM 3.35 MG/DL (0.60-1.30)
--- NOTE | 2020-06-10 07:56 | Progress Note ---
Subjective Subjective/Events-last exam Had increasing blood pressure and increasing confusion yesterday and last night, received hydralazine 25 mg PO, hydralazine 10 mg IV, metoprolol 5 mg IV x 2 and still remains hypertensive. This morning she is complaining of leg pain when her legs are touched, and has some wheezing but denies shortness of breath. Objective Exam Last Set of Vital Signs Vital Signs Date Time Temp Pulse Resp B/P (MAP) Pulse Ox O2 Delivery O2 Flow Rate FiO2 06/10/20 06:35 69 209/85 (126) 06/10/20 04:00 35.6 20 94 Room Air 06/08/20 12:40 3.00 Capillary Refill : Less Than 3 Seconds I&O Intake and Output 06/10/20 00:00 Intake Total 840 ml Output Total 775 ml Balance 65 ml Intake Oral 840 ml Output Urine Total 775 ml # Voids 2 # Bowel Movements 1 General: Alert, Mild Distress Lungs: Other (audible wheezing, but lung sounds clear) Heart: Regular Rate Extremities: No Edema, Other (cries out with even light touch of either leg) Psych/Mental Status: Other (oriented to self only) Results/Procedures Lab Laboratory Tests 06/09/20 11:31: Glucometer 145H 06/09/20 16:02: Glucometer 133H 06/09/20 20:16: Glucometer 128H 06/10/20 06:24: Glucometer 118H 06/10/20 07:00: White Blood Count 8.1, Red Blood Count 3.64L, Hemoglobin 10.5L, Hematocrit 33L, Mean Corpuscular Volume 92, Mean Corpuscular Hemoglobin 29, Mean Corpuscular Hemoglobin Concent 31L, Red Cell Distribution Width 13.7, Platelet Count 234, Mean Platelet Volume 11.4, Immature Granulocyte % (Auto) 1, Neutrophils (%) (Auto) 71, Lymphocytes (%) (Auto) 12, Monocytes (%) (Auto) 8, Eosinophils (%) (Auto) 7, Basophils (%) (Auto) 1, Neutrophils # (Auto) 5.8, Lymphocytes # (Auto) 1.0, Monocytes # (Auto) 0.7, Eosinophils # (Auto) 0.6H, Basophils # (Auto) 0.1, Immature Granulocyte # (Auto) 0.1, Sodium Level 141, Potassium Level 4.8, Chloride Level 110H, Carbon Dioxide Level 19L, Anion Gap 12, Blood Urea Nitrogen 30H, Creatinine 3.35H, Estimat Glomerular Filtration Rate 13, BUN/Creatinine Ratio 9, Glucose Level 136H, Calcium Level 9.0 Microbiology 06/08/20 Urine Culture - Final, Complete NO GROWTH Assessment/Plan Assessment/Plan (1) Acute exacerbation of CHF (congestive heart failure) Status: Acute Assessment & Plan: 06/08- Provide supportive care as needed. Start Lasix 40mg IV. Provide O2 as needed via nasal cannula. 06/09- still stable on room air, recheck BNP 06/10- BNP improving, continue IV lasix today, given worsening kidney function and confusion, check digoxin level. Next dose due this afternoon, will hold if level elevated. Qualifiers: Qualified Codes: I50.33 - Acute on chronic diastolic (congestive) heart failure (2) Urinary tract infection Status: Acute Assessment & Plan: 06/08- Urine culture from 06/06 grew E. coli. It is possible that this is bacteriuria. Pt does not present with dysuria, frequency or incontinence. Currently choosing to wait on antibiotic administration. 06/09 received ceftriaxone yesterday, holding off on abx for today given limited options due to allergies and renal function and no clear indicator of true infection. If status worsens will start abx, likely will need to use meropenem. Discussed with daughter via telephone. 06/10- given worsened confusion, will treat the bacteria in urine, although suspect delirium may be simply related to hospitalization, cannot rule out UTI. Multiple allergies precluding use of appropriate antibiotics, will start meropenem and watch closely for cross reactivity from penicillin allergy. Qualifiers: (3) Acute kidney injury superimposed on chronic kidney disease Status: Acute Assessment & Plan: 06/08- Possible acute on chronic kidney disease. Possible worsening of chronic kidney disease. Continue Lasix 40mg IV. No fluids will be started. Continue to monitor BUN and Cr. Bun 28, Cr 3.37 06/09 - creatinine increased to 3.47, discussed with daughter via telephone who states patient has one kidney and stage IV kidney disease and they will not pursue dialysis. Electrolytes stable, monitor. 06/10- creatinine stable/decreased slightly, no hyperkalemia. (4) Diabetes mellitus Status: Chronic Assessment & Plan: 06/08- Insulin Aspart based on Insulin sliding scale A Qualifiers: (5) Hypertension Status: Chronic Assessment & Plan: 06/08- Continue home medication dosage of Amlodipine, Metoprolol, Isosorbide Mononitrate, and Digoxin. 06/10- worsening hypertension, continue amlodipine, increase metoprolol to 200 mg BID. Qualifiers: Qualified Codes: I10 - Essential (primary) hypertension (6) Chronic anemia Status: Chronic Assessment & Plan: 06/08- Possibly anemia of chronic disease. Order Iron studies. History of FOBT positive in May 2019. Continue to monitor Hemoglobin levels. 06/09 pending 06/10- iron, TIBC nml, ferritin elevated, suspect anemia of chronic disease as noted. Hemoglobin stable. (7) Hyperlipemia Status: Chronic Assessment & Plan: 06/08- Continue home medication dosage of Atorvastatin. Qualifiers: Qualified Codes: E78.5 - Hyperlipidemia, unspecified (8) Dementia Status: Chronic Assessment & Plan: Talked to daughter Concha today (06/09), patient lives with with 24 hour care, and her current mental status is baseline. (9) Goals of care, counseling/discussion Status: Acute Assessment & Plan: Talked to daughter Concha today (06/09) who is DPOA, states patient would want to be DNR, code status updated. (10) Wheezing Status: Acute Assessment & Plan: RT MAT protocol (11) DVT prophylaxis Status: Acute Assessment & Plan: 06/08- Start sequential compression devices. Consider starting pharmacological therapy, but need to monitor Hemoglobin levels. 06/09- earlier this year had anemia requiring transfusion and cardiac anticoagulation stopped at that time, will continue SCDs. Clinical Quality Measures DVT/VTE Risk/Contraindication: Risk Factor Score Per Nursin RFS Level Per Nursing on Admit: 3=High KARLA HALE MD Jun 10, 2020 07:56
[2020-06-10] MEDS: ISOSORBIDE MONONITRATE 60 MG (IMDUR) TAB PO SCH ×2 (09:00→19:55)
[2020-06-10] MEDS: CLOPIDOGREL 75 MG (PLAVIX) TABLET PO SCH (09:00)
[2020-06-10] MEDS: MAGNESIUM OXIDE (MAG-OX)400 MG TAB PO SCH ×2 (09:00→19:54)
[2020-06-10] MEDS: KCL 20 MEQ TAB (K-DUR) PO SCH ×2 (09:00→19:55)
[2020-06-10] MEDS: PANTOPRAZOLE 20 MG TABLET (PROTONIX) PO SCH ×2 (09:00→19:55)
[2020-06-10] MEDS: diphenhydrAMINE 25 MG TAB (BENADRYL) PO PRN ×2 (09:00→19:55)
[2020-06-10] MEDS: DIGOXIN 0.125 MG (LANOXIN) TAB PO SCH (09:07)
[2020-06-10] MEDS: FUROSEMIDE 40 MG/4 ML INJ (LASIX) IVP SCH (09:07)
[2020-06-10] MEDS: meTOprolol TARTRATE 50 MG (LOPRESSOR) TAB PO SCH ×2 (09:07→19:54)
[2020-06-10] MEDS: MEROPENEM 500 MG in WATER (STERILE) FOR INJECTION 10 ML IV SCH ×2 (09:42→19:56)
[2020-06-10] MEDS: amLODIPine 10 MG (NORVASC) TAB PO SCH (19:55)
[2020-06-11 04:55] VITALS: BP 170/74
[2020-06-11 06:19] LABS: BASOPHILS # (AUTO) 0.1 10^3/uL (0.0-0.1); BASOPHILS % (AUTO) 1 % (0-10); EOSINOPHILS # (AUTO) 0.6 10^3/uL (0.0-0.3); EOSINOPHILS % (AUTO) 9 % (0-10); HEMATOCRIT 31 % (35-52); LYMPHOCYTES # (AUTO) 1.3 10^3/uL (1.0-4.0); LYMPHOCYTES % (AUTO) 17 % (12-44); MEAN CORPUSCULAR HEMOGLOBIN 29 pg (25-34); MEAN CORPUSCULAR HGB CONC 32 g/dL (32-36); MEAN CORPUSCULAR VOLUME 91 fL (80-99); MEAN PLATELET VOLUME 11.7 fL (9.0-12.2); MONOCYTES # (AUTO) 0.8 10^3/uL (0.0-1.0); MONOCYTES % (AUTO) 10 % (0-12); NEUTROPHILS # (AUTO) 4.7 10^3/uL (1.8-7.8); NEUTROPHILS % (AUTO) 62 % (42-75); PLATELET COUNT 242 10^3/uL (130-400); WHITE BLOOD COUNT 7.5 10^3/uL (4.3-11.0)
[2020-06-11] MEDS: inSUlin ASPART (NovoLOG) 1 UNIT/0.01 ML (CHARGE PER UNIT) SC SCH ×4 (06:20→20:43)
[2020-06-11 06:32] LABS: POTASSIUM 4.8 MMOL/L (3.6-5.0)
[2020-06-11 06:33] LABS: CALCIUM 9.2 MG/DL (8.5-10.1)
[2020-06-11 06:37] LABS: CREATININE SERUM 3.38 MG/DL (0.60-1.30)
[2020-06-11 08:14] VITALS: BP 183/71
[2020-06-11] MEDS: PANTOPRAZOLE 20 MG TABLET (PROTONIX) PO SCH ×2 (08:38→20:14)
[2020-06-11] MEDS: CLOPIDOGREL 75 MG (PLAVIX) TABLET PO SCH (08:38)
[2020-06-11] MEDS: KCL 20 MEQ TAB (K-DUR) PO SCH ×2 (08:38→20:14)
[2020-06-11] MEDS: MAGNESIUM OXIDE (MAG-OX)400 MG TAB PO SCH ×2 (08:38→20:14)
[2020-06-11] MEDS: ISOSORBIDE MONONITRATE 60 MG (IMDUR) TAB PO SCH ×2 (08:38→20:14)
[2020-06-11] MEDS: MEROPENEM 500 MG in WATER (STERILE) FOR INJECTION 10 ML IV SCH ×2 (08:38→20:14)
[2020-06-11] MEDS: meTOprolol TARTRATE 50 MG (LOPRESSOR) TAB PO SCH ×2 (08:38→20:15)
[2020-06-11] MEDS: FUROSEMIDE 40 MG/4 ML INJ (LASIX) IVP SCH (08:39)
[2020-06-11 11:39] VITALS: BP 177/72
--- NOTE | 2020-06-11 12:18 | Progress Note - Hospitalist ---
[facility] [employer] STUDENT 06/11/20 1218: Subjective HPI/CC On Admission Date Seen by Provider: Jun 11, 2020 Time Seen by Provider: 09:00 SOB Subjective/Events-last exam Hgb was at 10 protein and few bacteria in urine BP was elevated at 170/74 no complaints of pain or difficulty urinating is hard at hearing and hears better out of her right ear ambulating to and from the bathroom was clear minded when I spoke with her but after returning with Dr. Zee she was very confused and didn't know where she was at no complaints of difficulty breathing Review of Systems General: Fatigue Neurological: Confusion Focused Exam Time of Focused Exam: 09:15 Respiratory: Chest Non Tender, Lungs Clear, Normal Breath Sounds, No Accessory Muscle Use, No Respiratory Distress Cardiovascular: Regular Rate, Rhythm, No Edema, No Gallop, No JVD, No Murmur, Normal Peripheral Pulses Skin: normal color Objective Exam Vital Signs Vital Signs Date Time Temp Pulse Resp B/P (MAP) Pulse Ox O2 Delivery O2 Flow Rate FiO2 06/11/20 11:39 36.2 66 20 177/72 (107) 96 Room Air 06/08/20 12:40 3.00 Capillary Refill : Less Than 3 Seconds General Appearance: No Apparent Distress, WD/WN HEENT: PERRL/EOMI, TMs Normal, Normal ENT Inspection, Pharynx Normal Neck: Full Range of Motion Respiratory: Chest Non Tender, Lungs Clear, Normal Breath Sounds, No Accessory Muscle Use, No Respiratory Distress Cardiovascular: Regular Rate, Rhythm, No Edema, No Gallop, No JVD, No Murmur, Normal Peripheral Pulses Neurologic/Psychiatric: Alert, Oriented x3, No Motor/Sensory Deficits, Normal 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 Assessment/Plan Assessment and Plan Assess & Plan/Chief Complaint Assessment: confusion Plan: look for a different antibiotic that she is not allergic too Time spent with patient (mins): 15 Diagnosis/Problems Diagnosis/Problems (1) Confusion (2) Shortness of breath Status: Acute Clinical Quality Measures DVT/VTE Risk/Contraindication: Risk Factor Score Per Nursin RFS Level Per Nursing on Admit: 3=High Supervisory-Addendum Brief Verification & Attestation Participated in pt care: history, physical Personally performed: exam, history Care discussed with: Medical Student Procedures: n/a ZEEYARITZA DO 06/12/20 0539: Subjective Subjective/Events-last exam Elevate BP noted Hgb 10 Creatinine 3.0 Dementia is noted Frequent UTIs will require antibiotics of Fosfomycin due to allergies and maintain on Meropenem Will need hospice at discharge Review of Systems General: Fatigue Neurological: Weakness Objective Exam General Appearance: No Apparent Distress, WD/WN, Chronically ill Respiratory: Lungs Clear Cardiovascular: Regular Rate, Rhythm Neurologic/Psychiatric: Alert, Disoriented Assessment/Plan Assessment and Plan Assess & Plan/Chief Complaint (1) Acute exacerbation of CHF (congestive heart failure) Status: Acute Assessment & Plan: 06/08- Provide supportive care as needed. Start Lasix 40mg IV. Provide O2 as needed via nasal cannula. 06/09- still stable on room air, recheck BNP 06/10- BNP improving, continue IV lasix today, given worsening kidney function and confusion, check digoxin level. Next dose due this afternoon, will hold if level elevated. Qualifiers: Qualified Codes: I50.33 - Acute on chronic diastolic (congestive) heart failure (2) Urinary tract infection Status: Acute Assessment & Plan: 06/08- Urine culture from 06/06 grew E. coli. It is possible that this is bacteriuria. Pt does not present with dysuria, frequency or incontinence. Currently choosing to wait on antibiotic administration. 06/09 received ceftriaxone yesterday, holding off on abx for today given limited options due to allergies and renal function and no clear indicator of true infection. If status worsens will start abx, likely will need to use meropenem. Discussed with daughter via telephone. 06/10- given worsened confusion, will treat the bacteria in urine, although suspect delirium may be simply related to hospitalization, cannot rule out UTI. Multiple allergies precluding use of appropriate antibiotics, will start meropenem and watch closely for cross reactivity from penicillin allergy. Qualifiers: (3) Acute kidney injury superimposed on chronic kidney disease Status: Acute Assessment & Plan: 06/08- Possible acute on chronic kidney disease. Possible worsening of chronic kidney disease. Continue Lasix 40mg IV. No fluids will be started. Continue to monitor BUN and Cr. Bun 28, Cr 3.37 06/09 - creatinine increased to 3.47, discussed with daughter via telephone who states patient has one kidney and stage IV kidney disease and they will not pursue dialysis. Electrolytes stable, monitor. 06/10- creatinine stable/decreased slightly, no hyperkalemia. (4) Diabetes mellitus Status: Chronic Assessment & Plan: 06/08- Insulin Aspart based on Insulin sliding scale A Qualifiers: (5) Hypertension Status: Chronic Assessment & Plan: 06/08- Continue home medication dosage of Amlodipine, Metoprolol, Isosorbide Mononitrate, and Digoxin. 06/10- worsening hypertension, continue amlodipine, increase metoprolol to 200 mg BID. Qualifiers: Qualified Codes: I10 - Essential (primary) hypertension (6) Chronic anemia Status: Chronic Assessment & Plan: 06/08- Possibly anemia of chronic disease. Order Iron studies. History of FOBT positive in May 2019. Continue to monitor Hemoglobin levels. 06/09 pending 06/10- iron, TIBC nml, ferritin elevated, suspect anemia of chronic disease as noted. Hemoglobin stable. (7) Hyperlipemia Status: Chronic Assessment & Plan: 06/08- Continue home medication dosage of Atorvastatin. Qualifiers: Qualified Codes: E78.5 - Hyperlipidemia, unspecified (8) Dementia Status: Chronic Assessment & Plan: Talked to daughter Concha today (06/09), patient lives with with 24 hour care, and her current mental status is baseline. (9) Goals of care, counseling/discussion Status: Acute Assessment & Plan: Talked to daughter Concha today (06/09) who is DPOA, states patient would want to be DNR, code status updated. (10) Wheezing Status: Acute Assessment & Plan: RT MAT protocol (11) DVT prophylaxis Status: Acute Assessment & Plan: 06/08- Start sequential compression devices. Consider starting pharmacological therapy, but need to monitor Hemoglobin levels. 06/09- earlier this year had anemia requiring transfusion and cardiac anticoagulation stopped at that time, will continue SCDs. Supervisory-Addendum Brief Verification & Attestation Participated in pt care: history, MDM, physical Personally performed: exam, history, MDM, supervision of care Care discussed with: Medical Student Procedures: n/a Results interpretation: Verified all documentation Verification and Attestation of Medical Student E/M Service A medical student performed and documented this service in my presence. I reviewed and verified all information documented by the medical student and made modifications to such information, when appropriate. I personally performed the physical exam and medical decision making. Yaritza Zee, Jun 12, 2020,05:37 [facility] [employer] ST[employer]ENT Jun 11, 2020 12:18 YARITZA ZEE DO Jun 12, 2020 05:39
--- NOTE | 2020-06-11 15:22 | NUR ---
RD ASSESSMENT PMHx: HF; HTN; CKD; afib; DM; PT INTERACTION: Pt was awake and pleasant during nutrition assessment. Note pt is a poor historian and is very hard of hearing, per chart review. Pt states current appetite is good. Note avg PO intake 36% x2d, per chart review. Pt states following a "normal" diet at home, and has no issues with chewing/swallowing food. Pt states no recent issues with n/v/c/d. Note last BM was 06/10, and pt not currently on bowel regimen per chart review. Pt states no recent wt changes. Note recent 15# wt gain x9mon, per chart review. Pt states current DM management is good. Note unable to determine recent HbA1c, per chart review. ABNORMAL NUTRITION-RELATED LAB VALUES LOW: HIGH: Cl 111; BUN 31; cr 3.38; Est. kcal needs: 7362-7160 kcal | 20-25 kcal/kg Est. Pro needs: 63-79 g Pro | 0.8-1.0 g Pro/kg PES STATEMENT: Inadequate oral intake (NI-2.1) related to loss of appetite, as evidenced by pt interview, and avg PO intake 36% x2d. INTERVENTION: Continue with current diet order of CHO 60g/m 3snack diet. Add Glucerna (vary) to meals TID, for increased kcal intake. Provides 220 kcal and 10 g Pro per serving. Did not offer diet education on DM management at this time. May attempt to offer prior to discharge. Will continue to follow and reassess as pt needs, intake, and status change. Alonso BORGES, MS RD LD [phone] cell
[2020-06-11 16:40] VITALS: BP 163/80
--- NOTE | 2020-06-11 16:54 | NUR ---
Contacted pt's daughter Concha Barrow about continued care plans. Concha states that she lives 1 block away from her parents and is her primary caregiver staying in their home 6-8 hours a day. Pt's managers her care at night. Concha states that her mom has End-Stage Dementia but is not quite ready for Hospice. Pt is also very hard of hearing and doesn't have her hearing aid with her. which makes communication difficult. Daughter assists pt with most activities of daily living but pt is able to ambulate on her own at home. Will follow
[2020-06-11] MEDS: diphenhydrAMINE 25 MG TAB (BENADRYL) PO PRN (20:14)
[2020-06-11] MEDS: amLODIPine 10 MG (NORVASC) TAB PO SCH (20:15)
[2020-06-11 21:45] VITALS: BP 204/89
[2020-06-11] MEDS: hydrALAZINE (APESOLINE) 20 MG/ML VIAL IV PRN (21:45)
[2020-06-11 23:10] VITALS: BP 190/82
[2020-06-12 00:14] VITALS: BP 188/80
[2020-06-12 03:14] VITALS: BP 172/74
[2020-06-12] MEDS: inSUlin ASPART (NovoLOG) 1 UNIT/0.01 ML (CHARGE PER UNIT) SC SCH ×2 (05:13→11:35)
[2020-06-12 05:45] LABS: BASOPHILS % (AUTO) 1 % (0-10); EOSINOPHILS # (AUTO) 0.6 10^3/uL (0.0-0.3); EOSINOPHILS % (AUTO) 7 % (0-10); HEMATOCRIT 33 % (35-52); HEMOGLOBIN 10.6 g/dL (11.5-16.0); LYMPHOCYTES # (AUTO) 1.2 10^3/uL (1.0-4.0); LYMPHOCYTES % (AUTO) 14 % (12-44); MEAN CORPUSCULAR HEMOGLOBIN 30 pg (25-34); MEAN CORPUSCULAR HGB CONC 32 g/dL (32-36); MEAN CORPUSCULAR VOLUME 93 fL (80-99); MEAN PLATELET VOLUME 11.2 fL (9.0-12.2); MONOCYTES # (AUTO) 0.8 10^3/uL (0.0-1.0); MONOCYTES % (AUTO) 9 % (0-12); NEUTROPHILS # (AUTO) 5.8 10^3/uL (1.8-7.8); NEUTROPHILS % (AUTO) 69 % (42-75); PLATELET COUNT 253 10^3/uL (130-400); WHITE BLOOD COUNT 8.4 10^3/uL (4.3-11.0)
[2020-06-12 05:58] LABS: ALBUMIN 3.3 GM/DL (3.2-4.5); POTASSIUM 4.9 MMOL/L (3.6-5.0)
[2020-06-12 05:59] LABS: CALCIUM 9.1 MG/DL (8.5-10.1)
[2020-06-12 06:00] LABS: TOTAL PROTEIN 6.6 GM/DL (6.4-8.2)
[2020-06-12 06:02] LABS: BILIRUBIN,TOTAL 0.3 MG/DL (0.1-1.0)
[2020-06-12 06:04] LABS: CREATININE SERUM 3.77 MG/DL (0.60-1.30)
--- NOTE | 2020-06-12 07:48 | NUR ---
PATIENT'S DAUGHTER BEBETO CALLED. SHE WANTS THE DOCTOR TO CALL HER WITH UPDATES. SHE STATED SHE LEFT 2 MESSAGES FOR THE DOCTOR YESTERDAY AND DID NOT GET A CALL BACK. SHE WILL CALL AGAIN AT 1000. IF SHE DOESN'T HEAR FROM THE DOCTOR TODAY SHE WILL CALL HOSPITAL MANAGEMENT. BEBETO'S PHONE NUMBER: [phone]
--- NOTE | 2020-06-12 07:59 | NUR ---
DR KOCH RETURNED MY CALL REGARDING THE DAUGHTER'S MESSAGE. DR KOCH TOLD THE NURSE YESTERDAY THAT SHE WOULD CALL THE FAMILY TODAY. SHE WILL CALL HER IN A FEW MINUTES.
[2020-06-12 08:00] VITALS: BP 184/62
[2020-06-12] MEDS ORDERED: NF-FOSFPKT PO (08:32)
[2020-06-12] MEDS: hydrALAZINE (APESOLINE) 20 MG/ML VIAL IV PRN (08:57)
[2020-06-12] MEDS: MEROPENEM 500 MG in WATER (STERILE) FOR INJECTION 10 ML IV SCH (08:58)
[2020-06-12] MEDS ORDERED: FOSFOMYCIN 3 GM PACK (MONUROL) PO SCH (09:00)
[2020-06-12] MEDS: meTOprolol TARTRATE 50 MG (LOPRESSOR) TAB PO SCH (09:01)
[2020-06-12] MEDS: diphenhydrAMINE 25 MG TAB (BENADRYL) PO PRN (09:01)
[2020-06-12] MEDS: MAGNESIUM OXIDE (MAG-OX)400 MG TAB PO SCH (09:01)
[2020-06-12] MEDS: KCL 20 MEQ TAB (K-DUR) PO SCH (09:02)
[2020-06-12] MEDS: ISOSORBIDE MONONITRATE 60 MG (IMDUR) TAB PO SCH (09:02)
[2020-06-12] MEDS: CLOPIDOGREL 75 MG (PLAVIX) TABLET PO SCH (09:02)
[2020-06-12] MEDS: PANTOPRAZOLE 20 MG TABLET (PROTONIX) PO SCH (09:02)
[2020-06-12] MEDS ORDERED: METO50TA15 PO (10:16)
--- NOTE | 2020-06-12 10:17 | D/C HH Face to Face Order ---
D/C HH Face to Face Orders Reconcile Patient Problems Problems Reviewed?: Yes Instructions for Patient Home Health Patient Instructions/FollowUp: PCP 1 week to discuss hospice Physician to follow Patient: [facility] Discharge Diet for Home: No Restrictions Patient Problems: Renal failure UTI Patient Data-Allergies,Ht & Wt Patient Allergies: Coded Allergies: SYLVIE Inhibitors (Verified Allergy, Unknown, 09/24/18) Penicillins (Unverified Allergy, Unknown, reacted to Rocephin 11/30/18 itching, had tolerated Ancef hx, 12/01/18) Sulfa (Sulfonamide Antibiotics) (Verified Allergy, Unknown, 09/24/18) amlodipine (Verified Allergy, Unknown, 09/24/18) ciprofloxacin (Verified Allergy, Unknown, 09/24/18) diltiazem (Verified Allergy, Unknown, 09/24/18) levofloxacin (Verified Allergy, Unknown, 09/24/18) loratadine (Verified Allergy, Unknown, 09/24/18) pseudoephedrine (Verified Allergy, Unknown, 09/24/18) simvastatin (Verified Allergy, Unknown, 09/24/18) ceftriaxone (Unverified Adverse Reaction, Mild, Itching, 12/01/18) Incident post one dose Rocephin IV with pt scratching hands/arms. Medicated Benadryl 25 mg IV and SoluMedrol 125 mg IV. had discussed allergies prior with dgt and it was thought she tolerated Rocephin in past. Height (Feet): 5 Height (Inches): 3.00 Weight (Pounds): 162 Weight (Ounces): 14.8 Home Health Need/Face to Face Date of Face to Face: Jun 12, 2020 Clinical Findings: Generalized weakness and fatigue, Instability, Muscle weakness, Shortness of breath, Unsteady gait I have seen Pt [id number]: Yes Discharged To: Home Diagnosis/Conditions: Renal failure UTI Patient is Homebound due to: CognItive deficits, Paul fall risk due to instabilty, Muscle weakness Homebound Status Due to the above stated illness, injury or surgical procedure (medical condition or diagnosis) and associated clinical findings, the patient is homebound because of his/her inability to leave home except with aid of a supportive device and/or person AND leaving the home requires a considerable and taxing effort or is medically contraindicated. Pt req the following assistanc: [facility] Nursing Orders Home Health Services Order: Nursing Services, Farm Crew Member-Evaluate & Treat, Physical Therapy-Evaluate & Treat Home Health Infusion Therapy Line Start Date: Jun 08, 2020 Certify Stmt I certify that this patient is under my care and that I, a nurse practitioner or a physician; a orthodontist assistant working with me, had a face to face encounter that - meets the physician face to face encounter requirements with this patient as dated. TERE KOCH DO Jun 12, 2020 10:17
--- NOTE | 2020-06-12 10:17 | Discharge Summary ---
Discharge Summary Hospital Course Was the Problem List Reviewed?: Yes Problems/Dx: (1) Confusion (2) Shortness of breath Status: Acute Hospital Course Date of Admission: Jun 08, 2020 at 13:25 Admission Diagnosis : Family Physician/Provider: Mariposa Curry Aprn Date of Discharge: 06/12/20 Discharge Diagnosis: UTI AMS Dementia CHF CRF Hospital Course: Hospital course: Pt had a lengthy hospital course, she was admitted for SOB found to have acute on-chronic CHF, she was placed on diuretics but with in-stage renal disease with GFR of 11 it was difficult to diurese but she improved, she was able to obtain good BP control with an addition of a beta-leonie dose frequency, she was deemed stable for discharge and I did update the daughter who was updated on hospice services that could be initiated as an outpatient. She was deemed stable for discharge and will have close follow-up with PCP. Labs and Pending Lab Test: Laboratory Tests 06/11/20 11:39: Glucometer 167H 06/11/20 16:04: Glucometer 141H 06/11/20 20:40: Glucometer 160H 06/12/20 05:05: Glucometer 129H 06/12/20 05:35: White Blood Count 8.4, Red Blood Count 3.59L, Hemoglobin 10.6L, Hematocrit 33L, Mean Corpuscular Volume 93, Mean Corpuscular Hemoglobin 30, Mean Corpuscular Hemoglobin Concent 32, Red Cell Distribution Width 13.9, Platelet Count 253, Mean Platelet Volume 11.2, Immature Granulocyte % (Auto) 1, Neutrophils (%) (Auto) 69, Lymphocytes (%) (Auto) 14, Monocytes (%) (Auto) 9, Eosinophils (%) (Auto) 7, Basophils (%) (Auto) 1, Neutrophils # (Auto) 5.8, Lymphocytes # (Auto) 1.2, Monocytes # (Auto) 0.8, Eosinophils # (Auto) 0.6H, Basophils # (Auto) 0.0, Immature Granulocyte # (Auto) 0.1, Sodium Level 139, Potassium Level 4.9, Chloride Level 109H, Carbon Dioxide Level 20L, Anion Gap 10, Blood Urea Nitrogen 35H, Creatinine 3.77H, Estimat Glomerular Filtration Rate 11, BUN/Creatinine Ratio 9, Glucose Level 135H, Calcium Level 9.1, Corrected Calcium 9.7, Total Bilirubin 0.3, Aspartate Amino Transf (AST/SGOT) 9, Alanine Aminotransferase (ALT/SGPT) 6, Alkaline Phosphatase 59, Total Protein 6.6, Albumin 3.3 Microbiology 06/08/20 Urine Culture - Final, Complete NO GROWTH Home Meds Active Metoprolol Tartrate 50 Mg Tablet 200 Mg PO BID Monurol (Fosfomycin Tromethamine) 3 Gm Pack 3 Gm PO Q72H 1 Days X 1 DOSE DUE ON 06/15/2020 Reported Nitrofurantoin Bosque-Mcr 100 mg (Nitrofurantoin Monohyd/M-Cryst) 100 Mg Capsule 1 Ea PO BID FILLED 06-06-2020 #20/10DS Januvia (Sitagliptin Phosphate) 100 Mg Tablet 100 Mg PO DAILY Clopidogrel (Clopidogrel Bisulfate) 75 Mg Tablet 75 Mg PO DAILY Amlodipine Besylate 10 Mg Tablet 10 Mg PO HS Digitek (Digoxin) 125 Mcg Tablet 125 Mcg PO Q48H Furosemide 20 Mg Tablet 20 Mg PO BID Potassium Chloride 20 Meq Tablet.er 20 Meq PO DAILY Metoprolol Tartrate 100 Mg Tablet 100 Mg PO BID Tylenol Extra Strength (Acetaminophen) 500 Mg Tablet 500-1,000 Mg PO Q4H PRN Trimethoprim 100 Mg Tablet 100 Mg PO HS Imodium A-D (Loperamide HCl) 2 Mg Tablet 2 Mg PO UD PRN Magnesium Oxide 400 Mg Tablet 400 Mg PO BID Calcium 600 + Vit D 400 Tablet (Calcium Carbonate/Vitamin D3) 1 Each Tablet 1 Tab PO HS Vitamin C (Ascorbic Acid) 250 Mg Tab 250 Mg PO DAILY Atorvastatin Calcium 10 Mg Tablet 10 Mg PO HS Omeprazole 20 Mg Capsule.dr 20 Mg PO BID Isosorbide Mononitrate ER (Isosorbide Mononitrate) 60 Mg Tab 60 Mg PO BID Assessment/Pt Instructions PCP 1 week to discuss hospice Discharge Planning: <30 minutes discharge planning Discharge Physical Examination Vital Signs Vital Signs Date Time Temp Pulse Resp B/P (MAP) Pulse Ox O2 Delivery O2 Flow Rate FiO2 06/12/20 08:00 Room Air 06/12/20 03:14 36.9 64 18 172/74 (106) 96 06/08/20 12:40 3.00 General Appearance: No Apparent Distress, WD/WN, Chronically ill Respiratory: Chest Non Tender, Lungs Clear, Normal Breath Sounds, No Accessory Muscle Use, No Respiratory Distress Cardiovascular: Regular Rate, Rhythm, No Edema, No Gallop, No JVD, No Murmur, Normal Peripheral Pulses Neurologic/Psychiatric: Alert, Depressed Affect, Disoriented Allergies: Coded Allergies: SYLVIE Inhibitors (Verified Allergy, Unknown, 09/24/18) Penicillins (Unverified Allergy, Unknown, reacted to Rocephin 11/30/18 itching, had tolerated Ancef hx, 12/01/18) Sulfa (Sulfonamide Antibiotics) (Verified Allergy, Unknown, 09/24/18) amlodipine (Verified Allergy, Unknown, 09/24/18) ciprofloxacin (Verified Allergy, Unknown, 09/24/18) diltiazem (Verified Allergy, Unknown, 09/24/18) levofloxacin (Verified Allergy, Unknown, 09/24/18) loratadine (Verified Allergy, Unknown, 09/24/18) pseudoephedrine (Verified Allergy, Unknown, 09/24/18) simvastatin (Verified Allergy, Unknown, 09/24/18) ceftriaxone (Unverified Adverse Reaction, Mild, Itching, 12/01/18) Incident post one dose Rocephin IV with pt scratching hands/arms. Medicated Benadryl 25 mg IV and SoluMedrol [address] had discussed allergies prior with dgt and it was thought she tolerated Rocephin in past. Discharge Summary Date of Admission Jun 08, 2020 at 13:25 Date of Discharge Discharge Date: Jun 12, 2020 Discharge Diagnosis (1) Acute exacerbation of CHF (congestive heart failure) Status: Acute Assessment & Plan: 06/08- Provide supportive care as needed. Start Lasix 40mg IV. Provide O2 as needed via nasal cannula. 06/09- still stable on room air, recheck BNP 06/10- BNP improving, continue IV lasix today, given worsening kidney function and confusion, check digoxin level. Next dose due this afternoon, will hold if level elevated. Qualifiers: Qualified Codes: I50.33 - Acute on chronic diastolic (congestive) heart failure (2) Urinary tract infection Status: Acute Assessment & Plan: 06/08- Urine culture from 06/06 grew E. coli. It is possible that this is bacteriuria. Pt does not present with dysuria, frequency or incontinence. Currently choosing to wait on antibiotic administration. 06/09 received ceftriaxone yesterday, holding off on abx for today given limited options due to allergies and renal function and no clear indicator of true infection. If status worsens will start abx, likely will need to use meropenem. Discussed with daughter via telephone. 06/10- given worsened confusion, will treat the bacteria in urine, although suspect delirium may be simply related to hospitalization, cannot rule out UTI. Multiple allergies precluding use of appropriate antibiotics, will start meropenem and watch closely for cross reactivity from penicillin allergy. Qualifiers: (3) Acute kidney injury superimposed on chronic kidney disease Status: Acute Assessment & Plan: 06/08- Possible acute on chronic kidney disease. Possible worsening of chronic kidney disease. Continue Lasix 40mg IV. No fluids will be started. Continue to monitor BUN and Cr. Bun 28, Cr 3.37 06/09 - creatinine increased to 3.47, discussed with daughter via telephone who states patient has one kidney and stage IV kidney disease and they will not pursue dialysis. Electrolytes stable, monitor. 06/10- creatinine stable/decreased slightly, no hyperkalemia. (4) Diabetes mellitus Status: Chronic Assessment & Plan: 06/08- Insulin Aspart based on Insulin sliding scale A Qualifiers: (5) Hypertension Status: Chronic Assessment & Plan: 06/08- Continue home medication dosage of Amlodipine, Metoprolol, Isosorbide Mononitrate, and Digoxin. 06/10- worsening hypertension, continue amlodipine, increase metoprolol to 200 mg BID. Qualifiers: Qualified Codes: I10 - Essential (primary) hypertension (6) Chronic anemia Status: Chronic Assessment & Plan: 06/08- Possibly anemia of chronic disease. Order Iron studies. History of FOBT positive in May 2019. Continue to monitor Hemoglobin levels. 06/09 pending 06/10- iron, TIBC nml, ferritin elevated, suspect anemia of chronic disease as noted. Hemoglobin stable. (7) Hyperlipemia Status: Chronic Assessment & Plan: 06/08- Continue home medication dosage of Atorvastatin. Qualifiers: Qualified Codes: E78.5 - Hyperlipidemia, unspecified (8) Dementia Status: Chronic Assessment & Plan: Talked to tamara Kern today (06/09), patient lives with with 24 hour care, and her current mental status is baseline. (9) Goals of care, counseling/discussion Status: Acute Assessment & Plan: Talked to tamara Kern today (06/09) who is DPOA, states patient would want to be DNR, code status updated. (10) Wheezing Status: Acute Assessment & Plan: RT MAT protocol (11) DVT prophylaxis Status: Acute Assessment & Plan: 06/08- Start sequential compression devices. Consider starting pharmacological therapy, but need to monitor Hemoglobin levels. 06/09- earlier this year had anemia requiring transfusion and cardiac anticoagulation stopped at that time, will continue SCDs. (1) Confusion (2) Shortness of breath Status: Acute Clinical Quality Measures DVT/VTE Risk/Contraindication: Risk Factor Score Per Nursin RFS Level Per Nursing on Admit: 3=High TERE KOCH DO Jun 12, 2020 10:17
[2020-06-12] MEDS: FUROSEMIDE 40 MG/4 ML INJ (LASIX) IVP SCH (11:35)
[2020-06-12 12:00] VITALS: BP 170/66
--- NOTE | 2020-06-12 12:47 | NUR ---
Pt's daughter aware of pt's discharge as she has discussed continued care plans with Dr. Zee.Family will be here after 1:00pm to provide transportation home. Pt's daughter and MP Diggsmy was also advised that Dr. Zee ordered Home Health Services to provide Nursing,Physical and Occupational Therapies. Concha requested that Home Health be placed on hold as they plan to see pt's primary physician and further discuss services in a couple of days. Therefore no arrangement made on date of discharge for Home Health Services. a
[2020-06-12 14:06] VITALS: BP 170/66
--- NOTE | 2020-06-12 14:07 | Progress Note ---
[employer] [employer] STUDENT 06/12/20 1407: Progress Note Nancy Patricia presents on 06/08 to the ER with her family with complaints of SOB and confusion and a history of CHF and frequent UTIs.She has been tired and confused during her whole stay but has not complained of SOB the last couple of days. Today the plan is to discharge her with the expectation that Nancys daughter has made the arrangements to best take care of her mother. Today she complained of generalized pain with no lack appetite. She is urinating and having regular BMs. BP remained high throughout the course of her stay with it being 172/74 today. YARITZA KOCH DO 06/13/20 0536: Supervisory-Addendum Brief Verification & Attestation Participated in pt care: history, MDM, physical Personally performed: exam, history, MDM, supervision of care Care discussed with: Medical Student Procedures: n/a Results interpretation: Verified all documentation Verification and Attestation of Medical Student E/M Service A medical student performed and documented this service in my presence. I reviewed and verified all information documented by the medical student and made modifications to such information, when appropriate. I personally performed the physical exam and medical decision making. Yaritza Koch, Jun 13, 2020,05:36 [employer] [employer] STUDENT Jun 12, 2020 14:07 YARITZA KOCH DO Jun 13, 2020 05:36
== END 2020-06-12 13:53 | disposition home or self-care (01) | DRG 291 ==
LOC: EDUNIT# 09:53 → ER FS 09:54 → 4TH 13:25
PROVIDERS: ADMIT Family Medicine; ATTEND Internal Medicine
DX: I13.2 Hypertensive heart and chronic kidney disease with heart failure and with stage 5 chronic kidney disease, or end stage renal disease (principal); N18.6 End stage renal disease; I50.43 Acute on chronic combined systolic (congestive) and diastolic (congestive) heart failure; N17.9 Acute kidney failure, unspecified; N39.0 Urinary tract infection, site not specified; E11.22 Type 2 diabetes mellitus with diabetic chronic kidney disease; I08.1 Rheumatic disorders of both mitral and tricuspid valves; I48.91 Unspecified atrial fibrillation; I42.9 Cardiomyopathy, unspecified; Z66 Do not resuscitate; D64.9 Anemia, unspecified; F03.90 Unspecified dementia, unspecified severity, without behavioral disturbance, psychotic disturbance, mood disturbance, and anxiety; E78.5 Hyperlipidemia, unspecified; M19.91 Primary osteoarthritis, unspecified site; Z88.1 Allergy status to other antibiotic agents; Z88.0 Allergy status to penicillin; Z95.5 Presence of coronary angioplasty implant and graft; Z95.0 Presence of cardiac pacemaker; Z86.73 Personal history of transient ischemic attack (TIA), and cerebral infarction without residual deficits
CPT/HCPCS: 36415; 51702; 71045; 80048; 80053; 80162; 81000; 82728; 82962; 83540; 83880; 84484; 85025; 85610; 85730; 86141; 87088; 93005; 94640

== ENCOUNTER 2020-06-15 10:15 | Emergency (ER) | payer MEDICARE, OTHER ==
[~2020-06-15] VITALS: Ht 154.9 cm; Wt 70.0 kg
[~2020-06-15 10:15] MED LIST changes: +AMLO-251 PO; +DIGO-8 PO; +METO50TA15 PO; +NITR100C10 PO; +SITA100T12 PO
[2020-06-15 10:58] LABS: BASOPHILS # (AUTO) 0.1 10^3/uL (0.0-0.1); BASOPHILS % (AUTO) 1 % (0-10); EOSINOPHILS # (AUTO) 0.5 10^3/uL (0.0-0.3); EOSINOPHILS % (AUTO) 5 % (0-10); HEMATOCRIT 34 % (35-52); LYMPHOCYTES # (AUTO) 1.2 X 10^3 (1.0-4.0); LYMPHOCYTES % (AUTO) 12 % (12-44); MEAN CORPUSCULAR HEMOGLOBIN 29 PG (25-34); MEAN CORPUSCULAR HGB CONC 32 G/DL (32-36); MEAN CORPUSCULAR VOLUME 90 FL (80-99); MEAN PLATELET VOLUME 11.4 FL (7.4-10.4); MONOCYTES # (AUTO) 0.9 X 10^3 (0.0-1.0); MONOCYTES % (AUTO) 9 % (0-12); NEUTROPHILS # (AUTO) 7.4 X 10^3 (1.8-7.8); NEUTROPHILS % (AUTO) 73 % (42-75); PLATELET COUNT 242 10^3/uL (130-400); WHITE BLOOD COUNT 10.1 10^3/uL (4.3-11.0)
--- NOTE | 2020-06-15 11:13 | Diagnostic Imaging Report ---
EXAM: Shortness of breath COMPARISON: 06/09 FINDINGS: Pulmonary edema and vascular congestion have improved from the prior. There is a small left pleural effusion not obviously changed. No pneumothorax. IMPRESSION: Partial clearing of the pulmonary opacities, likely resolving edema. Resolution of vascular congestion similar. Small left pleural effusion. Dictated by: Dictated on workstation # [id number]
--- NOTE | 2020-06-15 11:15 | NUR ---
Call to Dgt Concha to discuss, resting and improving SaO2's at rest. Activity intolerance is obvious with transferring car to WC to ER and to cart. Pending labs and CXR to be read by Dr Ralph when radiology read online. Pt condition further discussed with dgt that review of the discharge summary by Dr Zee and asked for clarifications. Pt's former Code Status on Living Will was DNI if she would not recover and be vegetative state. Dr. 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 Pt is now a DNR status. Dgt states, "We saw [facility] yesterday and we have not placed her on Hospice as not there yet." Again reviewed a complete DNR status, GFR worsened in hospital, and here for SOA that pt is on Lasix 40 mg in am and 20 mg at noon. Pt took 40 mg already today. Will return call when all tests resulted and reviewed. Dgt awaits in parking lot.
[2020-06-15 11:31] LABS: ALANINE AMINOTRANSFERASE 11 U/L (0-55); ALKALINE PHOSPHATASE 58 U/L (40-136); BILIRUBIN,TOTAL 0.5 MG/DL (0.1-1.0); BUN/CREATININE RATIO 9; CALCIUM 9.7 MG/DL (8.5-10.1); CARBON DIOXIDE 20 MMOL/L (21-32); CHLORIDE 106 MMOL/L (98-107); CREATININE SERUM 3.96 MG/DL (0.60-1.30); GFR ESTIMATED 11; GLUCOSE 130 MG/DL (70-105); POTASSIUM 5.3 MMOL/L (3.6-5.0); SODIUM 138 MMOL/L (135-145)
[2020-06-15 11:32] LABS: ALBUMIN 3.9 GM/DL (3.2-4.5); TOTAL PROTEIN 7.4 GM/DL (6.4-8.2)
[2020-06-15] MEDS ORDERED: FUROSEMIDE 40 MG/4 ML INJ (LASIX) IVP ONE ×2 (11:45→12:45)
--- NOTE | 2020-06-15 12:15 | NUR ---
Dialed daughter's phone then patient calling out. Answered patient's needs and will re-dial dgt soon. Pt up on BSC with 2 assist to void 60 ml yellow urine post Lasix 80 mg IV at 1145. Pt also bearing down on BSC. Pt reports she is done voiding and pericare reveals smears of BM.
--- NOTE | 2020-06-15 12:30 | NUR ---
Phoned daughter Concha. Update given of trialing BIPAP and higher doses LAsix with minimal response. Will call Concha back as Dr Ralph adding add'l 40 mg Lasix to be given.
--- NOTE | 2020-06-15 12:45 | NUR ---
Patient requests up to BSC and no voiding noted. Pt had a small soft unformed stool. Pericare given.
--- NOTE | 2020-06-15 13:20 | NUR ---
Dr Ralph calling [facility] hospitalist aviation safety technician to discuss patient.
--- NOTE | 2020-06-15 13:35 | NUR ---
Call from Emilia ABRAMS from [facility]. Flask Cleaner was notified of the patient status thru Dr Zee [facility]. Discussion began upon discharge planning in hospital 06/12/20 for dismissal with Hospice recommenndation for terminal medical condition. Awaiting [facility] to respond with an ETA for arrival to [facility] ER.
--- NOTE | 2020-06-15 13:45 | NUR ---
Notified perEmilia, that [facility] will be arriving around 1400.
--- NOTE | 2020-06-15 14:00 | NUR ---
[facility] nurseGloria arriving and screened for entrance into ER for consultation being introduced.
--- NOTE | 2020-06-15 14:10 | NUR ---
Daughter was requested to come into family consultation room to get an update with Dr Ralph and an introduction will be made with [facility] nurse, Gloria.
--- NOTE | 2020-06-15 14:20 | NUR ---
Dr Ralph into conference room along with Gloria alfaro [facility] and this securities underwriter. begins with patient medical work up overview and then defining pt's diagnoses along with end stage of the treatment plans. Dr discussing thoroughly the events and course of the last few visits and the recent admission and that a consultation with Dr Zee made and her recommendation stands with Hospice/Palliative Care. Pt is not a candidate for dialysis in the End Stage Renal Disease per consulting with Dr Zee and therefore limits with diuretics response. Hospice is introduced to make comfort and ease on the patient and family.
--- NOTE | 2020-06-15 14:51 | ED General ---
General Chief Complaint: Respiratory Problems Stated Complaint: SOB Nursing Triage Note: Patient arrival per POV with dgt for worsening SOA with CHF Hx. Dgt states this appears to be like 06/02/20 and 06/08/20 ER visits. Pt was admitted 06/08-06/12. Pt has become a DNR but not on Hospice. Transferred to and broought to ED 5. Nursing Sepsis Screen: No Definite Risk History of Present Illness Date Seen by Provider: Jun 15, 2020 Time Seen by Provider: 10:20 Initial Comments Patient is a 84-year-old female with history of chronic congestive heart failure and recent hospital admission to [facility] for the same presents with shortness of breath with mild exertion. Patient is compliant with home medi cation therapies and was given 40 mg of Lasix prior to ED arrival. Patient is currently cared for family members at home. During most recent hospitalization the patient was discharged 3 days ago with instructions to follow up with PCP for home hospice. Patient has had advance directive updated turning include DO NOT RESUSCITATE order. Patient does have advanced dementia. Her daughter Rosmery is her beater boss power of staff attorney. No other acute symptoms or complaints. History is limited by dementia. Timing/Duration: 1-3 Hours Severity: Moderate Modifying Factors: improves with Movement Associated Systoms: Denies Symptoms Allergies and Home Medications Allergies Coded Allergies: SYLVIE Inhibitors (Verified Allergy, Unknown, 09/24/18) Penicillins (Unverified Allergy, Unknown, reacted to Rocephin 11/30/18 itching, had tolerated Ancef hx, 12/01/18) Sulfa (Sulfonamide Antibiotics) (Verified Allergy, Unknown, 09/24/18) amlodipine (Verified Allergy, Unknown, 09/24/18) ciprofloxacin (Verified Allergy, Unknown, 09/24/18) diltiazem (Verified Allergy, Unknown, 09/24/18) levofloxacin (Verified Allergy, Unknown, 09/24/18) loratadine (Verified Allergy, Unknown, 09/24/18) pseudoephedrine (Verified Allergy, Unknown, 09/24/18) simvastatin (Verified Allergy, Unknown, 09/24/18) ceftriaxone (Unverified Adverse Reaction, Mild, Itching, 12/01/18) Incident post one dose Rocephin IV with pt scratching hands/arms. Medicated Benadryl 25 mg IV and SoluMedrol 125 mg IV. had discussed allergies prior with dgt and it was thought she tolerated Rocephin in past. Home Medications Acetaminophen 500 Mg Tablet, 500-1,000 MG PO Q4H PRN for PAIN-MILD (1-4), (Reported) Amlodipine Besylate 10 Mg Tablet, 10 MG PO HS, (Reported) Ascorbic Acid 250 Mg Tab, 250 MG PO DAILY, (Reported) Atorvastatin Calcium 10 Mg Tablet, 10 MG PO HS, (Reported) Calcium Carbonate/Vitamin D3 1 Each Tablet, 1 TAB PO HS, (Reported) Clopidogrel Bisulfate 75 Mg Tablet, 75 MG PO DAILY, (Reported) Digoxin 125 Mcg Tablet, 125 MCG PO Q48H, (Reported) Fosfomycin Tromethamine 3 Gm Pack, 3 GM PO Q72H X 1 DOSE DUE ON 06/15/2020 Prescribed by: TERE KOCH on 06/12/20 0832 Furosemide 20 Mg Tablet, 20 MG PO BID, (Reported) Isosorbide Mononitrate 60 Mg Tab, 60 MG PO BID, (Reported) Loperamide HCl 2 Mg Tablet, 2 MG PO UD PRN for DIARRHEA, (Reported) Magnesium Oxide 400 Mg Tablet, 400 MG PO BID, (Reported) Metoprolol Tartrate 50 Mg Tablet, 200 MG PO BID Prescribed by: TERE KOCH on 06/12/20 1016 Omeprazole 20 Mg Capsule.dr, 20 MG PO BID, (Reported) Potassium Chloride 20 Meq Tablet.er, 20 MEQ PO DAILY, (Reported) Sitagliptin Phosphate 100 Mg Tablet, 100 MG PO DAILY, (Reported) Patient Home Medication List Home Medication List Reviewed: Yes Review of Systems Review of Systems Constitutional: see HPI EENTM: see HPI Respiratory: see HPI Cardiovascular: see HPI Gastrointestinal: see HPI Genitourinary: see HPI : No Musculoskeletal: see HPI Skin: see HPI Psychiatric/Neurological: See HPI Hematologic/Lymphatic: No Symptoms Reported Immunological/Allergic: see HPI Past Aidunex-Vdgwub-Hinukf Hx Patient Social History Alcohol Use: Denies Use Recreational Drug Use: No Smoking Status: Unknown if Ever Smoked 2nd Hand Smoke Exposure: No Recent Foreign Travel: No Contact w/Someone Who Travel: No Recent Infectious Disease Expo: No Recent Hopitalizations: No Physical Abuse: No Sexual Abuse: No Mistreated: No Fear: No Immunizations Up To Date Tetanus Booster (TDap): Unknown PED Vaccines UTD: No Date of Pneumonia Vaccine: Apr 15, 2018 Date of Influenza Vaccine: Apr 02, 2020 Seasonal Allergies Seasonal Allergies: No Past Medical History Surgeries: Yes Cardiac, Coronary Stent, Gallbladder, Pacemaker Respiratory: No Currently Using CPAP: No Currently Using BIPAP: No Cardiac: Yes (PACEMAKER, CHF) Atrial Fibrillation, Cardiomyopathy, Hypertension, Valvular Heart Disease Neurological: Yes Dementia, Stroke Female Reproductive Disorders: Denies Sexually Transmitted Disease: No HIV/AIDS: No Genitourinary: Yes (NEPHRECTOMY) Bladder Infection, Renal Failure, UTI-Chronic Gastrointestinal: No Musculoskeletal: Yes Arthritis Endocrine: Yes Diabetes, Non-Insulin dep HEENT: Yes Loss of Vision: Denies Hearing Impairment: Hard of Hearing, Hearing Aide Right Cancer: No Psychosocial: No Integumentary: No Blood Disorders: No Adverse Reaction/Blood Tranf: No Family Medical History Cardiovascular disease 19 FATHER 19 MOTHER Congenital heart disease 19 FATHER 19 MOTHER Diabetes mellitus 19 FATHER Kidney disease G8 BROTHER No Pertinent Family Hx Physical Exam Vital Signs Vital Signs - First Documented 06/15/20 06/15/20 10:20 11:50 Temp 36.6 Pulse 64 Resp 20 B/P (MAP) 176/64 (101) Pulse Ox 93 O2 Delivery Room Air FiO2 40 Capillary Refill : Less Than 3 Seconds Height, Weight, BMI Height: 5'3.00" Weight: 162lbs. 14.8oz. [id number]; 29.00 BMI Method:Stated General Appearance: Anxious Eyes: Bilateral Eye Normal Inspection, Bilateral Eye PERRL, Bilateral Eye EOMI HEENT: PERRL/EOMI, Normal ENT Inspection, Pharynx Normal Neck: Full Range of Motion, Normal Inspection, Supple Respiratory: Decreased Breath Sounds, Rales, Rhonci Cardiovascular: Irregularly Irregular Gastrointestinal: Non Tender, Soft Back: Normal Inspection, No CVA Tenderness Extremity: No Calf Tenderness, Swelling Neurologic/Psychiatric: Alert, Disoriented Skin: Normal Color Lymphatic: No Adenopathy Focused Exam Sepsis Stage: Ruled Out Progress/Results/Core Measures Suspected Sepsis Recent Fever Within 48 Hours: No Infection Criteria Present: None New/Unexplained Altered Menta: No Sepsis Screen: No Definite Risk SIRS Temperature: Pulse: 64 Respiratory Rate: 20 Laboratory Tests 06/15/20 10:40: White Blood Count 10.1 Blood Pressure 176 /64 Mean: 101 Laboratory Tests 06/15/20 10:40: Creatinine 3.96H, Platelet Count 242, Total Bilirubin 0.5 Results/Orders Lab Results Laboratory Tests Test 06/15/20 10:40 Range/Units White Blood Count 10.1 4.3-11.0 10^3/uL Red Blood Count 3.79 L 4.35-5.85 10^6/uL Hemoglobin 11.0 L 11.5-16.0 G/DL Hematocrit 34 L 35-52 % Mean Corpuscular Volume 90 80-99 FL Mean Corpuscular Hemoglobin 29 25-34 PG Mean Corpuscular Hemoglobin Concent 32 32-36 G/DL Red Cell Distribution Width 14.0 10.0-14.5 % Platelet Count 242 130-400 10^3/uL Mean Platelet Volume 11.4 H 7.4-10.4 FL Immature Granulocyte % (Auto) 1 % Neutrophils (%) (Auto) 73 42-75 % Lymphocytes (%) (Auto) 12 12-44 % Monocytes (%) (Auto) 9 0-12 % Eosinophils (%) (Auto) 5 0-10 % Basophils (%) (Auto) 1 0-10 % Neutrophils # (Auto) 7.4 1.8-7.8 X 10^3 Lymphocytes # (Auto) 1.2 1.0-4.0 X 10^3 Monocytes # (Auto) 0.9 0.0-1.0 X 10^3 Eosinophils # (Auto) 0.5 H 0.0-0.3 10^3/uL Basophils # (Auto) 0.1 0.0-0.1 10^3/uL Immature Granulocyte # (Auto) 0.1 0.0-0.1 10^3/uL Sodium Level 138 135-145 MMOL/L Potassium Level 5.3 H 3.6-5.0 MMOL/L Chloride Level 106 98-107 MMOL/L Carbon Dioxide Level 20 L 21-32 MMOL/L Anion Gap 12 5-14 MMOL/L Blood Urea Nitrogen 36 H 7-18 MG/DL Creatinine 3.96 H 0.60-1.30 MG/DL Estimat Glomerular Filtration Rate 11 BUN/Creatinine Ratio 9 Glucose Level 130 H 70-105 MG/DL Calcium Level 9.7 8.5-10.1 MG/DL Corrected Calcium 9.8 8.5-10.1 MG/DL Total Bilirubin 0.5 0.1-1.0 MG/DL Aspartate Amino Transf (AST/SGOT) 14 5-34 U/L Alanine Aminotransferase (ALT/SGPT) 11 0-55 U/L Alkaline Phosphatase 58 40-136 U/L Troponin I < 0.30 <0.30 NG/ML Pro-B-Type Natriuretic Peptide 95668.0 H <75.0 PG/ML Total Protein 7.4 6.4-8.2 GM/DL Albumin 3.9 3.2-4.5 GM/DL My Orders Orders - BOZENA DU DO Cbc With Automated Diff (06/15/20 10:37) Comprehensive Metabolic Panel (06/15/20 10:37) Troponin I Fs (06/15/20 10:37) Chest 1 View Ap/Pa Only (06/15/20 10:37) Probnp Fs (06/15/20 10:37) Ekg Tracing (06/15/20 10:37) Furosemide Injection (Lasix Injection) (06/15/20 11:45) Bipap (Bilevel) Set Up (06/15/20 11:39) Furosemide Injection (Lasix Injection) (06/15/20 12:45) Medications Given in ED Current Medications Medications Dose Ordered Sig/Fransisco Route Start Time Stop Time Status Last Admin Dose Admin Furosemide 40 mg ONCE ONCE IVP 06/15/20 12:45 06/15/20 12:46 DC 06/15/20 12:41 40 MG Furosemide 80 mg ONCE ONCE IVP 06/15/20 11:45 06/15/20 11:46 DC 06/15/20 11:45 80 MG Vital Signs/I&O 06/15/20 06/15/20 10:20 11:50 Temp 36.6 Pulse 64 Resp 20 B/P (MAP) 176/64 (101) Pulse Ox 93 96 O2 Delivery Room Air NIV Bilevel FiO2 40 Capillary Refill : Less Than 3 Seconds Blood Pressure Mean: 101 Departure Communication (Admissions) Patient with refractory acute on chronic diastolic congestive heart failure patient given 120 mg of IV Lasix with limited diuresis and clinical improvement. Vital signs remained stable at rest. Case reviewed with Dr. Koch who cared for the patient during most recent hospitalization. Short of dialysis, Dr. Koch does not feel any medical intervention is sufficient to improve the patient's clinical course. Patient is not a candidate for dialysis due to advanced dementia. Case reviewed with social economist and hospice worker consult. Hospice consult performed in the emergency department. Family members are agreeable to take patient home with home hospice care to be set up this afternoon. Pseudomonal Risk: No known risk Impression Primary Impression: Acute on chronic combined systolic (congestive) and diastolic (congestive) heart failure Additional Impressions: Acute kidney injury superimposed on chronic kidney disease Dementia Hyperkalemia Disposition: 62 DISC/XFER TO IRF Condition: Unchanged Departure-Patient Inst. Referrals: [facility] [place] Primary Care Physician JAIMEE PAGE APRN (Family) Primary Care Physician Patient Instructions: CHF Add. Discharge Instructions: Please initiate higher Lasix order as recommended by Nancy's border inspector. Follow all other instructions and orders provided by hospice care. All discharge instructions reviewed with patient and/or family. Voiced understanding. BOZENA DU DO Jun 15, 2020 14:51
--- NOTE | 2020-06-15 15:45 | NUR ---
Pt up to bedside commode to void with assistance. Pt voided 100 ml of urine, patient now has voided 410 ml post 120 mg IV Lasix and patient's 40 mg p.o. at home. Pt is having difficulty communicating with BIPAP mask on and would like it removed if possible.
--- NOTE | 2020-06-15 16:00 | NUR ---
BIPAP is now on stand-by mode. Pt is back to bed with HOB elevated. Monitor reveals paced rhythm. Pt is to be discharged at 1630 for home with plan to be an admit to [facility]osp[facility] Care with [facility] at 1700.
[2020-06-15 16:45] VITALS: BP 171/69
== END 2020-06-15 16:45 | disposition home or self-care (01) ==
LOC: EDUNIT# 10:15 → ER FS 10:17
DX: I13.0 Hypertensive heart and chronic kidney disease with heart failure and stage 1 through stage 4 chronic kidney disease, or unspecified chronic kidney disease (principal); I50.43 Acute on chronic combined systolic (congestive) and diastolic (congestive) heart failure; N17.9 Acute kidney failure, unspecified; N18.9 Chronic kidney disease, unspecified; E11.22 Type 2 diabetes mellitus with diabetic chronic kidney disease; F03.90 Unspecified dementia, unspecified severity, without behavioral disturbance, psychotic disturbance, mood disturbance, and anxiety; E87.5 Hyperkalemia; F41.9 Anxiety disorder, unspecified; I48.91 Unspecified atrial fibrillation; Z95.0 Presence of cardiac pacemaker; Z95.5 Presence of coronary angioplasty implant and graft; Z82.49 Family history of ischemic heart disease and other diseases of the circulatory system; Z83.3 Family history of diabetes mellitus; Z88.0 Allergy status to penicillin; Z88.1 Allergy status to other antibiotic agents; Z88.2 Allergy status to sulfonamides; Z88.8 Allergy status to other drugs, medicaments and biological substances
CPT/HCPCS: 36415; 71045; 80053; 83880; 84484; 85025; 93005; 94640; 96374; 96376